=== PATIENT | female | born 1950 | race African-American/Black ===

== ENCOUNTER 2017-07-18 08:20 | Inpatient (IN) | payer OTHER ==
[2017-07-18] MEDS ORDERED: DEXAMETHASONE SOD PHOSPHATE 20 MG/5 ML VIAL IVPB ONE (08:43)
--- NOTE | 2017-07-18 08:59 | PDOC ---
History of Present Illness - General History Source: Patient Exam Limitations: No Limitations - History of Present Illness Initial Comments: 07/18/17 13:03 The patient is a 66-year-old female, with a significant past medical history of hypertension, peripheral vascular disease, depression, and CVA who presents to the ED with tongue swelling that began at 7:15 AM. The pt states that she woke up this morning to brush her teeth and noted that her tongue was swollen. She reports feeling shortness of breath. She denies any recent changes in her diet or medications. This is the first time this has happened to the pt. Pt called EMS because the swelling was progressively worsening. Pt is on an PADMINI-I for years, she took her last dose last night. She denies any headache or weakness. She denies any fever, chills, nausea, vomiting, diarrhea, or abdominal pain. PCP: Dr. Kendell Mcghee Hx: She denies any tobacco use, alcohol use, or drug use. Allergies: blueberry, raspberry, strawberry, erythromycin base, and naproxen. <Yessenia Lopez - Last Filed: 07/18/17 13:03> <Lidia Germain - Last Filed: 07/19/17 18:40> - General Chief Complaint: Tongue Swelling Stated Complaint: SWOLLEN TONGUE Time Seen by Provider: 07/18/17 08:32 Past History <Yessenia Lopez - Last Filed: 07/18/17 13:03> - Past Medical History CVA: Yes COPD: No Diabetes: Yes HTN: Yes Psychiatric Problems: Yes (Depressive disorder) - Surgical History Cholecystectomy: Yes - Immunization History Immunization Up to Date: Yes - Suicide/Smoking/Psychosocial Hx Smoking History: Never smoked Have you smoked in the past 12 months: No Hx Alcohol Use: No Drug/Substance Use Hx: No Substance Use Type: None Hx Substance Use Treatment: No <Lidia Germain - Last Filed: 07/19/17 18:40> - Past Medical History Allergies/Adverse Reactions: Allergies Allergy/AdvReac Type Severity Reaction Status Date / Time lisinopril Allergy Severe Swelling Verified 07/18/17 12:50 blueberry Allergy Verified 07/18/17 08:22 erythromycin base Allergy Verified 07/18/17 08:22 naproxen Allergy Verified 07/18/17 08:22 raspberry Allergy Verified 07/18/17 08:22 strawberry Allergy Verified 07/18/17 08:22 Home Medications: Ambulatory Orders Amlodipine Besylate 10 mg PO DAILY 07/18/17 Ammonium Lactate Cream [Lac-Hydrin 12% Cream -] 1 applic TP DAILY 07/18/17 Aspirin/Dipyridamole [Aspirin-Dipyridam ER 25-200 mg] 1 each PO DAILY 07/18/17 Bacitracin - [Bacitracin Topical Ointment -] 1 applic TP DAILY 07/18/17 Budesonide/Formeterol Fumarate [SYMBICORT 160/4.5mcg -] 1 inh PO BID 07/18/17 Calcium Carbonate/Vitamin D3 [Oyster Shell Calcium-Vit D Tab] 1 each PO BID Exenatide [Byetta] 10 mcg SQ BID 07/18/17 Famotidine 20 mg PO DAILY 07/18/17 Fluoxetine HCl 10 mg PO DAILY 07/18/17 Hypromellose 0.5% Opth Soln [Artificial Tears] 1 drop OU DAILY 07/18/17 Insulin Regular, Human [Humulin R U-500 Kwikpen] 40 unit SQ 1200 07/18/17 Insulin Regular, Human [Humulin R U-500 Kwikpen] 80 unit SQ ACDIN 07/18/17 Insulin Regular, Human [Humulin R U-500 Kwikpen] 120 unit SQ ACBK 07/18/17 Levetiracetam 500 mg PO BID 07/18/17 Melatonin 1.5 mg PO HS 07/18/17 Metformin HCl [Metformin HCl ER] 1,000 mg PO BID 07/18/17 Nortriptyline HCl 75 mg PO HS 07/18/17 Nystatin [Nystop] 60 gm TP DAILY 07/18/17 Oxycodone HCl/Acetaminophen [Percocet 5-325 mg Tablet] 2 tab PO TID 07/18/17 Potassium Chloride 40 meq PO DAILY 07/18/17 Pravastatin Sodium [Pravachol -] 80 mg PO DAILY 07/18/17 Prednisolone 1% Ophthalmic [Pred Forte 1% -] 1 ml OS DAILY 07/18/17 Silver Sulfadiazine 1% Top Cr [Silvadene -] 1 applic TP BID 07/18/17 Solifenacin Succinate [Vesicare -] 5 mg PO HS 07/18/17 Hydralazine HCl [Apresoline -] 10 mg PO BID #60 tablet 07/19/17 Review of Systems - Review of Systems Able to Perform ROS?: Yes Comments:: 07/18/17 13:03 GENERAL/CONSTITUTIONAL: No fever or chills. No weakness. HEAD, EYES, EARS, NOSE AND THROAT: +tongue swelling. No change in vision. No ear pain or discharge. No sore throat. GASTROINTESTINAL: No nausea, vomiting, diarrhea or constipation. GENITOURINARY: No dysuria, frequency, or change in urination. CARDIOVASCULAR: +shortness of breath. No chest pain. RESPIRATORY: No cough, wheezing, or hemoptysis. MUSCULOSKELETAL: No joint or muscle swelling or pain. No neck or back pain. SKIN: No rash NEUROLOGIC: No headache, vertigo, loss of consciousness, or change in strength/ sensation. ENDOCRINE: No increased thirst. No abnormal weight change. HEMATOLOGIC/LYMPHATIC: No anemia, easy bleeding, or history of blood clots. ALLERGIC/IMMUNOLOGIC: No hives or skin allergy. <Yessenia Lopez - Last Filed: 07/18/17 13:03> *Physical Exam - Vital Signs Last Vital Signs Temp Pulse Resp BP Pulse Ox 98.2 F 98 H 20 140/74 98 07/18/17 08:27 07/18/17 08:27 07/18/17 08:27 07/18/17 08:27 07/18/17 08:27 - Physical Exam Comments: 07/18/17 13:04 GENERAL: Awake, alert, and fully oriented. Morbidly obese. No acute distress HEAD: No signs of trauma EYES: PERRLA, EOMI, sclera anicteric, conjunctiva clear ENT: +Significant glossal and subglossal watery edema. Unable to visualize posterior oropharynx. +submandibular edema w/o tenderness. No drooling or tripoding. Auricles normal inspection, hearing grossly normal, nares patent. Moist mucosa LUNGS: Breath sounds equal, clear to auscultation bilaterally. No wheezes, and no crackles. HEART: Regular rate and rhythm, normal S1 and S2, no murmurs, rubs or gallops ABDOMEN: Soft, nontender, normoactive bowel sounds. No guarding, no rebound. No masses EXTREMITIES: Normal range of motion, no edema. No clubbing or cyanosis. No cords, erythema, or tenderness BACK: No midline spinal tenderness in cervical/thoracic/lumbar region NEUROLOGICAL: hot-potato speech, cranial nerves intact, negative pronator drift , normal sensation to light touch in all 4 extremities, normal cerebellar exam, SKIN: +Hyperpigmented macules diffusely. No evidence of hives. Warm, Dry, normal turgor. <Yessenia Lopez - Last Filed: 07/18/17 13:03> - Vital Signs Last Vital Signs Temp Pulse Resp BP Pulse Ox 98.2 F 98 H 20 140/74 98 07/18/17 08:27 07/18/17 08:27 07/18/17 08:27 07/18/17 08:27 07/18/17 08:27 <Lidia Germain - Last Filed: 07/19/17 18:40> ED Treatment Course - LABORATORY CBC & Chemistry Diagram: 07/18/17 09:05 07/18/17 09:05 - ADDITIONAL ORDERS Additional order review: Laboratory Results 07/18/17 07/18/17 09:05 09:05 PTT (Actin FS) 31.2 Sodium 137 Potassium 4.6 Chloride 102 Carbon Dioxide 30 Anion Gap 5 L BUN 13 D Creatinine 1.0 D Creat Clearance w eGFR 55.47 Random Glucose 86 D Calcium 9.6 Magnesium 2.0 Total Bilirubin 0.4 AST 55 H D ALT 60 D Alkaline Phosphatase 87 Total Protein 8.6 H Albumin 3.7 07/18/17 09:05 RBC 4.49 MCV 85.7 MCHC 31.3 L RDW 17.2 H MPV 8.3 Neutrophils % 71.0 Lymphocytes % 21.0 D Monocytes % 4.8 Eosinophils % 2.5 D Basophils % 0.7 - Medications Given in the ED: ED Medications Discontinued Medications Generic Name Dose Route Start Last Admin Trade Name Freq PRN Reason Stop Dose Admin Dexamethasone Sodium Phosphate 10 mg 07/18/17 08:43 07/18/17 09:10 Decadron Injection - IVPB 07/18/17 08:44 10 mg ONCE ONE Administration Diphenhydramine HCl 25 mg 07/18/17 08:42 07/18/17 09:10 Benadryl Injection - IVPUSH 07/18/17 08:43 25 mg ONCE ONE Administration <Yessenia Lopez - Last Filed: 07/18/17 13:03> - LABORATORY CBC & Chemistry Diagram: 07/19/17 06:15 07/19/17 06:15 - RADIOLOGY Radiology Studies Ordered: Category Date Time Status CHEST X-RAY PORTABLE* [RAD] Stat Radiology 07/18/17 08:41 Ordered <Lidia Germain - Last Filed: 07/19/17 18:40> Medical Decision Making - Medical Decision Making 07/18/17 10:27 Dr. Reddy was paged and notified via phone service for follow-up. <Yessenia Lopez - Last Filed: 07/18/17 13:03> - Critical Care Time Total Critical Care Time (minutes): 90 Critical Care Statement: The care of this patient involved high complexity decision making to prevent further life threatening deterioration of the patient 's condition and/or to evaluate & treat vital organ system(s) failure or risk of failure. - Medical Decision Making 07/18/17 08:59 66-year-old female with multiple medical problems presents with likely PADMINI inhibitor related angioedema. Vitals for now stable, pt is on the monitor, O2 sat 100% on 2L. Pt has significant glossal and subglossal edema. Pt will likely need an awake fiberoptic intubation. I have spoken with Dr. Acevedo ([phone]) from anesthesia who will do the awake intubation so long as ENT is present in the OR. I spoke with Dr. Hernandez ([phone]) from ENT who agrees with the plan and is on her way to the ED. States she is 50 minutes away. In the meantime , 4 units of FFP have been ordered, as well as 10 of dex and 25mg benadryl. Suction and advanced airway materials at the bedside, including cric kit. 07/18/17 09:[address] Acevedo to close the loop. He states that he would take the patient to the OR after Dr. Hernandez scopes the pt and determines the patient needs an OR intubation. 07/18/17 09:48 Our charge nurse Angelic spoke with the nursing furnace process supervisor Willy to mobilize an OR team should we need it. Willy states she would mobilized the OR team as soon as she touched base with Dr. Hernandez/Dr. Acevedo. Pt is satting 100% on 2L NC in no acute distress, reports that swelling may have slowed down. 07/18/17 10:03 Dr. Acevedo currently at the bedside evaluating the patient. Recommends racemic epi which the nurse is making right now. Dr. Reddy from ICU aware of patient. 07/18/17 10:05 Dr. Hernandez at the bedside, scoped the patient, pt has no lower airway edema. She recommends pepcid, admission to ICU for close airway monitoring. <Lidia Germain - Last Filed: 07/19/17 18:40> *DC/Admit/Observation/Transfer - Attestations Scribe Attestion: 07/18/17 13:04 Documentation prepared by Yessenia Lopez, acting as medical sociologist for Lidia Germain MD. <Yessenia Lopez - Last Filed: 07/18/17 13:03> - Discharge Dispostion Admit: Yes - Attestations Physician Attestion: 07/18/17 11:03 I, Dr. Lidia Germain MD, attest that this document has been prepared under my direction and personally reviewed by me in its entirety. I further attest, that it accurately reflects all work, treatment, procedures and medical decision -making performed by me. <Lidia Germain - Last Filed: 07/19/17 18:40> Diagnosis at time of Disposition: Angioedema due to angiotensin converting enzyme inhibitor (PADMINI-I) - Discharge Dispostion Disposition: HOME
[2017-07-18] MEDS ORDERED: DEXAMETHASONE SOD PHOSPHATE 10 MG/1 ML VIAL ONE (09:08)
[2017-07-18 09:18] LABS: BASO % 0.7 % (0-2.0); EOS % 2.5 % (0-4.5); MCH 26.9 pg (25.7-33.7); MCHC 31.3 g/dl (32.0-36.0); MEAN CELL VOLUME 85.7 fl (80-96); MEAN PLT VOLUME 8.3 fl (7.5-11.1); PLATELET COUNT 310 K/MM3 (134-434); RDW 17.2 % (11.6-15.6); WHITE BLOOD COUNT 10.6 K/mm3 (4.0-10.0)
[2017-07-18 09:33] LABS: ALBUMIN 3.7 g/dl (3.4-5.0); ANION GAP 5 (8-16); BILIRUBIN,TOTAL 0.4 mg/dL (0.2-1.0); CALCIUM 9.6 mg/dL (8.5-10.1); CO2 30 mmol/L (21-32); GLUCOSE,RANDOM 86 mg/dL (74-106); SGOT/AST 55 U/L (15-37); SGPT/ALT 60 U/L (12-78); TOT PROT 8.6 g/dl (6.4-8.2)
[2017-07-18 09:34] LABS: ALK PHOS 87 U/L (45-117)
[2017-07-18] MEDS ORDERED: RACEPINEPHRINE IH SOL 2.25% 11.25 MG/0.5 ML VIAL NEB ONE (10:05)
[2017-07-18] MEDS ORDERED: RACEPINEPHRINE IH SOL 2.25% 11.25 MG/0.5 ML VIAL IH ONE (10:05)
[2017-07-18] MEDS ORDERED: FAMOTIDINE 20 MG/50 ML IVPB 20 MG/50 ML MG IVPB ONE ×2 (10:13→10:41)
[2017-07-18] MEDS ORDERED: methylPREDNISolone NA SUCC 125 MG/2 ML VIAL IVPB ONE (10:13)
[2017-07-18 10:28] LABS: URINE APPEARANCE SLCLOUDY; URINE BILIRUBIN NEGATIVE (NEGATIVE); URINE BLOOD NEGATIVE (NEGATIVE); URINE COLOR LTYELLOW; URINE GLUCOSE (UA) NEGATIVE (NEGATIVE); URINE KETONE NEGATIVE (NEGATIVE); URINE LEUK ESTERASE NEGATIVE (NEGATIVE); URINE NITRITE NEGATIVE (NEGATIVE); URINE PROTEIN NEGATIVE (NEGATIVE); URINE UROBILINOGEN NEGATIVE mg/dL (0.2-1.0)
[2017-07-18] MEDS ORDERED: methylPREDNISolone NA SUCC 125 MG/2 ML VIAL ONE (10:41)
--- NOTE | 2017-07-18 10:57 | CONSULT ---
Consult - text type - Consultation Consultation Note: CC: tongue swelling HPI: patient is a 66 y/o female with multiple medical problems including HTN who reports progressive tongue swelling this morning until she was started on IV steroids and benadryl in the ER. She denies any SOB, drooling, cough, or hoarseness. Patient reports the last time she took lisinopril was last night. She reports feeling better after getting medication in the ER. She denies any previous history of swelling or PSH: denies SH: she denies any tobacco, alcohol or recreational drug use FH: Patient reports not knowing her family medical history well. Allergy/AdvReac Type Severity Reaction Status Date / Time blueberry Allergy Verified 07/18/17 08:22 erythromycin base Allergy Verified 07/18/17 08:22 naproxen Allergy Verified 07/18/17 08:22 raspberry Allergy Verified 07/18/17 08:22 strawberry Allergy Verified 07/18/17 08:22 Home Medications: Ambulatory Orders Acetaminophen [Tylenol .Regular Strength -] 650 mg PO Q6H PRN 12/10/14 Albuterol Sulfate Inhaler - [Ventolin HFA Inhaler -] 2 inh PO Q4H PRN 12/10/14 Amlodipine Besylate [Norvasc -] 10 mg PO DAILY 12/10/14 Aspirin/Dipyridamole [Aggrenox -] 1 combo PO BID 12/10/14 Bupropion HCl [Wellbutrin -] 75 mg PO DAILY 12/10/14 Calcium Carbonate/Vitamin D3 [Oyster Shell 500-Vit D3 200 Tb] 1 each PO BID 06/16 Dextran 70/Hypromellose/Pf [Artificial Tears Drops] 1 each OU BID 12/10/14 Exenatide [Byetta] 5 mcg SQ BID 12/10/14 Famotidine [Pepcid -] 20 mg PO DAILY 12/10/14 Gabapentin [Neurontin] 400 mg PO DAILY 12/10/14 Levalbuterol HCl [Xopenex] 0.63 mg IH Q4H PRN 12/10/14 Magnesium Hydrox 2400MG/30Ml [Milk Of Magnesia] 30 ml PO DAILY PRN 12/10/14 Simethicone [Gas-X] 1 - 2 mg PO TID PRN 12/10/14 Simvastatin [Zocor -] 20 mg PO HS 12/10/14 Solifenacin Succinate [Vesicare] 5 mg PO HS 12/10/14 Levofloxacin [Levaquin -] 250 mg PO DAILY #7 tablet 12/12/14 *Physical Exam - Vital Signs Last Vital Signs Temp Pulse Resp BP Pulse Ox 98.2 F 98 H 20 140/74 98 07/18/17 08:27 07/18/17 08:27 07/18/17 08:27 07/18/17 08:27 07/18/17 08:27 - Vital Signs Last Vital Signs Temp Pulse Resp BP Pulse Ox 98.2 F 98 H 20 140/74 98 07/18/17 08:27 07/18/17 08:27 07/18/17 08:27 07/18/17 08:27 07/18/17 08:27 PE: Awake , alert, no drooling, No flaring of nostrils EOMI PERRLA Ear auricles, EACs and TMs wnl AU NC: mucosa and inferior turbs: wnl bilaterally, septum wnl OC: Tongue is moderately edematous, FOM soft- no edema, hard palate and buccal mucosa wnl OPx: Patent, uvula wnl (no edema) tonsillar pillars wnl, opx is patent Neck: supple, no edema DFL: nc patent bilaterally. Nasal mucosa and inferior turbs: wnl bilaterally, septum wnl. Npx wnl. Opx wnl. hypophaynx: wnl. Epiglottis arytenois wnl no paryngeal swelling. Larynx: VFs mobile bilaterally. No hypopharyngeal or laryngeal edema. ED Treatment Course - LABORATORY CBC & Chemistry Diagram: 07/18/17 09:05 07/18/17 09:05 - ADDITIONAL ORDERS Additional order review: Laboratory Results 07/18/17 07/18/17 09:05 09:05 PTT (Actin FS) 31.2 Sodium 137 Potassium 4.6 Chloride 102 Carbon Dioxide 30 Anion Gap 5 L BUN 13 D Creatinine 1.0 D Creat Clearance w eGFR 55.47 Random Glucose 86 D Calcium 9.6 Magnesium 2.0 Total Bilirubin 0.4 AST 55 H D ALT 60 D Alkaline Phosphatase 87 Total Protein 8.6 H Albumin 3.7 07/18/17 09:05 RBC 4.49 MCV 85.7 MCHC 31.3 L RDW 17.2 H MPV 8.3 Neutrophils % 71.0 Lymphocytes % 21.0 D Monocytes % 4.8 Eosinophils % 2.5 D Basophils % 0.7 - Medications Given in the ED: ED Medications Discontinued Medications Generic Name Dose Route Start Last Admin Trade Name Mary PRN Reason Stop Dose Admin Dexamethasone Sodium Phosphate 10 mg 07/18/17 08:43 07/18/17 09:10 Decadron Injection - IVPB 07/18/17 08:44 10 mg ONCE ONE Administration Diphenhydramine HCl 25 mg 07/18/17 08:42 07/18/17 09:10 Benadryl Injection - IVPUSH 07/18/17 08:43 25 mg ONCE ONE Administration <Yessenia Lopez - Last Filed: 07/18/17 09:53> - LABORATORY CBC & Chemistry Diagram: 07/18/17 09:05 07/18/17 09:05 - RADIOLOGY Radiology Studies Ordered: Category Date Time Status CHEST X-RAY PORTABLE* [RAD] Stat Radiology 07/18/17 08:41 Ordered A/p: 66 y/o female with angioedema on severiano inhibitor which was last taken as per patient last night. She is stable and improving since admitted to ER. No airway intervention is needed at this time. She has now gotten a total of Benadryl 50mg IV (initially she got 25mg and then another 25mg was given) and has been started on decadron and pepcid. Anesthesia also recommended solumedrol (125mg) and racemic epi,which was also given. She will be admitted to ICU for observation and cont. IV steroids, benadryl and pepcid. If worsens, contact ENT and place nasal trumpet (which should pass easily on either side). Dante Hernandez mobile [phone] office [phone]
--- NOTE | 2017-07-18 11:59 | HP ---
CHIEF COMPLAINT: Tongue Swelling HISTORY OF PRESENT ILLNESS: Ms. Kylie Salians is a 66yo F with PMHx of HTN, COPD, Morbid Obesity, Multiple allergies who presented from Assisted Living to the ER with tongue swelling. She last took her medications yesterday, which included Lisinopril, for which she is on for HTN. She awoke this AM to tongue swelling, and was brought to the ER. She initially presented in respiratory distress, but is now improved now breathing without issues, denies SOB. States she is currently able to swallow her saliva. Previously had facial swelling with certain allergens, but never tongue swelling. Denies any prior episode, or associated family history. She denies other triggers (new medications, new foods, new lotions, pets/pollen). In the ER she was hemodynamically stable but in respiratory distress. She was given IV Dexamethasone, IV Methylprednisone 125, IV Benedryl 50, IV Famotidine, IV Racemic Epinephrine. She was scoped by ENT and found to have mostly supraglottic edema without pharyngeal or hypopharyngeal swelling. She is now getting 5u FFP. Recent Travel: Denies PAST MEDICAL HISTORY: HTN, CAD, IDDM, MDD, HLD, COPD, GERD, Seizure DIsorder PAST SURGICAL HISTORY: Cholecystectomy Social History: Lives at [facility] Smoking: Denies Alcohol: Denies Drugs: Denies Family History: No family history of angioedema Allergies blueberry Allergy (Verified 07/18/17 08:22) erythromycin base Allergy (Verified 07/18/17 08:22) naproxen Allergy (Verified 07/18/17 08:22) raspberry Allergy (Verified 07/18/17 08:22) strawberry Allergy (Verified 07/18/17 08:22) HOME MEDICATIONS: Home Medications Medication Instructions Recorded Amlodipine Besylate 10 mg PO DAILY 07/18/17 Ammonium Lactate Cream [Lac-Hydrin 1 applic TP DAILY 07/18/17 12% *Cream*] Aspirin/Dipyridamole 1 each PO DAILY 07/18/17 [Aspirin-Dipyridam ER 25-200 mg] Bacitracin - [Bacitracin Topical 1 applic TP DAILY 07/18/17 Ointment -] Budesonide/Formeterol Fumarate 1 inh PO BID 07/18/17 [SYMBICORT 160/4.5mcg -] Calcium Carbonate/Vitamin D3 1 each PO BID 07/18/17 [Oyster Shell Calcium-Vit D Tab] Exenatide [Byetta] 10 mcg SQ BID 07/18/17 Famotidine 20 mg PO DAILY 07/18/17 Fluoxetine HCl 10 mg PO DAILY 07/18/17 Hypromellose 0.5% Opth Soln 1 drop OD DAILY 07/18/17 [Artificial Tears] Insulin Regular, Human [Humulin R 40 unit SQ DAILY 07/18/17 U-500 Kwikpen] Insulin Regular, Human [Humulin R 80 unit SQ DAILY 07/18/17 U-500 Kwikpen] Insulin Regular, Human [Humulin R 120 unit SQ DAILY 07/18/17 U-500 Kwikpen] Lisinopril 10 mg PO DAILY 07/18/17 Melatonin 1.5 mg PO HS 07/18/17 Nortriptyline HCl [Pamelor] 75 mg PO HS 07/18/17 Nystatin [Nystop] 60 gm TP DAILY 07/18/17 Pravastatin Sodium [Pravachol (Nf)] 80 mg PO DAILY 07/18/17 Solifenacin Succinate [Vesicare -] 5 mg PO HS 07/18/17 REVIEW OF SYSTEMS CONSTITUTIONAL: Absent: fever, chills, diaphoresis, generalized weakness, malaise, loss of appetite, weight change HEENT: Absent: rhinorrhea, nasal congestion, throat pain, throat swelling, difficulty swallowing, mouth swelling, ear pain, eye pain, visual changes CARDIOVASCULAR: Absent: chest pain, syncope, palpitations, irregular heart rate, lightheadedness , peripheral edema RESPIRATORY: Absent: cough, shortness of breath, dyspnea with exertion, orthopnea, wheezing, stridor, hemoptysis GASTROINTESTINAL: Absent: abdominal pain, abdominal distension, nausea, vomiting, diarrhea, constipation, melena, hematochezia GENITOURINARY: Absent: dysuria, frequency, urgency, hesitancy, hematuria, flank pain, genital pain MUSCULOSKELETAL: Absent: myalgia, arthralgia, joint swelling, back pain, neck pain SKIN: Absent: rash, itching, pallor HEMATOLOGIC/IMMUNOLOGIC: Absent: easy bleeding, easy bruising, lymphadenopathy, frequent infections ENDOCRINE: Absent: unexplained weight gain, unexplained weight loss, heat intolerance, cold intolerance NEUROLOGIC: Absent: headache, focal weakness or paresthesias, dizziness, unsteady gait, seizure, mental status changes, bladder or bowel incontinence PSYCHIATRIC: Absent: anxiety, depression, suicidal or homicidal ideation, hallucinations. PHYSICAL EXAMINATION Vital Signs Temperature 98.6 F 07/18/17 11:20 Pulse Rate 95 H 07/18/17 11:20 Respiratory Rate 20 07/18/17 08:27 Blood Pressure 144/65 07/18/17 11:20 O2 Sat by Pulse Oximetry (%) 100 07/18/17 11:20 GEN: AAOx2, NAD, Lying comfortably, speaking in full sentences, easily audible and understandable, not in resp distress, no audible stridor HEENT: PERRLA, EOMi, Minimal if at all facial swelling, increased neck circumference 2/2 obesity CV: S1, S2, RRR, +2/6 systolic murmur at RUSB LUNG: CTABL ABD: Obese, soft, mild diffuse tenderness (attributes it to constipation) MSK: +1 pitting edema bilaterally with venous stasis NEURO: CN 2-12 intact, MSK intact, sensation intact Laboratory Last Values WBC 10.6 K/mm3 (4.0-10.0) H 07/18/17 09:05 RBC 4.49 M/mm3 (3.60-5.2) 07/18/17 09:05 Hgb 12.1 GM/dL (10.7-15.3) 07/18/17 09:05 Hct 38.5 % (32.4-45.2) 07/18/17 09:05 MCV 85.7 fl (80-96) 07/18/17 09:05 MCH 26.9 pg (25.7-33.7) 07/18/17 09:05 MCHC 31.3 g/dl (32.0-36.0) L 07/18/17 09:05 RDW 17.2 % (11.6-15.6) H 07/18/17 09:05 Plt Count 310 K/MM3 (134-434) D 07/18/17 09:05 MPV 8.3 fl (7.5-11.1) 07/18/17 09:05 Neutrophils % 71.0 % (42.8-82.8) 07/18/17 09:05 Lymphocytes % 21.0 % (8-40) D 07/18/17 09:05 Monocytes % 4.8 % (3.8-10.2) 07/18/17 09:05 Eosinophils % 2.5 % (0-4.5) D 07/18/17 09:05 Basophils % 0.7 % (0-2.0) 07/18/17 09:05 PTT (Actin FS) 31.2 SECONDS (26.9-34.4) 12 09:05 Sodium 137 mmol/L (136-145) 07/18/17 09:05 Potassium 4.6 mmol/L (3.5-5.1) 07/18/17 09:05 Chloride 102 mmol/L (98-107) 07/18/17 09:05 Carbon Dioxide 30 mmol/L (21-32) 07/18/17 09:05 Anion Gap 5 (8-16) L 07/18/17 09:05 BUN 13 mg/dL (7-18) D 07/18/17 09:05 Creatinine 1.0 mg/dL (0.55-1.02) D 07/18/17 09:05 Creat Clearance w eGFR 55.47 (>60) 07/18/17 09:05 Random Glucose 86 mg/dL (74-106) D 07/18/17 09:05 Calcium 9.6 mg/dL (8.5-10.1) 07/18/17 09:05 Magnesium 2.0 mg/dL (1.8-2.4) 07/18/17 09:05 Total Bilirubin 0.4 mg/dL (0.2-1.0) 07/18/17 09:05 AST 55 U/L (15-37) H D 07/18/17 09:05 ALT 60 U/L (12-78) D 07/18/17 09:05 Alkaline Phosphatase 87 U/L (45-117) 07/18/17 09:05 Total Protein 8.6 g/dl (6.4-8.2) H 07/18/17 09:05 Albumin 3.7 g/dl (3.4-5.0) 07/18/17 09:05 Urine Color Ltyellow 07/18/17 09:55 Urine Appearance Slcloudy 07/18/17 09:55 Urine pH 5.0 (5.0-8.0) 07/18/17 09:55 Ur Specific [place] 1.016 (1.001-1.035) 07/18/17 09:55 Urine Protein Negative (NEGATIVE) 07/18/17 09:55 Urine Glucose (UA) Negative (NEGATIVE) 07/18/17 09:55 Urine Ketones Negative (NEGATIVE) 07/18/17 09:55 Urine Blood Negative (NEGATIVE) 07/18/17 09:55 Urine Nitrite Negative (NEGATIVE) 07/18/17 09:55 Urine Bilirubin Negative (NEGATIVE) 07/18/17 09:55 Urine Urobilinogen Negative mg/dL (0.2-1.0) 07/18/17 09:55 Blood Type O POSITIVE 07/18/17 09:40 Antibody Screen Negative 07/18/17 09:05 Home Medication List Medication Instructions Recorded Confirmed Type Amlodipine Besylate 10 mg PO DAILY 07/18/17 07/18/17 History Ammonium Lactate Cream [Lac-Hydrin 1 applic TP DAILY 07/18/17 07/18/17 History 12% *Cream*] Aspirin/Dipyridamole 1 each PO DAILY 07/18/17 07/18/17 History [Aspirin-Dipyridam ER 25-200 mg] Bacitracin - [Bacitracin Topical 1 applic TP DAILY 07/18/17 07/18/17 History Ointment -] Budesonide/Formeterol Fumarate 1 inh PO BID 07/18/17 07/18/17 History [SYMBICORT 160/4.5mcg -] Calcium Carbonate/Vitamin D3 1 each PO BID 07/18/17 07/18/17 History [Oyster Shell Calcium-Vit D Tab] Exenatide [Byetta] 10 mcg SQ BID 07/18/17 07/18/17 History Famotidine 20 mg PO DAILY 07/18/17 07/18/17 History Fluoxetine HCl 10 mg PO DAILY 07/18/17 07/18/17 History Hypromellose 0.5% Opth Soln 1 drop OU DAILY 07/18/17 07/18/17 History [Artificial Tears] Insulin Regular, Human [Humulin R 40 unit SQ 1200 07/18/17 07/18/17 History U-500 Kwikpen] Insulin Regular, Human [Humulin R 80 unit SQ ACDIN 07/18/17 07/18/17 History U-500 Kwikpen] Insulin Regular, Human [Humulin R 120 unit SQ ACBK 07/18/17 07/18/17 History U-500 Kwikpen] Levetiracetam 500 mg PO BID 07/18/17 07/18/17 History Lisinopril 10 mg PO DAILY 07/18/17 07/18/17 History Melatonin 1.5 mg PO HS 07/18/17 07/18/17 History Metformin HCl [Metformin HCl ER] 1,000 mg PO BID 07/18/17 07/18/17 History Nortriptyline HCl [Pamelor] 75 mg PO HS 07/18/17 07/18/17 History Nystatin [Nystop] 60 gm TP DAILY 07/18/17 07/18/17 History Oxycodone HCl/Acetaminophen 2 tab PO TID 07/18/17 07/18/17 History [Percocet 5-325 mg Tablet] Potassium Chloride 40 meq PO DAILY 07/18/17 07/18/17 History Pravastatin Sodium [Pravachol (Nf)] 80 mg PO DAILY 07/18/17 07/18/17 History Prednisolone 1% Ophthalmic [Pred 1 ml OS DAILY 07/18/17 07/18/17 History Forte 1% -] Silver Sulfadiazine 1% Top Cr 1 applic TP BID 07/18/17 07/18/17 History [Silvadene -] Solifenacin Succinate [Vesicare -] 5 mg PO HS 07/18/17 07/18/17 History Active Medications Generic Name Dose Route Start Last Admin Trade Name Freq PRN Reason Stop Dose Admin Acetaminophen 650 mg 07/18/17 13:29 Tylenol - PO Q8H PRN PAIN Amlodipine Besylate 10 mg 07/19/17 10:00 Norvasc - PO DAILY [facility] Artificial Tears 1 drop 07/19/17 10:00 Artificial Tears OD DAILY [facility] Atorvastatin Calcium 20 mg 07/18/17 22:00 Lipitor - PO HS [facility] Budesonide/Formoterol Fumarate 1 puff 07/18/17 22:00 Symbicort 160/4.5mcg - IH BID [facility] Chlorhexidine Gluconate 1 applic 07/18/17 22:00 Hibiclens For Decolonization - TP HS [facility] Diphenhydramine HCl 25 mg 07/19/17 10:00 Benadryl Injection - IVPUSH BID [facility] Dipyridamole/Aspirin 1 combo 07/18/17 22:00 Aggrenox - PO BID [facility] Fluoxetine HCl 10 mg 07/19/17 10:00 Prozac - PO DAILY [facility] Heparin Sodium (Porcine) 5,000 unit 07/18/17 14:00 07/18/17 16:43 Heparin - SQ 5,000 unit TID [facility] Administration Hydralazine HCl 10 mg 07/18/17 22:00 Apresoline - PO BID [facility] Famotidine 20 mg in 12 mls @ 144 mls/hr 07/18/17 22:00 Pepcid 20 Mg/12 Ml Push IVPUSH BID [facility] Insulin Aspart 1 vial 07/18/17 16:30 07/18/17 16:40 Novolog Vial Sliding Scale - SQ Not Given ACHS [facility] Protocol Levetiracetam 500 mg 07/18/17 22:00 Keppra - PO BID [facility] Melatonin 1.5 mg 07/18/17 22:00 Melatonin PO HS [facility] Methylprednisolone Sodium Succinate 40 mg 07/18/17 22:00 Solu-Medrol - IVPUSH BID [facility] Mupirocin 1 applic 07/18/17 22:00 Bactroban Ointment (For Decolonization) - NS 07/23/17 21:59 BID [facility] Nortriptyline HCl 75 mg 07/18/17 22:00 Pamelor - PO HS [facility] Oxycodone HCl 10 mg 07/18/17 13:29 Roxicodone - PO Q8H PRN PAIN Senna/Docusate Sodium 2 tablet 07/18/17 19:26 Pericolace - PO HS PRN CONSTIPATION Solifenacin 5 mg 07/18/17 22:00 Vesicare - PO [facility] ASSESSMENT/PLAN: Ms. Kylie Salinas is a 66yo F with PMHx of HTN, COPD, Morbid Obesity, Multiple allergies, on home Lisinopril who presented from Assisted Living to the ER with tongue swelling, likely ACEi induced angioedema # ACEi Induced Angioedema - Likely secondary to ACEi usage, has chronically taken Lisinopril for for HTN. Will d/c now. Added to allergy list. S/p IV Medrol 125 daily, Benedryl, Famotidine, Racemic Epi, currently getting FFP 5u. Continue IV Medrol 40mg BID. IV Famotidine 20mg BID. IV Benedryl 25mg BID. Monitor in ICU for respiratory compromise. Pt is full code. Passed bedside swallow eval, will put on regular diet. Pt has multiple allergies which leads to facial swelling (not tongue swelling), but likely needs outpatient eval for C1 esterase deficiency to r/o hereditary angioedema. Cannot order in hospital. # Constipation - Sennoside PRN # HTN - Can continue Norvasc 10mg daily. Since discontinuing ACEi, will also add Hydralazine 10mg BID with BP paremeters # IDDM - Hold oral hypoglycemics, start ISS ACHS. # COPD - Not in exacerbation, can continue Symbicort # Seizure Disorder - Can continue Keppra 500 BID # Hx of CAD - Continue ASA/Plavix # MDD - Continue Prozac 10 daily, Nortryptilline 75 daily # Overactive Bladder - Continue Vesicare 5mg HS # HLD - Continue Lipitor 20mg HS # FEN - No IVF, elec wnl, NPO for now until re-evaluation # PPx - HSQ TID, already on Famotidine, PT ordered # Code Status - Full code # Dispo - Admit to ICU for respiratory monitoring. Will likely transfer out of ICU team d/w Dr Stanislaw Silva MD - PGY1 Internal Medicine Resident Visit type - Emergency Visit Emergency Visit: No - New Patient This patient is new to me today: No - Critical Care Critical Care patient: No
[2017-07-18] MEDS ORDERED: oxyCODONE HCL 5 MG TABLET PO PRN (13:29)
[2017-07-18] MEDS ORDERED: ACETAMINOPHEN 325 MG TABLET (FP) PO PRN (13:29)
[2017-07-18 14:00] VITALS: BMI 53.6
--- NOTE | 2017-07-18 15:03 | CONSULT ---
Consult - text type - Consultation Consultation Note: Pulm/CCM CC: tongue swelling HPI: Briefly Ms Kylie Salinas is a 66yo woman with PMHx of HTN, COPD, DM, Sz disorder, Morbid Obesity, with multiple allergies (mostly food) who presented to ED w/ tongue swelling which started this AM. Pt relates took medications normally yesterday, awoke this morning and had difficulty brushing her teeth due to glottis swelling. She was apparently SOB, hemodynamically stable, with notable upper airway swelling. There was no stridor but there was concern for airway compromise. There was plan for possible fiber optic intubation in OR but pt responded well to IV Dexamethasone, IV Methylprednisone 125, IV Benedryl 50, IV Famotidine, IV Racemic Epinephrine. She was scoped by ENT and found to have mostly supraglottic edema without pharyngeal or hypopharyngeal swelling. Intubation was deferred. She was ordered FFP as well, she is now s/p 1 U. Pt denies Cxpn, current SOB, new medications, new exposure, sick contacts, trauma. Labs were unrevealing, wbc 10, 2.5% Eos. Ua negative. Chemistries without apparent acute process. Pt was transferred to ICU for overnight airway monitoring. 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 CVA Cardio/Vascular HTN Psych Depression Endocrine Diabetes Mellitus Smoking History Smoking history Never smoked Alcohol/Substance Use Hx Alcohol Use No Social History Usual Living Arrangement Custodial ADL Independent History of Recent Travel No Home Medications Medication Instructions Recorded Amlodipine Besylate 10 mg PO DAILY 07/18/17 Ammonium Lactate Cream [Lac-Hydrin 1 applic TP DAILY 07/18/17 12% *Cream*] Aspirin/Dipyridamole 1 each PO DAILY 07/18/17 [Aspirin-Dipyridam ER 25-200 mg] Bacitracin - [Bacitracin Topical 1 applic TP DAILY 07/18/17 Ointment -] Budesonide/Formeterol Fumarate 1 inh PO BID 07/18/17 [SYMBICORT 160/4.5mcg -] Calcium Carbonate/Vitamin D3 1 each PO BID 07/18/17 [Oyster Shell Calcium-Vit D Tab] Exenatide [Byetta] 10 mcg SQ BID 07/18/17 Famotidine 20 mg PO DAILY 07/18/17 Fluoxetine HCl 10 mg PO DAILY 07/18/17 Hypromellose 0.5% Opth Soln 1 drop OU DAILY 07/18/17 [Artificial Tears] Insulin Regular, Human [Humulin R 40 unit SQ 1200 07/18/17 U-500 Kwikpen] Insulin Regular, Human [Humulin R 80 unit SQ ACDIN 07/18/17 U-500 Kwikpen] Insulin Regular, Human [Humulin R 120 unit SQ ACBK 07/18/17 U-500 Kwikpen] Levetiracetam 500 mg PO BID 07/18/17 Lisinopril 10 mg PO DAILY 07/18/17 Melatonin 1.5 mg PO HS 07/18/17 Metformin HCl [Metformin HCl ER] 1,000 mg PO BID 07/18/17 Nortriptyline HCl [Pamelor] 75 mg PO HS 07/18/17 Nystatin [Nystop] 60 gm TP DAILY 07/18/17 Oxycodone HCl/Acetaminophen 2 tab PO TID 07/18/17 [Percocet 5-325 mg Tablet] Potassium Chloride 40 meq PO DAILY 07/18/17 Pravastatin Sodium [Pravachol (Nf)] 80 mg PO DAILY 07/18/17 Prednisolone 1% Ophthalmic [Pred 1 ml OS DAILY 07/18/17 Forte 1% -] Silver Sulfadiazine 1% Top Cr 1 applic TP BID 07/18/17 [Silvadene -] Solifenacin Succinate [Vesicare -] 5 mg PO HS 07/18/17 Current Medications Acetaminophen (Tylenol -) 650 mg PO Q8H PRN PRN Reason: PAIN Amlodipine Besylate (Norvasc -) 10 mg PO DAILY [facility] Artificial Tears (Artificial Tears) 1 drop OD DAILY [facility] Atorvastatin Calcium (Lipitor -) 20 mg PO HS [facility] Bacitracin (Bacitracin -) 1 applic TP DAILY [facility] Budesonide/Formoterol Fumarate (Symbicort 160/4.5mcg -) 1 puff IH BID [facility] Chlorhexidine Gluconate (Hibiclens For Decolonization -) 1 applic TP HS [facility] Diphenhydramine HCl (Benadryl Injection -) 25 mg IVPUSH BID [facility] Fluoxetine HCl (Prozac -) 10 mg PO DAILY [facility] Heparin Sodium (Porcine) (Heparin -) 5,000 unit SQ TID [facility] Famotidine (Pepcid 20 Mg/12 Ml Push) 20 mg in 12 mls @ 144 mls/hr IVPUSH BID [facility] Insulin Aspart (Novolog Vial Sliding Scale -) 1 vial SQ ACHS [facility] PRN Reason: Protocol Lactic Acid (Lac-Hydrin 12) 1 applic TP DAILY [facility] Levetiracetam (Keppra -) 500 mg PO BID [facility] Melatonin (Melatonin) 1.5 mg PO HS [facility] Methylprednisolone Sodium Succinate (Solu-Medrol -) 40 mg IVPUSH BID [facility] Mupirocin (Bactroban Ointment (For Decolonization) -) 1 applic NS BID [facility] Stop: 07/23/17 21:59 Nortriptyline HCl (Pamelor -) 75 mg PO HS [facility] Nystatin (Nystop Powder -) 1 applic TP DAILY [facility] Oxycodone HCl (Roxicodone -) 10 mg PO Q8H PRN PRN Reason: PAIN Prednisolone Acetate (Pred Forte 1% -) 1 drop OU DAILY [facility] Silver Sulfadiazine (Silvadene -) 1 applic TP BID [facility] Solifenacin (Vesicare -) 5 mg PO HS [facility] CBCD WBC 10.6 K/mm3 (4.0-10.0) H 07/18/17 09:05 RBC 4.49 M/mm3 (3.60-5.2) 07/18/17 09:05 Hgb 12.1 GM/dL (10.7-15.3) 07/18/17 09:05 Hct 38.5 % (32.4-45.2) 07/18/17 09:05 MCV 85.7 fl (80-96) 07/18/17 09:05 MCHC 31.3 g/dl (32.0-36.0) L 07/18/17 09:05 RDW 17.2 % (11.6-15.6) H 07/18/17 09:05 Plt Count 310 K/MM3 (134-434) D 07/18/17 09:05 MPV 8.3 fl (7.5-11.1) 07/18/17 09:05 CMP Sodium 137 mmol/L (136-145) 07/18/17 09:05 Potassium 4.6 mmol/L (3.5-5.1) 07/18/17 09:05 Chloride 102 mmol/L (98-107) 07/18/17 09:05 Carbon Dioxide 30 mmol/L (21-32) 07/18/17 09:05 Anion Gap 5 (8-16) L 07/18/17 09:05 BUN 13 mg/dL (7-18) D 07/18/17 09:05 Creatinine 1.0 mg/dL (0.55-1.02) D 07/18/17 09:05 Creat Clearance w eGFR 55.47 (>60) 07/18/17 09:05 Calcium 9.6 mg/dL (8.5-10.1) 07/18/17 09:05 Total Bilirubin 0.4 mg/dL (0.2-1.0) 07/18/17 09:05 AST 55 U/L (15-37) H D 07/18/17 09:05 ALT 60 U/L (12-78) D 07/18/17 09:05 Alkaline Phosphatase 87 U/L (45-117) 07/18/17 09:05 Total Protein 8.6 g/dl (6.4-8.2) H 07/18/17 09:05 Albumin 3.7 g/dl (3.4-5.0) 07/18/17 09:05 Vital Signs Temp 97.7 F 07/18/17 12:35 Pulse 92 H 07/18/17 12:35 Resp 20 07/18/17 08:27 BP 154/85 07/18/17 12:35 Pulse Ox 98 07/18/17 12:35 Intake & Output 07/17/17 07/18/17 07/18/17 23:59 11:59 23:59 Weight 117.934 kg 124.738 kg Other: Height 5 ft 5 ft Body Mass Index (BMI) 50.8 53.6 Weight Measurement Method Stated by Patient Weight Measurement Method Est/Stated by Patient ROS: 10 pt ROS unremarkable except as per HPI CXR: review, no significant infiltrate, no pneumothoraz EKG: reviewed, NSR, no ischemic changes PE: Gen: Eld woman, INAD, resting comfortably in bed HEENT: PERRL, EOMI, slight glottic swelling CV: RRR, distant heart sounds PULM, Clear anterior ABD: Obest Ext: dependent edema, chronic venous changes Neuor: intact, non focal A/ 66 y/o woman with morbid obesity, DM, HTN now with likely ACEI induced angioedema, now resolving P/ -ENT following, appreciate rec, will rescope PRN -Cont H2B, steroid, benadryl -s/p 2 FFP with resolved symptoms, will hold two other units -Fiberoptic intubation if acutely worsens -Glycemic control -Dvt prophy -can start diet if cont to improve -overnight observation, floor in am Miguelito Vásquez ACNP [id number]
[2017-07-18] MEDS: INSULIN SLIDING SCALE (NOVOLOG) 1 VIAL SQ SCH ×2 (16:40→23:32)
[2017-07-18] MEDS: HEPARIN NA (PORCINE) 5,000 UNITS/ML 1ML VIAL SQ SCH ×2 (16:43→22:11)
--- NOTE | 2017-07-18 17:13 | PN ---
Teaching Attending Note Name of Resident: Steven Silva ATTENDING PHYSICIAN STATEMENT I saw and evaluated the patient. I reviewed the resident's note and discussed the case with the resident. I agree with the resident's findings and plan as documented. SUBJECTIVE:66yo F with PMH HTN, morbid obesity, multiple allergies with swelling and COPD presented to the ER with intense swelling of her tongue this AM. assoc with difficulty breathing. has hx of facial swelling after various allergies of lips and areas of face but never of tongue. have been on lisinopril for 1 year with no recent changes. Denies Cp, SOB, fever, chills, N/V /C/D OBJECTIVE: Last Vital Signs Temp Pulse Resp BP Pulse Ox 97.7 F 100 H 18 157/73 95 07/18/17 12:35 07/18/17 14:00 07/18/17 14:00 07/18/17 14:00 07/18/17 15:33 General NAD HEENT minimal tongue swelling, no stridor able to clear her own secretions CV S1 S2 tachycardic Lungs CTA B/L no wheezing/ralse/rhonchi ASSESSMENT AND PLAN: 66yo F with PMH HTN, DM, CVA, morbid obesity, multiple allergies with swelling and COPD presented to the ER with intense swelling of her tongue 1. Angioedema- limited to the tongue due to ACEI. s/p 1 FFP and receiving 2nd FFP. s/p racemic epi, steroids, pepcid and benadryl. larngyscopy done by ENT with patent VC. swelling now reduced and mostly resolved. able to speak in clear sentences. able to clear secretions. requesting to eat. will advance to regular diet. cont solu-medrol and pepcid for 24H. should be evaluated for C1 esterase defiency due to multiple episodes of facial swelling. unable to order in hospital. 2. HTN- uncontrolled. likely to worsen now that acei removed. will start hydralazine 10mg BID 3. Sinus tachycardia- likely due to epinephrine and steroids given. will monitor. no intervention at this time 4. Morbid obesity 5. COPD- no wheezing. no signs of acute exacerbation 6. DM- diabetic diet. cont insulin, iss, BGM 7. CVA- on aggrenox 8. DVT ppx- hep sq 9. MICU monitoring The care of this patient involved high complexity decision making to prevent further life threatening deterioration of the patient's condition and/or to evaluate & treat vital organ system(s) failure or risk of failure. 40 minutes
[2017-07-18] MEDS ORDERED: amLODIPine BESYLATE 10 MG TABLET (FP) PO ONE (17:30)
[2017-07-18] MEDS ORDERED: hydrALAZINE HCL 10 MG TABLET PO SCH (17:45)
[2017-07-18] MEDS ORDERED: PT OWN MED DRAWER 7, Y5N ONE ×2 (18:51→21:46)
[2017-07-18] MEDS ORDERED: SENNOSIDES/DOCUSATE COMBO (SENNA PLUS) TABLET (UD) PO PRN (19:26)
[2017-07-18 19:41] LABS: URINE LEUK ESTERASE Negative (NEGATIVE)
[2017-07-18] MEDS ORDERED: NORTRIPTYLINE HCL 25 MG CAPSULE PO SCH (22:00)
[2017-07-18] MEDS ORDERED: FAMOTIDINE IV 20 MG/12 ML VIAL IVPUSH SCH ×2 (22:00→22:02)
[2017-07-18] MEDS ORDERED: SILVER SULFADIAZINE 1% TOP CREAM 400 GM JAR TP SCH (22:00)
[2017-07-18] MEDS ORDERED: ATORVASTATIN CA 20 MG TABLET (FP) PO SCH (22:00)
[2017-07-18] MEDS ORDERED: MELATONIN 1 MG TABLET PO SCH (22:00)
[2017-07-18] MEDS ORDERED: SOLIFENACIN SUCCINATE 5 MG TAB (FP) PO SCH (22:00)
[2017-07-18] MEDS ORDERED: CHLORHEXIDINE GLUCONATE 4% CLEANSER FOR DECOLONIZATION TP SCH (22:00)
[2017-07-18] MEDS: ASPIRIN/DIPYRIDAMOLE 25 MG/200 MG CAPSULE (FP) PO SCH (22:10)
[2017-07-18] MEDS: hydrALAZINE HCL 10 MG TABLET PO SCH (22:11)
[2017-07-18] MEDS: methylPREDNISolone NA SUCC 40 MG/1 ML VIAL IVPUSH SCH (22:11)
[2017-07-18] MEDS: levETIRAcetam 500 MG TABLET (FP) PO SCH (22:12)
[2017-07-18] MEDS: MUPIROCIN 2% TOPICAL OINTMENT FOR DECOLONIZATION NS SCH (22:17)
[2017-07-18] MEDS: BUDESONIDE/FORMETEROL FUMARATE 160/4.5 mcg INHALER IH SCH (22:18)
[2017-07-19] MEDS: HEPARIN NA (PORCINE) 5,000 UNITS/ML 1ML VIAL SQ SCH ×2 (06:01→15:03)
[2017-07-19] MEDS: INSULIN SLIDING SCALE (NOVOLOG) 1 VIAL SQ SCH ×2 (06:02→11:44)
[2017-07-19 06:34] LABS: BASO % 0.1 % (0-2.0); MCH 27.5 pg (25.7-33.7); MCHC 32.4 g/dl (32.0-36.0); MEAN CELL VOLUME 84.7 fl (80-96); MEAN PLT VOLUME 9.1 fl (7.5-11.1); NEUT % 83.1 % (42.8-82.8); PLATELET COUNT 298 K/MM3 (134-434); RDW 16.8 % (11.6-15.6); WHITE BLOOD COUNT 8.3 K/mm3 (4.0-10.0)
[2017-07-19 06:56] LABS: ALBUMIN 3.3 g/dl (3.4-5.0); ALK PHOS 77 U/L (45-117); ANION GAP 8 (8-16); BILIRUBIN,TOTAL 0.4 mg/dL (0.2-1.0); CALCIUM 8.8 mg/dL (8.5-10.1); CO2 27 mmol/L (21-32); CREATININE 0.8 mg/dL (0.55-1.02); GLUCOSE,RANDOM 209 mg/dL (74-106); PHOSPHOROUS 3.9 mg/dL (2.5-4.9); SGOT/AST 31 U/L (15-37); SGPT/ALT 47 U/L (12-78); TOT PROT 7.7 g/dl (6.4-8.2)
[2017-07-19] MEDS ORDERED: prednisoLONE ACETATE 1% OPHTH SUSP 5 ML BOTTLE OU SCH (10:00)
[2017-07-19] MEDS ORDERED: AMMONIUM LACTATE 12% LOTION 225 GM BOTTLE TP SCH (10:00)
[2017-07-19] MEDS ORDERED: NYSTATIN POWDER 100,000 UNITS/GM - 15 GM TOPICAL POWDER TP SCH (10:00)
[2017-07-19] MEDS ORDERED: FLUoxetine HCL 10 MG CAPSULE (FP) PO SCH (10:00)
[2017-07-19] MEDS ORDERED: amLODIPine BESYLATE 10 MG TABLET (FP) PO SCH (10:00)
[2017-07-19] MEDS ORDERED: BACITRACIN 15 GM TUBE TOPICAL OINTMENT TP SCH (10:00)
[2017-07-19] MEDS ORDERED: ARTIFICIAL TEARS (POLYVINYL ALCOHOL 1.4%) OPTH DROPS OD SCH (10:00)
[2017-07-19] MEDS ORDERED: PT OWN MED DRAWER 7, Y5N ONE (10:13)
[2017-07-19] MEDS: ASPIRIN/DIPYRIDAMOLE 25 MG/200 MG CAPSULE (FP) PO SCH (10:20)
[2017-07-19] MEDS: levETIRAcetam 500 MG TABLET (FP) PO SCH (10:21)
[2017-07-19] MEDS: hydrALAZINE HCL 10 MG TABLET PO SCH (10:21)
[2017-07-19] MEDS: BUDESONIDE/FORMETEROL FUMARATE 160/4.5 mcg INHALER IH SCH (10:22)
[2017-07-19] MEDS: methylPREDNISolone NA SUCC 40 MG/1 ML VIAL IVPUSH SCH (10:22)
[2017-07-19] MEDS: MUPIROCIN 2% TOPICAL OINTMENT FOR DECOLONIZATION NS SCH (10:27)
[2017-07-19 10:36] VITALS: TEMP 97.7
[2017-07-19] MEDS ORDERED: RANITIDINE HCL 150 MG TABLET (FP) PO ONE (11:54)
--- NOTE | 2017-07-19 12:01 | PN ---
Progress Note, Physician History of Present Illness: patient seen and examined at bedside no complaints wants to go home - Current Medication List Current Medications: Active Medications Acetaminophen (Tylenol -) 650 mg PO Q8H PRN PRN Reason: PAIN Last Admin: 07/18/17 22:15 Dose: 650 mg Amlodipine Besylate (Norvasc -) 10 mg PO DAILY [facility] Last Admin: 07/19/17 10:22 Dose: 10 mg Artificial Tears (Artificial Tears) 1 drop OD DAILY [facility] Atorvastatin Calcium (Lipitor -) 20 mg PO HS [facility] Last Admin: 07/18/17 22:10 Dose: 20 mg Budesonide/Formoterol Fumarate (Symbicort 160/4.5mcg -) 1 puff IH BID [facility] Last Admin: 07/19/17 10:22 Dose: 1 puff Chlorhexidine Gluconate (Hibiclens For Decolonization -) 1 applic TP [facility] Last Admin: 07/18/17 22:18 Dose: 1 applic Diphenhydramine HCl (Benadryl Injection -) 25 mg IVPUSH BID [facility] Dipyridamole/Aspirin (Aggrenox -) 1 combo PO BID [facility] Last Admin: 07/19/17 10:20 Dose: 1 combo Fluoxetine HCl (Prozac -) 10 mg PO DAILY [facility] Last Admin: 07/19/17 10:23 Dose: 10 mg Heparin Sodium (Porcine) (Heparin -) 5,000 unit SQ TID [facility] Last Admin: 07/19/17 06:01 Dose: 5,000 unit Hydralazine HCl (Apresoline -) 10 mg PO BID [facility] Last Admin: 07/19/17 10:21 Dose: 10 mg Insulin Aspart (Novolog Vial Sliding Scale -) 1 vial SQ ACHS [facility] PRN Reason: Protocol Last Admin: 07/19/17 11:44 Dose: 6 units Levetiracetam (Keppra -) 500 mg PO BID [facility] Last Admin: 07/19/17 10:21 Dose: 500 mg Melatonin (Melatonin) 1.5 mg PO [facility] Last Admin: 07/18/17 22:18 Dose: 1.5 mg Methylprednisolone Sodium Succinate (Solu-Medrol -) 40 mg IVPUSH BID [facility] Last Admin: 07/19/17 10:22 Dose: 40 mg Mupirocin (Bactroban Ointment (For Decolonization) -) 1 applic NS BID [facility] Stop: 07/23/17 21:59 Last Admin: 07/19/17 10:27 Dose: 1 applic Nortriptyline HCl (Pamelor -) 75 mg PO HS [facility] Last Admin: 07/18/17 23:40 Dose: 75 mg Oxycodone HCl (Roxicodone -) 10 mg PO Q8H PRN PRN Reason: PAIN Last Admin: 07/18/17 22:12 Dose: 10 mg Ranitidine HCl (Zantac -) 150 mg PO ONCE ONE Stop: 07/19/17 11:55 Senna/Docusate Sodium (Pericolace -) 2 tablet PO HS PRN PRN Reason: CONSTIPATION Solifenacin (Vesicare -) 5 mg PO HS [facility] Last Admin: 07/18/17 22:12 Dose: 5 mg - Objective Vital Signs: Vital Signs Temperature 97.7 F 07/19/17 10:00 Pulse Rate 106 H 07/19/17 10:00 Respiratory Rate 120 H 07/19/17 10:00 Blood Pressure 148/78 07/19/17 10:00 O2 Sat by Pulse Oximetry (%) 99 07/19/17 08:36 Constitutional: Yes: No Distress, Calm, Obese Eyes: Yes: Conjunctiva Clear HENT: Yes: Atraumatic, Other (toungue not edematous. no tonisllar edema. no facial swelling) Neck: Yes: Supple Cardiovascular: Yes: Regular Rate and Rhythm Respiratory: Yes: CTA Bilaterally Gastrointestinal: Yes: Soft, Abdomen, Obese Edema: Yes Edema: LLE: 1+, RLE: 1+ Labs: CBC, BMP 07/19/17 06:15 07/19/17 06:15 Assessment/Plan Problem List: Angioedema secondary to lisinopril history of seizure disorder COPD HTN DM HLD Consitpation overactive bladder continue lipitor HSQ Plan: patient's symptoms have resolved continue norvasc continue ISS continue prozac continue H2 ashleigh for now continue vesicare continue ASA/Plavix tolerating diet Patient to be discharged home by primary team
--- NOTE | 2017-07-19 12:22 | DS ---
Physical Exam: SUBJECTIVE: Patient seen and examined. currently asymptomatic. swelling of tongue resolved. tolerating regular diet. denies Cp, SOB, fever, chills OBJECTIVE: Vital Signs Period Temp Pulse Resp BP Sys/Knox Pulse Ox Last 24 Hr 97.7 F-98.4 F 92-115 16-120 132-180/62-92 95-99 PHYSICAL EXAM GENERAL: The patient is awake, alert, and fully oriented, in no acute distress. HEAD: Normal with no signs of trauma. EYES: PERRL, extraocular movements intact, sclera anicteric, conjunctiva clear. ENT: Ears normal, nares patent, oropharynx clear without exudates, moist mucous membranes. NECK: Trachea midline, full range of motion, supple. LUNGS: Breath sounds equal, clear to auscultation bilaterally, no wheezes, no crackles, no accessory muscle use. HEART: Regular rate and rhythm, S1, S2 without murmur, rub or gallop. ABDOMEN: Soft, nontender, nondistended, normoactive bowel sounds, no guarding, no rebound, no hepatosplenomegaly, no masses. EXTREMITIES: 2+ pulses, warm, well-perfused, no edema. NEUROLOGICAL: Cranial nerves II through XII grossly intact. Normal speech, gait not observed. PSYCH: Normal mood, normal affect. SKIN: Warm, dry, normal turgor, no rashes or lesions noted. LABS Laboratory Results - last 24 hr 07/18/17 07/19/17 07/19/17 09:55 06:15 06:15 WBC 8.3 RBC 3.99 Hgb 11.0 Hct 33.8 MCV 84.7 MCH 27.5 MCHC 32.4 RDW 16.8 H Plt Count 298 MPV 9.1 Neutrophils % 83.1 H Lymphocytes % 13.8 D Monocytes % 3.0 L Eosinophils % 0.0 D Basophils % 0.1 Sodium 137 Potassium 4.6 Chloride 102 Carbon Dioxide 27 Anion Gap 8 BUN 13 Creatinine 0.8 Creat Clearance w eGFR > 60 Random Glucose 209 H D Calcium 8.8 Phosphorus 3.9 Magnesium 2.0 Total Bilirubin 0.4 AST 31 D ALT 47 D Alkaline Phosphatase 77 C-Reactive Protein Total Protein 7.7 Albumin 3.3 L Ur Leukocyte Esterase Negative 07/19/17 06:15 WBC RBC Hgb Hct MCV MCH MCHC RDW Plt Count MPV Neutrophils % Lymphocytes % Monocytes % Eosinophils % Basophils % Sodium Potassium Chloride Carbon Dioxide Anion Gap BUN Creatinine Creat Clearance w eGFR Random Glucose Calcium Phosphorus Magnesium Total Bilirubin AST ALT Alkaline Phosphatase C-Reactive Protein 1.2 H Total Protein Albumin Ur Leukocyte Esterase HOSPITAL COURSE: Date of Admission:07/18/17 Date of Discharge: 07/19/17 ADmitting diagnosis: Angioedema from ACEI pre hospital course 66yo F with PMH HTN, morbid obesity, multiple allergies with swelling and COPD presented to the ER with intense swelling of her tongue this AM. assoc with difficulty breathing. has hx of facial swelling after various allergies of lips and areas of face but never of tongue. have been on lisinopril for 1 year with no recent changes. Denies Cp, SOB, fever, chills, N/V/C/D Subsequent hospital course ADmitted to MICU for airway monitoring. given FFP x2, Solumedrol, pepcid, benadryl. Evaluated by ENT with normal pharynx and no swelling. resolution of symptoms. started on hydralazine for BP management. d/c Assisted living facility Minutes to complete discharge: 40 Discharge Summary Reason For Visit: ANGIODEMA DUE TO PADMINI-I Current Active Problems Angioedema due to angiotensin converting enzyme inhibitor (PADMINI-I) (Acute) COPD (chronic obstructive pulmonary disease) (Chronic) Diabetes (Chronic) HTN (hypertension) (Chronic) Morbid obesity (Chronic) Overactive bladder (Chronic) Seizure (Chronic) Stroke (Chronic) Condition: Guarded - Instructions Diet, Activity, Other Instructions: You were admitted to the hospital due to allergic reaction likely due to your medication, lisinopril Your swelling resolved It is important to remember you have an allergy to this medication and avoid medication in the same class (padmini inhibitors) to prevent a similiar reaction in the future which can be life threatening You should see an loan supervisor for further testing if you have a deficiency causing you to have frequent facial swelling. Information on an loan supervisor has been provided. you were started on a new medication for your blood pressure. This may need to be adjusted to optimize your blood control Follow up with a primary care doctor this week to check your blood pressure. Referrals: Maggie Rdz MD [Primary Care Provider] - - Home Medications Comprehensive Discharge Medication List: Ambulatory Orders Amlodipine Besylate 10 mg PO DAILY 07/18/17 Ammonium Lactate Cream [Lac-Hydrin 12% Cream -] 1 applic TP DAILY 07/18/17 Aspirin/Dipyridamole [Aspirin-Dipyridam ER 25-200 mg] 1 each PO DAILY 07/18/17 Bacitracin - [Bacitracin Topical Ointment -] 1 applic TP DAILY 07/18/17 Budesonide/Formeterol Fumarate [SYMBICORT 160/4.5mcg -] 1 inh PO BID 07/18/17 Calcium Carbonate/Vitamin D3 [Oyster Shell Calcium-Vit D Tab] 1 each PO BID Exenatide [Byetta] 10 mcg SQ BID 07/18/17 Famotidine 20 mg PO DAILY 07/18/17 Fluoxetine HCl 10 mg PO DAILY 07/18/17 Hypromellose 0.5% Opth Soln [Artificial Tears] 1 drop OU DAILY 07/18/17 Insulin Regular, Human [Humulin R U-500 Kwikpen] 40 unit SQ 1200 07/18/17 Insulin Regular, Human [Humulin R U-500 Kwikpen] 80 unit SQ ACDIN 07/18/17 Insulin Regular, Human [Humulin R U-500 Kwikpen] 120 unit SQ ACBK 07/18/17 Levetiracetam 500 mg PO BID 07/18/17 Melatonin 1.5 mg PO HS 07/18/17 Metformin HCl [Metformin HCl ER] 1,000 mg PO BID 07/18/17 Nortriptyline HCl 75 mg PO HS 07/18/17 Nystatin [Nystop] 60 gm TP DAILY 07/18/17 Oxycodone HCl/Acetaminophen [Percocet 5-325 mg Tablet] 2 tab PO TID 07/18/17 Potassium Chloride 40 meq PO DAILY 07/18/17 Pravastatin Sodium [Pravachol -] 80 mg PO DAILY 07/18/17 Prednisolone 1% Ophthalmic [Pred Forte 1% -] 1 ml OS DAILY 07/18/17 Silver Sulfadiazine 1% Top Cr [Silvadene -] 1 applic TP BID 07/18/17 Solifenacin Succinate [Vesicare -] 5 mg PO HS 07/18/17 Hydralazine HCl [Apresoline -] 10 mg PO BID #60 tablet 07/19/17 This patient is new to me today: No Emergency Visit: Yes ED Registration Date: 07/18/17 Care time: The patient presented to the Emergency Department on the above date and was hospitalized for further evaluation of their emergent condition. Critical Care patient: Yes Total Critical Care Time (in minutes): 32 Critical Care Statement: The care of this patient involved high complexity decision making to prevent further life threatening deterioration of the patient 's condition and/or to evaluate & treat vital organ system(s) failure or risk of failure. - Discharge Referral Referred to [facility] Med P.C.: No
--- NOTE | 2017-07-19 13:27 | PN ---
Teaching Attending Note Name of Resident: Renaldo Bonilla ATTENDING PHYSICIAN STATEMENT I saw and evaluated the patient. I reviewed the resident's note and discussed the case with the resident. I agree with the resident's findings and plan as documented. SUBJECTIVE: Pt seen and examined in the ICU. Swelling has resolved. Denies shortness of breath, change in voice or dysphagia. OBJECTIVE: Last Vital Signs Temp Pulse Resp BP Pulse Ox 97.7 F 102 H 18 164/89 99 07/19/17 10:00 07/19/17 12:00 07/19/17 12:00 07/19/17 12:00 07/19/17 08:36 Intake & Output 07/16/17 07/17/17 07/18/17 07/19/17 23:59 23:59 23:59 23:59 Intake Total 813 150 Output Total 500 Balance 313 150 Weight 275 lb 286 lb 2 oz Gen: NAD at rest HEENT: no edema Heart: tachycardic, regular Lung: clear to auscultation Abd: soft, nontender Ext: no edema CBC, BMP 07/19/17 06:15 07/19/17 06:15 Active Medications Acetaminophen (Tylenol -) 650 mg PO Q8H PRN PRN Reason: PAIN Last Admin: 07/18/17 22:15 Dose: 650 mg Amlodipine Besylate (Norvasc -) 10 mg PO DAILY [facility] Last Admin: 07/19/17 10:22 Dose: 10 mg Artificial Tears (Artificial Tears) 1 drop OD DAILY [facility] Last Admin: 07/19/17 12:35 Dose: Not Given Atorvastatin Calcium (Lipitor -) 20 mg PO [facility] Last Admin: 07/18/17 22:10 Dose: 20 mg Budesonide/Formoterol Fumarate (Symbicort 160/4.5mcg -) 1 puff IH BID [facility] Last Admin: 07/19/17 10:22 Dose: 1 puff Chlorhexidine Gluconate (Hibiclens For Decolonization -) 1 applic TP HS [facility] Last Admin: 07/18/17 22:18 Dose: 1 applic Diphenhydramine HCl (Benadryl Injection -) 25 mg IVPUSH BID [facility] Last Admin: 07/19/17 11:58 Dose: 25 mg Dipyridamole/Aspirin (Aggrenox -) 1 combo PO BID [facility] Last Admin: 07/19/17 10:20 Dose: 1 combo Fluoxetine HCl (Prozac -) 10 mg PO DAILY [facility] Last Admin: 07/19/17 10:23 Dose: 10 mg Heparin Sodium (Porcine) (Heparin -) 5,000 unit SQ TID [facility] Last Admin: 07/19/17 06:01 Dose: 5,000 unit Hydralazine HCl (Apresoline -) 10 mg PO BID [facility] Last Admin: 07/19/17 10:21 Dose: 10 mg Insulin Aspart (Novolog Vial Sliding Scale -) 1 vial SQ ACHS [facility] PRN Reason: Protocol Last Admin: 07/19/17 11:44 Dose: 6 units Levetiracetam (Keppra -) 500 mg PO BID [facility] Last Admin: 07/19/17 10:21 Dose: 500 mg Melatonin (Melatonin) 1.5 mg PO HS [facility] Last Admin: 07/18/17 22:18 Dose: 1.5 mg Methylprednisolone Sodium Succinate (Solu-Medrol -) 40 mg IVPUSH BID [facility] Last Admin: 07/19/17 10:22 Dose: 40 mg Mupirocin (Bactroban Ointment (For Decolonization) -) 1 applic NS BID [facility] Stop: 07/23/17 21:59 Last Admin: 07/19/17 10:27 Dose: 1 applic Nortriptyline HCl (Pamelor -) 75 mg PO HS [facility] Last Admin: 07/18/17 23:40 Dose: 75 mg Oxycodone HCl (Roxicodone -) 10 mg PO Q8H PRN PRN Reason: PAIN Last Admin: 07/18/17 22:12 Dose: 10 mg Senna/Docusate Sodium (Pericolace -) 2 tablet PO HS PRN PRN Reason: CONSTIPATION Solifenacin (Vesicare -) 5 mg PO HS [facility] Last Admin: 07/18/17 22:12 Dose: 5 mg ASSESSMENT AND PLAN: Angioedema resolved HTN DM - complete steroid course - antihistamines - continue home meds - DVT prophylaxis - discharge planning
[2017-07-19 14:24] VITALS: BP 175/88; PULSE 100
--- NOTE | 2017-07-20 01:35 | EKG ---
Test Reason : Blood Pressure : / mmHG Vent. Rate : 092 BPM Atrial Rate : 092 BPM P-R Int : 172 ms QRS Dur : 082 ms QT Int : 356 ms P-R-T Axes : 062 004 057 degrees QTc Int : 440 ms NORMAL SINUS RHYTHM CANNOT RULE OUT ANTERIOR INFARCT , AGE UNDETERMINED ABNORMAL ECG WHEN COMPARED WITH ECG OF 11-DEC-2014 13:33, NO SIGNIFICANT CHANGE WAS FOUND Confirmed by SOURAV ANDERS MD ([id number]) on 07/20/2017 1:35:13 AM Referred By: Confirmed By:SOURAV ANDERS MD
== END 2017-07-19 15:38 | disposition home or self-care (01) | DRG 916 ==
LOC: JER 08:20 → JERBED 11:03 → JICU 14:05
PROVIDERS: ADMIT Internal Medicine; ATTEND Internal Medicine
PROC: 30233L1 Transfusion of Nonautologous Fresh Plasma into Peripheral Vein, Percutaneous Approach (ICD-10-PCS; principal; 2017-07-18)
DX: T78.3XXA Angioneurotic edema, initial encounter (principal); Z68.43 Body mass index [BMI] 50.0-59.9, adult; G40.89 Other seizures; T46.4X5A Adverse effect of angiotensin-converting-enzyme inhibitors, initial encounter; E66.01 Morbid (severe) obesity due to excess calories; J44.9 Chronic obstructive pulmonary disease, unspecified; I10 Essential (primary) hypertension; I73.9 Peripheral vascular disease, unspecified; Z86.73 Personal history of transient ischemic attack (TIA), and cerebral infarction without residual deficits; F32.9 Major depressive disorder, single episode, unspecified; Z79.84 Long term (current) use of oral hypoglycemic drugs; Z79.4 Long term (current) use of insulin; Z91.018 Allergy to other foods; N32.81 Overactive bladder; K59.00 Constipation, unspecified
CPT/HCPCS: 36415; 36430; 71010-TC; 80053; 81003; 83735; 84100; 85025; 85730; 86140; 86850; 86900; 86901; 93005; 93010; 99284-25; J1644; P9017

== ENCOUNTER 2018-03-10 07:41 | Inpatient (IN) | payer OTHER ==
[2018-03-10 07:47] VITALS: BMI 53.5
--- NOTE | 2018-03-10 08:08 | PDOC ---
History of Present Illness - General Chief Complaint: Shortness of Breath Stated Complaint: SOB Time Seen by Provider: 03/10/18 07:42 History Source: Patient Exam Limitations: No Limitations - History of Present Illness Initial Comments: 03/10/18 08:18 67 year old female with history of CVA, CHF, COPD, DM, HTN BIBEMS shortness of breath. Pt is from [facility]. The patient reports that she was in her usual state of health yesterday. Woke up this morning approx 5:30 am, she woke up with chest tightness, shortness of breath. No radiation, pain is constant. States that she was coughing clear productive sputum. No fevers, chills. Has not ambulated so cannot tell if dyspnea on exertion. Denies dysuria, abdominal pain, nausea, vomiting. Did endorse some diaphoresis. Did not take any medications today. EMS was activated and pt was brought to the ED. Past History - Past Medical History Allergies/Adverse Reactions: Allergies Allergy/AdvReac Type Severity Reaction Status Date / Time lisinopril Allergy Severe Swelling Verified 03/10/18 08:09 blueberry Allergy Verified 03/10/18 08:09 erythromycin base Allergy Verified 03/10/18 08:09 naproxen Allergy Verified 03/10/18 08:09 raspberry Allergy Verified 03/10/18 08:09 strawberry Allergy Verified 03/10/18 08:09 Home Medications: Ambulatory Orders Acetaminophen [Tylenol -] 1,000 mg PO PRN PRN 03/10/18 Amlodipine Besylate [Norvasc -] 10 mg PO DAILY 03/10/18 Aspirin/Dipyridamole [Aggrenox -] 1 combo PO BID 03/10/18 Budesonide/Formeterol Fumarate [SYMBICORT 160/4.5mcg -] 1 inh PO BID 03/10/18 Calcium Carbonate/Vitamin D3 [Oyster Shell 500-Vit D3 200 Tb] 1 each PO BID 04/19 Exenatide [Byetta] 10 mcg SQ BID 03/10/18 Famotidine [Pepcid] 20 mg PO DAILY 03/10/18 Fluoxetine HCl [Prozac] 10 mg PO DAILY 03/10/18 Hydrochlorothiazide [Hctz -] 25 mg PO DAILY 03/10/18 Insulin Regular, Human [Humulin R U-500 Kwikpen] 0 unit SQ ASDIR 03/10/18 Levetiracetam [Keppra] 500 mg PO BID 03/10/18 Melatonin 1.5 mg PO HS 03/10/18 Metformin HCl [Glucophage] 1,000 mg PO BID 03/10/18 Nortriptyline HCl [Pamelor] 75 mg PO HS 03/10/18 Oxycodone HCl/Acetaminophen [Percocet 5-325 mg Tablet] 2 tab PO TID 03/10/18 Polyvinyl Alcohol [Artificial Tears] 1 drop OD BID 03/10/18 Potassium Chloride 40 meq PO DAILY 03/10/18 Pravastatin Sodium [Pravachol (Nf)] 80 mg PO DAILY 03/10/18 Solifenacin Succinate [Vesicare -] 5 mg PO HS 03/10/18 hydrALAZINE HCL [Apresoline -] 25 mg PO BID 03/10/18 CVA: Yes COPD: No Diabetes: Yes HTN: Yes Psychiatric Problems: Yes (Depressive disorder) - Surgical History Cholecystectomy: Yes - Immunization History Immunization Up to Date: Yes - Suicide/Smoking/Psychosocial Hx Smoking History: Former smoker Have you smoked in the past 12 months: No If you are a former smoker, when did you quit?: 15YRS Information on smoking cessation initiated: No Hx Alcohol Use: No Drug/Substance Use Hx: No Substance Use Type: None Hx Substance Use Treatment: No Review of Systems - Review of Systems Able to Perform ROS?: Yes Comments:: 03/10/18 08:23 GENERAL/CONSTITUTIONAL: No fever or chills. No weakness. HEAD, EYES, EARS, NOSE AND THROAT: No change in vision. No ear pain or discharge. No sore throat. CARDIOVASCULAR: + chest pain, shortness of breath. RESPIRATORY: No cough, wheezing, or hemoptysis. GASTROINTESTINAL: No nausea, vomiting, diarrhea or constipation. GENITOURINARY: No dysuria, frequency, or change in urination. MUSCULOSKELETAL: No joint or muscle swelling or pain. No neck or back pain. SKIN: No rash NEUROLOGIC: No headache, vertigo, loss of consciousness, or change in strength/ sensation. ENDOCRINE: No increased thirst. No abnormal weight change. HEMATOLOGIC/LYMPHATIC: No anemia, easy bleeding, or history of blood clots. ALLERGIC/IMMUNOLOGIC: No hives or skin allergy. *Physical Exam - Vital Signs Last Vital Signs Temp Pulse Resp BP Pulse Ox 98.9 F 109 H 23 129/76 95 03/10/18 07:41 03/10/18 07:41 03/10/18 07:41 03/10/18 07:41 03/10/18 07:41 - Physical Exam Comments: 03/10/18 08:24 GENERAL: Awake, alert, and fully oriented, tachypneic to mid 20s. HEAD: No signs of trauma EYES: EOMI, sclera anicteric, conjunctiva clear ENT: Auricles normal inspection, hearing grossly normal, nares patent NECK: Normal ROM, supple LUNGS: Diminished breath sounds at the bases with scattered expiratory wheezing bilaterally. HEART: Regular rate and rhythm, normal S1 and S2, no murmurs, rubs or gallops ABDOMEN: Soft, nontender,. No guarding, no rebound. No masses EXTREMITIES: Normal range of motion, No clubbing or cyanosis. No cords, erythema , or tenderness. 1+ pitting edema lower extremities bilaterally. NEUROLOGICAL: Cranial nerves II through XII grossly intact. Normal speech SKIN: Warm, Dry, normal turgor, no rashes or lesions noted. Heart Score/ECG Review #1 ECG reviewed & interpreted by me at: 07:50 03/10/18 08:26 NSR 109, no std/david, normal axis, normal intevals, TWI I, aVL, QTC 474 msec ED Treatment Course - LABORATORY CBC & Chemistry Diagram: 03/10/18 08:06 03/10/18 08:06 - RADIOLOGY Radiology Studies Ordered: Category Date Time Status CHEST X-RAY PORTABLE* [RAD] Stat Radiology 03/10/18 07:42 Ordered Medical Decision Making - Medical Decision Making 03/10/18 08:26 A portion of this note was written by my scribe, under my supervision. Vital Signs Temp Pulse Resp BP Pulse Ox 98.9 F 109 H 23 129/76 95 03/10/18 07:41 03/10/18 07:41 03/10/18 07:41 03/10/18 07:41 03/10/18 07:41 Differential includes CHF, COPD, PNA, vs. ACS Labs including blood cultures, troponin, BNP. Duonebs, steroids, IV magnesium. Likely will need antibiotics as well. Pt has chronic hip pains, requesting pain meds. Will give tylenol. Admit. 03/10/18 09:25 CBC, BMP 03/10/18 08:06 03/10/18 08:06 CMP Sodium 136 mmol/L (136-145) 03/10/18 08:06 Potassium 4.4 mmol/L (3.5-5.1) 03/10/18 08:06 Chloride 99 mmol/L (98-107) 03/10/18 08:06 Carbon Dioxide 27 mmol/L (22-28) 03/10/18 08:06 Anion Gap 10 (8-16) 03/10/18 08:06 BUN 13 mg/dl (7-18) 03/10/18 08:06 Creatinine 0.9 mg/dl (0.6-1.3) 03/10/18 08:06 Creat Clearance w eGFR > 60 (>60) 03/10/18 08:06 Random Glucose 235 mg/dl (74-106) H 03/10/18 08:06 Calcium 9.0 mg/dl (8.4-10.2) 03/10/18 08:06 Phosphorus 3.5 mg/dl (2.5-4.6) 03/10/18 08:06 Magnesium 1.6 mg/dL (1.8-2.4) L 03/10/18 08:06 Total Bilirubin 0.6 mg/dl (0.2-1.0) 03/10/18 08:06 AST 52 U/L (10-42) H 03/10/18 08:06 ALT 37 U/L (10-40) 03/10/18 08:06 Alkaline Phosphatase 67 U/L (32-92) 03/10/18 08:06 Troponin I 0.27 ng/ml (0.00-0.06) H 03/10/18 08:06 Total Protein 7.2 g/dl (6.4-8.3) 03/10/18 08:06 Albumin 3.4 g/dl (3.5-5.0) L 03/10/18 08:06 Chest xray demonstrates cardiomegaly and some obscure patchers to left base. Will treat as PNA. Ceftriaxone ordered (pt allergic to erythromycin. Held off from azithromycin). Troponin is elevated. I suspect demand ischemia. However, will need to continue to cycle troponins to r/o NSTEMI. Aspirin was ordered. Case discussed with Dr. Sahni and she accepts the patient. 03/10/18 09:35 Dr. Alvarado paged for consultation. Awaiting response. 03/10/18 09:[address] Alvarado. Agrees with plan for echo. States to continue to trend troponin 03/10/18 13:53 Repeat trop is 0.74. Case discussed with Dr. Alvarado. No intervention as of now. Continue to trend troponins. 03/10/18 17:43 Dr. Cespedes had seen and evaluated the patient. (cards) Pt still continually persistent tachycardic to 110s. Will order a CTA chest to r /o PE. *DC/Admit/Observation/Transfer Diagnosis at time of Disposition: Elevated troponin COPD (chronic obstructive pulmonary disease) Qualifiers: COPD type: unspecified COPD Qualified Code(s): J44.9 - Chronic obstructive pulmonary disease, unspecified PNA (pneumonia) Qualifiers: Pneumonia type: due to unspecified organism Laterality: unspecified laterality Lung location: unspecified part of lung Qualified Code(s): J18.9 - Pneumonia, unspecified organism - Discharge Dispostion Condition at time of disposition: Stable Decision to Admit order: Yes - Referrals Referrals: Beni Ledesma MD [Primary Care Provider] - - Patient Instructions - Post Discharge Activity
[2018-03-10 08:15] LABS: HEMOGLOBIN 10.9 GM/dl (10.7-15.3); RBC 3.98 M/mm3 (3.60-5.2)
[2018-03-10] MEDS ORDERED: predniSONE 20 MG TABLET (UD) PO ONE (08:15)
[2018-03-10] MEDS ORDERED: ALBUTEROL SO4 2.5/IPRATROPIUM 0.5 INH SOL 3 ML VIAL.NEB. NEB ONE ×4 (08:15→16:32)
[2018-03-10] MEDS ORDERED: MAGNESIUM SULF 50% (8.12 MEQ/2 ML-1 GM VIAL) IVPB ONE (08:15)
[2018-03-10 08:18] LABS: HEMATOCRIT 32.9 % (32.4-45.2); MCH 27.2 pg (25.7-33.7); MCHC 32.9 g/dl (32.0-36.0); MEAN CELL VOLUME 82.7 fl (80-96); MEAN PLT VOLUME 8.9 fl (7.5-11.1); PLATELET COUNT 334 K/MM3 (134-434); RDW 17.6 % (11.6-15.6); WHITE BLOOD COUNT 14.9 K/mm3 (4.0-10.8)
[2018-03-10 08:20] LABS: ADD RBC MORPHOLOGY YES
[2018-03-10] MEDS ORDERED: ACETAMINOPHEN 1000 MG/100 ML VIAL (NON FORMULARY) IVPB ONE (08:20)
[2018-03-10 08:21] LABS: ACTIVATED PTT 22.9 SECONDS (25.2-36.5)
[2018-03-10 08:24] LABS: ALBUMIN 3.4 g/dl (3.5-5.0); ALK PHOS 67 U/L (32-92); ANION GAP 10 (8-16); BILIRUBIN,TOTAL 0.6 mg/dl (0.2-1.0); BLOOD UREA NITROGEN 13 mg/dl (7-18); CHLORIDE 99 mmol/L (98-107); CO2 27 mmol/L (22-28); CREATININE 0.9 mg/dl (0.6-1.3); GLUCOSE,RANDOM 235 mg/dl (74-106); MAGNESIUM 1.6 mg/dL (1.8-2.4); PHOSPHOROUS 3.5 mg/dl (2.5-4.6); POTASSIUM 4.4 mmol/L (3.5-5.1); SGOT/AST 52 U/L (10-42); SGPT/ALT 37 U/L (10-40); SODIUM 136 mmol/L (136-145); TOT PROT 7.2 g/dl (6.4-8.3)
[2018-03-10 08:26] LABS: INR 1.22 (0.82-1.09); PROTHROMBIN TIME (PATIENT) 13.6 SEC (10.2-13.0)
[2018-03-10] MEDS ORDERED: CEFTRIAXONE 1,000 MG in DEXTROSE 5%-WATER - 50 ML IVPB ONE (08:29)
[2018-03-10] MEDS ORDERED: MAGNESIUM 1GM/D5W - 2 GM/200 ML IVPB IVPB ONE (08:38)
[2018-03-10] MEDS ORDERED: ACETAMINOPHEN INJECTION 100 ML IVPB ONE (08:38)
[2018-03-10] MEDS ORDERED: ASPIRIN 81 MG CHEWABLE TABLETS PO ONE (08:46)
[2018-03-10] MEDS ORDERED: ASPIRIN 81 MG CHEWABLE TABLETS ONE (09:04)
[2018-03-10] MEDS ORDERED: predniSONE 20 MG TABLET (UD) ONE (09:04)
[2018-03-10] MEDS ORDERED: cefTRIAXone SODIUM 1 GM VIAL ONE ×2 (09:05→20:55)
[2018-03-10 09:32] LABS: ANISOCYTOSIS FEW; PLATELET ESTIMATE ADEQUATE
[2018-03-10 10:22] LABS: PH,URINE 5.5 (4.5-8); URINE APPEARANCE Clear; URINE BILIRUBIN Negative (NEGATIVE); URINE COLOR Amber; URINE GLUCOSE (UA) 1+ (NEGATIVE); URINE KETONE 1+ (NEGATIVE); URINE LEUK ESTERASE Negative (NEGATIVE); URINE NITRITE Negative (NEGATIVE); URINE PROTEIN 1+ (NEGATIVE); URINE UROBILINOGEN 0.2 (0.2-1.0)
[2018-03-10 10:34] LABS: EPI CELLS MODERATE /HPF; URINE BACTERIA FEW /hpf (NEGATIVE); URINE WBC 0-2 (0-5)
[2018-03-10] MEDS ORDERED: SODIUM CHLORIDE 500 ML IV STA (11:16)
[2018-03-10] MEDS ORDERED: HEMOQUE CONTROL SOLUTION ONE (11:57)
[2018-03-10] MEDS ORDERED: HEMOQUE TEST 1 EACH EACH ONE (11:59)
--- NOTE | 2018-03-10 13:56 | ECHO ---
Name: DAY SUSAN NESS Exam:Adult Echocardiogram Study Date: 03/10/2018 10:53 AM Age: 67 yrs Reason For Study: ELEVATED TROPONIN Height: 65 in MMode/2D Measurements & Calculations IVSd: 1.2 cm Ao root diam: 2.9 cm LVIDd: 5.0 cm LA dimension: 3.6 cm LVIDs: 3.6 cm LVPWd: 0.95 cm EDV(Teich): 115.6 ml LVOT diam: 2.0 cm ESV(Teich): 55.4 ml Procedure A complete two-dimensional transthoracic echocardiogram was performed (2D, M-mode, Doppler and color flow Doppler). Left Ventricle The left ventricular size, thickness and function are normal. Ejection Fraction = 55-60%. The left ve ntricular wall motion is normal. Right Ventricle The right ventricle is normal in size and function. Atria Normal left and right atrial size and function. Mitral Valve There is no mitral regurgitation noted. Tricuspid Valve There is trace tricuspid regurgitation. There was insufficient TR detected to calculate RV systolic p ressure. Aortic Valve The aortic valve is trileaflet. There is mild aortic valve thickening. No hemodynamically significant valvular aortic stenosis. No aortic regurgitation is present. Pulmonic Valve There is no pulmonic valvular regurgitation. Great Vessels The aortic root is normal size. Pericardium/Pleura There is no pericardial effusion. Interpretation Summary The left ventricular size, thickness and function are normal. The right ventricle is normal in size and function. There is trace tricuspid regurgitation. MD Nicola Alvarado 03/10/2018 01:55 PM
--- NOTE | 2018-03-10 14:02 | CON.CARD ---
Consult Consult Specialty:: cardiology Referred by:: Dr. Villegas Reason for Consultation:: chest tightness - History of Present Illness Chief Complaint: chest tightness History of Present Illness: 67F h/o CVA, CHF, COPD, DM, HTN presenting with chest tightness, dyspnea. Started at 5:30 am. tightness is in center of chest not radiating. constant tightness which intermittently gets better and worse but has been there. no excerbating or relieving factors. associated with cough with clear sputum. no nausea, diaphoresis. In the ER noted to have infiltrate on CXR, started on IV abx for PNA. Labs significant for leukocytosis, trop 0.27->0.74, BNP 574, lactate 3.1. 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 Cardio/Vascular: Yes: CHF, HTN Pulmonary: Yes: Asthma Psych: Yes: Depression Endocrine: Yes: Diabetes Mellitus - Alcohol/Substance Use Hx Alcohol Use: No - Smoking History Smoking history: Former smoker Have you smoked in the past 12 months: No If you are a former smoker, when did you quit?: 15YRS - Social History Usual Living Arrangement: Correction ADL: Independent History of Recent Travel: No Home Medications - Allergies Allergies/Adverse Reactions: Allergies Allergy/AdvReac Type Severity Reaction Status Date / Time lisinopril Allergy Severe Swelling Verified 03/10/18 08:09 blueberry Allergy Verified 03/10/18 08:09 erythromycin base Allergy Verified 03/10/18 08:09 naproxen Allergy Verified 03/10/18 08:09 raspberry Allergy Verified 03/10/18 08:09 strawberry Allergy Verified 03/10/18 08:09 - Home Medications Home Medications: Ambulatory Orders Acetaminophen [Tylenol -] 1,000 mg PO PRN PRN 03/10/18 Amlodipine Besylate [Norvasc -] 10 mg PO DAILY 03/10/18 Aspirin/Dipyridamole [Aggrenox -] 1 combo PO BID 03/10/18 Budesonide/Formeterol Fumarate [SYMBICORT 160/4.5mcg -] 1 inh PO BID 03/10/18 Calcium Carbonate/Vitamin D3 [Oyster Shell 500-Vit D3 200 Tb] 1 each PO BID 04/19 Exenatide [Byetta] 10 mcg SQ BID 03/10/18 Famotidine [Pepcid] 20 mg PO DAILY 03/10/18 Fluoxetine HCl [Prozac] 10 mg PO DAILY 03/10/18 Hydrochlorothiazide [Hctz -] 25 mg PO DAILY 03/10/18 Insulin Regular, Human [Humulin R U-500 Kwikpen] 0 unit SQ ASDIR 03/10/18 Levetiracetam [Keppra] 500 mg PO BID 03/10/18 Melatonin 1.5 mg PO HS 03/10/18 Metformin HCl [Glucophage] 1,000 mg PO BID 03/10/18 Nortriptyline HCl [Pamelor] 75 mg PO HS 03/10/18 Oxycodone HCl/Acetaminophen [Percocet 5-325 mg Tablet] 2 tab PO TID 03/10/18 Polyvinyl Alcohol [Artificial Tears] 1 drop OD BID 03/10/18 Potassium Chloride 40 meq PO DAILY 03/10/18 Pravastatin Sodium [Pravachol (Nf)] 80 mg PO DAILY 03/10/18 Solifenacin Succinate [Vesicare -] 5 mg PO HS 03/10/18 hydrALAZINE HCL [Apresoline -] 25 mg PO BID 03/10/18 Review of Systems - Review of Systems Constitutional: reports: No Symptoms Eyes: reports: No Symptoms HENT: reports: No Symptoms Neck: reports: No Symptoms Cardiovascular: reports: Chest Pain, Shortness of Breath Respiratory: reports: Cough Gastrointestinal: reports: Abdominal Pain Genitourinary: reports: No Symptoms Musculoskeletal: reports: No Symptoms Integumentary: reports: No Symptoms Neurological: reports: No Symptoms Endocrine: reports: No Symptoms Hematology/Lymphatic: reports: No Symptoms Psychiatric: reports: No Symptoms Vital Signs: Vital Signs Temperature 98.4 F 03/10/18 12:09 Pulse Rate 112 H 03/10/18 13:47 Respiratory Rate 24 03/10/18 13:47 Blood Pressure 148/81 03/10/18 13:47 O2 Sat by Pulse Oximetry (%) 98 03/10/18 13:47 Constitutional: Yes: Well Nourished, No Distress, Calm Eyes: Yes: Conjunctiva Clear, EOM Intact HENT: Yes: Atraumatic, Normocephalic Neck: Yes: Supple, Trachea Midline Respiratory: Yes: Regular, CTA Bilaterally Gastrointestinal: Yes: Normal Bowel Sounds, Soft Cardiovascular: Yes: Regular Rate and Rhythm JVD: No Heart Sounds: Yes: S1, S2 Musculoskeletal: Yes: Back Pain Edema: No Peripheral Pulses WNL: Yes Peripheral Pulses: 2+ Left Doralis Pedis, 2+ Right Dorsalis Pedis Neurological: Yes: Alert, Oriented Psychiatric: Yes: Alert, Oriented - Other Data Labs, Other Data: CBC, BMP 03/10/18 08:06 03/10/18 08:06 INR, PTT INR 1.22 (0.82-1.09) 03/10/18 08:06 Troponin, BNP 03/10/18 03/10/18 03/10/18 08:06 08:06 12:27 Troponin I 0.27 H 0.74 H* B-Natriuretic Peptide 534.60 H Troponin, BNP 03/10/18 03/10/18 03/10/18 08:06 08:06 12:27 Troponin I 0.27 H 0.74 H* B-Natriuretic Peptide 534.60 H Assessment/Plan Echo 03/2018 nl LV/RV size and function, no significant valvular dz EKG 03/2018: CXR: possible infiltrate left base Tele: sinus 100s (+) troponin -likely demand in setting of infection, trend not concerning for ACS -echo today unremarkable Chest tightness, sob - likely in setting of PNA given leukocytosis, possible infiltrate - on IV abx per primary team - received nebs as well, h/o asthma HTN - controlled on current meds, continue DM - manage per primary team
--- NOTE | 2018-03-10 16:49 | EKG ---
Test Reason : Blood Pressure : / mmHG Vent. Rate : 109 BPM Atrial Rate : 109 BPM P-R Int : 150 ms QRS Dur : 086 ms QT Int : 352 ms P-R-T Axes : 074 009 080 degrees QTc Int : 474 ms SINUS TACHYCARDIA OTHERWISE NORMAL ECG WHEN COMPARED WITH ECG OF 18-JUL-2017 10:19, NO SIGNIFICANT CHANGE WAS FOUND Confirmed by BULMARO LARSON MD ([id number]) on 03/10/2018 3:50:04 PM Referred By: DUSTIN PATEL Confirmed By:BULMARO LARSON MD
--- NOTE | 2018-03-10 19:20 | HP ---
Admitting History and Physical - Primary Care Physician PCP: Kevin Sahni - Admission History of Present Illness: 67F h/o CVA, CHF, COPD, DM, HTN presenting with chest tightness, dyspnea. Started at 5:30 am. tightness is in center of chest not radiating. constant tightness which intermittently gets better and worse but has been there. no excerbating or relieving factors. associated with cough with clear sputum. no nausea, diaphoresis. In the ER noted to have infiltrate on CXR, started on IV abx for PNA. Labs significant for leukocytosis, trop 0.27->0.74, BNP 574, lactate 3.1. 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 Cardiovascular: Yes: CHF, HTN Pulmonary: Yes: Asthma Psych: Yes: Depression Endocrine: Yes: Diabetes Mellitus - Smoking History Smoking history: Former smoker Have you smoked in the past 12 months: No If you are a former smoker, when did you quit?: 15YRS - Alcohol/Substance Use Hx Alcohol Use: No - Social History ADL: Independent History of Recent Travel: No Home Medications - Allergies Allergies/Adverse Reactions: Allergies Allergy/AdvReac Type Severity Reaction Status Date / Time lisinopril Allergy Severe Swelling Verified 03/10/18 08:09 blueberry Allergy Verified 03/10/18 08:09 erythromycin base Allergy Verified 03/10/18 08:09 naproxen Allergy Verified 03/10/18 08:09 raspberry Allergy Verified 03/10/18 08:09 strawberry Allergy Verified 03/10/18 08:09 - Home Medications Home Medications: Ambulatory Orders Acetaminophen [Tylenol -] 1,000 mg PO PRN PRN 03/10/18 Amlodipine Besylate [Norvasc -] 10 mg PO DAILY 03/10/18 Aspirin/Dipyridamole [Aggrenox -] 1 combo PO BID 03/10/18 Budesonide/Formeterol Fumarate [SYMBICORT 160/4.5mcg -] 1 inh PO BID 03/10/18 Calcium Carbonate/Vitamin D3 [Oyster Shell 500-Vit D3 200 Tb] 1 each PO BID 04/19 Exenatide [Byetta] 10 mcg SQ BID 03/10/18 Famotidine [Pepcid] 20 mg PO DAILY 03/10/18 Fluoxetine HCl [Prozac] 10 mg PO DAILY 03/10/18 Hydrochlorothiazide [Hctz -] 25 mg PO DAILY 03/10/18 Insulin Regular, Human [Humulin R U-500 Kwikpen] 0 unit SQ ASDIR 03/10/18 Levetiracetam [Keppra] 500 mg PO BID 03/10/18 Melatonin 1.5 mg PO HS 03/10/18 Metformin HCl [Glucophage] 1,000 mg PO BID 03/10/18 Nortriptyline HCl [Pamelor] 75 mg PO HS 03/10/18 Oxycodone HCl/Acetaminophen [Percocet 5-325 mg Tablet] 2 tab PO TID 03/10/18 Polyvinyl Alcohol [Artificial Tears] 1 drop OD BID 03/10/18 Potassium Chloride 40 meq PO DAILY 03/10/18 Pravastatin Sodium [Pravachol (Nf)] 80 mg PO DAILY 03/10/18 Solifenacin Succinate [Vesicare -] 5 mg PO HS 03/10/18 hydrALAZINE HCL [Apresoline -] 25 mg PO BID 03/10/18 Physical Examination Vital Signs: Vital Signs Temperature 98.4 F 03/10/18 16:23 Pulse Rate 114 H 03/10/18 18:25 Respiratory Rate 22 03/10/18 18:25 Blood Pressure 151/67 03/10/18 18:25 O2 Sat by Pulse Oximetry (%) 97 03/10/18 18:25 Constitutional: Yes: Anxious HENT: Yes: Atraumatic Neck: Yes: Supple Cardiovascular: Yes: Regular Rate and Rhythm Respiratory: Yes: Rhonchi Gastrointestinal: Yes: Normal Bowel Sounds Extremities: Yes: WNL Edema: LLE: Trace, RLE: Trace Peripheral Pulses WNL: Yes Neurological: Yes: Alert, Oriented Labs: CBC, BMP 03/10/18 08:06 03/10/18 08:06 Imaging - Results Chest X-ray: Report Reviewed Cat Scan: Report Reviewed Problem List - Problems (1) Elevated troponin Assessment/Plan: will monitor Code(s): R74.8 - ABNORMAL LEVELS OF OTHER SERUM ENZYMES (2) PNA (pneumonia) Assessment/Plan: will start iv abx Code(s): J18.9 - PNEUMONIA, UNSPECIFIED ORGANISM Qualifiers: Pneumonia type: due to unspecified organism Laterality: unspecified laterality Lung location: unspecified part of lung Qualified Code(s): J18.9 - Pneumonia, unspecified organism (3) COPD (chronic obstructive pulmonary disease) Assessment/Plan: duo nebs iv steroids Code(s): J44.9 - CHRONIC OBSTRUCTIVE PULMONARY DISEASE, UNSPECIFIED Qualifiers: COPD type: unspecified COPD Qualified Code(s): J44.9 - Chronic obstructive pulmonary disease, unspecified (4) Diabetes Assessment/Plan: on meds bgms Code(s): E11.9 - TYPE 2 DIABETES MELLITUS WITHOUT COMPLICATIONS (5) HTN (hypertension) Code(s): I10 - ESSENTIAL (PRIMARY) HYPERTENSION (6) Morbid obesity Code(s): E66.01 - MORBID (SEVERE) OBESITY DUE TO EXCESS CALORIES Assessment/Plan Laboratory Tests 03/10/18 03/10/18 03/10/18 08:06 08:06 08:06 WBC 14.9 H RBC 3.98 Hgb 10.9 Hct 32.9 MCV 82.7 MCH 27.2 MCHC 32.9 RDW 17.6 H Plt Count 334 MPV 8.9 Absolute Neuts (auto) 12.7 Neutrophils % No Result Required. Neutrophils % (Manual) 90.0 H Lymphocytes % No Result Required. Lymphocytes % (Manual) 7.0 L Monocytes % (Manual) 3 L Hypochromia Few Platelet Estimate Adequate Anisocytosis Few PT with INR 13.6 H INR 1.22 PTT (Actin FS) 22.9 L Sodium 136 Potassium 4.4 Chloride 99 Carbon Dioxide 27 Anion Gap 10 BUN 13 Creatinine 0.9 Creat Clearance w eGFR > 60 POC Glucometer Random Glucose 235 H Lactic Acid Calcium 9.0 Phosphorus 3.5 Magnesium 1.6 L Total Bilirubin 0.6 AST 52 H ALT 37 Alkaline Phosphatase 67 Troponin I B-Natriuretic Peptide 534.60 H Total Protein 7.2 Albumin 3.4 L Urine Color Urine Appearance Urine pH Ur Specific Salley Urine Protein Urine Glucose (UA) Urine Ketones Urine Blood Urine Nitrite Urine Bilirubin Urine Urobilinogen Ur Leukocyte Esterase Urine RBC Urine WBC Ur Epithelial Cells Urine Bacteria 03/10/18 03/10/18 03/10/18 08:06 09:00 10:15 WBC RBC Hgb Hct MCV MCH MCHC RDW Plt Count MPV Absolute Neuts (auto) Neutrophils % Neutrophils % (Manual) Lymphocytes % Lymphocytes % (Manual) Monocytes % (Manual) Hypochromia Platelet Estimate Anisocytosis PT with INR INR PTT (Actin FS) Sodium Potassium Chloride Carbon Dioxide Anion Gap BUN Creatinine Creat Clearance w eGFR POC Glucometer Random Glucose Lactic Acid 3.1 H* Calcium Phosphorus Magnesium Total Bilirubin AST ALT Alkaline Phosphatase Troponin I 0.27 H B-Natriuretic Peptide Total Protein Albumin Urine Color Sharri Urine Appearance Clear Urine pH 5.5 Ur Specific Salley 1.025 Urine Protein 1+ H Urine Glucose (UA) 1+ H Urine Ketones 1+ H Urine Blood Negative Urine Nitrite Negative Urine Bilirubin Negative Urine Urobilinogen 0.2 Ur Leukocyte Esterase Negative Urine RBC No Result Required. Urine WBC 0-2 Ur Epithelial Cells Moderate Urine Bacteria Few 03/10/18 03/10/18 03/10/18 12:04 12:27 12:27 WBC RBC Hgb Hct MCV MCH MCHC RDW Plt Count MPV Absolute Neuts (auto) Neutrophils % Neutrophils % (Manual) Lymphocytes % Lymphocytes % (Manual) Monocytes % (Manual) Hypochromia Platelet Estimate Anisocytosis PT with INR INR PTT (Actin FS) Sodium Potassium Chloride Carbon Dioxide Anion Gap BUN Creatinine Creat Clearance w eGFR POC Glucometer [phone] Random Glucose Lactic Acid 2.5 H* Calcium Phosphorus Magnesium Total Bilirubin AST ALT Alkaline Phosphatase Troponin I 0.74 H* B-Natriuretic Peptide Total Protein Albumin Urine Color Urine Appearance Urine pH Ur Specific Salley Urine Protein Urine Glucose (UA) Urine Ketones Urine Blood Urine Nitrite Urine Bilirubin Urine Urobilinogen Ur Leukocyte Esterase Urine RBC Urine WBC Ur Epithelial Cells Urine Bacteria 03/10/18 03/10/18 17:25 17:25 WBC RBC Hgb Hct MCV MCH MCHC RDW Plt Count MPV Absolute Neuts (auto) Neutrophils % Neutrophils % (Manual) Lymphocytes % Lymphocytes % (Manual) Monocytes % (Manual) Hypochromia Platelet Estimate Anisocytosis PT with INR INR PTT (Actin FS) Sodium Potassium Chloride Carbon Dioxide Anion Gap BUN Creatinine Creat Clearance w eGFR POC Glucometer Random Glucose Lactic Acid 4.2 H* Calcium Phosphorus Magnesium Total Bilirubin AST ALT Alkaline Phosphatase Troponin I 0.73 H* B-Natriuretic Peptide Total Protein Albumin Urine Color Urine Appearance Urine pH Ur Specific Salley Urine Protein Urine Glucose (UA) Urine Ketones Urine Blood Urine Nitrite Urine Bilirubin Urine Urobilinogen Ur Leukocyte Esterase Urine RBC Urine WBC Ur Epithelial Cells Urine Bacteria Active Medications Generic Name Dose Route Start Last Admin Trade Name Freq PRN Reason Stop Dose Admin Acetaminophen 650 mg 03/10/18 22:00 03/11/18 14:25 Tylenol - PO 650 mg TID LUKAS Administration Albuterol/Ipratropium 1 amp 03/10/18 19:25 03/11/18 13:30 Duoneb - NEB 1 amp Q4H PRN Administration SHORTNESS OF BREATH Amlodipine Besylate 10 mg 03/11/18 10:00 03/11/18 10:11 Norvasc - PO 10 mg DAILY LUKAS Administration Artificial Tears 1 drop 03/10/18 22:00 03/11/18 10:10 Artificial Tears OD 1 drop BID LUKAS Administration Atorvastatin Calcium 20 mg 03/10/18 22:00 03/10/18 22:35 Lipitor - PO 20 mg HS LUKAS Administration Budesonide/Formoterol Fumarate 1 puff 03/10/18 22:00 03/11/18 10:09 Symbicort 160/4.5mcg - IH 1 puff BID LUKAS Administration Dipyridamole/Aspirin 1 combo 03/10/18 22:00 03/11/18 10:11 Aggrenox - PO 1 combo BID LUKAS Administration Fluoxetine HCl 10 mg 03/11/18 10:00 03/11/18 10:10 Prozac - PO 10 mg DAILY LUKAS Administration Heparin Sodium (Porcine) 5,000 unit 03/10/18 22:00 03/11/18 10:09 Heparin - SQ 5,000 unit BID LUKAS Administration Hydralazine HCl 25 mg 03/10/18 22:00 03/11/18 10:11 Apresoline - PO 25 mg BID LUKAS Administration Hydrochlorothiazide 25 mg 03/11/18 10:00 03/11/18 10:11 Hctz - PO 25 mg DAILY LUKAS Administration Piperacillin Sod/Tazobactam 50 mls @ 100 mls/hr 03/11/18 02:00 03/11/18 18:11 Sod 3.375 gm/ Dextrose IVPB 100 mls/hr Q8H-IV LUKAS Administration Protocol Insulin Aspart 1 vial 03/10/18 22:00 03/11/18 18:10 Novolog Vial Sliding Scale - SQ 14 units ACHS LUKAS Administration Protocol Levetiracetam 500 mg 03/10/18 22:00 03/11/18 10:12 Keppra - PO 500 mg BID LUKAS Administration Metformin HCl 1,000 mg 03/11/18 07:00 03/11/18 18:09 Glucophage - PO 1,000 mg BIDI LUKAS Administration Methylprednisolone Sodium Succinate 80 mg 03/11/18 02:00 03/11/18 18:11 Solu-Medrol - IVPUSH 80 mg Q8H-IV LUKAS Administration Non-Formulary Medication 10 mcg 03/10/18 22:00 Exenatide [Byetta] SQ BID LUKAS Oxycodone HCl 10 mg 03/10/18 22:00 03/11/18 14:24 Roxicodone - PO 10 mg TID LUKAS Administration Ranitidine HCl 150 mg 03/11/18 10:00 03/11/18 10:10 Zantac - PO 150 mg DAILY LUKAS Administration Solifenacin 5 mg 03/10/18 22:00 03/10/18 22:35 Vesicare - PO 5 mg HS LUKAS Administration
[2018-03-10] MEDS ORDERED: CEFTRIAXONE 1 GM in DEXTROSE 5%-WATER - 50 ML IVPB SCH (19:30)
[2018-03-10] MEDS ORDERED: DEXTROSE 5%-WATER - 50 ML IVPB ONE (20:55)
[2018-03-10] MEDS: ALBUTEROL SO4 2.5/IPRATROPIUM 0.5 INH SOL 3 ML VIAL.NEB. NEB PRN (20:59)
[2018-03-10] MEDS ORDERED: EXENATIDE 10 MCG SQ SCH (22:00)
[2018-03-10] MEDS: SOLIFENACIN SUCCINATE 5 MG TAB (FP) PO SCH (22:35)
[2018-03-10] MEDS: ASPIRIN/DIPYRIDAMOLE 25 MG/200 MG CAPSULE (FP) PO SCH (22:35)
[2018-03-10] MEDS: HEPARIN NA (PORCINE) 5,000 UNITS/ML 1ML VIAL SQ SCH (22:35)
[2018-03-10] MEDS: levETIRAcetam 250 MG TABLET (FP) PO SCH (22:35)
[2018-03-10] MEDS: ATORVASTATIN CA 20 MG TABLET (FP) PO SCH (22:35)
[2018-03-10] MEDS: hydrALAZINE HCL 25 MG TABLET (FP) PO SCH (22:36)
[2018-03-10] MEDS: oxyCODONE HCL 5 MG TABLET PO SCH (22:36)
[2018-03-10] MEDS: ACETAMINOPHEN 325 MG TABLET (FP) PO SCH (22:37)
[2018-03-10] MEDS ORDERED: PT OWN MED DRAWER 7, Y5N ONE (23:03)
[2018-03-10] MEDS: INSULIN SLIDING SCALE (NOVOLOG) 1 VIAL SQ SCH (23:04)
[2018-03-10] MEDS: ARTIFICIAL TEARS (POLYVINYL ALCOHOL 1.4%) OPTH DROPS OD SCH (23:04)
[2018-03-10] MEDS: BUDESONIDE/FORMETEROL FUMARATE 160/4.5 mcg INHALER IH SCH (23:05)
[2018-03-11] MEDS ORDERED: PIPERACILLIN/TAZOBACTAM 3.375 GM VIAL IVPB ONE ×4 (01:01→17:44)
[2018-03-11] MEDS ORDERED: DEXTROSE 5%-WATER - 50 ML IVPB ONE ×3 (01:01→09:34)
[2018-03-11] MEDS: ALBUTEROL SO4 2.5/IPRATROPIUM 0.5 INH SOL 3 ML VIAL.NEB. NEB PRN ×5 (01:03→21:20)
[2018-03-11] MEDS: methylPREDNISolone NA SUCC 125 MG/2 ML VIAL IVPUSH SCH ×3 (01:03→18:11)
[2018-03-11] MEDS: PIPERACILLIN/TAZOB 3.375 GM 3.375 GM in DEXTROSE 5%-WATER - 50 ML IVPB SCH ×3 (01:06→18:11)
[2018-03-11] MEDS ORDERED: FUROSEMIDE 40 MG/4 ML INJECTABLE VIAL IVPUSH ONE (04:00)
[2018-03-11] MEDS: oxyCODONE HCL 5 MG TABLET PO SCH ×3 (06:28→21:39)
[2018-03-11] MEDS: metFORMIN HCL 500 MG TABLET (FP) PO SCH ×2 (06:29→18:09)
[2018-03-11] MEDS: ACETAMINOPHEN 325 MG TABLET (FP) PO SCH ×3 (06:29→21:41)
[2018-03-11] MEDS: INSULIN SLIDING SCALE (NOVOLOG) 1 VIAL SQ SCH ×4 (06:30→22:35)
[2018-03-11 07:19] LABS: BASO % 0.2 % (0-2.0); HEMATOCRIT 34.1 % (32.4-45.2); HEMOGLOBIN 11.2 GM/dL (10.7-15.3); LYMPH % 8.1 % (8-40); MCH 27.3 pg (25.7-33.7); MCHC 32.7 g/dl (32.0-36.0); MEAN CELL VOLUME 83.6 fl (80-96); MEAN PLT VOLUME 8.6 fl (7.5-11.1); MONO % 1.6 % (3.8-10.2); NEUT % 90.1 % (42.8-82.8); PLATELET COUNT 303 K/MM3 (134-434); RBC 4.08 M/mm3 (3.60-5.2); RDW 18.9 % (11.6-15.6); WHITE BLOOD COUNT 11.1 K/mm3 (4.0-10.0)
[2018-03-11 07:39] LABS: ALBUMIN 3.6 g/dl (3.4-5.0); ANION GAP 10 (8-16); BLOOD UREA NITROGEN 15 mg/dL (7-18); CALCIUM 8.9 mg/dL (8.5-10.1); CHLORIDE 102 mmol/L (98-107); CO2 28 mmol/L (21-32); POTASSIUM 4.3 mmol/L (3.5-5.1); SGOT/AST 34 U/L (15-37); SGPT/ALT 44 U/L (12-78); SODIUM 140 mmol/L (136-145)
[2018-03-11 07:41] LABS: ALK PHOS 83 U/L (45-117); BILIRUBIN,TOTAL 0.4 mg/dL (0.2-1.0); TOT PROT 8.4 g/dl (6.4-8.2)
[2018-03-11 08:47] LABS: GLUCOSE,RANDOM 336 mg/dL (74-106)
[2018-03-11] MEDS ORDERED: PT OWN MED DRAWER 7, Y5N ONE ×2 (09:31→15:09)
[2018-03-11] MEDS: BUDESONIDE/FORMETEROL FUMARATE 160/4.5 mcg INHALER IH SCH ×2 (10:09→21:45)
[2018-03-11] MEDS: HEPARIN NA (PORCINE) 5,000 UNITS/ML 1ML VIAL SQ SCH ×2 (10:09→21:45)
[2018-03-11] MEDS: ARTIFICIAL TEARS (POLYVINYL ALCOHOL 1.4%) OPTH DROPS OD SCH ×2 (10:10→21:45)
[2018-03-11] MEDS: FLUoxetine HCL 10 MG CAPSULE (FP) PO SCH (10:10)
[2018-03-11] MEDS: RANITIDINE HCL 150 MG TABLET (FP) PO SCH (10:10)
[2018-03-11] MEDS: ASPIRIN/DIPYRIDAMOLE 25 MG/200 MG CAPSULE (FP) PO SCH ×2 (10:11→21:45)
[2018-03-11] MEDS: amLODIPine BESYLATE 10 MG TABLET (FP) PO SCH (10:11)
[2018-03-11] MEDS: hydrALAZINE HCL 25 MG TABLET (FP) PO SCH ×2 (10:11→21:39)
[2018-03-11] MEDS: HYDROCHLOROTHIAZIDE 25 MG TABLET (FP) PO SCH (10:11)
[2018-03-11] MEDS: levETIRAcetam 250 MG TABLET (FP) PO SCH ×2 (10:12→21:39)
--- NOTE | 2018-03-11 10:54 | PN ---
Progress Note (short form) - Note Progress Note: s: +sob and cough, no cp palps dizzy o: Vital Signs Period Temp Pulse Resp BP Sys/Knox Pulse Ox Last 24 Hr 98.1 F-98.6 F 98-114 20-24 127-166/52-92 96-100 Constitutional: Yes: Well Nourished, No Distress, Calm Eyes: Yes: Conjunctiva Clear, EOM Intact Respiratory: Yes: Regular, CTA Bilaterally Gastrointestinal: Yes: Normal Bowel Sounds, Soft Cardiovascular: Yes: Regular Rate and Rhythm JVD: No Heart Sounds: Yes: S1, S2 Edema: No Peripheral Pulses: 2+ Left Doralis Pedis, 2+ Right Dorsalis Pedis Neurological: Yes: Alert, Oriented Psychiatric: Yes: Alert, Oriented Current Medications Generic Name Dose Route Start Last Admin Trade Name Freq PRN Reason Stop Dose Admin Acetaminophen 650 mg 03/10/18 22:00 03/11/18 06:29 Tylenol - PO 650 mg TID LUKAS Administration Albuterol/Ipratropium 1 amp 03/10/18 19:25 03/11/18 07:46 Duoneb - NEB 1 amp Q4H PRN Administration SHORTNESS OF BREATH Amlodipine Besylate 10 mg 03/11/18 10:00 03/11/18 10:11 Norvasc - PO 10 mg DAILY LUKAS Administration Artificial Tears 1 drop 03/10/18 22:00 03/11/18 10:10 Artificial Tears OD 1 drop BID LUKAS Administration Atorvastatin Calcium 20 mg 03/10/18 22:00 03/10/18 22:35 Lipitor - PO 20 mg HS LUKAS Administration Budesonide/Formoterol Fumarate 1 puff 03/10/18 22:00 03/11/18 10:09 Symbicort 160/4.5mcg - IH 1 puff BID LUKAS Administration Dipyridamole/Aspirin 1 combo 03/10/18 22:00 03/11/18 10:11 Aggrenox - PO 1 combo BID LUKAS Administration Fluoxetine HCl 10 mg 03/11/18 10:00 03/11/18 10:10 Prozac - PO 10 mg DAILY LUKAS Administration Heparin Sodium (Porcine) 5,000 unit 03/10/18 22:00 03/11/18 10:09 Heparin - SQ 5,000 unit BID LUKAS Administration Hydralazine HCl 25 mg 03/10/18 22:00 08/10/18 10:11 Apresoline - PO 25 mg BID LUKAS Administration Hydrochlorothiazide 25 mg 03/11/18 10:00 03/11/18 10:11 Hctz - PO 25 mg DAILY LUKAS Administration Piperacillin Sod/Tazobactam 50 mls @ 100 mls/hr 03/11/18 02:00 03/11/18 10:10 Sod 3.375 gm/ Dextrose IVPB 100 mls/hr Q8H-IV LUKAS Administration Protocol Insulin Aspart 1 vial 03/10/18 22:00 03/11/18 06:30 Novolog Vial Sliding Scale - SQ 10 units ACHS LUKAS Administration Protocol Levetiracetam 500 mg 03/10/18 22:00 03/11/18 10:12 Keppra - PO 500 mg BID LUKAS Administration Metformin HCl 1,000 mg 03/11/18 07:00 03/11/18 06:29 Glucophage - PO 1,000 mg BIDI LUKAS Administration Methylprednisolone Sodium Succinate 80 mg 03/11/18 02:00 03/11/18 10:09 Solu-Medrol - IVPUSH 80 mg Q8H-IV LUKAS Administration Non-Formulary Medication 10 mcg 03/10/18 22:00 Exenatide [Byetta] SQ BID LUKAS Oxycodone HCl 10 mg 03/10/18 22:00 03/11/18 06:28 Roxicodone - PO 10 mg TID LUKAS Administration Ranitidine HCl 150 mg 03/11/18 10:00 03/11/18 10:10 Zantac - PO 150 mg DAILY LUKAS Administration Solifenacin 5 mg 03/10/18 22:00 03/10/18 22:35 Vesicare - PO 5 mg HS LUKAS Administration CBC, BMP 03/11/18 06:15 03/11/18 06:15 Assessment/Plan Echo 03/2018 nl LV/RV size and function, no significant valvular dz EKG 03/2018: CXR: possible infiltrate left base Tele: sinus tachy (+) troponin -likely demand in setting of infection, trend not concerning for ACS at this time. cont to trend ce's -echo here unremarkable -will check nuclear stress test after acute issues resolve for risk stratification Chest tightness, sob - likely in setting of PNA given leukocytosis, possible infiltrate - on IV abx per primary team - received nebs as well, h/o asthma HTN - controlled on current meds, continue DM - manage per primary team
--- NOTE | 2018-03-11 12:30 | CON.ID ---
Consult Consult Specialty:: infectious diseases Reason for Consultation:: pneumonia,sob - History of Present Illness Chief Complaint: sob resp difficuilty History of Present Illness: 67F h/o CVA, CHF, COPD, DM, HTN presenting with chest tightness, dyspnea. 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 Cardio/Vascular: Yes: CHF, HTN Pulmonary: Yes: Asthma Psych: Yes: Depression Endocrine: Yes: Diabetes Mellitus - Alcohol/Substance Use Hx Alcohol Use: No - Smoking History Smoking history: Former smoker Have you smoked in the past 12 months: No If you are a former smoker, when did you quit?: 15YRS - Social History Usual Living Arrangement: [facility] ADL: Independent History of Recent Travel: No Home Medications - Allergies Allergies/Adverse Reactions: Allergies Allergy/AdvReac Type Severity Reaction Status Date / Time lisinopril Allergy Severe Swelling Verified 03/10/18 08:09 blueberry Allergy Verified 03/10/18 08:09 erythromycin base Allergy Verified 03/10/18 08:09 naproxen Allergy Verified 03/10/18 08:09 raspberry Allergy Verified 03/10/18 08:09 strawberry Allergy Verified 03/10/18 08:09 - Home Medications Home Medications: Ambulatory Orders Acetaminophen [Tylenol -] 1,000 mg PO PRN PRN 03/10/18 Amlodipine Besylate [Norvasc -] 10 mg PO DAILY 03/10/18 Aspirin/Dipyridamole [Aggrenox -] 1 combo PO BID 03/10/18 Budesonide/Formeterol Fumarate [SYMBICORT 160/4.5mcg -] 1 inh PO BID 03/10/18 Calcium Carbonate/Vitamin D3 [Oyster Shell 500-Vit D3 200 Tb] 1 each PO BID 04/19 Exenatide [Byetta] 10 mcg SQ BID 03/10/18 Famotidine [Pepcid] 20 mg PO DAILY 03/10/18 Fluoxetine HCl [Prozac] 10 mg PO DAILY 03/10/18 Hydrochlorothiazide [Hctz -] 25 mg PO DAILY 03/10/18 Insulin Regular, Human [Humulin R U-500 Kwikpen] 0 unit SQ ASDIR 03/10/18 Levetiracetam [Keppra] 500 mg PO BID 03/10/18 Melatonin 1.5 mg PO HS 03/10/18 Metformin HCl [Glucophage] 1,000 mg PO BID 03/10/18 Nortriptyline HCl [Pamelor] 75 mg PO HS 03/10/18 Oxycodone HCl/Acetaminophen [Percocet 5-325 mg Tablet] 2 tab PO TID 03/10/18 Polyvinyl Alcohol [Artificial Tears] 1 drop OD BID 03/10/18 Potassium Chloride 40 meq PO DAILY 03/10/18 Pravastatin Sodium [Pravachol (Nf)] 80 mg PO DAILY 03/10/18 Solifenacin Succinate [Vesicare -] 5 mg PO HS 03/10/18 hydrALAZINE HCL [Apresoline -] 25 mg PO BID 03/10/18 Review of Systems - Review of Systems Constitutional: reports: No Symptoms Eyes: reports: No Symptoms HENT: reports: No Symptoms Neck: reports: No Symptoms Cardiovascular: reports: Chest Pain Respiratory: reports: Cough, SOB, SOB on Exertion Gastrointestinal: reports: No Symptoms Genitourinary: reports: No Symptoms Musculoskeletal: reports: No Symptoms Integumentary: reports: No Symptoms Neurological: reports: No Symptoms Endocrine: reports: No Symptoms Hematology/Lymphatic: reports: No Symptoms Psychiatric: reports: No Symptoms Physical Exam Vital Signs: Vital Signs Temperature 98.6 F 03/11/18 10:00 Pulse Rate 98 H 03/11/18 10:00 Respiratory Rate 20 03/11/18 10:00 Blood Pressure 129/88 03/11/18 10:00 O2 Sat by Pulse Oximetry (%) 97 03/11/18 10:00 Constitutional: Yes: Well Nourished, Anxious, Mild Distress, Obese Eyes: Yes: Conjunctiva Clear HENT: Yes: Atraumatic Neck: Yes: Supple, Trachea Midline Cardiovascular: Yes: Regular Rate and Rhythm Respiratory: Yes: Regular, On Nasal O2, Poor Air Entry, Rhonchi Gastrointestinal: Yes: Normal Bowel Sounds, Soft Musculoskeletal: Yes: WNL Extremities: Yes: WNL Neurological: Yes: Alert, Oriented Psychiatric: Yes: Alert, Oriented Labs: CBC, BMP 03/11/18 06:15 03/11/18 06:15 Imaging - Results Chest X-ray: Report Reviewed, Image Reviewed Assessment/Plan Problem List - Problems (1) Elevated troponin Code(s): R74.8 - ABNORMAL LEVELS OF OTHER SERUM ENZYMES (2) PNA (pneumonia) Code(s): J18.9 - PNEUMONIA, UNSPECIFIED ORGANISM Qualifiers: Pneumonia type: due to unspecified organism Laterality: unspecified laterality Lung location: unspecified part of lung Qualified Code(s): J18.9 - Pneumonia, unspecified organism (3) COPD (chronic obstructive pulmonary disease) Code(s): J44.9 - CHRONIC OBSTRUCTIVE PULMONARY DISEASE, UNSPECIFIED Qualifiers: COPD type: unspecified COPD Qualified Code(s): J44.9 - Chronic obstructive pulmonary disease, unspecified (4) Diabetes Code(s): E11.9 - TYPE 2 DIABETES MELLITUS WITHOUT COMPLICATIONS (5) Morbid obesity Code(s): E66.01 - MORBID (SEVERE) OBESITY DUE TO EXCESS CALORIES (6) Seizure Code(s): R56.9 - UNSPECIFIED CONVULSIONS (7) Stroke Code(s): I63.9 - CEREBRAL INFARCTION, UNSPECIFIED 8 lactic acidosis looking at the patient and history i think she has pneumonia and copd going on plan continue current mgmt iv abx incentive rudolph resp support rest as per the team await for the ct scan
--- NOTE | 2018-03-11 14:14 | PN ---
Progress Note, Physician History of Present Illness: feeling better - Current Medication List Current Medications: Active Medications Acetaminophen (Tylenol -) 650 mg PO TID [facility] Last Admin: 03/11/18 06:29 Dose: 650 mg Albuterol/Ipratropium (Duoneb -) 1 amp NEB Q4H PRN PRN Reason: SHORTNESS OF BREATH Last Admin: 03/11/18 13:30 Dose: 1 amp Amlodipine Besylate (Norvasc -) 10 mg PO DAILY [facility] Last Admin: 03/11/18 10:11 Dose: 10 mg Artificial Tears (Artificial Tears) 1 drop OD BID [facility] Last Admin: 03/11/18 10:10 Dose: 1 drop Atorvastatin Calcium (Lipitor -) 20 mg PO HS [facility] Last Admin: 03/10/18 22:35 Dose: 20 mg Budesonide/Formoterol Fumarate (Symbicort 160/4.5mcg -) 1 puff IH BID [facility] Last Admin: 03/11/18 10:09 Dose: 1 puff Dipyridamole/Aspirin (Aggrenox -) 1 combo PO BID [facility] Last Admin: 03/11/18 10:11 Dose: 1 combo Fluoxetine HCl (Prozac -) 10 mg PO DAILY [facility] Last Admin: 03/11/18 10:10 Dose: 10 mg Heparin Sodium (Porcine) (Heparin -) 5,000 unit SQ BID [facility] Last Admin: 03/11/18 10:09 Dose: 5,000 unit Hydralazine HCl (Apresoline -) 25 mg PO BID [facility] Last Admin: 03/11/18 10:11 Dose: 25 mg Hydrochlorothiazide (Hctz -) 25 mg PO DAILY [facility] Last Admin: 03/11/18 10:11 Dose: 25 mg Piperacillin Sod/Tazobactam (Sod 3.375 gm/ Dextrose) 50 mls @ 100 mls/hr IVPB Q8H-IV [facility]; Protocol Last Admin: 03/11/18 10:10 Dose: 100 mls/hr Insulin Aspart (Novolog Vial Sliding Scale -) 1 vial SQ ACHS [facility]; Protocol Last Admin: 03/11/18 06:30 Dose: 10 units Levetiracetam (Keppra -) 500 mg PO BID [facility] Last Admin: 03/11/18 10:12 Dose: 500 mg Metformin HCl (Glucophage -) 1,000 mg PO BIDI [facility] Last Admin: 03/11/18 06:29 Dose: 1,000 mg Methylprednisolone Sodium Succinate (Solu-Medrol -) 80 mg IVPUSH Q8H-IV [facility] Last Admin: 03/11/18 10:09 Dose: 80 mg Non-Formulary Medication (Exenatide [Byetta]) 10 mcg SQ BID [facility] Oxycodone HCl (Roxicodone -) 10 mg PO TID [facility] Last Admin: 03/11/18 06:28 Dose: 10 mg Ranitidine HCl (Zantac -) 150 mg PO DAILY [facility] Last Admin: 03/11/18 10:10 Dose: 150 mg Solifenacin (Vesicare -) 5 mg PO HS [facility] Last Admin: 03/10/18 22:35 Dose: 5 mg - Objective Vital Signs: Vital Signs Temperature 98.6 F 03/11/18 10:00 Pulse Rate 98 H 03/11/18 10:00 Respiratory Rate 20 03/11/18 10:00 Blood Pressure 129/88 03/11/18 10:00 O2 Sat by Pulse Oximetry (%) 97 03/11/18 10:00 Constitutional: Yes: No Distress HENT: Yes: Atraumatic Cardiovascular: Yes: Regular Rate and Rhythm Respiratory: Yes: Rhonchi Gastrointestinal: Yes: Normal Bowel Sounds Extremities: Yes: WNL Edema: No Peripheral Pulses WNL: Yes Neurological: Yes: Alert, Oriented Labs: CBC, BMP 03/11/18 06:15 03/11/18 06:15 INR, PTT INR 1.22 (0.82-1.09) 03/10/18 08:06 Problem List - Problems (1) Elevated troponin Assessment/Plan: will monitor Code(s): R74.8 - ABNORMAL LEVELS OF OTHER SERUM ENZYMES (2) PNA (pneumonia) Assessment/Plan: will start iv abx duo nebs oxygen...prn Code(s): J18.9 - PNEUMONIA, UNSPECIFIED ORGANISM Qualifiers: Pneumonia type: due to unspecified organism Laterality: unspecified laterality Lung location: unspecified part of lung Qualified Code(s): J18.9 - Pneumonia, unspecified organism (3) COPD (chronic obstructive pulmonary disease) Assessment/Plan: duo nebs iv steroids Code(s): J44.9 - CHRONIC OBSTRUCTIVE PULMONARY DISEASE, UNSPECIFIED Qualifiers: COPD type: unspecified COPD Qualified Code(s): J44.9 - Chronic obstructive pulmonary disease, unspecified (4) Diabetes Code(s): E11.9 - TYPE 2 DIABETES MELLITUS WITHOUT COMPLICATIONS (5) HTN (hypertension) Assessment/Plan: onmeds stable Code(s): I10 - ESSENTIAL (PRIMARY) HYPERTENSION (6) Morbid obesity Code(s): E66.01 - MORBID (SEVERE) OBESITY DUE TO EXCESS CALORIES
--- NOTE | 2018-03-11 14:29 | CON.PULM ---
Consult Consult Specialty:: PULM/CCM Referred by:: MARGOTH Reason for Consultation:: SOB / CP - History of Present Illness Chief Complaint: CP /SOB History of Present Illness: 67 F, CVA, CHF, COPD, DM, and HTN. Admitted via the ER due to chest tightness and dyspnea on exertion that started at 5:30 am.. Chest tightness has been somewhat intermittent. She does report some cough with clear sputum. No travel history or sick contacts. No night sweats or hemptysis. (+) history that would be consistent with [facility]. She was screened years ago but does not remember the results. 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 Cardio/Vascular: Yes: CHF, HTN Pulmonary: Yes: Asthma Psych: Yes: Depression Endocrine: Yes: Diabetes Mellitus - Alcohol/Substance Use Hx Alcohol Use: No - Smoking History Smoking history: Former smoker Have you smoked in the past 12 months: No If you are a former smoker, when did you quit?: 15YRS - Social History Usual Living Arrangement: Skilled Nursing ADL: Independent History of Recent Travel: No Home Medications - Allergies Allergies/Adverse Reactions: Allergies Allergy/AdvReac Type Severity Reaction Status Date / Time lisinopril Allergy Severe Swelling Verified 03/10/18 08:09 blueberry Allergy Verified 03/10/18 08:09 erythromycin base Allergy Verified 03/10/18 08:09 naproxen Allergy Verified 03/10/18 08:09 raspberry Allergy Verified 03/10/18 08:09 strawberry Allergy Verified 03/10/18 08:09 - Home Medications Home Medications: Ambulatory Orders Acetaminophen [Tylenol -] 1,000 mg PO PRN PRN 03/10/18 Amlodipine Besylate [Norvasc -] 10 mg PO DAILY 03/10/18 Aspirin/Dipyridamole [Aggrenox -] 1 combo PO BID 03/10/18 Budesonide/Formeterol Fumarate [SYMBICORT 160/4.5mcg -] 1 inh PO BID 03/10/18 Calcium Carbonate/Vitamin D3 [Oyster Shell 500-Vit D3 200 Tb] 1 each PO BID 04/19 Exenatide [Byetta] 10 mcg SQ BID 03/10/18 Famotidine [Pepcid] 20 mg PO DAILY 03/10/18 Fluoxetine HCl [Prozac] 10 mg PO DAILY 03/10/18 Hydrochlorothiazide [Hctz -] 25 mg PO DAILY 03/10/18 Insulin Regular, Human [Humulin R U-500 Kwikpen] 0 unit SQ ASDIR 03/10/18 Levetiracetam [Keppra] 500 mg PO BID 03/10/18 Melatonin 1.5 mg PO HS 03/10/18 Metformin HCl [Glucophage] 1,000 mg PO BID 03/10/18 Nortriptyline HCl [Pamelor] 75 mg PO HS 03/10/18 Oxycodone HCl/Acetaminophen [Percocet 5-325 mg Tablet] 2 tab PO TID 03/10/18 Polyvinyl Alcohol [Artificial Tears] 1 drop OD BID 03/10/18 Potassium Chloride 40 meq PO DAILY 03/10/18 Pravastatin Sodium [Pravachol (Nf)] 80 mg PO DAILY 03/10/18 Solifenacin Succinate [Vesicare -] 5 mg PO HS 03/10/18 hydrALAZINE HCL [Apresoline -] 25 mg PO BID 03/10/18 Review of Systems - Review of Systems Constitutional: reports: Malaise, Weakness. denies: Chills, Fever, Night Sweats Eyes: reports: No Symptoms HENT: reports: No Symptoms Neck: reports: No Symptoms Cardiovascular: reports: Chest Pain, Shortness of Breath. denies: Palpitations Respiratory: reports: Cough, Snoring, SOB, SOB on Exertion. denies: Hemoptysis , Wheezing Gastrointestinal: reports: No Symptoms Genitourinary: reports: No Symptoms Breasts: reports: No Symptoms Reported Musculoskeletal: reports: No Symptoms Integumentary: reports: No Symptoms Neurological: reports: No Symptoms Endocrine: reports: No Symptoms Hematology/Lymphatic: reports: No Symptoms Psychiatric: reports: No Symptoms Physical Exam Vital Sings: Vital Signs Temperature 98.6 F 03/11/18 10:00 Pulse Rate 98 H 03/11/18 10:00 Respiratory Rate 20 03/11/18 10:00 Blood Pressure 129/88 03/11/18 10:00 O2 Sat by Pulse Oximetry (%) 97 03/11/18 10:00 Constitutional: Yes: No Distress, Obese Eyes: Yes: Conjunctiva Clear, EOM Intact HENT: Yes: Atraumatic, Normocephalic Neck: Yes: Supple, Trachea Midline Cardiovascular: Yes: Regular Rate and Rhythm Respiratory: Yes: Cough, Rhonchi, SOB. No: Accessory Muscle Use, Stridor, Tachypnea, Wheezes ...Inspection: Yes: WNL ...Clubbing: No Gastrointestinal: Yes: Normal Bowel Sounds, Soft, Abdomen, Obese Renal/: Yes: WNL Musculoskeletal: Yes: WNL Extremities: Yes: WNL Edema: Yes Peripheral Pulses WNL: Yes Integumentary: Yes: WNL Neurological: Yes: WNL, Alert, Oriented ...Motor Strength: WNL Psychiatric: Yes: WNL, Alert, Oriented Labs: CBC, BMP 03/11/18 06:15 03/11/18 06:15 Imaging - Results Chest X-ray: Report Reviewed, Image Reviewed Cat Scan: Report Reviewed, Image Reviewed Problem List - Problems (1) Elevated troponin Code(s): R74.8 - ABNORMAL LEVELS OF OTHER SERUM ENZYMES (2) PNA (pneumonia) Code(s): J18.9 - PNEUMONIA, UNSPECIFIED ORGANISM Qualifiers: Pneumonia type: due to unspecified organism Laterality: unspecified laterality Lung location: unspecified part of lung Qualified Code(s): J18.9 - Pneumonia, unspecified organism (3) COPD (chronic obstructive pulmonary disease) Code(s): J44.9 - CHRONIC OBSTRUCTIVE PULMONARY DISEASE, UNSPECIFIED Qualifiers: COPD type: unspecified COPD Qualified Code(s): J44.9 - Chronic obstructive pulmonary disease, unspecified (4) Diabetes Code(s): E11.9 - TYPE 2 DIABETES MELLITUS WITHOUT COMPLICATIONS (5) Morbid obesity Code(s): E66.01 - MORBID (SEVERE) OBESITY DUE TO EXCESS CALORIES (6) Seizure Code(s): R56.9 - UNSPECIFIED CONVULSIONS (7) Stroke Code(s): I63.9 - CEREBRAL INFARCTION, UNSPECIFIED Assessment/Plan Agree with ABX coverage O2 as needed Lasix Will need repeat Sleep workup after D/C Daily weight CE trend No smoking Outpatient PFTs once stable Check urine antigen Telemetry monitoring ECHO Will follow Thank you. Dr Price
[2018-03-11] MEDS: SOLIFENACIN SUCCINATE 5 MG TAB (FP) PO SCH (21:38)
[2018-03-11] MEDS: ATORVASTATIN CA 20 MG TABLET (FP) PO SCH (21:39)
[2018-03-11] MEDS ORDERED: INSULIN (NOVOLOG) ASPART 100 UNITS/ML 10ML VIAL ONE (22:34)
[2018-03-12] MEDS: methylPREDNISolone NA SUCC 125 MG/2 ML VIAL IVPUSH SCH ×4 (02:13→18:30)
[2018-03-12] MEDS: PIPERACILLIN/TAZOB 3.375 GM 3.375 GM in DEXTROSE 5%-WATER - 50 ML IVPB SCH ×4 (02:15→18:31)
[2018-03-12] MEDS ORDERED: PIPERACILLIN/TAZOBACTAM 3.375 GM VIAL IVPB ONE ×3 (02:16→14:33)
[2018-03-12] MEDS ORDERED: DEXTROSE 5%-WATER - 50 ML IVPB ONE ×3 (02:17→14:34)
[2018-03-12] MEDS: oxyCODONE HCL 5 MG TABLET PO SCH ×3 (05:31→21:53)
[2018-03-12] MEDS: ACETAMINOPHEN 325 MG TABLET (FP) PO SCH ×3 (05:32→21:54)
[2018-03-12] MEDS: metFORMIN HCL 500 MG TABLET (FP) PO SCH ×2 (06:32→17:08)
[2018-03-12] MEDS: INSULIN SLIDING SCALE (NOVOLOG) 1 VIAL SQ SCH ×4 (06:32→22:34)
--- NOTE | 2018-03-12 09:55 | PN ---
Progress Note (short form) - Note Progress Note: s: +sob and cough, a little better, no cp palps dizzy o: Vital Signs Period Temp Pulse Resp BP Sys/Knox Pulse Ox Last 24 Hr 98 F-98.7 F 98-116 20-20 129-166/77-89 97-98 Constitutional: Yes: Well Nourished, No Distress, Calm Eyes: Yes: Conjunctiva Clear, EOM Intact Respiratory: Yes: Regular, CTA Bilaterally Gastrointestinal: Yes: Normal Bowel Sounds, Soft Cardiovascular: Yes: Regular Rate and Rhythm JVD: No Heart Sounds: Yes: S1, S2 Edema: No Neurological: Yes: Alert, Oriented Psychiatric: Yes: Alert, Oriented Current Medications Generic Name Dose Route Start Last Admin Trade Name Freq PRN Reason Stop Dose Admin Acetaminophen 650 mg 03/10/18 22:00 03/12/18 05:32 Tylenol - PO 650 mg TID [facility] Administration Albuterol/Ipratropium 1 amp 03/10/18 19:25 03/11/18 21:20 Duoneb - NEB 1 amp Q4H PRN Administration SHORTNESS OF BREATH Amlodipine Besylate 10 mg 03/11/18 10:00 03/11/18 10:11 Norvasc - PO 10 mg DAILY [facility] Administration Artificial Tears 1 drop 03/10/18 22:00 03/11/18 21:45 Artificial Tears OD 1 drop BID [facility] Administration Atorvastatin Calcium 20 mg 03/10/18 22:00 03/11/18 21:39 Lipitor - PO 20 mg HS [facility] Administration Budesonide/Formoterol Fumarate 1 puff 03/10/18 22:00 03/11/18 21:45 Symbicort 160/4.5mcg - IH 1 puff BID [facility] Administration Dipyridamole/Aspirin 1 combo 03/10/18 22:00 03/11/18 21:45 Aggrenox - PO 1 combo BID [facility] Administration Fluoxetine HCl 10 mg 03/11/18 10:00 03/11/18 10:10 Prozac - PO 10 mg DAILY [facility] Administration Heparin Sodium (Porcine) 5,000 unit 03/10/18 22:00 03/11/18 21:45 Heparin - SQ 5,000 unit BID [facility] Administration Hydralazine HCl 25 mg 03/10/18 22:00 03/11/18 21:39 Apresoline - PO 25 mg BID [facility] Administration Hydrochlorothiazide 25 mg 03/11/18 10:00 03/11/18 10:11 Hctz - PO 25 mg DAILY [facility] Administration Piperacillin Sod/Tazobactam 50 mls @ 100 mls/hr 03/11/18 02:00 03/12/18 02:15 Sod 3.375 gm/ Dextrose IVPB 100 mls/hr Q8H-IV [facility] Administration Protocol Insulin Aspart 1 vial 03/10/18 22:00 03/12/18 06:32 Novolog Vial Sliding Scale - SQ 10 units ACHS [facility] Administration Protocol Levetiracetam 500 mg 03/10/18 22:00 03/11/18 21:39 Keppra - PO 500 mg BID [facility] Administration Metformin HCl 1,000 mg 03/11/18 07:00 03/12/18 06:32 Glucophage - PO 1,000 mg BIDI [facility] Administration Methylprednisolone Sodium Succinate 80 mg 03/11/18 02:00 03/12/18 02:13 Solu-Medrol - IVPUSH 80 mg Q8H-IV [facility] Administration Non-Formulary Medication 10 mcg 03/10/18 22:00 Exenatide [Byetta] SQ BID [facility] Oxycodone HCl 10 mg 03/10/18 22:00 03/12/18 05:31 Roxicodone - PO 10 mg TID [facility] Administration Ranitidine HCl 150 mg 03/11/18 10:00 03/11/18 10:10 Zantac - PO 150 mg DAILY [facility] Administration Solifenacin 5 mg 03/10/18 22:00 03/11/18 21:38 Vesicare - PO 5 mg HS [facility] Administration CBC, BMP 03/11/18 06:15 03/11/18 06:15 Assessment/Plan Echo 03/2018 nl LV/RV size and function, no significant valvular dz EKG 03/2018: CXR: possible infiltrate left base Tele: sinus rhythm (+) troponin -likely demand in setting of infection, trend not concerning for ACS at this time. -echo here unremarkable -will check nuclear stress test after acute issues resolve for risk stratification Chest tightness, sob, pna - likely in setting of PNA given leukocytosis, possible infiltrate - on IV abx per primary team - received nebs as well, h/o asthma HTN -cont current meds DM - manage per primary team
[2018-03-12] MEDS: RANITIDINE HCL 150 MG TABLET (FP) PO SCH (10:51)
[2018-03-12] MEDS: levETIRAcetam 250 MG TABLET (FP) PO SCH ×2 (10:51→21:51)
[2018-03-12] MEDS: ASPIRIN/DIPYRIDAMOLE 25 MG/200 MG CAPSULE (FP) PO SCH ×2 (10:52→21:52)
[2018-03-12] MEDS: FLUoxetine HCL 10 MG CAPSULE (FP) PO SCH (10:52)
[2018-03-12] MEDS: hydrALAZINE HCL 25 MG TABLET (FP) PO SCH ×2 (10:52→21:51)
[2018-03-12] MEDS: HYDROCHLOROTHIAZIDE 25 MG TABLET (FP) PO SCH (10:52)
[2018-03-12] MEDS: ARTIFICIAL TEARS (POLYVINYL ALCOHOL 1.4%) OPTH DROPS OD SCH ×2 (10:52→22:20)
[2018-03-12] MEDS: amLODIPine BESYLATE 10 MG TABLET (FP) PO SCH (10:52)
[2018-03-12] MEDS: HEPARIN NA (PORCINE) 5,000 UNITS/ML 1ML VIAL SQ SCH ×2 (10:53→22:06)
[2018-03-12] MEDS: BUDESONIDE/FORMETEROL FUMARATE 160/4.5 mcg INHALER IH SCH ×2 (10:53→21:59)
--- NOTE | 2018-03-12 11:40 | PN ---
Progress Note (short form) - Note Progress Note: Breathing feels a little better today. Less SOB. Reports some dizziness when she stands up. No CP. Intake & Output 03/09/18 03/10/18 03/11/18 03/12/18 23:59 23:59 23:59 23:59 Intake Total 1140 480 290 Output Total 200 400 Balance 940 480 -110 Weight 274 lb Last Vital Signs Temp Pulse Resp BP Pulse Ox 98.7 F 98 H 20 145/85 98 03/12/18 06:13 03/12/18 06:13 03/12/18 06:13 03/12/18 06:13 03/11/18 21:00 Active Medications Acetaminophen (Tylenol -) 650 mg PO TID [facility] Last Admin: 03/12/18 05:32 Dose: 650 mg Albuterol/Ipratropium (Duoneb -) 1 amp NEB Q4H PRN PRN Reason: SHORTNESS OF BREATH Last Admin: 03/11/18 21:20 Dose: 1 amp Amlodipine Besylate (Norvasc -) 10 mg PO DAILY [facility] Last Admin: 03/12/18 10:52 Dose: 10 mg Artificial Tears (Artificial Tears) 1 drop OD BID [facility] Last Admin: 03/12/18 10:52 Dose: Not Given Atorvastatin Calcium (Lipitor -) 20 mg PO HS [facility] Last Admin: 03/11/18 21:39 Dose: 20 mg Budesonide/Formoterol Fumarate (Symbicort 160/4.5mcg -) 1 puff IH BID [facility] Last Admin: 03/12/18 10:53 Dose: 1 puff Dipyridamole/Aspirin (Aggrenox -) 1 combo PO BID [facility] Last Admin: 03/12/18 10:52 Dose: 1 combo Fluoxetine HCl (Prozac -) 10 mg PO DAILY [facility] Last Admin: 03/12/18 10:52 Dose: 10 mg Heparin Sodium (Porcine) (Heparin -) 5,000 unit SQ BID [facility] Last Admin: 03/12/18 10:53 Dose: 5,000 unit Hydralazine HCl (Apresoline -) 25 mg PO BID [facility] Last Admin: 03/12/18 10:52 Dose: 25 mg Hydrochlorothiazide (Hctz -) 25 mg PO DAILY [facility] Last Admin: 03/12/18 10:52 Dose: 25 mg Piperacillin Sod/Tazobactam (Sod 3.375 gm/ Dextrose) 50 mls @ 100 mls/hr IVPB Q8H-IV [facility]; Protocol Last Admin: 03/12/18 10:54 Dose: 100 mls/hr Insulin Aspart (Novolog Vial Sliding Scale -) 1 vial SQ ACHS [facility]; Protocol Last Admin: 03/12/18 06:32 Dose: 10 units Levetiracetam (Keppra -) 500 mg PO BID [facility] Last Admin: 03/12/18 10:51 Dose: 500 mg Metformin HCl (Glucophage -) 1,000 mg PO BIDI [facility] Last Admin: 03/12/18 06:32 Dose: 1,000 mg Methylprednisolone Sodium Succinate (Solu-Medrol -) 80 mg IVPUSH Q8H-IV [facility] Last Admin: 03/12/18 10:53 Dose: 80 mg Non-Formulary Medication (Exenatide [Byetta]) 10 mcg SQ BID [facility] Oxycodone HCl (Roxicodone -) 10 mg PO TID [facility] Last Admin: 03/12/18 05:31 Dose: 10 mg Ranitidine HCl (Zantac -) 150 mg PO DAILY [facility] Last Admin: 03/12/18 10:51 Dose: 150 mg Solifenacin (Vesicare -) 5 mg PO HS [facility] Last Admin: 03/11/18 21:38 Dose: 5 mg Constitutional: Yes: No Distress, Obese Eyes: Yes: Conjunctiva Clear, EOM Intact HENT: Yes: Atraumatic, Normocephalic Neck: Yes: Supple, Trachea Midline Cardiovascular: Yes: Regular Rate and Rhythm Respiratory: Yes: Cough, Rhonchi, SOB. No: Accessory Muscle Use, Stridor, Tachypnea, Wheezes ...Inspection: Yes: WNL ...Clubbing: No Gastrointestinal: Yes: Normal Bowel Sounds, Soft, Abdomen, Obese Renal/: Yes: WNL Musculoskeletal: Yes: WNL Extremities: Yes: WNL Edema: Yes Peripheral Pulses WNL: Yes Integumentary: Yes: WNL Neurological: Yes: WNL, Alert, Oriented ...Motor Strength: WNL Psychiatric: Yes: WNL, Alert, Oriented Labs: Laboratory Results - last 24 hr 03/11/18 03/11/18 03/11/18 06:15 12:30 18:08 Sodium 140 Potassium 4.3 Chloride 102 Carbon Dioxide 28 Anion Gap 10 BUN 15 Creatinine 1.0 Creat Clearance w eGFR 55.30 POC Glucometer 373 413 Random Glucose 336 H* Calcium 8.9 Total Bilirubin 0.4 AST 34 ALT 44 Alkaline Phosphatase 83 Creatine Kinase 195 H Creatine Kinase Index 3.4 CK-MB (CK-2) 6.7 H Troponin I 0.94 H* Total Protein 8.4 H Albumin 3.6 03/11/18 03/11/18 03/12/18 19:30 22:30 05:40 Sodium Potassium Chloride Carbon Dioxide Anion Gap BUN Creatinine Creat Clearance w eGFR POC Glucometer 320 342 Random Glucose Calcium Total Bilirubin AST ALT Alkaline Phosphatase Creatine Kinase 213 H Creatine Kinase Index 2.7 CK-MB (CK-2) 5.95 H Troponin I 0.97 H* Total Protein Albumin 03/12/18 06:45 Sodium Potassium Chloride Carbon Dioxide Anion Gap BUN Creatinine Creat Clearance w eGFR POC Glucometer Random Glucose Calcium Total Bilirubin AST ALT Alkaline Phosphatase Creatine Kinase 128 Creatine Kinase Index CK-MB (CK-2) Troponin I 0.81 H* Total Protein Albumin Problem List - Problems (1) Elevated troponin Code(s): R74.8 - ABNORMAL LEVELS OF OTHER SERUM ENZYMES (2) PNA (pneumonia) Code(s): J18.9 - PNEUMONIA, UNSPECIFIED ORGANISM Qualifiers: Pneumonia type: due to unspecified organism Laterality: unspecified laterality Lung location: unspecified part of lung Qualified Code(s): J18.9 - Pneumonia, unspecified organism (3) COPD (chronic obstructive pulmonary disease) Code(s): J44.9 - CHRONIC OBSTRUCTIVE PULMONARY DISEASE, UNSPECIFIED Qualifiers: COPD type: unspecified COPD Qualified Code(s): J44.9 - Chronic obstructive pulmonary disease, unspecified (4) Diabetes Code(s): E11.9 - TYPE 2 DIABETES MELLITUS WITHOUT COMPLICATIONS (5) Morbid obesity Code(s): E66.01 - MORBID (SEVERE) OBESITY DUE TO EXCESS CALORIES (6) Seizure Code(s): R56.9 - UNSPECIFIED CONVULSIONS (7) Stroke Code(s): I63.9 - CEREBRAL INFARCTION, UNSPECIFIED Assessment/Plan ABX coverage O2 as needed Lasix Will need repeat Sleep workup after D/C Daily weight No smoking Outpatient PFTs once stable Dr Price Problem List - Problems (1) Elevated troponin Code(s): R74.8 - ABNORMAL LEVELS OF OTHER SERUM ENZYMES (2) PNA (pneumonia) Code(s): J18.9 - PNEUMONIA, UNSPECIFIED ORGANISM Qualifiers: Pneumonia type: due to unspecified organism Laterality: unspecified laterality Lung location: unspecified part of lung Qualified Code(s): J18.9 - Pneumonia, unspecified organism (3) COPD (chronic obstructive pulmonary disease) Code(s): J44.9 - CHRONIC OBSTRUCTIVE PULMONARY DISEASE, UNSPECIFIED Qualifiers: COPD type: unspecified COPD Qualified Code(s): J44.9 - Chronic obstructive pulmonary disease, unspecified (4) Diabetes Code(s): E11.9 - TYPE 2 DIABETES MELLITUS WITHOUT COMPLICATIONS (5) Morbid obesity Code(s): E66.01 - MORBID (SEVERE) OBESITY DUE TO EXCESS CALORIES (6) Seizure Code(s): R56.9 - UNSPECIFIED CONVULSIONS (7) Stroke Code(s): I63.9 - CEREBRAL INFARCTION, UNSPECIFIED
--- NOTE | 2018-03-12 16:43 | PN ---
Progress Note, Physician History of Present Illness: feeling better - Current Medication List Current Medications: Active Medications Acetaminophen (Tylenol -) 650 mg PO TID [facility] Last Admin: 03/12/18 14:52 Dose: 650 mg Albuterol/Ipratropium (Duoneb -) 1 amp NEB Q4H PRN PRN Reason: SHORTNESS OF BREATH Last Admin: 03/11/18 21:20 Dose: 1 amp Amlodipine Besylate (Norvasc -) 10 mg PO DAILY [facility] Last Admin: 03/12/18 10:52 Dose: 10 mg Artificial Tears (Artificial Tears) 1 drop OD BID [facility] Last Admin: 03/12/18 10:52 Dose: Not Given Atorvastatin Calcium (Lipitor -) 20 mg PO HS [facility] Last Admin: 03/11/18 21:39 Dose: 20 mg Budesonide/Formoterol Fumarate (Symbicort 160/4.5mcg -) 1 puff IH BID [facility] Last Admin: 03/12/18 10:53 Dose: 1 puff Dipyridamole/Aspirin (Aggrenox -) 1 combo PO BID [facility] Last Admin: 03/12/18 10:52 Dose: 1 combo Fluoxetine HCl (Prozac -) 10 mg PO DAILY [facility] Last Admin: 03/12/18 10:52 Dose: 10 mg Heparin Sodium (Porcine) (Heparin -) 5,000 unit SQ BID [facility] Last Admin: 03/12/18 10:53 Dose: 5,000 unit Hydralazine HCl (Apresoline -) 25 mg PO BID [facility] Last Admin: 03/12/18 10:52 Dose: 25 mg Hydrochlorothiazide (Hctz -) 25 mg PO DAILY [facility] Last Admin: 03/12/18 10:52 Dose: 25 mg Piperacillin Sod/Tazobactam (Sod 3.375 gm/ Dextrose) 50 mls @ 100 mls/hr IVPB Q8H-IV [facility]; Protocol Last Admin: 03/12/18 10:54 Dose: 100 mls/hr Insulin Aspart (Novolog Vial Sliding Scale -) 1 vial SQ ACHS [facility]; Protocol Last Admin: 03/12/18 12:54 Dose: 10 units Levetiracetam (Keppra -) 500 mg PO BID [facility] Last Admin: 03/12/18 10:51 Dose: 500 mg Metformin HCl (Glucophage -) 1,000 mg PO BIDI [facility] Last Admin: 03/12/18 06:32 Dose: 1,000 mg Methylprednisolone Sodium Succinate (Solu-Medrol -) 80 mg IVPUSH Q8H-IV [facility] Last Admin: 03/12/18 10:53 Dose: 80 mg Non-Formulary Medication (Exenatide [Byetta]) 10 mcg SQ BID [facility] Oxycodone HCl (Roxicodone -) 10 mg PO TID [facility] Last Admin: 03/12/18 14:51 Dose: 10 mg Ranitidine HCl (Zantac -) 150 mg PO DAILY [facility] Last Admin: 03/12/18 10:51 Dose: 150 mg Solifenacin (Vesicare -) 5 mg PO HS [facility] Last Admin: 03/11/18 21:38 Dose: 5 mg - Objective Vital Signs: Vital Signs Temperature 98.3 F 03/12/18 14:05 Pulse Rate 114 H 03/12/18 14:05 Respiratory Rate 20 03/12/18 14:05 Blood Pressure 137/77 03/12/18 14:05 O2 Sat by Pulse Oximetry (%) 98 03/12/18 10:00 Constitutional: Yes: No Distress HENT: Yes: Atraumatic Neck: Yes: Supple Cardiovascular: Yes: Regular Rate and Rhythm Respiratory: Yes: Rhonchi Gastrointestinal: Yes: Normal Bowel Sounds Extremities: Yes: WNL Labs: CBC, BMP 03/11/18 06:15 03/11/18 06:15 INR, PTT INR 1.22 (0.82-1.09) 03/10/18 08:06 Problem List - Problems (1) Elevated troponin Assessment/Plan: will monitor Code(s): R74.8 - ABNORMAL LEVELS OF OTHER SERUM ENZYMES (2) PNA (pneumonia) Assessment/Plan: will start iv abx duo nebs oxygen...prn Code(s): J18.9 - PNEUMONIA, UNSPECIFIED ORGANISM Qualifiers: Pneumonia type: due to unspecified organism Laterality: unspecified laterality Lung location: unspecified part of lung Qualified Code(s): J18.9 - Pneumonia, unspecified organism (3) COPD (chronic obstructive pulmonary disease) Assessment/Plan: duo nebs iv steroids Code(s): J44.9 - CHRONIC OBSTRUCTIVE PULMONARY DISEASE, UNSPECIFIED Qualifiers: COPD type: unspecified COPD Qualified Code(s): J44.9 - Chronic obstructive pulmonary disease, unspecified (4) Diabetes Code(s): E11.9 - TYPE 2 DIABETES MELLITUS WITHOUT COMPLICATIONS (5) HTN (hypertension) Code(s): I10 - ESSENTIAL (PRIMARY) HYPERTENSION (6) Morbid obesity Code(s): E66.01 - MORBID (SEVERE) OBESITY DUE TO EXCESS CALORIES
--- NOTE | 2018-03-12 20:50 | PN ---
Progress Note, Physician History of Present Illness: patient feeling better still sob requiring resp support - Current Medication List Current Medications: Active Medications Acetaminophen (Tylenol -) 650 mg PO TID [facility] Last Admin: 03/12/18 14:52 Dose: 650 mg Albuterol/Ipratropium (Duoneb -) 1 amp NEB Q4H PRN PRN Reason: SHORTNESS OF BREATH Last Admin: 03/11/18 21:20 Dose: 1 amp Amlodipine Besylate (Norvasc -) 10 mg PO DAILY [facility] Last Admin: 03/12/18 10:52 Dose: 10 mg Artificial Tears (Artificial Tears) 1 drop OD BID [facility] Last Admin: 03/12/18 10:52 Dose: Not Given Atorvastatin Calcium (Lipitor -) 20 mg PO HS [facility] Last Admin: 03/11/18 21:39 Dose: 20 mg Budesonide/Formoterol Fumarate (Symbicort 160/4.5mcg -) 1 puff IH BID [facility] Last Admin: 03/12/18 10:53 Dose: 1 puff Dipyridamole/Aspirin (Aggrenox -) 1 combo PO BID [facility] Last Admin: 03/12/18 10:52 Dose: 1 combo Fluoxetine HCl (Prozac -) 10 mg PO DAILY [facility] Last Admin: 03/12/18 10:52 Dose: 10 mg Heparin Sodium (Porcine) (Heparin -) 5,000 unit SQ BID [facility] Last Admin: 03/12/18 10:53 Dose: 5,000 unit Hydralazine HCl (Apresoline -) 25 mg PO BID [facility] Last Admin: 03/12/18 10:52 Dose: 25 mg Hydrochlorothiazide (Hctz -) 25 mg PO DAILY [facility] Last Admin: 03/12/18 10:52 Dose: 25 mg Piperacillin Sod/Tazobactam (Sod 3.375 gm/ Dextrose) 50 mls @ 100 mls/hr IVPB Q8H-IV [facility]; Protocol Last Admin: 03/12/18 18:31 Dose: 100 mls/hr Insulin Aspart (Novolog Vial Sliding Scale -) 1 vial SQ ACHS [facility]; Protocol Last Admin: 03/12/18 18:50 Dose: 14 units Levetiracetam (Keppra -) 500 mg PO BID [facility] Last Admin: 03/12/18 10:51 Dose: 500 mg Metformin HCl (Glucophage -) 1,000 mg PO BIDI [facility] Last Admin: 03/12/18 17:08 Dose: 1,000 mg Methylprednisolone Sodium Succinate (Solu-Medrol -) 80 mg IVPUSH Q8H-IV [facility] Last Admin: 03/12/18 18:30 Dose: 80 mg Non-Formulary Medication (Exenatide [Byetta]) 10 mcg SQ BID [facility] Oxycodone HCl (Roxicodone -) 10 mg PO TID [facility] Last Admin: 03/12/18 14:51 Dose: 10 mg Ranitidine HCl (Zantac -) 150 mg PO DAILY [facility] Last Admin: 03/12/18 10:51 Dose: 150 mg Solifenacin (Vesicare -) 5 mg PO HS [facility] Last Admin: 03/11/18 21:38 Dose: 5 mg - Objective Vital Signs: Vital Signs Temperature 98.2 F 03/12/18 17:00 Pulse Rate 107 H 03/12/18 17:00 Respiratory Rate 20 03/12/18 17:00 Blood Pressure 144/85 03/12/18 17:00 O2 Sat by Pulse Oximetry (%) 98 03/12/18 10:00 Constitutional: Yes: Calm, Mild Distress, Obese Eyes: Yes: Conjunctiva Clear Cardiovascular: Yes: Regular Rate and Rhythm Respiratory: Yes: Regular, On Nasal O2, Rhonchi Gastrointestinal: Yes: Normal Bowel Sounds, Soft Musculoskeletal: Yes: WNL Extremities: Yes: WNL Neurological: Yes: Alert, Oriented Psychiatric: Yes: Alert, Oriented Labs: CBC, BMP 03/11/18 06:15 03/11/18 06:15 INR, PTT INR 1.22 (0.82-1.09) 03/10/18 08:06 - ....Imaging Cat Scan: Report Reviewed, Image Reviewed Assessment/Plan Problem List - Problems (1) Elevated troponin Code(s): R74.8 - ABNORMAL LEVELS OF OTHER SERUM ENZYMES (2) PNA (pneumonia) Code(s): J18.9 - PNEUMONIA, UNSPECIFIED ORGANISM Qualifiers: Pneumonia type: due to unspecified organism Laterality: unspecified laterality Lung location: unspecified part of lung Qualified Code(s): J18.9 - Pneumonia, unspecified organism (3) COPD (chronic obstructive pulmonary disease) Code(s): J44.9 - CHRONIC OBSTRUCTIVE PULMONARY DISEASE, UNSPECIFIED Qualifiers: COPD type: unspecified COPD Qualified Code(s): J44.9 - Chronic obstructive pulmonary disease, unspecified (4) Diabetes Code(s): E11.9 - TYPE 2 DIABETES MELLITUS WITHOUT COMPLICATIONS (5) Morbid obesity Code(s): E66.01 - MORBID (SEVERE) OBESITY DUE TO EXCESS CALORIES (6) Seizure Code(s): R56.9 - UNSPECIFIED CONVULSIONS (7) Stroke Code(s): I63.9 - CEREBRAL INFARCTION, UNSPECIFIED 8 lactic acidosis looking at the patient and history i think she has pneumonia and copd going on plan continue current mgmt iv abx incentive rudolph resp support rest as per the team improving
[2018-03-12] MEDS: ATORVASTATIN CA 20 MG TABLET (FP) PO SCH (21:51)
[2018-03-12] MEDS: SOLIFENACIN SUCCINATE 5 MG TAB (FP) PO SCH (21:51)
[2018-03-13] MEDS ORDERED: PIPERACILLIN/TAZOBACTAM 3.375 GM VIAL IVPB ONE ×3 (01:05→16:50)
[2018-03-13] MEDS ORDERED: DEXTROSE 5%-WATER - 50 ML IVPB ONE ×3 (01:05→16:50)
[2018-03-13] MEDS: INSULIN SLIDING SCALE (NOVOLOG) 1 VIAL SQ SCH ×5 (01:23→22:11)
[2018-03-13] MEDS: PIPERACILLIN/TAZOB 3.375 GM 3.375 GM in DEXTROSE 5%-WATER - 50 ML IVPB SCH ×3 (01:41→16:59)
[2018-03-13] MEDS: methylPREDNISolone NA SUCC 125 MG/2 ML VIAL IVPUSH SCH ×3 (03:29→16:59)
[2018-03-13] MEDS: ACETAMINOPHEN 325 MG TABLET (FP) PO SCH ×3 (06:20→22:10)
[2018-03-13] MEDS: oxyCODONE HCL 5 MG TABLET PO SCH ×3 (06:21→22:10)
[2018-03-13] MEDS: metFORMIN HCL 500 MG TABLET (FP) PO SCH ×2 (06:21→16:21)
[2018-03-13] MEDS ORDERED: PT OWN MED DRAWER 7, Y5N ONE (08:52)
--- NOTE | 2018-03-13 09:05 | PN ---
Progress Note, Physician History of Present Illness: doing much better breathing ralph headaches no other issues - Current Medication List Current Medications: Active Medications Acetaminophen (Tylenol -) 650 mg PO TID [facility] Last Admin: 03/13/18 06:20 Dose: 650 mg Albuterol/Ipratropium (Duoneb -) 1 amp NEB Q4H PRN PRN Reason: SHORTNESS OF BREATH Last Admin: 03/11/18 21:20 Dose: 1 amp Amlodipine Besylate (Norvasc -) 10 mg PO DAILY [facility] Last Admin: 03/12/18 10:52 Dose: 10 mg Artificial Tears (Artificial Tears) 1 drop OD BID [facility] Last Admin: 03/12/18 22:20 Dose: Not Given Atorvastatin Calcium (Lipitor -) 20 mg PO HS [facility] Last Admin: 03/12/18 21:51 Dose: 20 mg Budesonide/Formoterol Fumarate (Symbicort 160/4.5mcg -) 1 puff IH BID [facility] Last Admin: 03/12/18 21:59 Dose: 1 puff Dipyridamole/Aspirin (Aggrenox -) 1 combo PO BID [facility] Last Admin: 03/12/18 21:52 Dose: 1 combo Fluoxetine HCl (Prozac -) 10 mg PO DAILY [facility] Last Admin: 03/12/18 10:52 Dose: 10 mg Heparin Sodium (Porcine) (Heparin -) 5,000 unit SQ BID [facility] Last Admin: 03/12/18 22:06 Dose: 5,000 unit Hydralazine HCl (Apresoline -) 25 mg PO BID [facility] Last Admin: 03/12/18 21:51 Dose: 25 mg Hydrochlorothiazide (Hctz -) 25 mg PO DAILY [facility] Last Admin: 03/12/18 10:52 Dose: 25 mg Piperacillin Sod/Tazobactam (Sod 3.375 gm/ Dextrose) 50 mls @ 100 mls/hr IVPB Q8H-IV [facility]; Protocol Last Admin: 03/13/18 01:41 Dose: 100 mls/hr Insulin Aspart (Novolog Vial Sliding Scale -) 1 vial SQ ACHS [facility]; Protocol Last Admin: 03/13/18 06:22 Dose: 8 units Levetiracetam (Keppra -) 500 mg PO BID [facility] Last Admin: 03/12/18 21:51 Dose: 500 mg Metformin HCl (Glucophage -) 1,000 mg PO BIDI [facility] Last Admin: 03/13/18 06:21 Dose: 1,000 mg Methylprednisolone Sodium Succinate (Solu-Medrol -) 80 mg IVPUSH Q8H-IV [facility] Last Admin: 03/13/18 03:29 Dose: 80 mg Non-Formulary Medication (Exenatide [Byetta]) 10 mcg SQ BID [facility] Oxycodone HCl (Roxicodone -) 10 mg PO TID [facility] Last Admin: 03/13/18 06:21 Dose: 10 mg Ranitidine HCl (Zantac -) 150 mg PO DAILY [facility] Last Admin: 03/12/18 10:51 Dose: 150 mg Solifenacin (Vesicare -) 5 mg PO HS [facility] Last Admin: 03/12/18 21:51 Dose: 5 mg - Objective Vital Signs: Vital Signs Temperature 98.5 F 03/13/18 01:36 Pulse Rate 105 H 03/13/18 01:36 Respiratory Rate 18 03/13/18 01:36 Blood Pressure 139/80 03/13/18 01:36 O2 Sat by Pulse Oximetry (%) 100 03/12/18 21:00 Constitutional: Yes: No Distress, Calm, Obese Cardiovascular: Yes: Regular Rate and Rhythm Respiratory: Yes: Regular, CTA Bilaterally Gastrointestinal: Yes: Normal Bowel Sounds, Soft Musculoskeletal: Yes: WNL Extremities: Yes: WNL Neurological: Yes: Alert, Oriented Psychiatric: Yes: Alert, Oriented Labs: CBC, BMP 03/11/18 06:15 03/11/18 06:15 INR, PTT INR 1.22 (0.82-1.09) 03/10/18 08:06 Assessment/Plan Problem List - Problems (1) Elevated troponin Code(s): R74.8 - ABNORMAL LEVELS OF OTHER SERUM ENZYMES (2) PNA (pneumonia) Code(s): J18.9 - PNEUMONIA, UNSPECIFIED ORGANISM Qualifiers: Pneumonia type: due to unspecified organism Laterality: unspecified laterality Lung location: unspecified part of lung Qualified Code(s): J18.9 - Pneumonia, unspecified organism (3) COPD (chronic obstructive pulmonary disease) Code(s): J44.9 - CHRONIC OBSTRUCTIVE PULMONARY DISEASE, UNSPECIFIED Qualifiers: COPD type: unspecified COPD Qualified Code(s): J44.9 - Chronic obstructive pulmonary disease, unspecified (4) Diabetes Code(s): E11.9 - TYPE 2 DIABETES MELLITUS WITHOUT COMPLICATIONS (5) Morbid obesity Code(s): E66.01 - MORBID (SEVERE) OBESITY DUE TO EXCESS CALORIES (6) Seizure Code(s): R56.9 - UNSPECIFIED CONVULSIONS (7) Stroke Code(s): I63.9 - CEREBRAL INFARCTION, UNSPECIFIED 8 lactic acidosis looking at the patient and history i think she has pneumonia and copd going on plan continue current mgmt iv abx incentive rudolph resp support rest as per the team improving will probably deescalate to oral tomorrow
[2018-03-13] MEDS: ASPIRIN/DIPYRIDAMOLE 25 MG/200 MG CAPSULE (FP) PO SCH ×2 (09:17→22:09)
[2018-03-13] MEDS: levETIRAcetam 250 MG TABLET (FP) PO SCH ×2 (09:17→22:08)
[2018-03-13] MEDS: HYDROCHLOROTHIAZIDE 25 MG TABLET (FP) PO SCH (09:17)
[2018-03-13] MEDS: amLODIPine BESYLATE 10 MG TABLET (FP) PO SCH (09:17)
[2018-03-13] MEDS: BUDESONIDE/FORMETEROL FUMARATE 160/4.5 mcg INHALER IH SCH ×2 (09:17→22:07)
[2018-03-13] MEDS: RANITIDINE HCL 150 MG TABLET (FP) PO SCH (09:17)
[2018-03-13] MEDS: hydrALAZINE HCL 25 MG TABLET (FP) PO SCH ×2 (09:17→22:08)
[2018-03-13] MEDS: HEPARIN NA (PORCINE) 5,000 UNITS/ML 1ML VIAL SQ SCH ×2 (09:18→22:11)
[2018-03-13] MEDS: FLUoxetine HCL 10 MG CAPSULE (FP) PO SCH (09:21)
[2018-03-13] MEDS: ARTIFICIAL TEARS (POLYVINYL ALCOHOL 1.4%) OPTH DROPS OD SCH ×2 (09:21→22:07)
--- NOTE | 2018-03-13 10:10 | PN ---
Progress Note (short form) - Note Progress Note: s: sob little better, no cp palps dizzy o: Vital Signs Period Temp Pulse Resp BP Sys/[place]ox Pulse Ox Last 24 Hr 97.8 F-98.5 F 102-114 18-20 137-165/77-86 98-100 Constitutional: Yes: Well Nourished, No Distress, Calm Eyes: Yes: Conjunctiva Clear, EOM Intact Respiratory: Yes: Regular, CTA Bilaterally Gastrointestinal: Yes: Normal Bowel Sounds, Soft Cardiovascular: Yes: Regular Rate and Rhythm JVD: No Heart Sounds: Yes: S1, S2 Edema: No Neurological: Yes: Alert, Oriented Psychiatric: Yes: Alert, Oriented Current Medications Generic Name Dose Route Start Last Admin Trade Name Freq PRN Reason Stop Dose Admin Acetaminophen 650 mg 03/10/18 22:00 03/13/18 06:20 Tylenol - PO 650 mg TID [facility] Administration Albuterol/Ipratropium 1 amp 03/10/18 19:25 03/11/18 21:20 Duoneb - NEB 1 amp Q4H PRN Administration SHORTNESS OF BREATH Amlodipine Besylate 10 mg 03/11/18 10:00 03/13/18 09:17 Norvasc - PO 10 mg DAILY [facility] Administration Artificial Tears 1 drop 03/10/18 22:00 03/13/18 09:21 Artificial Tears OD 1 drop BID [facility] Administration Atorvastatin Calcium 20 mg 03/10/18 22:00 03/12/18 21:51 Lipitor - PO 20 mg HS [facility] Administration Budesonide/Formoterol Fumarate 1 puff 03/10/18 22:00 03/13/18 09:17 Symbicort 160/4.5mcg - IH 1 puff BID [facility] Administration Dipyridamole/Aspirin 1 combo 03/10/18 22:00 03/13/18 09:17 Aggrenox - PO 1 combo BID [facility] Administration Fluoxetine HCl 10 mg 03/11/18 10:00 03/13/18 09:21 Prozac - PO 10 mg DAILY [facility] Administration Heparin Sodium (Porcine) 5,000 unit 03/10/18 22:00 03/13/18 09:18 Heparin - SQ 5,000 unit BID [facility] Administration Hydralazine HCl 25 mg 03/10/18 22:00 03/13/18 09:17 Apresoline - PO 25 mg BID [facility] Administration Hydrochlorothiazide 25 mg 03/11/18 10:00 03/13/18 09:17 Hctz - PO 25 mg DAILY [facility] Administration Piperacillin Sod/Tazobactam 50 mls @ 100 mls/hr 03/11/18 02:00 03/13/18 09:20 Sod 3.375 gm/ Dextrose IVPB 100 mls/hr Q8H-IV [facility] Administration Protocol Insulin Aspart 1 vial 03/10/18 22:00 03/13/18 06:22 Novolog Vial Sliding Scale - SQ 8 units ACHS [facility] Administration Protocol Levetiracetam 500 mg 03/10/18 22:00 03/13/18 09:17 Keppra - PO 500 mg BID [facility] Administration Metformin HCl 1,000 mg 03/11/18 07:00 03/13/18 06:21 Glucophage - PO 1,000 mg BIDI [facility] Administration Methylprednisolone Sodium Succinate 80 mg 03/11/18 02:00 03/13/18 09:18 Solu-Medrol - IVPUSH 80 mg Q8H-IV [facility] Administration Non-Formulary Medication 10 mcg 03/10/18 22:00 Exenatide [Byetta] SQ BID [facility] Oxycodone HCl 10 mg 03/10/18 22:00 03/13/18 06:21 Roxicodone - PO 10 mg TID [facility] Administration Ranitidine HCl 150 mg 03/11/18 10:00 03/13/18 09:17 Zantac - PO 150 mg DAILY [facility] Administration Solifenacin 5 mg 03/10/18 22:00 03/12/18 21:51 Vesicare - PO 5 mg HS [facility] Administration CBC, BMP 03/11/18 06:15 03/11/18 06:15 Assessment/Plan Echo 03/2018 nl LV/RV size and function, no significant valvular dz EKG 03/2018: CXR: possible infiltrate left base Tele: sinus rhythm/sinus tachy (+) troponin -likely demand in setting of infection, trend not concerning for ACS at this time. -echo here unremarkable -will check nuclear stress test after acute issues resolve for risk stratification Chest tightness, sob, pna - in setting of PNA, asthma - on IV abx and iv steroids HTN -cont current meds DM - manage per primary team
--- NOTE | 2018-03-13 10:44 | PN ---
Progress Note (short form) - Note Progress Note: Breathing continues to slowly improve. Less SOB. Still with some positional dizziness. No CP. Intake & Output 03/10/18 03/11/18 03/12/18 03/13/18 23:59 23:59 23:59 23:59 Intake Total 1140 480 510 120 Output Total 200 400 400 Balance 940 480 110 -280 Weight 274 lb Last Vital Signs Temp Pulse Resp BP Pulse Ox 98.5 F 105 H 18 139/80 98 03/13/18 01:36 03/13/18 01:36 03/13/18 09:00 03/13/18 01:36 03/13/18 09:00 Active Medications Acetaminophen (Tylenol -) 650 mg PO TID [facility] Last Admin: 03/13/18 06:20 Dose: 650 mg Albuterol/Ipratropium (Duoneb -) 1 amp NEB Q4H PRN PRN Reason: SHORTNESS OF BREATH Last Admin: 03/11/18 21:20 Dose: 1 amp Amlodipine Besylate (Norvasc -) 10 mg PO DAILY [facility] Last Admin: 03/13/18 09:17 Dose: 10 mg Artificial Tears (Artificial Tears) 1 drop OD BID [facility] Last Admin: 03/13/18 09:21 Dose: 1 drop Atorvastatin Calcium (Lipitor -) 20 mg PO HS [facility] Last Admin: 03/12/18 21:51 Dose: 20 mg Budesonide/Formoterol Fumarate (Symbicort 160/4.5mcg -) 1 puff IH BID [facility] Last Admin: 03/13/18 09:17 Dose: 1 puff Dipyridamole/Aspirin (Aggrenox -) 1 combo PO BID [facility] Last Admin: 03/13/18 09:17 Dose: 1 combo Fluoxetine HCl (Prozac -) 10 mg PO DAILY [facility] Last Admin: 03/13/18 09:21 Dose: 10 mg Heparin Sodium (Porcine) (Heparin -) 5,000 unit SQ BID [facility] Last Admin: 03/13/18 09:18 Dose: 5,000 unit Hydralazine HCl (Apresoline -) 25 mg PO BID [facility] Last Admin: 03/13/18 09:17 Dose: 25 mg Hydrochlorothiazide (Hctz -) 25 mg PO DAILY [facility] Last Admin: 03/13/18 09:17 Dose: 25 mg Piperacillin Sod/Tazobactam (Sod 3.375 gm/ Dextrose) 50 mls @ 100 mls/hr IVPB Q8H-IV [facility]; Protocol Last Admin: 03/13/18 09:20 Dose: 100 mls/hr Insulin Aspart (Novolog Vial Sliding Scale -) 1 vial SQ ACHS [facility]; Protocol Last Admin: 03/13/18 10:36 Dose: 8 units Levetiracetam (Keppra -) 500 mg PO BID [facility] Last Admin: 03/13/18 09:17 Dose: 500 mg Metformin HCl (Glucophage -) 1,000 mg PO BIDI [facility] Last Admin: 03/13/18 06:21 Dose: 1,000 mg Methylprednisolone Sodium Succinate (Solu-Medrol -) 80 mg IVPUSH Q8H-IV [facility] Last Admin: 03/13/18 09:18 Dose: 80 mg Non-Formulary Medication (Exenatide [Byetta]) 10 mcg SQ BID [facility] Oxycodone HCl (Roxicodone -) 10 mg PO TID [facility] Last Admin: 03/13/18 06:21 Dose: 10 mg Ranitidine HCl (Zantac -) 150 mg PO DAILY [facility] Last Admin: 03/13/18 09:17 Dose: 150 mg Solifenacin (Vesicare -) 5 mg PO HS [facility] Last Admin: 03/12/18 21:51 Dose: 5 mg Constitutional: Yes: No Distress, Obese Eyes: Yes: Conjunctiva Clear, EOM Intact HENT: Yes: Atraumatic, Normocephalic Neck: Yes: Supple, Trachea Midline Cardiovascular: Yes: Regular Rate and Rhythm Respiratory: Yes: Cough, Rhonchi, SOB. No: Accessory Muscle Use, Stridor, Tachypnea, Wheezes ...Inspection: Yes: WNL ...Clubbing: No Gastrointestinal: Yes: Normal Bowel Sounds, Soft, Abdomen, Obese Renal/: Yes: WNL Musculoskeletal: Yes: WNL Extremities: Yes: WNL Edema: Yes Peripheral Pulses WNL: Yes Integumentary: Yes: WNL Neurological: Yes: WNL, Alert, Oriented ...Motor Strength: WNL Psychiatric: Yes: WNL, Alert, Oriented Labs: Laboratory Results - last 24 hr 03/12/18 03/12/18 03/12/18 12:33 18:38 18:41 POC Glucometer 334 581 500 03/12/18 03/12/18 03/12/18 18:45 18:48 21:58 POC Glucometer 207 143 422 03/13/18 03/13/18 03/13/18 01:13 01:15 05:55 POC Glucometer > 600 416 281 Problem List - Problems (1) Elevated troponin Code(s): R74.8 - ABNORMAL LEVELS OF OTHER SERUM ENZYMES (2) PNA (pneumonia) Code(s): J18.9 - PNEUMONIA, UNSPECIFIED ORGANISM Qualifiers: Pneumonia type: due to unspecified organism Laterality: unspecified laterality Lung location: unspecified part of lung Qualified Code(s): J18.9 - Pneumonia, unspecified organism (3) COPD (chronic obstructive pulmonary disease) Code(s): J44.9 - CHRONIC OBSTRUCTIVE PULMONARY DISEASE, UNSPECIFIED Qualifiers: COPD type: unspecified COPD Qualified Code(s): J44.9 - Chronic obstructive pulmonary disease, unspecified (4) Diabetes Code(s): E11.9 - TYPE 2 DIABETES MELLITUS WITHOUT COMPLICATIONS (5) Morbid obesity Code(s): E66.01 - MORBID (SEVERE) OBESITY DUE TO EXCESS CALORIES (6) Seizure Code(s): R56.9 - UNSPECIFIED CONVULSIONS (7) Stroke Code(s): I63.9 - CEREBRAL INFARCTION, UNSPECIFIED Assessment/Plan ABX coverage O2 as needed Lasix Will need repeat Sleep workup after D/C Daily weight No smoking Outpatient PFTs once stable Dr Price Problem List - Problems (1) Elevated troponin Code(s): R74.8 - ABNORMAL LEVELS OF OTHER SERUM ENZYMES (2) PNA (pneumonia) Code(s): J18.9 - PNEUMONIA, UNSPECIFIED ORGANISM Qualifiers: Pneumonia type: due to unspecified organism Laterality: unspecified laterality Lung location: unspecified part of lung Qualified Code(s): J18.9 - Pneumonia, unspecified organism (3) COPD (chronic obstructive pulmonary disease) Code(s): J44.9 - CHRONIC OBSTRUCTIVE PULMONARY DISEASE, UNSPECIFIED Qualifiers: COPD type: unspecified COPD Qualified Code(s): J44.9 - Chronic obstructive pulmonary disease, unspecified (4) Diabetes Code(s): E11.9 - TYPE 2 DIABETES MELLITUS WITHOUT COMPLICATIONS (5) Morbid obesity Code(s): E66.01 - MORBID (SEVERE) OBESITY DUE TO EXCESS CALORIES (6) Seizure Code(s): R56.9 - UNSPECIFIED CONVULSIONS (7) Stroke Code(s): I63.9 - CEREBRAL INFARCTION, UNSPECIFIED
--- NOTE | 2018-03-13 15:46 | PN ---
Progress Note, Physician History of Present Illness: feeling better - Current Medication List Current Medications: Active Medications Acetaminophen (Tylenol -) 650 mg PO TID [facility] Last Admin: 03/13/18 13:53 Dose: 650 mg Albuterol/Ipratropium (Duoneb -) 1 amp NEB Q4H PRN PRN Reason: SHORTNESS OF BREATH Last Admin: 03/11/18 21:20 Dose: 1 amp Amlodipine Besylate (Norvasc -) 10 mg PO DAILY [facility] Last Admin: 03/13/18 09:17 Dose: 10 mg Artificial Tears (Artificial Tears) 1 drop OD BID [facility] Last Admin: 03/13/18 09:21 Dose: 1 drop Atorvastatin Calcium (Lipitor -) 20 mg PO HS [facility] Last Admin: 03/12/18 21:51 Dose: 20 mg Budesonide/Formoterol Fumarate (Symbicort 160/4.5mcg -) 1 puff IH BID [facility] Last Admin: 03/13/18 09:17 Dose: 1 puff Dipyridamole/Aspirin (Aggrenox -) 1 combo PO BID [facility] Last Admin: 03/13/18 09:17 Dose: 1 combo Fluoxetine HCl (Prozac -) 10 mg PO DAILY [facility] Last Admin: 03/13/18 09:21 Dose: 10 mg Heparin Sodium (Porcine) (Heparin -) 5,000 unit SQ BID [facility] Last Admin: 03/13/18 09:18 Dose: 5,000 unit Hydralazine HCl (Apresoline -) 25 mg PO BID [facility] Last Admin: 03/13/18 09:17 Dose: 25 mg Hydrochlorothiazide (Hctz -) 25 mg PO DAILY [facility] Last Admin: 03/13/18 09:17 Dose: 25 mg Piperacillin Sod/Tazobactam (Sod 3.375 gm/ Dextrose) 50 mls @ 100 mls/hr IVPB Q8H-IV [facility]; Protocol Last Admin: 03/13/18 09:20 Dose: 100 mls/hr Insulin Aspart (Novolog Vial Sliding Scale -) 1 vial SQ ACHS [facility]; Protocol Last Admin: 03/13/18 10:36 Dose: 8 units Levetiracetam (Keppra -) 500 mg PO BID [facility] Last Admin: 03/13/18 09:17 Dose: 500 mg Metformin HCl (Glucophage -) 1,000 mg PO BIDI [facility] Last Admin: 03/13/18 06:21 Dose: 1,000 mg Methylprednisolone Sodium Succinate (Solu-Medrol -) 80 mg IVPUSH Q8H-IV [facility] Last Admin: 03/13/18 09:18 Dose: 80 mg Non-Formulary Medication (Exenatide [Byetta]) 10 mcg SQ BID [facility] Oxycodone HCl (Roxicodone -) 10 mg PO TID [facility] Last Admin: 03/13/18 13:53 Dose: 10 mg Ranitidine HCl (Zantac -) 150 mg PO DAILY [facility] Last Admin: 03/13/18 09:17 Dose: 150 mg Solifenacin (Vesicare -) 5 mg PO HS [facility] Last Admin: 03/12/18 21:51 Dose: 5 mg - Objective Vital Signs: Vital Signs Temperature 98.7 F 03/13/18 14:27 Pulse Rate 107 H 03/13/18 14:27 Respiratory Rate 18 03/13/18 14:27 Blood Pressure 142/73 03/13/18 14:27 O2 Sat by Pulse Oximetry (%) 98 03/13/18 09:00 HENT: Yes: Atraumatic Neck: Yes: Supple Cardiovascular: Yes: Regular Rate and Rhythm Respiratory: Yes: CTA Bilaterally Gastrointestinal: Yes: Normal Bowel Sounds Extremities: Yes: WNL Neurological: Yes: Alert, Oriented Labs: CBC, BMP 03/11/18 06:15 03/11/18 06:15 INR, PTT INR 1.22 (0.82-1.09) 03/10/18 08:06 Problem List - Problems (1) Elevated troponin Assessment/Plan: will monitor has trended down cardiology on board Code(s): R74.8 - ABNORMAL LEVELS OF OTHER SERUM ENZYMES (2) PNA (pneumonia) Assessment/Plan: iv abx duo nebs oxygen...prn Code(s): J18.9 - PNEUMONIA, UNSPECIFIED ORGANISM Qualifiers: Pneumonia type: due to unspecified organism Laterality: unspecified laterality Lung location: unspecified part of lung Qualified Code(s): J18.9 - Pneumonia, unspecified organism (3) COPD (chronic obstructive pulmonary disease) Assessment/Plan: duo nebs iv steroids..start to taper Code(s): J44.9 - CHRONIC OBSTRUCTIVE PULMONARY DISEASE, UNSPECIFIED Qualifiers: COPD type: unspecified COPD Qualified Code(s): J44.9 - Chronic obstructive pulmonary disease, unspecified (4) Diabetes Assessment/Plan: on meds bgms Code(s): E11.9 - TYPE 2 DIABETES MELLITUS WITHOUT COMPLICATIONS (5) HTN (hypertension) Assessment/Plan: onmeds stable Code(s): I10 - ESSENTIAL (PRIMARY) HYPERTENSION (6) Morbid obesity Code(s): E66.01 - MORBID (SEVERE) OBESITY DUE TO EXCESS CALORIES
[2018-03-13] MEDS: ATORVASTATIN CA 20 MG TABLET (FP) PO SCH (22:08)
[2018-03-13] MEDS: SOLIFENACIN SUCCINATE 5 MG TAB (FP) PO SCH (22:09)
[2018-03-14] MEDS ORDERED: PIPERACILLIN/TAZOBACTAM 3.375 GM VIAL IVPB ONE ×2 (00:48→09:24)
[2018-03-14] MEDS ORDERED: DEXTROSE 5%-WATER - 50 ML IVPB ONE ×2 (00:48→09:24)
[2018-03-14] MEDS: methylPREDNISolone NA SUCC 125 MG/2 ML VIAL IVPUSH SCH ×2 (01:03→09:42)
[2018-03-14] MEDS: PIPERACILLIN/TAZOB 3.375 GM 3.375 GM in DEXTROSE 5%-WATER - 50 ML IVPB SCH ×2 (01:28→09:42)
[2018-03-14] MEDS: oxyCODONE HCL 5 MG TABLET PO SCH ×2 (06:27→13:46)
[2018-03-14] MEDS: metFORMIN HCL 500 MG TABLET (FP) PO SCH ×2 (06:27→16:57)
[2018-03-14] MEDS: ACETAMINOPHEN 325 MG TABLET (FP) PO SCH ×2 (06:27→13:46)
[2018-03-14] MEDS: INSULIN SLIDING SCALE (NOVOLOG) 1 VIAL SQ SCH ×3 (06:28→16:58)
[2018-03-14] MEDS: ALBUTEROL SO4 2.5/IPRATROPIUM 0.5 INH SOL 3 ML VIAL.NEB. NEB PRN (07:43)
[2018-03-14] MEDS: ARTIFICIAL TEARS (POLYVINYL ALCOHOL 1.4%) OPTH DROPS OD SCH (09:40)
[2018-03-14] MEDS: amLODIPine BESYLATE 10 MG TABLET (FP) PO SCH (09:41)
[2018-03-14] MEDS: RANITIDINE HCL 150 MG TABLET (FP) PO SCH (09:41)
[2018-03-14] MEDS: FLUoxetine HCL 10 MG CAPSULE (FP) PO SCH (09:41)
[2018-03-14] MEDS: HEPARIN NA (PORCINE) 5,000 UNITS/ML 1ML VIAL SQ SCH (09:41)
[2018-03-14] MEDS: levETIRAcetam 250 MG TABLET (FP) PO SCH (09:41)
[2018-03-14] MEDS: ASPIRIN/DIPYRIDAMOLE 25 MG/200 MG CAPSULE (FP) PO SCH (09:41)
[2018-03-14] MEDS: BUDESONIDE/FORMETEROL FUMARATE 160/4.5 mcg INHALER IH SCH (09:41)
[2018-03-14] MEDS: hydrALAZINE HCL 25 MG TABLET (FP) PO SCH (09:42)
[2018-03-14] MEDS: HYDROCHLOROTHIAZIDE 25 MG TABLET (FP) PO SCH (09:42)
--- NOTE | 2018-03-14 10:27 | PN ---
Progress Note, Physician Chief Complaint: NSTEMI History of Present Illness: no more chest tightness, sob, cough since 03/12 she says. on DOA she was awoken with these sx's, also activity related fatigue. had 3 episodes of recurrent sx's during approximately first 24 hrs in hospital, then at least one more since. no palpit, syncope ex cigs - Current Medication List Current Medications: Active Medications Acetaminophen (Tylenol -) 650 mg PO TID [facility] Last Admin: 03/14/18 06:27 Dose: 650 mg Albuterol/Ipratropium (Duoneb -) 1 amp NEB Q4H PRN PRN Reason: SHORTNESS OF BREATH Last Admin: 03/14/18 07:43 Dose: 1 amp Amlodipine Besylate (Norvasc -) 10 mg PO DAILY [facility] Last Admin: 03/14/18 09:41 Dose: 10 mg Artificial Tears (Artificial Tears) 1 drop OD BID [facility] Last Admin: 03/14/18 09:40 Dose: 1 drop Atorvastatin Calcium (Lipitor -) 20 mg PO HS [facility] Last Admin: 03/13/18 22:08 Dose: 20 mg Budesonide/Formoterol Fumarate (Symbicort 160/4.5mcg -) 1 puff IH BID [facility] Last Admin: 03/14/18 09:41 Dose: 1 puff Dipyridamole/Aspirin (Aggrenox -) 1 combo PO BID [facility] Last Admin: 03/14/18 09:41 Dose: 1 combo Fluoxetine HCl (Prozac -) 10 mg PO DAILY [facility] Last Admin: 03/14/18 09:41 Dose: 10 mg Heparin Sodium (Porcine) (Heparin -) 5,000 unit SQ BID [facility] Last Admin: 03/14/18 09:41 Dose: 5,000 unit Hydralazine HCl (Apresoline -) 25 mg PO BID [facility] Last Admin: 03/14/18 09:42 Dose: 25 mg Hydrochlorothiazide (Hctz -) 25 mg PO DAILY [facility] Last Admin: 03/14/18 09:42 Dose: 25 mg Piperacillin Sod/Tazobactam (Sod 3.375 gm/ Dextrose) 50 mls @ 100 mls/hr IVPB Q8H-IV [facility]; Protocol Last Admin: 03/14/18 09:42 Dose: 100 mls/hr Insulin Aspart (Novolog Vial Sliding Scale -) 1 vial SQ ACHS [facility]; Protocol Last Admin: 03/14/18 06:28 Dose: 10 units Levetiracetam (Keppra -) 500 mg PO BID [facility] Last Admin: 03/14/18 09:41 Dose: 500 mg Metformin HCl (Glucophage -) 1,000 mg PO BIDI [facility] Last Admin: 03/14/18 06:27 Dose: 1,000 mg Methylprednisolone Sodium Succinate (Solu-Medrol -) 80 mg IVPUSH Q8H-IV [facility] Last Admin: 03/14/18 09:42 Dose: 80 mg Non-Formulary Medication (Exenatide [Byetta]) 10 mcg SQ BID [facility] Oxycodone HCl (Roxicodone -) 10 mg PO TID [facility] Last Admin: 03/14/18 06:27 Dose: 10 mg Ranitidine HCl (Zantac -) 150 mg PO DAILY [facility] Last Admin: 03/14/18 09:41 Dose: 150 mg Solifenacin (Vesicare -) 5 mg PO HS [facility] Last Admin: 03/13/18 22:09 Dose: 5 mg - Objective Vital Signs: Vital Signs Temperature 98.6 F 03/14/18 08:27 Pulse Rate 113 H 03/14/18 08:27 Respiratory Rate 20 03/14/18 08:27 Blood Pressure 146/79 03/14/18 08:27 O2 Sat by Pulse Oximetry (%) 100 03/14/18 08:27 Constitutional: Yes: No Distress, Calm, Obese Eyes: No: Sclera Icterus HENT: No: Nasal Congestion Cardiovascular: Yes: Regular Rate and Rhythm, S1, S2, Other (PMI non diplaced). No: JVD, Gallop, Murmur Respiratory: Yes: CTA Bilaterally. No: Accessory Muscle Use, Rales, Wheezes Gastrointestinal: Yes: Normal Bowel Sounds, Soft. No: Tenderness Musculoskeletal: Yes: Other (No kyphosis) Extremities: No: Cold Edema: No Integumentary: No: Jaundice Neurological: Yes: Alert, Oriented (x3) Psychiatric: No: Agitated Labs: CBC, BMP 03/11/18 06:15 03/11/18 06:15 INR, PTT INR 1.22 (0.82-1.09) 03/10/18 08:06 Assessment/Plan Echo 03/2018 nl LV/RV size and function, no significant valvular dz CXR: possible infiltrate left base CTA chest: no infiltrate/consolidation. bilat lower lobe ATX, small effusions tele: sinus rhythm NSTEMI -[id number] pattern (0.2-->1.1-->0.8), though slowly uptrended initially. ACS dx in question -admitted with sob/choking and chest tightness awaking her from sleep--mult recurrent sx's here. -no signs PNA radiographically (CT), normal temp but elevated wbc count initially. -? asthma but doesn't explain troponin pattern -echo here unremarkable -suspect this is recurrent ischemic sx's causing the fairly slow upstroke of troponins. -d/w'd pt who denies history of GIB/PUD, and lives in adult home with on-site med administration by RN, hence DAPT compliance should be reliable. rec cardiac cath (habitus also TDS for nuclear perfusion scans). she is agreeable but concerned about transfer to [facility] hospital b/c not sure her home will be able to provide arrangements to get her back home after--details to be determined regarding site of transfer -recommend defer AC given she is approx 72 hrs from last episode of sx's, troponins trending down. -ASA, statin (increase to 80 qd for now) -BB on hold--as below HTN -bp suboptimal control here -cont amlodipine 10, hczt, low dose hydralazine -add losartan 100 qd -add BB once stress test completed (sooner if any recurrent ischemic sxs) DM - management per primary team
[2018-03-14] MEDS ORDERED: LOSARTAN POTASSIUM 50 MG TABLET (FP) PO SCH (10:45)
--- NOTE | 2018-03-14 10:57 | PN ---
Progress Note, Physician History of Present Illness: pulmonary alert,feeing better,less dyspneic,-cp,-cough - Current Medication List Current Medications: Active Medications Acetaminophen (Tylenol -) 650 mg PO TID [facility] Last Admin: 03/14/18 06:27 Dose: 650 mg Albuterol/Ipratropium (Duoneb -) 1 amp NEB Q4H PRN PRN Reason: SHORTNESS OF BREATH Last Admin: 03/14/18 07:43 Dose: 1 amp Amlodipine Besylate (Norvasc -) 10 mg PO DAILY [facility] Last Admin: 03/14/18 09:41 Dose: 10 mg Artificial Tears (Artificial Tears) 1 drop OD BID [facility] Last Admin: 03/14/18 09:40 Dose: 1 drop Atorvastatin Calcium (Lipitor -) 20 mg PO HS [facility] Last Admin: 03/13/18 22:08 Dose: 20 mg Budesonide/Formoterol Fumarate (Symbicort 160/4.5mcg -) 1 puff IH BID [facility] Last Admin: 03/14/18 09:41 Dose: 1 puff Dipyridamole/Aspirin (Aggrenox -) 1 combo PO BID [facility] Last Admin: 03/14/18 09:41 Dose: 1 combo Fluoxetine HCl (Prozac -) 10 mg PO DAILY [facility] Last Admin: 03/14/18 09:41 Dose: 10 mg Heparin Sodium (Porcine) (Heparin -) 5,000 unit SQ BID [facility] Last Admin: 03/14/18 09:41 Dose: 5,000 unit Hydralazine HCl (Apresoline -) 25 mg PO BID [facility] Last Admin: 03/14/18 09:42 Dose: 25 mg Hydrochlorothiazide (Hctz -) 25 mg PO DAILY [facility] Last Admin: 03/14/18 09:42 Dose: 25 mg Piperacillin Sod/Tazobactam (Sod 3.375 gm/ Dextrose) 50 mls @ 100 mls/hr IVPB Q8H-IV [facility]; Protocol Last Admin: 03/14/18 09:42 Dose: 100 mls/hr Insulin Aspart (Novolog Vial Sliding Scale -) 1 vial SQ ACHS [facility]; Protocol Last Admin: 03/14/18 06:28 Dose: 10 units Levetiracetam (Keppra -) 500 mg PO BID [facility] Last Admin: 03/14/18 09:41 Dose: 500 mg Losartan Potassium (Cozaar -) 100 mg PO DAILY [facility] Metformin HCl (Glucophage -) 1,000 mg PO BIDI [facility] Last Admin: 03/14/18 06:27 Dose: 1,000 mg Methylprednisolone Sodium Succinate (Solu-Medrol -) 80 mg IVPUSH Q8H-IV [facility] Last Admin: 03/14/18 09:42 Dose: 80 mg Non-Formulary Medication (Exenatide [Byetta]) 10 mcg SQ BID [facility] Oxycodone HCl (Roxicodone -) 10 mg PO TID [facility] Last Admin: 03/14/18 06:27 Dose: 10 mg Ranitidine HCl (Zantac -) 150 mg PO DAILY [facility] Last Admin: 03/14/18 09:41 Dose: 150 mg Solifenacin (Vesicare -) 5 mg PO HS [facility] Last Admin: 03/13/18 22:09 Dose: 5 mg - Objective Vital Signs: Vital Signs Temperature 98.6 F 03/14/18 08:27 Pulse Rate 113 H 03/14/18 08:27 Respiratory Rate 20 03/14/18 08:27 Blood Pressure 146/79 03/14/18 08:27 O2 Sat by Pulse Oximetry (%) 100 03/14/18 08:27 Constitutional: Yes: Calm, Obese Eyes: Yes: WNL HENT: Yes: WNL Neck: Yes: WNL Cardiovascular: Yes: Regular Rate and Rhythm, S1, S2 Respiratory: Yes: Rales, Rhonchi (few bibasailr rales ,scattered rhonchi) Gastrointestinal: Yes: Normal Bowel Sounds, Soft Extremities: Yes: WNL Edema: No Labs: CBC, BMP Assessment/Plan Problem List - Problems (1) Elevated troponin Code(s): R74.8 - ABNORMAL LEVELS OF OTHER SERUM ENZYMES (2) PNA (pneumonia) Code(s): J18.9 - PNEUMONIA, UNSPECIFIED ORGANISM Qualifiers: Pneumonia type: due to unspecified organism Laterality: unspecified laterality Lung location: unspecified part of lung Qualified Code(s): J18.9 - Pneumonia, unspecified organism (3) COPD (chronic obstructive pulmonary disease) Code(s): J44.9 - CHRONIC OBSTRUCTIVE PULMONARY DISEASE, UNSPECIFIED Qualifiers: COPD type: unspecified COPD Qualified Code(s): J44.9 - Chronic obstructive pulmonary disease, unspecified (4) Diabetes Code(s): E11.9 - TYPE 2 DIABETES MELLITUS WITHOUT COMPLICATIONS (5) Morbid obesity Code(s): E66.01 - MORBID (SEVERE) OBESITY DUE TO EXCESS CALORIES (6) Seizure Code(s): R56.9 - UNSPECIFIED CONVULSIONS (7) Stroke Code(s): I63.9 - CEREBRAL INFARCTION, UNSPECIFIED Assessment/Plan ABX coverage O2 as needed Lasix Sleep workup after D/C Daily weight No smoking Outpatient PFTs once stable steroid taper DR MARTE Problem List - Problems (1) Elevated troponin Code(s): R74.8 - ABNORMAL LEVELS OF OTHER SERUM ENZYMES (2) PNA (pneumonia) Code(s): J18.9 - PNEUMONIA, UNSPECIFIED ORGANISM Qualifiers: Pneumonia type: due to unspecified organism Laterality: unspecified laterality Lung location: unspecified part of lung Qualified Code(s): J18.9 - Pneumonia, unspecified organism (3) COPD (chronic obstructive pulmonary disease) Code(s): J44.9 - CHRONIC OBSTRUCTIVE PULMONARY DISEASE, UNSPECIFIED Qualifiers: COPD type: unspecified COPD Qualified Code(s): J44.9 - Chronic obstructive pulmonary disease, unspecified (4) Diabetes Code(s): E11.9 - TYPE 2 DIABETES MELLITUS WITHOUT COMPLICATIONS (5) Morbid obesity Code(s): E66.01 - MORBID (SEVERE) OBESITY DUE TO EXCESS CALORIES (6) Seizure Code(s): R56.9 - UNSPECIFIED CONVULSIONS (7) Stroke Code(s): I63.9 - CEREBRAL INFARCTION, UNSPECIFIED
[2018-03-14] MEDS ORDERED: methylPREDNISolone NA SUCC 40 MG/1 ML VIAL IVPUSH SCH (10:58)
[2018-03-14] MEDS ORDERED: ATORVASTATIN CA 80 MG TABLET (FP) PO SCH (11:58)
--- NOTE | 2018-03-14 14:56 | PN ---
Progress Note, Physician History of Present Illness: doing well no complaints breathing better - Current Medication List Current Medications: Active Medications Acetaminophen (Tylenol -) 650 mg PO TID [facility] Last Admin: 03/14/18 13:46 Dose: 650 mg Albuterol/Ipratropium (Duoneb -) 1 amp NEB Q4H PRN PRN Reason: SHORTNESS OF BREATH Last Admin: 03/14/18 07:43 Dose: 1 amp Amlodipine Besylate (Norvasc -) 10 mg PO DAILY [facility] Last Admin: 03/14/18 09:41 Dose: 10 mg Artificial Tears (Artificial Tears) 1 drop OD BID [facility] Last Admin: 03/14/18 09:40 Dose: 1 drop Atorvastatin Calcium (Lipitor -) 80 mg PO [facility] Budesonide/Formoterol Fumarate (Symbicort 160/4.5mcg -) 1 puff IH BID [facility] Last Admin: 03/14/18 09:41 Dose: 1 puff Dipyridamole/Aspirin (Aggrenox -) 1 combo PO BID [facility] Last Admin: 03/14/18 09:41 Dose: 1 combo Fluoxetine HCl (Prozac -) 10 mg PO DAILY [facility] Last Admin: 03/14/18 09:41 Dose: 10 mg Heparin Sodium (Porcine) (Heparin -) 5,000 unit SQ BID [facility] Last Admin: 03/14/18 09:41 Dose: 5,000 unit Hydralazine HCl (Apresoline -) 25 mg PO BID [facility] Last Admin: 03/14/18 09:42 Dose: 25 mg Hydrochlorothiazide (Hctz -) 25 mg PO DAILY [facility] Last Admin: 03/14/18 09:42 Dose: 25 mg Piperacillin Sod/Tazobactam (Sod 3.375 gm/ Dextrose) 50 mls @ 100 mls/hr IVPB Q8H-IV [facility]; Protocol Last Admin: 03/14/18 09:42 Dose: 100 mls/hr Insulin Aspart (Novolog Vial Sliding Scale -) 1 vial SQ ACHS [facility]; Protocol Last Admin: 03/14/18 11:30 Dose: 10 units Levetiracetam (Keppra -) 500 mg PO BID [facility] Last Admin: 03/14/18 09:41 Dose: 500 mg Losartan Potassium (Cozaar -) 100 mg PO DAILY [facility] Last Admin: 03/14/18 11:34 Dose: 100 mg Metformin HCl (Glucophage -) 1,000 mg PO BIDI [facility] Last Admin: 03/14/18 06:27 Dose: 1,000 mg Methylprednisolone Sodium Succinate (Solu-Medrol -) 40 mg IVPUSH Q8H-IV [facility] Non-Formulary Medication (Exenatide [Byetta]) 10 mcg SQ BID [facility] Oxycodone HCl (Roxicodone -) 10 mg PO TID [facility] Last Admin: 03/14/18 13:46 Dose: 10 mg Ranitidine HCl (Zantac -) 150 mg PO DAILY [facility] Last Admin: 03/14/18 09:41 Dose: 150 mg Solifenacin (Vesicare -) 5 mg PO HS [facility] Last Admin: 03/13/18 22:09 Dose: 5 mg - Objective Vital Signs: Vital Signs Temperature 98.6 F 03/14/18 08:27 Pulse Rate 113 H 03/14/18 08:27 Respiratory Rate 20 03/14/18 08:27 Blood Pressure 146/79 03/14/18 08:27 O2 Sat by Pulse Oximetry (%) 100 03/14/18 08:27 Constitutional: Yes: No Distress, Calm Cardiovascular: Yes: S1, S2 Respiratory: Yes: Regular, On Nasal O2 Gastrointestinal: Yes: Normal Bowel Sounds, Soft Musculoskeletal: Yes: WNL Extremities: Yes: WNL Neurological: Yes: Alert, Oriented Psychiatric: Yes: Alert, Oriented Labs: CBC, BMP 03/11/18 06:15 03/11/18 06:15 INR, PTT INR 1.22 (0.82-1.09) 03/10/18 08:06 Assessment/Plan Problem List - Problems (1) Elevated troponin Code(s): R74.8 - ABNORMAL LEVELS OF OTHER SERUM ENZYMES (2) PNA (pneumonia) Code(s): J18.9 - PNEUMONIA, UNSPECIFIED ORGANISM Qualifiers: Pneumonia type: due to unspecified organism Laterality: unspecified laterality Lung location: unspecified part of lung Qualified Code(s): J18.9 - Pneumonia, unspecified organism (3) COPD (chronic obstructive pulmonary disease) Code(s): J44.9 - CHRONIC OBSTRUCTIVE PULMONARY DISEASE, UNSPECIFIED Qualifiers: COPD type: unspecified COPD Qualified Code(s): J44.9 - Chronic obstructive pulmonary disease, unspecified (4) Diabetes Code(s): E11.9 - TYPE 2 DIABETES MELLITUS WITHOUT COMPLICATIONS (5) Morbid obesity Code(s): E66.01 - MORBID (SEVERE) OBESITY DUE TO EXCESS CALORIES (6) Seizure Code(s): R56.9 - UNSPECIFIED CONVULSIONS (7) Stroke Code(s): I63.9 - CEREBRAL INFARCTION, UNSPECIFIED 8 lactic acidosis looking at the patient and history i think she has pneumonia and copd going on plan continue current mgmt incentive rudolph resp support rest as per the team improving will witch to oral
[2018-03-14 15:17] VITALS: BP 167/93; PULSE 105; TEMP 98.3
[2018-03-14] MEDS ORDERED: PT OWN MED DRAWER 7, Y5N ONE (16:54)
[2018-03-14] MEDS ORDERED: AMOX TR/POT CLAV 500MG/125MG TABLETS (FP) PO SCH (17:30)
[2018-03-14] MEDS ORDERED: NEBIVOLOL 10 MG TABLET (FP) PO SCH (17:45)
--- NOTE | 2018-03-14 20:53 | DS ---
Physical Examination Vital Signs: Vital Signs Temperature 98.3 F 03/14/18 14:00 Pulse Rate 105 H 03/14/18 14:00 Respiratory Rate 20 03/14/18 08:27 Blood Pressure 167/93 03/14/18 14:00 O2 Sat by Pulse Oximetry (%) 100 03/14/18 08:27 Labs: CBC, BMP 03/11/18 06:15 03/11/18 06:15 Discharge Summary Reason For Visit: ELEVATED TROPONIN LEVEL; COPD; PNEUMONIA Condition: Stable - Instructions Referrals: Beni Ledesma MD [Primary Care Provider] - Disposition: TRANSFER ACUTE CARE/OTHER HOSP - Home Medications Comprehensive Discharge Medication List: Ambulatory Orders Acetaminophen [Tylenol -] 1,000 mg PO PRN PRN 03/10/18 Amlodipine Besylate [Norvasc -] 10 mg PO DAILY 03/10/18 Aspirin/Dipyridamole [Aggrenox -] 1 combo PO BID 03/10/18 Budesonide/Formeterol Fumarate [SYMBICORT 160/4.5mcg -] 1 inh PO BID 03/10/18 Calcium Carbonate/Vitamin D3 [Oyster Shell 500-Vit D3 200 Tb] 1 each PO BID 04/19 Exenatide [Byetta] 10 mcg SQ BID 03/10/18 Famotidine [Pepcid] 20 mg PO DAILY 03/10/18 Fluoxetine HCl [Prozac] 10 mg PO DAILY 03/10/18 Hydrochlorothiazide [Hctz -] 25 mg PO DAILY 03/10/18 Insulin Regular, Human [Humulin R U-500 Kwikpen] 0 unit SQ ASDIR 03/10/18 Levetiracetam [Keppra] 500 mg PO BID 03/10/18 Melatonin 1.5 mg PO HS 03/10/18 Metformin HCl [Glucophage] 1,000 mg PO BID 03/10/18 Nortriptyline HCl [Pamelor] 75 mg PO HS 03/10/18 Oxycodone HCl/Acetaminophen [Percocet 5-325 mg Tablet] 2 tab PO TID 03/10/18 Polyvinyl Alcohol [Artificial Tears] 1 drop OD BID 03/10/18 Potassium Chloride 40 meq PO DAILY 03/10/18 Pravastatin Sodium [Pravachol (Nf)] 80 mg PO DAILY 03/10/18 Solifenacin Succinate [Vesicare -] 5 mg PO HS 03/10/18 hydrALAZINE HCL [Apresoline -] 25 mg PO BID 03/10/18 transfer to tertiary care by steel pourer helper for cardiac cath
== END 2018-03-14 18:30 | disposition short-term general hospital (02) | DRG 280 ==
LOC: FER 07:41 → J4W 18:55
PROVIDERS: ADMIT Internal Medicine; ATTEND Internal Medicine
DX: I21.4 Non-ST elevation (NSTEMI) myocardial infarction (principal); J18.9 Pneumonia, unspecified organism; E87.2 Acidosis; Z68.43 Body mass index [BMI] 50.0-59.9, adult; I11.0 Hypertensive heart disease with heart failure; J44.9 Chronic obstructive pulmonary disease, unspecified; E11.9 Type 2 diabetes mellitus without complications; F32.9 Major depressive disorder, single episode, unspecified; J45.909 Unspecified asthma, uncomplicated; E66.01 Morbid (severe) obesity due to excess calories; R74.8 Abnormal levels of other serum enzymes; R56.9 Unspecified convulsions; Z87.891 Personal history of nicotine dependence; Z86.73 Personal history of transient ischemic attack (TIA), and cerebral infarction without residual deficits
CPT/HCPCS: 36415; 71045-TC-FY; 71275-TC; 80053; 81003; 81015; 82550; 82553; 82962; 83605; 83735; 83880; 84100; 84484; 85025; 85610; 85730; 87040; 87086; 87899; 93005; 93306-TC; 94640; 99285-25; J0131; J1644; J7620

== ENCOUNTER 2019-04-09 06:16 | Inpatient (IN) | payer OTHER ==
--- NOTE | 2019-04-09 07:38 | PDOC ---
Attending Attestation - Resident Resident Name: Martha Hernandez - ED Attending Attestation I have performed the following: I have examined & evaluated the patient, The case was reviewed & discussed with the resident, I agree w/resident's findings & plan, Exceptions are as noted - HPI HPI: 04/09/19 07:49 68y F hx cva, chf, copd, DM, htn, presents from assisted livint with sob for the past few days but worsened last night around 4am. The pt denies any other symptmos including cough, fever/chills, n/v, dipahoresis, back pain, abd pain, increased leg swelling, orthopnea. Pt notes the past few days she has had increased MONTENEGRO (normally has some at baseline, but now worse). Pt normall sleeps with a couple of pillows behind her back and has not had to increase the # of pillows. Physical Exam GENERAL: The patient is awake, alert, and fully oriented, Nontoxic - in no acute distress. Morbidly obese HEAD: Normocephalic, atraumatic. EYES: extraocular movements intact, sclera anicteric, conjunctiva clear. ENT: Normal voice, Moist mucous membranes. NECK: Normal range of motion, supple LUNGS: scant rales at the L base, no respiratory distress, speaking complete sentences HEART: Regular rate and rhythm, normal S1 and S2 without murmur, rub or gallop. ABDOMEN: Soft, nontender, No guarding, no rebound. No CVA tenderness EXTREMITIES: Normal range of motion, +edema, +chronic venous changes b/l NEUROLOGICAL: No facial assymetry, Normal speech, moving all 4 ext spontaneously and symmetrically PSYCH: Normal mood, normal affect. SKIN: Warm, Dry, normal turgor, ddx - vague sob without other focal complaints - ddx - pna, chf, copd, consider very atypical acs will obtain labs, cxr, vbg butch reasesss - Physicial Exam PE: 04/14/19 13:56 see above - Medical Decision Making 04/14/19 13:57 see above Heart Score/ECG Review - ECG Impressions Comment:: 04/09/19 09:47 Twelve-lead EKG was performed and reviewed by me. There is normal sinus rhythm with a normal rate. rate of 97 PACs present
[2019-04-09 08:11] LABS: VENOUS PC02 56.1 mmHg (38-52); VENOUS PH 7.35 (7.31-7.41)
[2019-04-09 08:13] LABS: VENOUS PO2 < 49 mmHg (28-48)
--- NOTE | 2019-04-09 08:16 | PDOC ---
History of Present Illness - General Chief Complaint: Shortness of Breath Stated Complaint: CHEST TIGHTNESS Time Seen by Provider: 04/09/19 07:17 - History of Present Illness Initial Comments: Lizy Salinas is a 68yo woman with a PMH of CHF, COPD, DM, HTN, CVA, NSTEMI (2018) who presents with SOB this morning. She is a poor historian and is unable to give any additional information. Per paperwork from her facility, she was found to be hypoxic to the 80's on RA this morning. Ms Salinas states that she has 2 inhalers but does not have free access to them; they are administered by SNF nursing staff. Ms Salinas additionally reports RLE pain that she states is chronic; she says it hurts the same as every day. She reports taking Percocet at home for the leg pain. Past History - Past Medical History Allergies/Adverse Reactions: Allergies Allergy/AdvReac Type Severity Reaction Status Date / Time lisinopril Allergy Severe Swelling Verified 04/09/19 06:32 PADMINI Inhibitors Allergy Verified 04/09/19 06:32 blueberry Allergy Verified 04/09/19 06:32 erythromycin base Allergy Verified 04/09/19 06:32 naproxen Allergy Verified 04/09/19 06:32 raspberry Allergy Verified 04/09/19 06:32 strawberry Allergy Verified 04/09/19 06:32 Home Medications: Ambulatory Orders Amlodipine Besylate [Norvasc -] 10 mg PO DAILY 03/10/18 Budesonide/Formeterol Fumarate [SYMBICORT 160/4.5mcg -] 1 inh PO BID 03/10/18 Famotidine [Pepcid] 20 mg PO DAILY 03/10/18 Fluoxetine HCl [Prozac] 20 mg PO DAILY 03/10/18 Hydrochlorothiazide [Hctz -] 25 mg PO DAILY 03/10/18 Insulin Regular, Human [Humulin R U-500 Kwikpen] 0 unit SQ TID 03/10/18 Levetiracetam [Keppra] 500 mg PO BID 03/10/18 Metformin HCl [Glucophage] 1,000 mg PO BID 03/10/18 Nortriptyline HCl [Pamelor] 25 mg PO HS 03/10/18 Oxycodone HCl/Acetaminophen [Percocet 5-325 mg Tablet] 1 tab PO TID 03/10/18 Polyvinyl Alcohol [Artificial Tears] 1 drop OP BID 03/10/18 Potassium Chloride 20 meq PO DAILY 03/10/18 hydrALAZINE HCL [Apresoline -] 25 mg PO BID 03/10/18 Ammonium Lactate Cream [Lac-Hydrin 12% *Cream*] 1 applic TP DAILY 04/09/19 Aspirin [Aspirin EC] 81 mg PO DAILY 04/09/19 Atorvastatin Ca [Lipitor] 80 mg PO HS 04/09/19 Bacitracin - [Bacitracin Topical Ointment -] 1 applic TP DAILY 04/09/19 Clopidogrel Bisulfate [Plavix -] 75 mg PO DAILY 04/09/19 Clotrimazole [Lotrimin 1% Solution -] 1 applic TP BID 04/09/19 Docusate Sodium [Colace -] 200 mg PO DAILY 04/09/19 Linagliptin [Tradjenta] 5 mg PO DAILY 04/09/19 Liraglutide [Victoza 3-Raf] 1.8 mg SQ DAILY 04/09/19 Metoprolol Succinate [Toprol Xl] 25 mg PO DAILY 04/09/19 Mupirocin Ointment [Bactroban] 1 applic TP DAILY 04/09/19 Oxybutynin Chloride [Oxybutynin Chloride ER] 5 mg PO DAILY 04/09/19 Umeclidinium [place] [Incruse Ellipta] 62.5 mcg IH DAILY 04/09/19 Cardiac Disorders: Yes (PVD) CVA: Yes (&TIA) COPD: Yes Diabetes: Yes (TYPE 2) GI Disorders: Yes (GERD, constipation) HTN: Yes Hypercholesterolemia: Yes Psychiatric Problems: Yes (DEPRESSION) Seizures: Yes (UNSPECIFIED CONVULSIONS) - Surgical History Cardiac Surgery: Yes (03/2016 PCI/STENT) Cholecystectomy: Yes - Immunization History Immunization Up to Date: Yes - Suicide/Smoking/Psychosocial Hx Smoking History: Former smoker Have you smoked in the past 12 months: No If you are a former smoker, when did you quit?: 10 years ago Information on smoking cessation initiated: No Hx Alcohol Use: No Drug/Substance Use Hx: No Substance Use Type: None Hx Substance Use Treatment: No Review of Systems - Review of Systems Comments:: General: No fevers, no chills, no weight or appetite change, no malaise HEENT: No changes in vision, no changes in hearing, no congestion, no sore throat CV: No chest pain, no palpitations, no LE edema Pulm: See HPI GI: No nausea or vomiting, no change in bowel habits, no melena : No frequency, no urgency, no dysuria Musc: No back pain, no joint swelling, no recent injury Skin: No rash, no lesions, no erythema Endo: No excessive thirst, no heat/cold intolerance Heme: No unusual bruising or bleeding, no swollen glands Neuro: No syncope, no numbness/tingling, no focal weakness Vasc: No claudication Psych: No recent change in mood, no SI or HI *Physical Exam - Vital Signs Last Vital Signs Temp Pulse Resp BP Pulse Ox 97.6 F 94 H 22 H 143/76 95 04/09/19 06:18 04/09/19 06:18 04/09/19 06:18 04/09/19 06:18 04/09/19 07:34 - Physical Exam Comments: General: Comfortable, no acute distress. Morbidly obese HEENT: PERRL, EOMI, MMM, voice normal, normal neck ROM, no LAD Cards: RRR, no murmur appreciated Pulm: Comfortable on room air. No wheezing appreciated but poor exam 2/2 habitus Abd: Soft, nontender, nondistended Ext: Atraumatic. 2+ pitting BLE edema. Skin: No rashes. Skin darkening in BLE c/w chronic venous stasis Neuro: A&Ox3, CN grossly intact, normal speech, motor/sensory grossly intact and symmetric Psych: Mood appropriate to situation ED Treatment Course - LABORATORY CBC & Chemistry Diagram: 04/09/19 07:40 04/09/19 07:40 - ADDITIONAL ORDERS Additional order review: Laboratory Results 04/09/19 08:00 VBG pH 7.35 POC VBG pCO2 56.1 H POC VBG pO2 < 49 H VBG HCO3 30.2 H VBG O2 Sat (Ermelinda) 49.0 L VBG Base Excess 4.2 H - RADIOLOGY Radiology Studies Ordered: Category Date Time Status CHEST X-RAY PORTABLE* [RAD] Stat Radiology 04/09/19 07:34 Ordered Medical Decision Making - Medical Decision Making 04/09/19 08:15 Lizy Kylie Salinas is a 68yo woman with a PMH of CHF, COPD, DM, HTN, CVA, NSTEMI (2018) who presents with SOB. She was noted to be hypoxic on arrival. - Ddx includes COPD exacerbation, sleep apnea (hypoxia noted early in morning), hypoventilation secondary to obesity. Less likely CHF exacerbation w/ clear lung exam. Less likely pneumonia, URI without cough or fever - Leg pain appears chronic - CBC, CMP, BNP, trop, EKG, CXR - Sats 100% on non-rebreather. Removed during exam, sats in high 90's on RA 04/09/19 10:05 - Labs reviewed. No concerning abnormalities - CXR without acute changes - Will give nebs and reassess; possible asthma/COPD exacerbation. Sats maintained in high 90's on room air 04/09/19 10:44 - Reporting incrased chronic leg pain. Home Percocet ordered 04/09/19 11:55 - Attempted to ambulate Ms Salinas w/ the assistance of Dr Ballard. Unable to take more than a few steps before becoming dyspnic and needing to rest - Sats 88-89% on RA after ambulating - Will monitor, but no report of requiring home O2 at baseline. May need admission for hypoxia. 04/09/19 12:09 - Spoke to nursing staff at [facility]. Unaware of any of Ms Salinas's underlying medical problems - Will call pt's PMD, Dr Ledesma. 04/09/19 13:04 - 2nd attempt to call Dr Ledesma 04/09/19 13:09 - Spoke to Dr Ledesma. Does not believe pt is usually hypoxic at baseline. Recommending DVT/PE workup as hypoxia is new. - Will order duplex US - Likely admit following duplex 04/09/19 13:57 - Duplex completed, no clot appreciated. Radiology report pending - Will send microblog for admission 04/09/19 15:26 - Discussed w/ Dr Moeller. Will admit to med/surg for workup. Requesting CT chest , ABG, solu-medrol to be ordered Discussed with Dr Nellie Hernandez PGY2 *DC/Admit/Observation/Transfer Diagnosis at time of Disposition: Hypoxia, MONTENEGRO (dyspnea on exertion) - Discharge Dispostion Decision to Admit order: Yes - Referrals - Patient Instructions - Post Discharge Activity
[2019-04-09 08:39] LABS: N-TERMINAL BNP 380.9 pg/ml (5-125)
[2019-04-09 08:46] LABS: BILIRUBIN,TOTAL 0.3 mg/dL (0.2-1); BLOOD UREA NITROGEN 14.4 mg/dL (7-18); CALCIUM 9.1 mg/dL (8.5-10.1); CREATININE 0.8 mg/dL (0.55-1.3); POTASSIUM 4.5 mmol/L (3.5-5.1); TOT PROT 6.9 g/dl (6.4-8.2)
[2019-04-09 09:22] LABS: BASO % 0.6 % (0-2.0); EOS % 1.5 % (0-4.5); HEMATOCRIT 29.1 % (32.4-45.2); HEMOGLOBIN 8.8 GM/dL (10.7-15.3); LYMPH % 14.2 % (8-40); MCH 23.3 pg (25.7-33.7); MCHC 30.4 g/dl (32.0-36.0); MEAN CELL VOLUME 76.7 fl (80-96); MEAN PLT VOLUME 8.5 fl (7.5-11.1); MONO % 4.7 % (3.8-10.2); PLATELET COUNT 337 K/MM3 (134-434); RBC 3.79 M/mm3 (3.60-5.2); WHITE BLOOD COUNT 11.3 K/mm3 (4.0-10.0)
[2019-04-09] MEDS ORDERED: ALBUTEROL SO4 2.5/IPRATROPIUM 0.5 INH SOL 3 ML VIAL.NEB. NEB ONE (10:17)
[2019-04-09] MEDS: ALBUTEROL SO4 2.5/IPRATROPIUM 0.5 INH SOL 3 ML VIAL.NEB. NEB SCH ×5 (10:19→21:50)
[2019-04-09] MEDS ORDERED: methylPREDNISolone NA SUCC 40 MG/1 ML VIAL IVPUSH ONE (15:24)
[2019-04-09] MEDS ORDERED: POLYETHYLENE GLYCOL 3350 119 GM BTL PO PRN (15:38)
[2019-04-09] MEDS ORDERED: ACETAMINOPHEN 325 MG TABLET (FP) PO PRN (15:38)
[2019-04-09] MEDS ORDERED: ALBUTEROL SO4 0.083% IH SOL 2.5 MG/3 ML VIAL.NEB. NEB PRN (15:38)
--- NOTE | 2019-04-09 15:38 | HP ---
CHIEF COMPLAINT: SOB PCP: Dr. Ellis HISTORY OF PRESENT ILLNESS: Seen and examined; thank you to PCP for allowing [facility] to provide care for your patient. Briefly, this is a 68 y/o female presenting to the ER with dyspnea. It is made worse with exertion and somewhat better with rest; this is reflected in desaturation to the 80s with minimal exertion. The patient improved with supplemental O2. ER resident spoke to PCP and this is not her baseline. She is afebrile and hemodunamically stable; minor leukocytosis noted. Some congestive changes potentially seen in CXR; CT pending. BNP less than it was last admit. Prior echo reviewed; LVEF wnl. HR not >100 and o2 improved so less likely PE. 10 sys ROS done and negative aside from HPI Recent Travel: None PAST MEDICAL HISTORY: As per chart PAST SURGICAL HISTORY: Reviewed; Social History: Smoking: Alcohol: Drugs: Family History: Allergies lisinopril Allergy (Severe, Verified 04/09/19 06:32) Swelling PADMINI Inhibitors Allergy (Verified 04/09/19 06:32) blueberry Allergy (Verified 04/09/19 06:32) erythromycin base Allergy (Verified 04/09/19 06:32) naproxen Allergy (Verified 04/09/19 06:32) raspberry Allergy (Verified 04/09/19 06:32) strawberry Allergy (Verified 04/09/19 06:32) HOME MEDICATIONS: Home Medications Medication Instructions Recorded Amlodipine Besylate [Norvasc -] 10 mg PO DAILY 03/10/18 Budesonide/Formeterol Fumarate 1 inh PO BID 03/10/18 [SYMBICORT 160/4.5mcg -] Famotidine [Pepcid] 20 mg PO DAILY 03/10/18 Fluoxetine HCl [Prozac] 20 mg PO DAILY 03/10/18 Hydrochlorothiazide [Hctz -] 25 mg PO DAILY 03/10/18 Insulin Regular, Human [Humulin R 0 unit SQ TID 03/10/18 U-500 Kwikpen] Levetiracetam [Keppra] 500 mg PO BID 03/10/18 Metformin HCl [Glucophage] 1,000 mg PO BID 03/10/18 Nortriptyline HCl [Pamelor] 25 mg PO HS 03/10/18 Oxycodone HCl/Acetaminophen 1 tab PO TID 03/10/18 [Percocet 5-325 mg Tablet] Polyvinyl Alcohol [Artificial 1 drop OP BID 03/10/18 Tears] Potassium Chloride 20 meq PO DAILY 03/10/18 hydrALAZINE HCL [Apresoline -] 25 mg PO BID 03/10/18 Ammonium Lactate Cream [Lac-Hydrin 1 applic TP DAILY 04/09/19 12% *Cream*] Aspirin [Aspirin EC] 81 mg PO DAILY 04/09/19 Atorvastatin Ca [Lipitor] 80 mg PO HS 04/09/19 Bacitracin - [Bacitracin Topical 1 applic TP DAILY 04/09/19 Ointment -] Clopidogrel Bisulfate [Plavix -] 75 mg PO DAILY 04/09/19 Clotrimazole [Lotrimin 1% Solution 1 applic TP BID 04/09/19 -] Docusate Sodium [Colace -] 200 mg PO DAILY 04/09/19 Linagliptin [Tradjenta] 5 mg PO DAILY 04/09/19 Liraglutide [Victoza 3-Raf] 1.8 mg SQ DAILY 04/09/19 Metoprolol Succinate [Toprol Xl] 25 mg PO DAILY 04/09/19 Mupirocin Ointment [Bactroban] 1 applic TP DAILY 04/09/19 Oxybutynin Chloride [Oxybutynin 5 mg PO DAILY 04/09/19 Chloride ER] Umeclidinium [place] [Incruse 62.5 mcg IH DAILY 04/09/19 Ellipta] PHYSICAL EXAMINATION Vital Signs - 24 hr 04/09/19 04/09/19 04/09/19 06:18 06:20 07:34 Temperature 97.6 F Pulse Rate 94 H Respiratory 22 H Rate Blood Pressure 143/76 O2 Sat by Pulse 100 100 95 Oximetry (%) GENERAL: Awake, alert, and fully oriented, in no acute distress. HEAD: Normal with no signs of trauma. EYES: Pupils equal, round and reactive to light, extraocular movements intact, sclera anicteric, conjunctiva clear. No lid lag. EARS, NOSE, THROAT: Ears normal, nares patent, oropharynx clear without exudates. Moist mucous membranes. NECK: Normal range of motion, supple without lymphadenopathy, JVD, or masses. LUNGS: Breath sounds equal, clear to auscultation bilaterally. No wheezes, and no crackles. No accessory muscle use. HEART: Regular rate and rhythm, normal S1 and S2 without murmur, rub or gallop. ABDOMEN: Soft, nontender, not distended, normoactive bowel sounds, no guarding, no rebound, no masses. No hepatomegaly or splenomegaly. MUSCULOSKELETAL: Normal range of motion at all joints. No bony deformities or tenderness. No CVA tenderness. UPPER EXTREMITIES: 2+ pulses, warm, well-perfused. No cyanosis. No clubbing. No peripheral edema. LOWER EXTREMITIES: 2+ pulses, warm, well-perfused. No calf tenderness. No peripheral edema. NEUROLOGICAL: Cranial nerves II-XII intact. Normal speech. Normal gait. PSYCHIATRIC: Cooperative. Good eye contact. Appropriate mood and affect. SKIN: Warm, dry, normal turgor, no rashes or lesions noted, normal capillary refill. Laboratory Results - last 24 hr 04/09/19 04/09/19 04/09/19 07:40 07:40 07:40 WBC 11.3 H RBC 3.79 Hgb 8.8 L Hct 29.1 L MCV 76.7 L MCH 23.3 L D MCHC 30.4 L RDW 20.0 H Plt Count 337 MPV 8.5 Absolute Neuts (auto) 8.9 H Neutrophils % 79.0 Lymphocytes % 14.2 D Monocytes % 4.7 D Eosinophils % 1.5 D Basophils % 0.6 Nucleated RBC % 0 VBG pH POC VBG pCO2 POC VBG pO2 VBG HCO3 VBG O2 Sat (Ermelinda) VBG Base Excess Sodium 139 Potassium 4.5 Chloride 101 Carbon Dioxide 30 Anion Gap 9 BUN 14.4 Creatinine 0.8 Est GFR (CKD-EPI)AfAm 87.80 Est GFR (CKD-EPI)NonAf 75.75 Random Glucose 156 H Calcium 9.1 Total Bilirubin 0.3 AST 25 ALT 21 Alkaline Phosphatase 104 Troponin I < 0.02 B-Natriuretic Peptide 380.9 H Total Protein 6.9 Albumin 3.0 L 04/09/19 08:00 WBC RBC Hgb Hct MCV MCH MCHC RDW Plt Count MPV Absolute Neuts (auto) Neutrophils % Lymphocytes % Monocytes % Eosinophils % Basophils % Nucleated RBC % VBG pH 7.35 POC VBG pCO2 56.1 H POC VBG pO2 < 49 H VBG HCO3 30.2 H VBG O2 Sat (Ermelinda) 49.0 L VBG Base Excess 4.2 H Sodium Potassium Chloride Carbon Dioxide Anion Gap BUN Creatinine Est GFR (CKD-EPI)AfAm Est GFR (CKD-EPI)NonAf Random Glucose Calcium Total Bilirubin AST ALT Alkaline Phosphatase Troponin I B-Natriuretic Peptide Total Protein Albumin CXR reviewed; discussed CT pending EKG pending review ASSESSMENT/PLAN: Patient presents with MONTENEGRO; has increased cough. Only mild leukocytosis; no thaddeus CXR infiltrates less likely PNA. Mild increase BNP which can be seen in obese and elderly but with congestive changes and cardiac history gives rise to concern of CHF. 2018 echo reviewed; today's pending.
[2019-04-09] MEDS ORDERED: methylPREDNISolone NA SUCC 125 MG/2 ML VIAL ONE (15:50)
[2019-04-09] MEDS ORDERED: FUROSEMIDE 40 MG/4 ML INJECTABLE VIAL ONE (15:50)
[2019-04-09] MEDS: FUROSEMIDE 40 MG/4 ML INJECTABLE VIAL IVPUSH SCH (16:02)
[2019-04-09] MEDS: INSULIN SLIDING SCALE (NOVOLOG) 1 VIAL SQ SCH ×2 (16:03→21:42)
--- NOTE | 2019-04-09 16:32 | EKG ---
Test Reason : Blood Pressure : / mmHG Vent. Rate : 097 BPM Atrial Rate : 097 BPM P-R Int : 156 ms QRS Dur : 086 ms QT Int : 366 ms P-R-T Axes : 055 -15 086 degrees QTc Int : 464 ms SINUS RHYTHM WITH PREMATURE ATRIAL COMPLEXES VOLTAGE CRITERIA FOR LEFT VENTRICULAR HYPERTROPHY ABNORMAL ECG WHEN COMPARED WITH ECG OF 10-MAR-2018 07:49, PREMATURE ATRIAL COMPLEXES ARE NOW PRESENT Confirmed by TICO LONDONO MD ([id number]) on 04/09/2019 4:31:52 PM Referred By: Confirmed By:TICO LONDONO MD
[2019-04-09 16:52] LABS: ARTERIAL BLD GAS O2 SATURATION 93.4 % (95-98); ARTERIAL BLOOD GAS BASE EXCESS 5.6 meq/l (-2-2); ARTERIAL BLOOD GAS PCO2 42.2 mmHg (35-45); ARTERIAL BLOOD GAS PO2 70.9 mmHg (80-100); ARTERIAL BLOOD GAS pH 7.46 (7.35-7.45)
[2019-04-09 16:54] LABS: ALLENS TEST POSITIVE
[2019-04-09 16:57] LABS: CARBOXYHEMOGLOBIN 1.4 % (0-2)
[2019-04-09 17:02] LABS: INR 1.14 (0.83-1.09); PROTHROMBIN TIME (PATIENT) 13.5 SEC (9.7-13.0)
[2019-04-09 17:15] LABS: MAGNESIUM 1.9 mg/dL (1.8-2.4)
[2019-04-09] MEDS: methylPREDNISolone NA SUCC 40 MG/1 ML VIAL IVPUSH SCH (17:59)
[2019-04-09] MEDS: HEPARIN NA (PORCINE) 5,000 UNITS/ML 1ML VIAL SQ SCH (21:39)
[2019-04-09] MEDS: hydrALAZINE HCL 25 MG TABLET (FP) PO SCH (21:39)
[2019-04-09] MEDS: ATORVASTATIN CA 80 MG TABLET (FP) PO SCH (21:39)
[2019-04-09] MEDS: levETIRAcetam 250 MG TABLET (FP) PO SCH (21:39)
[2019-04-09] MEDS ORDERED: NORTRIPTYLINE HCL 25 MG PO SCH (22:00)
[2019-04-09] MEDS: ARTIFICIAL TEARS (POLYVINYL ALCOHOL) OPTH DROPS OD SCH (22:28)
[2019-04-09] MEDS: NORTRIPTYLINE HCL 25 MG CAPSULE PO SCH (22:28)
[2019-04-09 23:57] VITALS: BMI 51.6
[2019-04-10] MEDS: methylPREDNISolone NA SUCC 40 MG/1 ML VIAL IVPUSH SCH ×3 (02:35→17:42)
[2019-04-10] MEDS: INSULIN SLIDING SCALE (NOVOLOG) 1 VIAL SQ SCH ×4 (06:25→21:59)
[2019-04-10] MEDS: HEPARIN NA (PORCINE) 5,000 UNITS/ML 1ML VIAL SQ SCH ×3 (06:26→21:41)
[2019-04-10 07:54] LABS: HEMATOCRIT 33.8 % (32.4-45.2); HEMOGLOBIN 10.6 GM/dL (10.7-15.3); MCH 23.6 pg (25.7-33.7); MCHC 31.3 g/dl (32.0-36.0); MEAN CELL VOLUME 75.2 fl (80-96); MEAN PLT VOLUME 8.9 fl (7.5-11.1); PLATELET COUNT 413 K/MM3 (134-434); RBC 4.49 M/mm3 (3.60-5.2); RDW 20.5 % (11.6-15.6); WHITE BLOOD COUNT 10.9 K/mm3 (4.0-10.0)
[2019-04-10 08:00] LABS: ALBUMIN 3.4 g/dl (3.4-5.0); BILIRUBIN,TOTAL 0.6 mg/dL (0.2-1); BLOOD UREA NITROGEN 12.8 mg/dL (7-18); CALCIUM 9.4 mg/dL (8.5-10.1); CREATININE 0.8 mg/dL (0.55-1.3); POTASSIUM 4.6 mmol/L (3.5-5.1)
[2019-04-10] MEDS: ALBUTEROL SO4 2.5/IPRATROPIUM 0.5 INH SOL 3 ML VIAL.NEB. NEB SCH ×4 (08:00→20:05)
--- NOTE | 2019-04-10 09:17 | CON.CARD ---
Consult Consult Specialty:: cardio - History of Present Illness Chief Complaint: sob History of Present Illness: 68 yo F here with sob. states she lives in care home. has not seen us or any other cardio since NSTEMI here 1 yr ago. says she often feels sob (sometimes coughing assctd) when has URI, and gets nebs at the home. yest am shortly after got dressed in AM she felt very breathless. only scant coughing, no wheezing. feet swollen recently, not her usual. thinks she ate salty chips the night before. had no CP at that time or any other time. reportedly was hypoxic with ambulation in the care home and staff member heard wheezing denies any recent URI or other infectious sx's here 03/19 with NSTEMI vs acute chf and Type II troponins. planned for transfer for cath at that time, with ongoing discussions about the facility--discharged that same day without documentation of where she went for cath. 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: Yes: CVA Cardio/Vascular: Yes: CHF, HTN Pulmonary: Yes: Asthma Psych: Yes: Depression Endocrine: Yes: Diabetes Mellitus - Alcohol/Substance Use Hx Alcohol Use: No - Smoking History Smoking history: Former smoker Have you smoked in the past 12 months: No If you are a former smoker, when did you quit?: 10 years ago - Social History Usual Living Arrangement: Detention ADL: Independent History of Recent Travel: No Home Medications - Allergies Allergies/Adverse Reactions: Allergies Allergy/AdvReac Type Severity Reaction Status Date / Time lisinopril Allergy Severe Swelling Verified 04/09/19 06:32 PADMINI Inhibitors Allergy Verified 04/09/19 06:32 blueberry Allergy Verified 04/09/19 06:32 erythromycin base Allergy Verified 04/09/19 06:32 naproxen Allergy Verified 04/09/19 06:32 raspberry Allergy Verified 04/09/19 06:32 strawberry Allergy Verified 04/09/19 06:32 - Home Medications Home Medications: Ambulatory Orders Amlodipine Besylate [Norvasc -] 10 mg PO DAILY 03/10/18 Budesonide/Formeterol Fumarate [SYMBICORT 160/4.5mcg -] 1 inh PO BID 03/10/18 Famotidine [Pepcid] 20 mg PO DAILY 03/10/18 Fluoxetine HCl [Prozac] 20 mg PO DAILY 03/10/18 Hydrochlorothiazide [Hctz -] 25 mg PO DAILY 03/10/18 Insulin Regular, Human [Humulin R U-500 Kwikpen] 0 unit SQ TID 03/10/18 Levetiracetam [Keppra] 500 mg PO BID 03/10/18 Metformin HCl [Glucophage] 1,000 mg PO BID 03/10/18 Nortriptyline HCl [Pamelor] 25 mg PO HS 03/10/18 Oxycodone HCl/Acetaminophen [Percocet 5-325 mg Tablet] 1 tab PO TID 03/10/18 Polyvinyl Alcohol [Artificial Tears] 1 drop OP BID 03/10/18 Potassium Chloride 20 meq PO DAILY 03/10/18 hydrALAZINE HCL [Apresoline -] 25 mg PO BID 03/10/18 Ammonium Lactate Cream [Lac-Hydrin 12% *Cream*] 1 applic TP DAILY 04/09/19 Aspirin [Aspirin EC] 81 mg PO DAILY 04/09/19 Atorvastatin Ca [Lipitor] 80 mg PO HS 04/09/19 Bacitracin - [Bacitracin Topical Ointment -] 1 applic TP DAILY 04/09/19 Clopidogrel Bisulfate [Plavix -] 75 mg PO DAILY 04/09/19 Clotrimazole [Lotrimin 1% Solution -] 1 applic TP BID 04/09/19 Docusate Sodium [Colace -] 200 mg PO DAILY 04/09/19 Linagliptin [Tradjenta] 5 mg PO DAILY 04/09/19 Liraglutide [Victoza 3-Raf] 1.8 mg SQ DAILY 04/09/19 Metoprolol Succinate [Toprol Xl] 25 mg PO DAILY 04/09/19 Mupirocin Ointment [Bactroban] 1 applic TP DAILY 04/09/19 Oxybutynin Chloride [Oxybutynin Chloride ER] 5 mg PO DAILY 04/09/19 Umeclidinium [place] [Incruse Ellipta] 62.5 mcg IH DAILY 04/09/19 Family Disease History - Family Disease History Family History: Denies (no known cmp) Review of Systems - Review of Systems Constitutional: denies: Chills, Fever Eyes: denies: Eye Pain HENT: denies: Nasal Congestion Neck: denies: Stiffness Cardiovascular: denies: Palpitations Respiratory: denies: Orthopnea, PND Gastrointestinal: denies: Diarrhea, Rectal Bleeding Genitourinary: denies: Burning, Hematuria Musculoskeletal: denies: Muscle Pain Integumentary: denies: Rash Neurological: denies: Numbness, Seizure, Syncope Endocrine: denies: Excessive Sweating Hematology/Lymphatic: denies: Excessive Bleeding Vital Signs: Vital Signs Temperature 97.8 F 04/10/19 05:51 Pulse Rate 110 H 04/10/19 05:51 Respiratory Rate 20 04/10/19 05:51 Blood Pressure 147/68 04/10/19 05:51 O2 Sat by Pulse Oximetry (%) 95 04/09/19 23:08 Constitutional: Yes: Well Nourished, No Distress, Obese Eyes: No: Sclera Icterus HENT: No: Nasal Congestion Neck: No: Decreased ROM Respiratory: Yes: CTA Bilaterally. No: Accessory Muscle Use, Rales, Wheezes Gastrointestinal: Yes: Normal Bowel Sounds. No: Distention, Hepatomegaly, Palpable Mass, Tenderness Cardiovascular: Yes: Regular Rate and Rhythm JVD: No Carotid Bruit: No PMI: Non-Displaced Heart Sounds: Yes: S1, S2. No: Gallop Murmur: No: Systolic Murmur, Diastolic Murmur Musculoskeletal: Yes: Other (No kyphosis) Extremities: No: Cool, Cyanosis Edema: No Peripheral Pulses: 2+ Left Carotid, 2+ Right Carotid, 2+ Left Doralis Pedis, 2+ Right Dorsalis Pedis Integumentary: No: Jaundice Neurological: Yes: Alert, Oriented (x3) Psychiatric: No: Agitated - Other Data Labs, Other Data: CBC, BMP 04/10/19 06:45 04/10/19 06:45 INR, PTT INR 1.14 (0.83-1.09) H 04/09/19 16:35 Troponin, BNP 04/09/19 16:35 Troponin I < 0.02 Troponin, BNP 04/09/19 16:35 Troponin I < 0.02 Laboratory Tests 03/10/18 04/09/19 04/09/19 08:06 07:40 16:28 WBC Hgb Plt Count ABG pH 7.46 H ABG pCO2 at Pt Temp 42.2 ABG pO2 at Pt Temp 70.9 L Troponin I < 0.02 B-Natriuretic Peptide 534.60 H 380.9 H 04/09/19 04/10/19 16:35 06:45 WBC 10.9 H Hgb 10.6 L Plt Count 413 D ABG pH ABG pCO2 at Pt Temp ABG pO2 at Pt Temp Troponin I < 0.02 B-Natriuretic Peptide Assessment/Plan Echo 03/2018: nl LV/RV size and function, no significant valvular dz ECG: NSR, normal axis. LVH with repol abnormalities--no signif change vs prior CXR: congestive changes, sharp angles CT chest: no pulm edema, effusions sob: -BNP 300 -CXR reviewed: diffuse interstitial pattern without appreciable vascular redistribution/no effusions/no fluid in fissures--stable vs prior--suspect secondary to overlying soft tissue/obesity -CT chest no congestion. -trop neg x 2, ecg non-ischemic -echo 2017 unremarkable, + risk factors for diast dysfunction -feels improvement in sob and edema s/p lasix--cont iv diuresis -rpt echo -? BDs, nebs--per pulm -attempt to clarify prior cath details, as below ? CAD: -here with NSTEMI 03/19 in setting of sob/chest tightness: ? Type I vs II (sec to CHF) CT -plan was for cath--details not available if/where she was transferred to -will check [facility] records from office -currently no signs of acute ischemia HTN: -bp controlled -cont home meds DM: -per primary
[2019-04-10] MEDS ORDERED: PATIENT'S OWN MEDICATION (NON-FORMULARY) (Famotidine [Pepcid] 20 MG) PO SCH (10:00)
[2019-04-10] MEDS ORDERED: FLUoxetine HCL 10 MG CAPSULE (FP) PO SCH (10:00)
[2019-04-10] MEDS ORDERED: PATIENT'S OWN MEDICATION (NON-FORMULARY) (Oxybutynin Chloride [Oxybutynin Chloride Er] 5 M PO SCH (10:00)
[2019-04-10] MEDS ORDERED: PT OWN MED DRAWER 7, Y5N ONE ×2 (10:49→21:34)
[2019-04-10] MEDS: HYDROCHLOROTHIAZIDE 25 MG TABLET (FP) PO SCH (10:51)
[2019-04-10] MEDS: RANITIDINE HCL 150 MG TABLET (FP) PO SCH (10:51)
[2019-04-10] MEDS: hydrALAZINE HCL 25 MG TABLET (FP) PO SCH ×2 (10:51→21:42)
[2019-04-10] MEDS: FUROSEMIDE 40 MG/4 ML INJECTABLE VIAL IVPUSH SCH (10:51)
[2019-04-10] MEDS: levETIRAcetam 250 MG TABLET (FP) PO SCH ×2 (10:51→21:42)
[2019-04-10] MEDS: metoPROLOL SUCCINATE 25 MG TAB.SR.24H (FP) PO SCH (10:51)
[2019-04-10] MEDS: CLOPIDOGREL BISULFATE 75 MG TABLET (FP) PO SCH (10:51)
[2019-04-10] MEDS: ASPIRIN COATED 81 MG TABLET.EC PO SCH (10:53)
[2019-04-10] MEDS: ARTIFICIAL TEARS (POLYVINYL ALCOHOL) OPTH DROPS OD SCH ×2 (10:54→22:01)
--- NOTE | 2019-04-10 11:21 | CON.PULM ---
Consult Consult Specialty:: PULMONARY Referred by:: Dr Moeller Reason for Consultation:: shortness of breath - History of Present Illness Chief Complaint: shortness of breath History of Present Illness: 68yo female with h/o HTN, DM, CAD, asthma, LV diastolic dysfunction, h/o CVA who was admitted with worsening shortness of breath and hypoxia. She denies chest pain or discomfort. No fevers, chills or sweats. +nonproductive cough and was told by staff that she was wheezing. She reports chronic leg swelling. She reports a history of asthma but does not take any inhalers. She is remote smoker , smoked 2 years total. 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 Cardio/Vascular: Yes: CHF, HTN Pulmonary: Yes: Asthma Psych: Yes: Depression Endocrine: Yes: Diabetes Mellitus - Alcohol/Substance Use Hx Alcohol Use: No - Smoking History Smoking history: Former smoker Have you smoked in the past 12 months: No If you are a former smoker, when did you quit?: 10 years ago - Social History Usual Living Arrangement: Longterm ADL: Independent History of Recent Travel: No Home Medications - Allergies Allergies/Adverse Reactions: Allergies Allergy/AdvReac Type Severity Reaction Status Date / Time lisinopril Allergy Severe Swelling Verified 04/09/19 06:32 PADMINI Inhibitors Allergy Verified 04/09/19 06:32 blueberry Allergy Verified 04/09/19 06:32 erythromycin base Allergy Verified 04/09/19 06:32 naproxen Allergy Verified 04/09/19 06:32 raspberry Allergy Verified 04/09/19 06:32 strawberry Allergy Verified 04/09/19 06:32 - Home Medications Home Medications: Ambulatory Orders Amlodipine Besylate [Norvasc -] 10 mg PO DAILY 03/10/18 Budesonide/Formeterol Fumarate [SYMBICORT 160/4.5mcg -] 1 inh PO BID 03/10/18 Famotidine [Pepcid] 20 mg PO DAILY 03/10/18 Fluoxetine HCl [Prozac] 20 mg PO DAILY 03/10/18 Hydrochlorothiazide [Hctz -] 25 mg PO DAILY 03/10/18 Insulin Regular, Human [Humulin R U-500 Kwikpen] 0 unit SQ TID 03/10/18 Levetiracetam [Keppra] 500 mg PO BID 03/10/18 Metformin HCl [Glucophage] 1,000 mg PO BID 03/10/18 Nortriptyline HCl [Pamelor] 25 mg PO HS 03/10/18 Oxycodone HCl/Acetaminophen [Percocet 5-325 mg Tablet] 1 tab PO TID 03/10/18 Polyvinyl Alcohol [Artificial Tears] 1 drop OP BID 03/10/18 Potassium Chloride 20 meq PO DAILY 03/10/18 hydrALAZINE HCL [Apresoline -] 25 mg PO BID 03/10/18 Ammonium Lactate Cream [Lac-Hydrin 12% *Cream*] 1 applic TP DAILY 04/09/19 Aspirin [Aspirin EC] 81 mg PO DAILY 04/09/19 Atorvastatin Ca [Lipitor] 80 mg PO HS 04/09/19 Bacitracin - [Bacitracin Topical Ointment -] 1 applic TP DAILY 04/09/19 Clopidogrel Bisulfate [Plavix -] 75 mg PO DAILY 04/09/19 Clotrimazole [Lotrimin 1% Solution -] 1 applic TP BID 04/09/19 Docusate Sodium [Colace -] 200 mg PO DAILY 04/09/19 Linagliptin [Tradjenta] 5 mg PO DAILY 04/09/19 Liraglutide [Victoza 3-Raf] 1.8 mg SQ DAILY 04/09/19 Metoprolol Succinate [Toprol Xl] 25 mg PO DAILY 04/09/19 Mupirocin Ointment [Bactroban] 1 applic TP DAILY 04/09/19 Oxybutynin Chloride [Oxybutynin Chloride ER] 5 mg PO DAILY 04/09/19 Umeclidinium [place] [Incruse Ellipta] 62.5 mcg IH DAILY 04/09/19 Review of Systems - Review of Systems Constitutional: denies: Chills, Fever Eyes: denies: Recent Change in Vision HENT: denies: Nasal Congestion, Throat Pain Neck: denies: Stiffness, Tenderness Cardiovascular: reports: Edema, Shortness of Breath. denies: Chest Pain, Palpitations Respiratory: reports: Cough, Exercise Intolerance, SOB, Wheezing. denies: Hemoptysis Gastrointestinal: denies: Abdominal Pain, Nausea, Vomiting Genitourinary: denies: Dysuria, Hematuria Neurological: denies: Dizziness, Headache Endocrine: denies: Unexplained Weight Loss Physical Exam Vital Sings: Vital Signs Temperature 97.8 F 04/10/19 05:51 Pulse Rate 110 H 04/10/19 05:51 Respiratory Rate 20 04/10/19 05:51 Blood Pressure 147/68 04/10/19 05:51 O2 Sat by Pulse Oximetry (%) 95 04/09/19 23:08 Constitutional: Yes: Calm Eyes: Yes: Conjunctiva Clear, EOM Intact HENT: Yes: Atraumatic, Normocephalic Neck: Yes: Supple, Trachea Midline Cardiovascular: Yes: Regular Rate and Rhythm Respiratory: Yes: Diminished (decreased breath sounds at the bases) ...Clubbing: No Gastrointestinal: Yes: Normal Bowel Sounds, Soft. No: Tenderness Edema: Yes Neurological: Yes: Alert, Oriented Labs: CBC, BMP 04/10/19 06:45 04/10/19 06:45 ABG Results ABG pH 7.46 (7.35-7.45) H 04/09/19 16:28 ABG pCO2 at Pt Temp 42.2 mmHg (35-45) 04/09/19 16:28 ABG pO2 at Pt Temp 70.9 mmHg (80-100) L 04/09/19 16:28 ABG HCO3 29.5 mmol/L (22-27) H 04/09/19 16:28 ABG O2 Sat (Measured) 93.4 % (95-98) L 04/09/19 16:28 ABG O2 Content 13.4 % vol 04/09/19 16:28 ABG Base Excess 5.6 meq/l (-2-2) H 04/09/19 16:28 Imaging - Results Chest X-ray: Report Reviewed, Image Reviewed Cat Scan: Report Reviewed, Image Reviewed (pulmonary vascular congestion) Assessment/Plan Acute Hypoxic Respiratory Failure improving Acute on Chronic Diastolic Heart Failure CAD Asthma HTN DM h/o CVA Likely Obstructive Sleep Apnea - IV lasix - monitor urine output, creatinine - daily weights - echocardiogram as pulmonary vasculature appears engorged on imaging to r/o pulmonary HTN - O2 to keep SpO2 >90% - started on empiric medrol, can d/c in AM - inhaled bronchodilators - outpt PFTs, PSG - DVT prophylaxis Thank you for this consult Blaine Oliveira MD
[2019-04-10] MEDS: OXYBUTYNIN CHLORIDE 5 MG TABLET PO SCH (14:51)
[2019-04-10] MEDS: FLUoxetine HCL 20 MG CAPSULE (FP) PO SCH (14:51)
[2019-04-10] MEDS: MUPIROCIN 2% TOPICAL OINTMENT 22 GM TUBE TP SCH (14:51)
[2019-04-10 15:47] LABS: PH,URINE 5.5 (5.0-8.0); URINE APPEARANCE CLEAR; URINE BILIRUBIN NEGATIVE (NEGATIVE); URINE COLOR YELLOW; URINE GLUCOSE (UA) 3+ (NEGATIVE); URINE KETONE NEGATIVE (NEGATIVE); URINE LEUK ESTERASE NEGATIVE (NEGATIVE); URINE NITRITE NEGATIVE (NEGATIVE); URINE PROTEIN NEGATIVE (NEGATIVE); URINE UROBILINOGEN 0.2 mg/dL (0.2-1.0)
--- NOTE | 2019-04-10 19:04 | PN ---
Teaching Attending Note Name of Resident: Shaka Guzman ATTENDING PHYSICIAN STATEMENT I saw and evaluated the patient. I reviewed the resident's note and discussed the case with the resident. I agree with the resident's findings and plan as documented. Seen and examined; please refer to resident note for further historical information. No events reported overnight; improving VS, labs, imaging reviewed NAD, AAO, resting in bed. O2 via NC NC AT EOMI PERRLA RRR s1/2 Habitus limits lung exam but no acute changes; no focal findings NT ND +BS, obese Dependent LE edema CT reviewed Echo reviewed Cath report pending-CV trying to obtain per records. ASSESSMENT AND PLAN: Presents for shortness of breath; CT with no focal findings, PNA less likely. Not in florid fluid overload. Problems include: # Shortness of breath ([place] vs. CHF vs. other; FU pulmonary, CV. Obtain cath record # Elevated BNP (300; higher in past. Monitor fluid status but not in florid CHF ) # Morbid Obesity (BMI 50+ (ABG on RA to r/o pickwickian; LEROY eval) # Hx HTN (Continue home meds; monitor) # Hx DM (Monitor fsg; continue current coverage. Was uncontrolled yesterday and started on long-acting which helped) Full Code
--- NOTE | 2019-04-10 21:18 | PN ---
Physical Exam: SUBJECTIVE: Patient seen and examined at bedside. Complaint of mild sob. OBJECTIVE: Vital Signs Period Temp Pulse Resp BP Sys/[place] Pulse Ox Last 24 Hr 97.5 F-98.2 F 85-114 20-20 129-147/60-76 95-100 Gen: NAD, AAO HEENT: NCAT EOMI Neck: supple Cardio: rrr, normal s1s2, no mrg Abd: Obese, soft, nontender Laboratory Results - last 24 hr 04/10/19 04/10/19 04/10/19 05:31 06:45 06:45 WBC 10.9 H RBC 4.49 Hgb 10.6 L Hct 33.8 D MCV 75.2 L MCH 23.6 L MCHC 31.3 L RDW 20.5 H Plt Count 413 D MPV 8.9 Sodium 140 Potassium 4.6 Chloride 99 Carbon Dioxide 30 Anion Gap 11 BUN 12.8 Creatinine 0.8 Est GFR (CKD-EPI)AfAm 87.80 Est GFR (CKD-EPI)NonAf 75.75 POC Glucometer 218 Random Glucose 235 H Calcium 9.4 Magnesium 2.0 Total Bilirubin 0.6 AST 19 ALT 24 Alkaline Phosphatase 107 Total Protein 8.0 Albumin 3.4 Urine Color Urine Appearance Urine pH Ur Specific [place] Urine Protein Urine Glucose (UA) Urine Ketones Urine Blood Urine Nitrite Urine Bilirubin Urine Urobilinogen Ur Leukocyte Esterase 04/10/19 04/10/19 04/10/19 10:49 14:28 16:29 WBC RBC Hgb Hct MCV MCH MCHC RDW Plt Count MPV Sodium Potassium Chloride Carbon Dioxide Anion Gap BUN Creatinine Est GFR (CKD-EPI)AfAm Est GFR (CKD-EPI)NonAf POC Glucometer 357 350 Random Glucose Calcium Magnesium Total Bilirubin AST ALT Alkaline Phosphatase Total Protein Albumin Urine Color Yellow Urine Appearance Clear Urine pH 5.5 Ur Specific [place] 1.027 Urine Protein Negative Urine Glucose (UA) 3+ H Urine Ketones Negative Urine Blood Negative Urine Nitrite Negative Urine Bilirubin Negative Urine Urobilinogen 0.2 Ur Leukocyte Esterase Negative Active Medications Generic Name Dose Route Start Last Admin Trade Name Freq PRN Reason Stop Dose Admin Acetaminophen 650 mg 04/09/19 15:38 Tylenol - PO Q4H PRN PAIN LEVEL 1-5 Albuterol Sulfate 1 amp 04/09/19 15:38 Ventolin 0.083% Nebulizer Soln - NEB Q4H PRN SHORT OF BREATH/WHEEZING Albuterol/Ipratropium 1 amp 04/09/19 20:00 04/10/19 16:00 Duoneb - NEB 1 amp RQID LUKAS Administration Artificial Tears 1 drop 04/09/19 22:00 04/10/19 10:54 Artificial Tears OD 1 drop BID LUKAS Administration Aspirin 81 mg 04/10/19 10:00 04/10/19 10:53 Ecotrin - PO 81 mg DAILY LUKAS Administration Atorvastatin Calcium 80 mg 04/09/19 22:00 04/09/19 21:39 Lipitor - PO 80 mg HS LUKAS Administration Clopidogrel Bisulfate 75 mg 04/10/19 10:00 04/10/19 10:51 Plavix - PO 75 mg DAILY LUKAS Administration Fluoxetine HCl 20 mg 04/10/19 13:15 04/10/19 14:51 Prozac - PO 20 mg DAILY LUKAS Administration Furosemide 40 mg 04/09/19 15:45 04/10/19 10:51 Lasix Injection - IVPUSH 40 mg DAILY [facility] Administration Heparin Sodium (Porcine) 5,000 unit 04/09/19 22:00 04/10/19 14:54 Heparin - SQ 5,000 unit TID LUKAS Administration Hydralazine HCl 25 mg 04/09/19 22:00 04/10/19 10:51 Apresoline - PO 25 mg BID LUKAS Administration Hydrochlorothiazide 25 mg 04/10/19 10:00 04/10/19 10:51 Hctz - PO 25 mg DAILY L[facility] Administration Insulin Aspart 1 vial 04/09/19 16:30 04/10/19 16:33 Novolog Vial Sliding Scale - SQ 6 units ACHS [facility] Administration Protocol Insulin Detemir 10 units 04/10/19 22:00 Levemir Vial SQ HS [facility] Levetiracetam 500 mg 04/09/19 22:00 04/10/19 10:51 Keppra - PO 500 mg BID LUKAS Administration Methylprednisolone Sodium Succinate 40 mg 04/09/19 18:00 04/10/19 17:42 Solu-Medrol - IVPUSH 40 mg Q8H-IV [facility] Administration Metoprolol Succinate 25 mg 04/10/19 10:00 04/10/19 10:51 Toprol Xl - PO 25 mg DAILY [facility] Administration Mupirocin 1 applic 04/10/19 10:00 04/10/19 14:51 Bactroban 2% Ointment - TP 1 applic DAILY [facility] Administration Nortriptyline HCl 25 mg 04/09/19 22:00 04/09/19 22:28 Pamelor - PO 25 mg HS [facility] Administration Oxybutynin Chloride 5 mg 04/10/19 10:00 04/10/19 14:51 Ditropan - PO 5 mg DAILY [facility] Administration Polyethylene Glycol 17 gm 04/09/19 15:38 Miralax (For Daily Use) - PO DAILY PRN CONSTIPATION Ranitidine HCl 150 mg 04/10/19 10:00 04/10/19 10:51 Zantac - PO 150 mg DAILY [facility]AS Administration ASSESSMENT/PLAN: Pt is a 68yo woman with a PMH of CHF, COPD, DM, HTN, CVA, NSTEMI (2017) who presents with SOB. She was admitted for the same and is being worked up for potential causes. #SOB -associated with cough -PNA unlikely given the CXR and wbc -Echo 03/2018 EF 60%. Repeat echo pending #CHF -possible cause of SOB -IV lasix #COPD -solumedrol -nebs #DM -ISS -BGM #HTN -HCTZ -Metoprolol -Hydralazine #CVA/NSTEMI -ASA -Plavix -Atorvastatin #? Hx seizure disorder -Leviteracitam #?Anxiety/Depression -Nortryptiline -Oxybutinin -Fluoxetine Visit type - Emergency Visit Emergency Visit: No - New Patient This patient is new to me today: Yes Date on this admission: 04/10/19 - Critical Care Critical Care patient: No ATTENDING PHYSICIAN STATEMENT I saw and evaluated the patient. I reviewed the resident's note and discussed the case with the resident. I agree with the resident's findings and plan as documented. SUBJECTIVE: OBJECTIVE: ASSESSMENT AND PLAN:
[2019-04-10] MEDS ORDERED: INSULIN (NOVOLOG) ASPART 100 UNITS/ML 10ML VIAL ONE (21:34)
[2019-04-10] MEDS: NORTRIPTYLINE HCL 25 MG CAPSULE PO SCH (21:42)
[2019-04-10] MEDS: ATORVASTATIN CA 80 MG TABLET (FP) PO SCH (21:42)
[2019-04-10] MEDS ORDERED: INSULIN (LEVEMIR) 100 UNITS/ML UNITS SQ SCH (22:00)
[2019-04-11] MEDS: methylPREDNISolone NA SUCC 40 MG/1 ML VIAL IVPUSH SCH (02:00)
[2019-04-11] MEDS: HEPARIN NA (PORCINE) 5,000 UNITS/ML 1ML VIAL SQ SCH ×3 (05:58→21:57)
[2019-04-11] MEDS: INSULIN SLIDING SCALE (NOVOLOG) 1 VIAL SQ SCH ×4 (05:59→21:59)
--- NOTE | 2019-04-11 07:36 | PN ---
Teaching Attending Note Name of Resident: Shaka Guzman ATTENDING PHYSICIAN STATEMENT I saw and evaluated the patient. I reviewed the resident's note and discussed the case with the resident. I agree with the resident's findings and plan as documented. DOA Wednesday, DOD Wednesday DC Dx per problem list Admitting dx per HPI Diet: Low salt, 2.5L fluid restriction Activity: As tolerated Followup: -PCP 2-3 days: Assess for lasix dosing (40mg PO QD on DC) -CV 3-5 days: Same as above; followup need for OP stress, moderate , etc. -Pulmonary 1-2 weeks: Will need OP PFTs and optimization of handheld inhalers Home monitoring: -Daily weights -CHF food diary -Incentive spirometer x10 times when awake per hour for 1 week -Consideration of nutrition referral Seen and examined; no new complaints. Ambulated 80 feet, 98% on RA with no desats noted in PT notes with ambulation. No complaints of SOB. CV saw and obtained cath report. She will continue on ASA and plavix, stress test deferred. Seen by pulmonary; off of steroids. 10 sys ROS done and negative aside from HPI VS, labs, imaging reviewed NAD, AAO, resting in bed NC AT EOMI PERRLA Lungs sound clear but limited by body habitus, w/ sym exp NT ND +BS CN2-12 wnl, no fnd Echo completed: Shows LVEF wnl, no RV failure. Potential DD with E/A-reversal. Moderate trace MR/TR CT chest completed; full report per EMR. ASSESSMENT AND PLAN: Presents for shortness of breath; CT with no focal findings, PNA less likely. Not in florid fluid overload. Problems include: # Shortness of breath (Considering obesity-hypoventillation, possible with acute bronchitis. Also has hx asthma; improved off steroids. She had a negative CT for PNA, echo doesn't reveal reduced cardiac function or profound diastolic dysfunction but with E/A reversal. She was started on lasix; ? if improvement related to this or gestalt. Will DC on 40mg PO QD for potential Diastolic Dysfunction and have her followup with PCP and CV to monitor fluid status and determine if this should be considered. Negative troponins and no EKG changes to indicate so ACS felt to be less likely. Echo completed today; normal LVEF RVEF. Monitor weights at home and salt and fluid restriction) # Elevated BNP (300; higher in past. Monitor fluid status but not in florid CHF. 40 PO QD and then followup OP) # Morbid Obesity (BMI 50+ (ABG on RA to r/o [place]ian; LEROY eval) # Hx HTN (Continue home meds; monitor) # Hx DM (Hyperglycemia 2/2 IV steroids; improved with long acting insulin when inpatient. Held long acting on DC. Continue her on her home regimine on DC) # Moderate (followup with CV as OP; seen on echo) # RUL groundglass (1x1cm) (Nonspecific finding on CT that can be followed up OP) # CAD s/p PCI (Cath report reviewed and copied into my DC note; continue ASA/ Plavix/Statin. She completed 1x year DAPT but due to underlying ischemic risks will continue for 3 years if possible per CV note).
[2019-04-11] MEDS: ALBUTEROL SO4 2.5/IPRATROPIUM 0.5 INH SOL 3 ML VIAL.NEB. NEB SCH ×4 (08:20→21:30)
[2019-04-11] MEDS ORDERED: INSULIN (NOVOLOG) ASPART 100 UNITS/ML 10ML VIAL ONE (08:37)
[2019-04-11] MEDS ORDERED: INSULIN (LEVEMIR) 100 UNITS/ML UNITS SQ ONE (08:37)
[2019-04-11] MEDS: INSULIN (LEVEMIR) 100 UNITS/ML UNITS SQ SCH ×2 (08:47→21:57)
[2019-04-11 08:53] LABS: BASO % 0.2 % (0-2.0); HEMATOCRIT 31.9 % (32.4-45.2); LYMPH % 9.5 % (8-40); MCH 23.6 pg (25.7-33.7); MCHC 31.4 g/dl (32.0-36.0); MEAN PLT VOLUME 8.4 fl (7.5-11.1); MONO % 3.1 % (3.8-10.2); NEUT % 87.2 % (42.8-82.8); PLATELET COUNT 446 K/MM3 (134-434); RBC 4.25 M/mm3 (3.60-5.2); RDW 20.6 % (11.6-15.6); WHITE BLOOD COUNT 11.7 K/mm3 (4.0-10.0)
[2019-04-11 09:13] LABS: BLOOD UREA NITROGEN 21.4 mg/dL (7-18); CREATININE 0.9 mg/dL (0.55-1.3); POTASSIUM 4.8 mmol/L (3.5-5.1)
[2019-04-11] MEDS: metoPROLOL SUCCINATE 25 MG TAB.SR.24H (FP) PO SCH (09:58)
[2019-04-11] MEDS: FLUoxetine HCL 20 MG CAPSULE (FP) PO SCH (09:58)
[2019-04-11] MEDS: HYDROCHLOROTHIAZIDE 25 MG TABLET (FP) PO SCH (09:58)
[2019-04-11] MEDS: CLOPIDOGREL BISULFATE 75 MG TABLET (FP) PO SCH (09:58)
[2019-04-11] MEDS: hydrALAZINE HCL 25 MG TABLET (FP) PO SCH ×2 (09:58→21:57)
[2019-04-11] MEDS: levETIRAcetam 250 MG TABLET (FP) PO SCH ×2 (09:58→21:58)
[2019-04-11] MEDS: FUROSEMIDE 40 MG/4 ML INJECTABLE VIAL IVPUSH SCH (09:58)
[2019-04-11] MEDS: OXYBUTYNIN CHLORIDE 5 MG TABLET PO SCH (09:59)
[2019-04-11] MEDS: RANITIDINE HCL 150 MG TABLET (FP) PO SCH (10:00)
[2019-04-11] MEDS: ASPIRIN COATED 81 MG TABLET.EC PO SCH (10:00)
[2019-04-11] MEDS: MUPIROCIN 2% TOPICAL OINTMENT 22 GM TUBE TP SCH (10:00)
[2019-04-11] MEDS: ARTIFICIAL TEARS (POLYVINYL ALCOHOL) OPTH DROPS OD SCH ×2 (10:00→21:58)
--- NOTE | 2019-04-11 10:38 | ECHO ---
Name: NESS LOREDO Exam:Adult Echocardiogram Study Date: 04/11/2019 09:06 AM Age: 68 yrs Reason For Study: CHF Height: 64 in Weight: 298 lb BSA: 2.3 m2 MMode/2D Measurements & Calculations IVSd: 1.3 cm Ao root diam: 3.1 cm LVIDd: 4.5 cm LA dimension: 2.9 cm LVIDs: 3.3 cm LVPWd: 1.1 cm EDV(Teich): 93.8 ml LVOT diam: 2.0 cm ESV(Teich): 45.1 ml LAV (MOD-bp): 74.2 ml Doppler Measurements & Calculations MV E max jurgen: 102.0 cm/sec Ao V2 max: 275.5 cm/sec MV A max jurgen: 105.3 cm/sec Ao max P.5 mmHg MV E/A: 0.97 Ao V2 mean: 212.6 cm/sec MV dec time: 0.18 sec Ao mean P.7 mmHg Ao V2 VTI: 53.2 cm JILLIAN(I,D): 1.0 cm2 AI P1/2t: 297.3 msec JILLIAN(V,D): 0.95 cm2 AI max jurgen: 126.2 cm/sec LV V1 max P.8 mmHg AI max P.4 mmHg LV V1 mean P.5 mmHg AI dec slope: 124.4 cm/sec2 LV V1 max: 83.4 cm/sec LV V1 mean: 57.6 cm/sec LV V1 VTI: 17.7 cm SV(LVOT): 55.7 ml TR max jurgen: 202.2 cm/sec TR max P.6 mmHg PA V2 max: 119.4 cm/sec Med Peak E' Jurgen: 5.0 cm/sec PA max P.7 mmHg Med E/e': 20.4 Lat Peak E' Jurgen: 7.7 cm/sec Lat E/e': 13.2 Procedure A complete two-dimensional transthoracic echocardiogram was performed (2D, M-mode, Doppler and color flow Doppler). The patient was in normal sinus rhythm during the exam. Left Ventricle The left ventricular size, thickness and function are normal. Ejection Fraction = 60%. E/A reversal c onsistent with but not diagnostic of poor LV compliance. The left ventricular wall motion is normal. Right Ventricle The right ventricle is normal in size and function. Atria Normal left and right atrial size and function. Mitral Valve There is mild mitral annular calcification. The mitral valve is normal in structure and function. The re is trace mitral regurgitation. Tricuspid Valve The tricuspid valve is normal in structure and function. There is trace tricuspid regurgitation. Righ t ventricular systolic pressure is 22 mmhg. Assuming the RA pressure is 5 mmHg. Aortic Valve There is moderate aortic valve thickening. Moderate valvular aortic stenosis. Aortic mean pressure gr adient= 19.7. Pulmonic Valve The pulmonic valve is normal in structure and function. Great Vessels The aortic root is normal size. Pericardium/Pleura There is no pericardial effusion. There is no pleural effusion. Interpretation Summary The left ventricular size, thickness and function are normal Ejection Fraction = 60%. The right ventricle is normal in size and function. There is trace mitral regurgitation. There is trace tricuspid regurgitation. Right ventricular systolic pressure is 22 mmhg. There is moderate aortic valve thickening. Moderate valvular aortic stenosis. Aortic mean pressure gradient= 19.7 MD Kaden Lomax 04/11/2019 10:37 AM
[2019-04-11 12:43] LABS: ANISOCYTOSIS 2+; MACROCYTOSIS 1+; PLATELET ESTIMATE NORMAL
--- NOTE | 2019-04-11 13:00 | PN ---
Progress Note (short form) - Note Progress Note: s: no chest pain, dyspnea, palps, dizziness Current Medications Acetaminophen (Tylenol -) 650 mg PO Q4H PRN PRN Reason: PAIN LEVEL 1-5 Albuterol/Ipratropium (Duoneb -) 1 amp NEB RQID [facility] Last Admin: 04/11/19 11:23 Dose: 1 amp Artificial Tears (Artificial Tears) 1 drop OD BID [facility] Last Admin: 04/11/19 10:00 Dose: 1 drop Aspirin (Ecotrin -) 81 mg PO DAILY [facility] Last Admin: 04/11/19 10:00 Dose: 81 mg Atorvastatin Calcium (Lipitor -) 80 mg PO HS [facility] Last Admin: 04/10/19 21:42 Dose: 80 mg Clopidogrel Bisulfate (Plavix -) 75 mg PO DAILY [facility] Last Admin: 04/11/19 09:58 Dose: 75 mg Fluoxetine HCl (Prozac -) 20 mg PO DAILY [facility] Last Admin: 04/11/19 09:58 Dose: 20 mg Heparin Sodium (Porcine) (Heparin -) 5,000 unit SQ TID [facility] Last Admin: 04/11/19 05:58 Dose: 5,000 unit Hydralazine HCl (Apresoline -) 25 mg PO BID [facility] Last Admin: 04/11/19 09:58 Dose: 25 mg Hydrochlorothiazide (Hctz -) 25 mg PO DAILY [facility] Last Admin: 04/11/19 09:58 Dose: 25 mg Insulin Aspart (Novolog Vial Sliding Scale -) 1 vial SQ ACHS [facility]; Protocol Last Admin: 04/11/19 11:38 Dose: 10 units Insulin Detemir (Levemir Vial) 8 units SQ 0700,2200 [facility] Last Admin: 04/11/19 08:47 Dose: 8 units Levetiracetam (Keppra -) 500 mg PO BID [facility] Last Admin: 04/11/19 09:58 Dose: 500 mg Metoprolol Succinate (Toprol Xl -) 25 mg PO DAILY [facility] Last Admin: 04/11/19 09:58 Dose: 25 mg Mupirocin (Bactroban 2% Ointment -) 1 applic TP DAILY [facility] Last Admin: 04/11/19 10:00 Dose: 1 applic Nortriptyline HCl (Pamelor -) 25 mg PO HS [facility] Last Admin: 04/10/19 21:42 Dose: 25 mg Oxybutynin Chloride (Ditropan -) 5 mg PO DAILY [facility] Last Admin: 04/11/19 09:59 Dose: 5 mg Polyethylene Glycol (Miralax (For Daily Use) -) 17 gm PO DAILY PRN PRN Reason: CONSTIPATION Ranitidine HCl (Zantac -) 150 mg PO DAILY [facility] Last Admin: 04/11/19 10:00 Dose: 150 mg Vital Signs Period Temp Pulse Resp BP Sys/Knox Pulse Ox Last 24 Hr 97.5 F-98.7 F 98-115 20-22 132-164/67-85 95-98 Constitutional: Yes: Well Nourished, No Distress, Obese Eyes: No: Sclera Icterus HENT: No: Nasal Congestion Neck: No: Decreased ROM Respiratory: Yes: CTA Bilaterally. No: Accessory Muscle Use, Rales, Wheezes Gastrointestinal: Yes: Normal Bowel Sounds. No: Distention, Hepatomegaly, Palpable Mass, Tenderness Cardiovascular: Yes: Regular Rate and Rhythm JVD: No Carotid Bruit: No PMI: Non-Displaced Heart Sounds: Yes: S1, S2. No: Gallop Murmur: No: Systolic Murmur, Diastolic Murmur Musculoskeletal: Yes: Other (No kyphosis) Extremities: No: Cool, Cyanosis Edema: No Peripheral Pulses: 2+ Left Carotid, 2+ Right Carotid, 2+ Left Doralis Pedis, 2+ Right Dorsalis Pedis Integumentary: No: Jaundice Neurological: Yes: Alert, Oriented (x3) Psychiatric: No: Agitated Assessment/Plan Echo 03/2018: nl LV/RV size and function, no significant valvular dz ECG: NSR, normal axis. LVH with repol abnormalities--no signif change vs prior CXR: congestive changes, sharp angles CT chest: no pulm edema, effusions echo 04/2019 nl LV function, tr MR, tr TR, RVSP 22 mmHg, moderate (mean gradient 22 mmHg, V2 2.8 m/s, peak gradient 31 mmHg) [facility] cath report 03/2018: 80-90% mid LAD--Xience GINO, subtotal occlusion D1 fills faintly via LAD collaterals (branching vessel)--PCI here not successful; 70-80% mRCA--no intervention; mild LCX and Ramus stenoses. LVEDP 18, nl EF sob: -BNP 300 -CXR reviewed: diffuse interstitial pattern without appreciable vascular redistribution/no effusions/no fluid in fissures--stable vs prior--suspect secondary to overlying soft tissue/obesity -CT chest no congestion. -trop neg x 2, ecg non-ischemic -echo 2018 unremarkable, + risk factors for diast dysfunction -feels improvement in sob and edema s/p IV lasix - transitioned to PO lasix, dyspnea resolved - echo nl LV function moderate -? BDs, nebs--per pulm - defer further cardiac testing at this point, symptoms resolved - outpatient follow up for monitoring CAD: -no signs ACS here - s/p cath 2018 with 80-90% mild LAD s/p GINO, unsuccessful PCI to subtotal D1, no intervention to mRCA 70-80% - cont atorvastatin 80 mg daily - cont aspirin and plavix - completed 12 mo--but ischemia risk is likely > bleed risk so will cont DAPT x 3 yrs if tolerates HTN: -bp controlled -cont home meds DM: -per primary
--- NOTE | 2019-04-11 13:02 | PN ---
Progress Note (short form) - Note Progress Note: PULMONARY States breathing is back to baseline. No cough or wheezing. Vital Signs Period Temp Pulse Resp BP Sys/Knox Pulse Ox Last 24 Hr 97.5 F-98.7 F 98-115 20-22 132-164/67-85 95-98 Gen: NAD at rest Heart: RRR Lung: decreased breath sounds at the bases Abd: soft, nontender Ext: no edema CBC, BMP 04/11/19 08:20 04/11/19 08:20 Active Medications Acetaminophen (Tylenol -) 650 mg PO Q4H PRN PRN Reason: PAIN LEVEL 1-5 Albuterol/Ipratropium (Duoneb -) 1 amp NEB RQID [facility] Last Admin: 04/11/19 11:23 Dose: 1 amp Artificial Tears (Artificial Tears) 1 drop OD BID [facility] Last Admin: 04/11/19 10:00 Dose: 1 drop Aspirin (Ecotrin -) 81 mg PO DAILY [facility] Last Admin: 04/11/19 10:00 Dose: 81 mg Atorvastatin Calcium (Lipitor -) 80 mg PO HS [facility] Last Admin: 04/10/19 21:42 Dose: 80 mg Clopidogrel Bisulfate (Plavix -) 75 mg PO DAILY [facility] Last Admin: 04/11/19 09:58 Dose: 75 mg Fluoxetine HCl (Prozac -) 20 mg PO DAILY [facility] Last Admin: 04/11/19 09:58 Dose: 20 mg Heparin Sodium (Porcine) (Heparin -) 5,000 unit SQ TID [facility] Last Admin: 04/11/19 05:58 Dose: 5,000 unit Hydralazine HCl (Apresoline -) 25 mg PO BID [facility] Last Admin: 04/11/19 09:58 Dose: 25 mg Hydrochlorothiazide (Hctz -) 25 mg PO DAILY [facility] Last Admin: 04/11/19 09:58 Dose: 25 mg Insulin Aspart (Novolog Vial Sliding Scale -) 1 vial SQ ACHS [facility]; Protocol Last Admin: 04/11/19 11:38 Dose: 10 units Insulin Detemir (Levemir Vial) 8 units SQ 0700,2200 [facility] Last Admin: 04/11/19 08:47 Dose: 8 units Levetiracetam (Keppra -) 500 mg PO BID [facility] Last Admin: 04/11/19 09:58 Dose: 500 mg Metoprolol Succinate (Toprol Xl -) 25 mg PO DAILY [facility] Last Admin: 04/11/19 09:58 Dose: 25 mg Mupirocin (Bactroban 2% Ointment -) 1 applic TP DAILY [facility] Last Admin: 04/11/19 10:00 Dose: 1 applic Nortriptyline HCl (Pamelor -) 25 mg PO HS [facility] Last Admin: 04/10/19 21:42 Dose: 25 mg Oxybutynin Chloride (Ditropan -) 5 mg PO DAILY [facility] Last Admin: 04/11/19 09:59 Dose: 5 mg Polyethylene Glycol (Miralax (For Daily Use) -) 17 gm PO DAILY PRN PRN Reason: CONSTIPATION Ranitidine HCl (Zantac -) 150 mg PO DAILY [facility] Last Admin: 04/11/19 10:00 Dose: 150 mg A/P Acute Hypoxic Respiratory Failure improving Acute on Chronic Diastolic Heart Failure CAD Asthma HTN DM h/o CVA Likely Obstructive Sleep Apnea - agree with PO lasix - monitor urine output, creatinine - daily weights - O2 to keep SpO2 >90% - inhaled bronchodilators - outpt PFTs, PSG - DVT prophylaxis
[2019-04-11 14:29] LABS: ARTERIAL BLD GAS O2 SATURATION 96.8 % (95-98); ARTERIAL BLOOD GAS PCO2 38.4 mmHg (35-45); ARTERIAL BLOOD GAS PO2 89.1 mmHg (80-100); ARTERIAL BLOOD GAS pH 7.48 (7.35-7.45)
[2019-04-11 14:31] LABS: ALLENS TEST POSITIVE
--- NOTE | 2019-04-11 20:46 | DS ---
Physical Exam: SUBJECTIVE: Patient seen and examined at bedside. No acute events. OBJECTIVE: Vital Signs Period Temp Pulse Resp BP Sys/Knox Pulse Ox Last 24 Hr 98.0 F-98.7 F 98-115 20-22 139-164/63-85 95-98 PHYSICAL EXAM Gen: NAD, AAO HEENT: NCAT EOMI Neck: supple Cardio: rrr, normal s1s2, no mrg Pulm: unremarkable. Clear Abd: Obese, soft, nontender LABS Laboratory Results - last 24 hr 04/10/19 04/11/19 04/11/19 21:39 01:21 05:57 WBC RBC Hgb Hct MCV MCH MCHC RDW Plt Count MPV Absolute Neuts (auto) Neutrophils % Lymphocytes % Monocytes % Eosinophils % Basophils % Nucleated RBC % Hypochromia Platelet Estimate Platelet Comment Polychromasia Poikilocytosis Anisocytosis Microcytosis Macrocytosis Retic Count Anticoagulation Therapy Puncture Site ABG pH ABG pCO2 at Pt Temp ABG pO2 at Pt Temp ABG HCO3 ABG O2 Sat (Measured) ABG O2 Content ABG Base Excess Rm Test O2 Delivery Device Oxygen Flow Rate Vent Mode Vent Rate Mechanical Rate Pressure Support Vent Sodium Potassium Chloride Carbon Dioxide Anion Gap BUN Creatinine Est GFR (CKD-EPI)AfAm Est GFR (CKD-EPI)NonAf POC Glucometer 456 356 344 Random Glucose Hemoglobin A1c % Calcium 04/11/19 04/11/19 04/11/19 08:20 08:20 08:20 WBC 11.7 H RBC 4.25 Hgb 10.0 L Hct 31.9 L MCV 75.0 L MCH 23.6 L MCHC 31.4 L RDW 20.6 H Plt Count 446 H MPV 8.4 Absolute Neuts (auto) 10.2 H Neutrophils % 87.2 H Lymphocytes % 9.5 D Monocytes % 3.1 L Eosinophils % 0.0 D Basophils % 0.2 Nucleated RBC % 0 Hypochromia 0 Platelet Estimate Normal Platelet Comment Present Polychromasia 0 Poikilocytosis 0 Anisocytosis 2+ Microcytosis 1+ Macrocytosis 1+ Retic Count 2.51 H Anticoagulation Therapy Puncture Site ABG pH ABG pCO2 at Pt Temp ABG pO2 at Pt Temp ABG HCO3 ABG O2 Sat (Measured) ABG O2 Content ABG Base Excess Rm Test O2 Delivery Device Oxygen Flow Rate Vent Mode Vent Rate Mechanical Rate Pressure Support Vent Sodium 139 Potassium 4.8 Chloride 96 L Carbon Dioxide 31 Anion Gap 11 BUN 21.4 H Creatinine 0.9 Est GFR (CKD-EPI)AfAm 76.14 Est GFR (CKD-EPI)NonAf 65.70 POC Glucometer Random Glucose 323 H Hemoglobin A1c % Calcium 10.0 04/11/19 04/11/19 04/11/19 08:20 11:27 14:00 WBC RBC Hgb Hct MCV MCH MCHC RDW Plt Count MPV Absolute Neuts (auto) Neutrophils % Lymphocytes % Monocytes % Eosinophils % Basophils % Nucleated RBC % Hypochromia Platelet Estimate Platelet Comment Polychromasia Poikilocytosis Anisocytosis Microcytosis Macrocytosis Retic Count Anticoagulation Therapy No Result Required. Puncture Site Right radial ABG pH 7.48 H ABG pCO2 at Pt Temp 38.4 ABG pO2 at Pt Temp 89.1 ABG HCO3 28.4 H ABG O2 Sat (Measured) 96.8 ABG O2 Content 13.1 ABG Base Excess 5.0 H Rm Test Positive O2 Delivery Device No Result Required. Oxygen Flow Rate No Vent Mode No Result Required. Vent Rate No Result Required. Mechanical Rate No Result Required. Pressure Support Vent No Result Required. Sodium Potassium Chloride Carbon Dioxide Anion Gap BUN Creatinine Est GFR (CKD-EPI)AfAm Est GFR (CKD-EPI)NonAf POC Glucometer 395 Random Glucose Hemoglobin A1c % 6.9 H Calcium 04/11/19 16:40 WBC RBC Hgb Hct MCV MCH MCHC RDW Plt Count MPV Absolute Neuts (auto) Neutrophils % Lymphocytes % Monocytes % Eosinophils % Basophils % Nucleated RBC % Hypochromia Platelet Estimate Platelet Comment Polychromasia Poikilocytosis Anisocytosis Microcytosis Macrocytosis Retic Count Anticoagulation Therapy Puncture Site ABG pH ABG pCO2 at Pt Temp ABG pO2 at Pt Temp ABG HCO3 ABG O2 Sat (Measured) ABG O2 Content ABG Base Excess Rm Test O2 Delivery Device Oxygen Flow Rate Vent Mode Vent Rate Mechanical Rate Pressure Support Vent Sodium Potassium Chloride Carbon Dioxide Anion Gap BUN Creatinine Est GFR (CKD-EPI)AfAm Est GFR (CKD-EPI)NonAf POC Glucometer 339 Random Glucose Hemoglobin A1c % Calcium HOSPITAL COURSE: Date of Admission:04/09/19 Date of Discharge: 04/11/19 Pt is a 68yo woman with a PMH of CHF, COPD, DM, HTN, CVA, NSTEMI (2018) who presents with SOB. She was admitted for the same and is being worked up for potential causes. The patient's sob was worked up and treated. She was diuresed with IV lasix to address any contribution from volume overload. She received IV steroids and nebs to address her COPD. The patient gradually improved, and felt better. She had an echo showing echo 04/2019 nl LV function, tr MR, tr TR, RVSP 22 mmHg, moderate (mean gradient 22 mmHg, V2 2.8 m/s, peak gradient 31 mmHg). Cardiology was able to retrieve prior cath history: [place] cath report 03/2018: 80-90% mid LAD--Xience GINO, subtotal occlusion D1 fills faintly via LAD collaterals (branching vessel)--PCI here not successful; 70-80% mRCA--no intervention; mild LCX and Ramus stenoses. LVEDP 18, nl EF Her DM was treated with Insulin inpt. Her chronic medical conditions were treated with her home regimen. HCTZ, Metoprolol, Hydralazine, ASA, Plavix, Atorvastatin, Leviteracitam, Nortryptiline , Oxybutinin, Fluoxetine PT is stable for D/C Minutes to complete discharge: 30 Discharge Summary Reason For Visit: DYSPNEA ON EXERTION, HYPOXIA Current Active Problems M[place]GRO (dyspnea on exertion) (Acute) Hypoxia (Acute) Condition: Stable - Instructions Diet, Activity, Other Instructions: You were in the hospital for shortness of breath. You need to follow up with the following doctors: Your primary care doctor, 2-[address] Gandhi, cardiology, within 5 days. *At the above 2 appointments please discuss if you should continue lasix; being sent home on 40mg PO QD. You will need to discuss potential outpatient stress test with your cardiology provider. Dr. Oliveira, pulmonology, 1 week. You will need out patient pulmonary function testing *You will require an OP sleep study; if it is completed before this please bring results and smartcard from CPAP if given. Medication Changes to existing meds: Decreased HCTZ to 12.5 from 25; new Rx written. Added lasix 40mg PO QD. Continue taking your home medications as before. You were started on lasix 40mg PO QD for dependent edema/SOB. Your echo didn't show any CHF with reduced ejection fraction but your heart may have a hard time relaxing. Given that you had improvement with this, we can give you a 1 month course of lasix to take home but this needs to be discussed with CV and PCP immediately. If your symptoms get worse, call your doctor or return to the emergency department. We discussed symptoms that would cause you to return to the ER and you understood. These include chest pain, shortness of breath, fever. Referrals: Mo Gandhi MD [Staff Physician] - 1 Week Beni Ledesma MD [Non Staff, Medical] - (Within 2-3 days) Blaine Oliveira MD, MD [Staff Physician] - 1 Week Disposition: HOME - Home Medications Comprehensive Discharge Medication List: Ambulatory Orders Amlodipine Besylate [Norvasc -] 10 mg PO DAILY 03/10/18 Budesonide/Formeterol Fumarate [SYMBICORT 160/4.5mcg -] 1 inh PO BID 03/10/18 Famotidine [Pepcid] 20 mg PO DAILY 03/10/18 Fluoxetine HCl [Prozac] 20 mg PO DAILY 03/10/18 Insulin Regular, Human [Humulin R U-500 Kwikpen] 0 unit SQ TID 03/10/18 Levetiracetam [Keppra] 500 mg PO BID 03/10/18 Metformin HCl [Glucophage] 1,000 mg PO BID 03/10/18 Nortriptyline HCl 25 mg PO HS 03/10/18 Oxycodone HCl/Acetaminophen [Percocet 5-325 mg Tablet] 1 tab PO TID 03/10/18 Polyvinyl Alcohol [Artificial Tears] 1 drop OP BID 03/10/18 Potassium Chloride 20 meq PO DAILY 03/10/18 hydrALAZINE HCL [Apresoline -] 25 mg PO BID 03/10/18 Ammonium Lactate Cream [Lac-Hydrin 12% Cream -] 1 applic TP DAILY 04/09/19 Aspirin [Aspirin EC] 81 mg PO DAILY 04/09/19 Atorvastatin Ca [Lipitor] 80 mg PO HS 04/09/19 Bacitracin - [Bacitracin Topical Ointment -] 1 applic TP DAILY 04/09/19 Clopidogrel Bisulfate [Plavix -] 75 mg PO DAILY 04/09/19 Clotrimazole [Lotrimin -] 1 applic TP BID 04/09/19 Docusate Sodium [Colace -] 200 mg PO DAILY 04/09/19 Linagliptin [Tradjenta] 5 mg PO DAILY 04/09/19 Liraglutide [Victoza 3-Raf] 1.8 mg SQ DAILY 04/09/19 Metoprolol Succinate [Toprol Xl] 25 mg PO DAILY 04/09/19 Mupirocin Ointment [Bactroban 2% Ointment -] 1 applic TP DAILY 04/09/19 Oxybutynin Chloride [Oxybutynin Chloride ER] 5 mg PO DAILY 04/09/19 Umeclidinium [place] [Incruse Ellipta] 62.5 mcg IH DAILY 04/09/19 Furosemide [Lasix] 40 mg PO DAILY #30 tablet 04/11/19 Hydrochlorothiazide [Hctz -] 12.5 mg PO DAILY #7 cap 04/11/19 This patient is new to me today: No Emergency Visit: No Critical Care patient: No - Discharge Referral Referred to [facility] No ATTENDING PHYSICIAN STATEMENT I saw and evaluated the patient. I reviewed the resident's note and discussed the case with the resident. I agree with the resident's findings and plan as documented. SUBJECTIVE: OBJECTIVE: ASSESSMENT AND PLAN:
[2019-04-11] MEDS ORDERED: PT OWN MED DRAWER 7, Y5N ONE (21:47)
[2019-04-11] MEDS: NORTRIPTYLINE HCL 25 MG CAPSULE PO SCH (21:58)
[2019-04-11] MEDS: ATORVASTATIN CA 80 MG TABLET (FP) PO SCH (21:58)
[2019-04-12] MEDS: HEPARIN NA (PORCINE) 5,000 UNITS/ML 1ML VIAL SQ SCH ×2 (06:02→13:49)
[2019-04-12] MEDS: INSULIN SLIDING SCALE (NOVOLOG) 1 VIAL SQ SCH ×2 (06:06→11:45)
[2019-04-12] MEDS: INSULIN (LEVEMIR) 100 UNITS/ML UNITS SQ SCH (06:06)
[2019-04-12] MEDS: ALBUTEROL SO4 2.5/IPRATROPIUM 0.5 INH SOL 3 ML VIAL.NEB. NEB SCH ×2 (07:49→12:20)
[2019-04-12] MEDS: HYDROCHLOROTHIAZIDE 25 MG TABLET (FP) PO SCH (10:24)
[2019-04-12] MEDS: metoPROLOL SUCCINATE 25 MG TAB.SR.24H (FP) PO SCH (10:25)
[2019-04-12] MEDS: FLUoxetine HCL 20 MG CAPSULE (FP) PO SCH (10:25)
[2019-04-12] MEDS: levETIRAcetam 250 MG TABLET (FP) PO SCH (10:25)
[2019-04-12] MEDS: CLOPIDOGREL BISULFATE 75 MG TABLET (FP) PO SCH (10:25)
[2019-04-12] MEDS: RANITIDINE HCL 150 MG TABLET (FP) PO SCH (10:25)
[2019-04-12] MEDS: ASPIRIN COATED 81 MG TABLET.EC PO SCH (10:25)
[2019-04-12] MEDS: hydrALAZINE HCL 25 MG TABLET (FP) PO SCH (10:26)
[2019-04-12] MEDS: MUPIROCIN 2% TOPICAL OINTMENT 22 GM TUBE TP SCH (10:28)
[2019-04-12] MEDS: ARTIFICIAL TEARS (POLYVINYL ALCOHOL) OPTH DROPS OD SCH (10:28)
[2019-04-12] MEDS: OXYBUTYNIN CHLORIDE 5 MG TABLET PO SCH (10:28)
[2019-04-12] MEDS ORDERED: INSULIN (NOVOLOG) ASPART 100 UNITS/ML 10ML VIAL ONE (11:36)
--- NOTE | 2019-04-12 13:27 | PN ---
Progress Note (short form) - Note Progress Note: PULMONARY Denies shortness of breath. No cough or wheezing. Vital Signs Period Temp Pulse Resp BP Sys/Knox Pulse Ox Last 24 Hr 97.5 F-98.6 F 90-105 20-20 114-154/63-87 95 Gen: NAD at rest Heart: RRR Lung: decreased breath sounds at the bases Abd: soft, nontender Ext: no edema CBC, BMP 04/11/19 08:20 04/11/19 08:20 Active Medications Acetaminophen (Tylenol -) 650 mg PO Q4H PRN PRN Reason: PAIN LEVEL 1-5 Albuterol/Ipratropium (Duoneb -) 1 amp NEB RQID [facility] Last Admin: 04/12/19 12:20 Dose: Not Given Artificial Tears (Artificial Tears) 1 drop OD BID [facility] Last Admin: 04/12/19 10:28 Dose: 1 drop Aspirin (Ecotrin -) 81 mg PO DAILY [facility] Last Admin: 04/12/19 10:25 Dose: 81 mg Atorvastatin Calcium (Lipitor -) 80 mg PO HS [facility] Last Admin: 04/11/19 21:58 Dose: 80 mg Clopidogrel Bisulfate (Plavix -) 75 mg PO DAILY [facility] Last Admin: 04/12/19 10:25 Dose: 75 mg Fluoxetine HCl (Prozac -) 20 mg PO DAILY [facility] Last Admin: 04/12/19 10:25 Dose: 20 mg Heparin Sodium (Porcine) (Heparin -) 5,000 unit SQ TID [facility] Last Admin: 04/12/19 06:02 Dose: 5,000 unit Hydralazine HCl (Apresoline -) 25 mg PO BID [facility] Last Admin: 04/12/19 10:26 Dose: 25 mg Hydrochlorothiazide (Hctz -) 25 mg PO DAILY [facility] Last Admin: 04/12/19 10:24 Dose: 25 mg Insulin Aspart (Novolog Vial Sliding Scale -) 1 vial SQ ACHS [facility]; Protocol Last Admin: 04/12/19 11:45 Dose: 10 units Insulin Detemir (Levemir Vial) 8 units SQ 0700,2200 [facility] Last Admin: 04/12/19 06:06 Dose: 8 units Levetiracetam (Keppra -) 500 mg PO BID [facility] Last Admin: 04/12/19 10:25 Dose: 500 mg Metoprolol Succinate (Toprol Xl -) 25 mg PO DAILY [facility] Last Admin: 04/12/19 10:25 Dose: 25 mg Mupirocin (Bactroban 2% Ointment -) 1 applic TP DAILY [facility] Last Admin: 04/12/19 10:28 Dose: 1 applic Nortriptyline HCl (Pamelor -) 25 mg PO HS [facility] Last Admin: 04/11/19 21:58 Dose: 25 mg Oxybutynin Chloride (Ditropan -) 5 mg PO DAILY [facility] Last Admin: 04/12/19 10:28 Dose: 5 mg Polyethylene Glycol (Miralax (For Daily Use) -) 17 gm PO DAILY PRN PRN Reason: CONSTIPATION Ranitidine HCl (Zantac -) 150 mg PO DAILY [facility] Last Admin: 04/12/19 10:25 Dose: 150 mg A/P Acute Hypoxic Respiratory Failure improving Acute on Chronic Diastolic Heart Failure CAD Asthma HTN DM h/o CVA Likely Obstructive Sleep Apnea - lasix as needed - monitor urine output, creatinine - daily weights - O2 to keep SpO2 >90% - inhaled bronchodilators - outpt PFTs, PSG - DVT prophylaxis
[2019-04-12 13:38] VITALS: BP 126/66; PULSE 102; TEMP 98.1
== END 2019-04-12 15:02 | disposition home or self-care (01) | DRG 189 ==
LOC: JER 06:16 → JERBED 14:48 → J6S 19:56
PROVIDERS: ADMIT Internal Medicine; ATTEND Hospitalist
PROC: 3E0F7GC Introduction of Other Therapeutic Substance into Respiratory Tract, Via Natural or Artificial Opening (ICD-10-PCS; principal; 2019-04-09)
DX: J96.01 Acute respiratory failure with hypoxia (principal); I50.33 Acute on chronic diastolic (congestive) heart failure; Z68.43 Body mass index [BMI] 50.0-59.9, adult; E66.2 Morbid (severe) obesity with alveolar hypoventilation; I11.0 Hypertensive heart disease with heart failure; J44.9 Chronic obstructive pulmonary disease, unspecified; E11.9 Type 2 diabetes mellitus without complications; I73.9 Peripheral vascular disease, unspecified; I35.0 Nonrheumatic aortic (valve) stenosis; I34.0 Nonrheumatic mitral (valve) insufficiency; I36.1 Nonrheumatic tricuspid (valve) insufficiency; I25.10 Atherosclerotic heart disease of native coronary artery without angina pectoris; Z79.84 Long term (current) use of oral hypoglycemic drugs; E78.5 Hyperlipidemia, unspecified; K21.9 Gastro-esophageal reflux disease without esophagitis; K59.00 Constipation, unspecified; F32.9 Major depressive disorder, single episode, unspecified; Z86.73 Personal history of transient ischemic attack (TIA), and cerebral infarction without residual deficits; F41.9 Anxiety disorder, unspecified; I25.2 Old myocardial infarction; I87.8 Other specified disorders of veins
CPT/HCPCS: 36415; 36600; 71045-TC-FY; 71250-TC; 80048; 80053; 81003; 82375; 82803; 82962; 83036; 83050; 83735; 83880; 84443; 84484; 85025; 85027; 85044; 85610; 93005; 93010; 93306-TC; 93970-TC; 94010; 94640; 97116-GP; 97161-GP; 99283-25; J1644

== ENCOUNTER 2019-04-20 14:44 | Emergency (ER) | payer OTHER ==
[2019-04-20 15:33] VITALS: BMI 54.5
--- NOTE | 2019-04-20 16:18 | PDOC ---
History of Present Illness - General Chief Complaint: Pain Stated Complaint: LEFT LEG PAIN Time Seen by Provider: 04/20/19 16:13 - History of Present Illness Initial Comments: 04/20/19 17:22 HPI: 68 y/ F with CHF, COPD, IDDM, HTN, CVA x3, NSTEMI (2018) recently admitted from 04/09-04/11 from acute hypoxic respiratory failure presenting with left hip pain since yesterday. She states the pain is in her anterolateral hip with radiation down to her knee and posterior hip. The pain occurred at rest with no inciting event or trauma. The pain feels like muscle cramping and is constant. Pain is worse with ambulation and improved with rest. She took one pill she thinks may be a narcotic at her assisted living facillity and had no improvement of her pain. She also endorses edema of her anterior left leg. She denies any erythema , gever, chills, chest pain, SOB, falls, trauma, syncope, abd pain, n/v, dysuria , MCDANIEL, change in BM. PMHx: as noted above ROS: as noted SHx: Denies tobacco use; no alcohol use; no rec drugs Allergies: NKDA ROS: GENERAL/CONSTITUTIONAL: No fever or chills. No weakness. HEAD, EYES, EARS, NOSE AND THROAT: No change in vision. No ear pain or discharge. No sore throat. CARDIOVASCULAR: No chest pain or shortness of breath RESPIRATORY: No cough, wheezing, or hemoptysis. GASTROINTESTINAL: No nausea, vomiting, diarrhea or constipation. GENITOURINARY: No dysuria, frequency, or change in urination. MUSCULOSKELETAL: +left hip pain. SKIN: No rash NEUROLOGIC: No headache, vertigo, loss of consciousness, or change in strength/ sensation. ENDOCRINE: No increased thirst. No abnormal weight change HEMATOLOGIC/LYMPHATIC: No anemia, easy bleeding, or history of blood clots. ALLERGIC/IMMUNOLOGIC: No hives or skin allergy. PE: GENERAL: Awake, alert, and fully oriented, no acute distress HEAD: No signs of trauma, normocephalic, atraumatic EYES: EOMI, sclera anicteric, conjunctiva clear ENT: Auricles normal inspection, hearing grossly normal, nares patent, oropharynx clear without exudates. Moist mucosa NECK: Normal ROM, no lymphadenopathy LUNGS: No increased work of breathing, symmetrical chest rise, BL lower lung field crackles, no wheezes or rhonchi HEART: Regular rate and rhythm, normal S1 and S2, systolic ejection murmur present, peripheral pulses 2+ and equal bilaterally. ABDOMEN: Soft, nondistended, nontender, normoactive bowel sounds. Reducible umbilical hernia, nontender. No guarding, no rebound. No masses EXTREMITIES: Normal inspection, Normal range of motion, BL LE pitting edema. No clubbing or cyanosis. negative straight leg raise. Generalized tenderness to palpation in BL LE worse in BL calves NEUROLOGICAL: Cranial nerves II through XII grossly intact. Normal speech, normal gait, no focal sensorimotor deficits SKIN: Warm, Dry, normal turgor, no rashes or lesions noted Past History - Past Medical History Allergies/Adverse Reactions: Allergies Allergy/AdvReac Type Severity Reaction Status Date / Time lisinopril Allergy Severe Swelling Verified 04/20/19 15:33 PADMINI Inhibitors Allergy Verified 04/20/19 15:33 blueberry Allergy Verified 04/20/19 15:33 erythromycin base Allergy Verified 04/20/19 15:33 naproxen Allergy Verified 04/20/19 15:33 raspberry Allergy Verified 04/20/19 15:33 strawberry Allergy Verified 04/20/19 15:33 Home Medications: Ambulatory Orders Amlodipine Besylate [Norvasc -] 10 mg PO DAILY 03/10/18 Budesonide/Formeterol Fumarate [SYMBICORT 160/4.5mcg -] 1 inh PO BID 03/10/18 Famotidine [Pepcid] 20 mg PO DAILY 03/10/18 Fluoxetine HCl [Prozac] 20 mg PO DAILY 03/10/18 Insulin Regular, Human [Humulin R U-500 Kwikpen] 0 unit SQ TID 03/10/18 Levetiracetam [Keppra] 500 mg PO BID 03/10/18 Metformin HCl [Glucophage] 1,000 mg PO BID 03/10/18 Nortriptyline HCl 25 mg PO HS 03/10/18 Oxycodone HCl/Acetaminophen [Percocet 5-325 mg Tablet] 1 tab PO TID 03/10/18 Polyvinyl Alcohol [Artificial Tears] 1 drop OP BID 03/10/18 Potassium Chloride 20 meq PO DAILY 03/10/18 hydrALAZINE HCL [Apresoline -] 25 mg PO BID 03/10/18 Ammonium Lactate Cream [Lac-Hydrin 12% Cream -] 1 applic TP DAILY 04/09/19 Aspirin [Aspirin EC] 81 mg PO DAILY 04/09/19 Atorvastatin Ca [Lipitor] 80 mg PO HS 04/09/19 Bacitracin - [Bacitracin Topical Ointment -] 1 applic TP DAILY 04/09/19 Clopidogrel Bisulfate [Plavix -] 75 mg PO DAILY 04/09/19 Clotrimazole [Lotrimin -] 1 applic TP BID 04/09/19 Docusate Sodium [Colace -] 200 mg PO DAILY 04/09/19 Linagliptin [Tradjenta] 5 mg PO DAILY 04/09/19 Liraglutide [Victoza 3-Raf] 1.8 mg SQ DAILY 04/09/19 Metoprolol Succinate [Toprol Xl] 25 mg PO DAILY 04/09/19 Mupirocin Ointment [Bactroban 2% Ointment -] 1 applic TP DAILY 04/09/19 Oxybutynin Chloride [Oxybutynin Chloride ER] 5 mg PO DAILY 04/09/19 Umeclidinium [place] [Incruse Ellipta] 62.5 mcg IH DAILY 04/09/19 Furosemide [Lasix] 40 mg PO DAILY #30 tablet 04/11/19 Hydrochlorothiazide [Hctz -] 12.5 mg PO DAILY #7 cap 04/11/19 Acetaminophen [Tylenol] 650 mg PO QID #30 capsule 04/20/19 Lidocaine 5% Patch [Lidoderm Patch -] 1 patch TP DAILY #14 patch 04/20/19 Cardiac Disorders: Yes (PVD) CVA: Yes (&TIA) COPD: Yes Diabetes: Yes (TYPE 2) GI Disorders: Yes (GERD, constipation) HTN: Yes Hypercholesterolemia: Yes Psychiatric Problems: Yes (DEPRESSION) Seizures: Yes (UNSPECIFIED CONVULSIONS) - Surgical History Cardiac Surgery: Yes (03/2016 PCI/STENT) Cholecystectomy: Yes - Immunization History Immunization Up to Date: Yes - Suicide/Smoking/Psychosocial Hx Smoking History: Former smoker Have you smoked in the past 12 months: No If you are a former smoker, when did you quit?: 10 years ago Information on smoking cessation initiated: No Hx Alcohol Use: No Drug/Substance Use Hx: No Substance Use Type: None Hx Substance Use Treatment: No *Physical Exam - Vital Signs Last Vital Signs Temp Pulse Resp BP Pulse Ox 97.8 F 92 H 18 110/73 98 04/20/19 15:31 04/20/19 15:31 04/20/19 15:31 04/20/19 15:31 04/20/19 15:31 Medical Decision Making - Medical Decision Making 04/20/19 18:01 68 y/ F with CHF, COPD, IDDM, HTN, CVA x3, NSTEMI (2018) recently admitted from 04/09-04/11 from acute hypoxic respiratory failure presenting with left hip pain since yesterday. VSS, AF. PE with generalized BL LE tenderness especially in BL calves. DDx includes DVT, arthritis, MSK strain, increased fluid retention, fracture -CXR PA/L, LS XR, left Hip and pelvis XR, left knee XR, BL LE duplex -lidoderm patch, tylenol 04/20/19 20:15 DVT negative XR with no acute fracture but severe arthritic changes Patient was able to ambulate with walker (uses one at baseline) and states pain is improved Discussed with patient results and return pcxns; patient understands instructions and is comfortable with DC home Will send scripts for lidoderm patch and tylenol *DC/Admit/Observation/Transfer Diagnosis at time of Disposition: Leg pain Qualifiers: Laterality: left Qualified Code(s): M79.605 - Pain in left leg - Discharge Dispostion Disposition: HOME Condition at time of disposition: Improved Decision to Admit order: No - Prescriptions Prescriptions: Acetaminophen [Tylenol] 650 mg PO QID #30 capsule Lidocaine 5% Patch [Lidoderm Patch -] 1 patch TP DAILY #14 patch - Referrals Referrals: Beni Ledesma MD [Primary Care Provider] - Cipriano Youssef DO [Staff Physician] - Nicola Gonzalez DO [Staff Physician] - - Patient Instructions Printed Discharge Instructions: DI for Leg Pain Additional Instructions: Additional Instructions: Please return to the emergency department with any new or worsening symptoms or concerns including worsening pain, fevers, increased edema. Please follow up with your primary care physician within 72 hours for further management of your arthritis that may be causing your leg pain Please see the attached referral to the orthopedist surgeon for further evaluation and management of leg pain Please take Tylenol 650mg every 6-8hrs for pain control. Please apply lidoderm patch for additional pain control per instructions - Post Discharge Activity
[2019-04-20] MEDS ORDERED: LIDOCAINE 5% TOPICAL PATCH TP ONE (17:38)
[2019-04-20] MEDS ORDERED: ACETAMINOPHEN 325 MG TABLET (FP) PO ONE (17:38)
--- NOTE | 2019-04-20 17:38 | PDOC ---
Documentation entered by Romelia Springer SCRIBE, acting as scribe for Pham Hawley DO. Pham Hawley DO: This documentation has been prepared by the Gian lowery Brenda, SCRIBE, under my direction and personally reviewed by me in its entirety. I confirm that the documentation accurately reflects all work, treatment, procedures, and medical decision making performed by me. Attending Attestation - Resident Resident Name: Shea Salgado - ED Attending Attestation I have performed the following: I have examined & evaluated the patient, The case was reviewed & discussed with the resident, I agree w/resident's findings & plan, Exceptions are as noted - HPI HPI: 04/20/19 17:59 The patient is a 68 year old female, with a significant PMH of Depression, GERD , CHF, COPD, IDDM, HTN, CVA x3 and NSTEMI (2018) who presents to the emergency department with bilateral leg pain and swelling accompanied by left hip pain that radiates down to her knee. The patient denies trauma. Denies chest pain, shortness of breath, headache and dizziness. Denies fever, chills, nausea, vomiting, diarrhea and constipation. Denies any urinary symptoms. Allergies: NKA Past surgical history: Cholecystectomy, 03/2016 PCI/STENT Social history: Denies current tobacco use, former smoker, quit 10 years ago; no alcohol use; no recreational drug use PCP: Elsa Ledesma - Physicial Exam PE: 04/20/19 17:59 GENERAL:(+) Morbidlly obese Awake, alert, and fully oriented, in no acute distress HEAD: No signs of trauma EYES: PERRLA, EOMI, sclera anicteric, conjunctiva clear ENT: Auricles normal inspection, hearing grossly normal, nares patent, oropharynx clear without exudates. Moist mucosa NECK: Normal ROM, supple, no lymphadenopathy, JVD, or masses LUNGS: Breath sounds equal, clear to auscultation bilaterally. No wheezes, and no crackles HEART: Regular rate and rhythm, normal S1 and S2, no murmurs, rubs or gallops ABDOMEN: Soft, nontender. No guarding, no rebound. No masses EXTREMITIES: (+) Calf tenderness bilaterally. Normal range of motion. Non pitting edema. No clubbing or cyanosis. No cords, erythema. MUSCULOSKELETAL: (+) lower back and paraspinal tenderness upon palpation NEUROLOGICAL: Cranial nerves II through XII grossly intact. Normal speech. SKIN: Warm, Dry, normal turgor. - Medical Decision Making 04/20/19 17:35 I, Dr. Pham Hawley, DO, attest that this document has been prepared under my direction and personally reviewed by me in its entirety. I further attest, that it accurately reflects all work, treatment, procedures and medical decision -making performed by me. a/p: 68 yo female with leg pain b/l but L>R -pt with recent hospitalization, however on heparin sq while in the hospital -pt denies falls/injury -walk w a walker at baseline -pt has home health aides at home -pt denies cp/sob -no abd pain -will send for ultrasound, xrays hip, leg, back -tylenol for pain at this time -lidoderm patch for pain 04/20/19 20:03 no dvt xrays reviewed by me- no acute fx, djd, pending official ready by radiology pt stable for dc to home with ortho follow up and neurosx follow up for back pain and hip pain 04/20/19 20:56 pt ambulated with her walker- pivoted pt stable for dc back to her assisted living
[2019-04-20] MEDS ORDERED: LIDOCAINE 5% TOPICAL PATCH ONE (17:44)
[2019-04-20] MEDS ORDERED: ACETAMINOPHEN 325 MG TABLET (FP) ONE (17:44)
[2019-04-20 20:05] VITALS: BP 131/68; PULSE 86; TEMP 98.6
[2019-04-20] MEDS ORDERED: LIDOCAINE PATCH REMOVAL MC SCH (22:00)
== END 2019-04-20 23:31 ==
LOC: JER 14:44
DX: M12.9 Arthropathy, unspecified (principal); I25.10 Atherosclerotic heart disease of native coronary artery without angina pectoris; I11.0 Hypertensive heart disease with heart failure; I50.9 Heart failure, unspecified; Z95.5 Presence of coronary angioplasty implant and graft; E78.00 Pure hypercholesterolemia, unspecified; E11.9 Type 2 diabetes mellitus without complications; Z79.4 Long term (current) use of insulin; I73.9 Peripheral vascular disease, unspecified; G40.909 Epilepsy, unspecified, not intractable, without status epilepticus; J44.9 Chronic obstructive pulmonary disease, unspecified; Z86.73 Personal history of transient ischemic attack (TIA), and cerebral infarction without residual deficits
CPT/HCPCS: 71046-TC-FY; 72100-TC-FY; 73523-TC-FY; 73562-TC-LT-FY; 93970-TC; 99282-25

== ENCOUNTER 2019-04-30 08:55 | Inpatient (IN) | payer OTHER ==
--- NOTE | 2019-04-30 10:54 | PDOC ---
History of Present Illness - General Chief Complaint: Pain Stated Complaint: LEG PAIN Time Seen by Provider: 04/30/19 09:42 - History of Present Illness Initial Comments: 04/30/19 10:54 68 y/o F hx of IDDM, depression GERD ,CHF, COPD, HTN,CVA and NSTEMI presents to the ED with 2days of lower abdominal pain. Pain in intermittent and cramping and is 7/10. She has had 1 episode of non-bloody emesis since yesterday with no diarrhea or constipation. Last bowel movement was last night and she has been passing gas. she denies any fevers, chills, nausea, bloody stools, falls or trauma. She was last seen in the ED 10 days ago for bilateral leg pain. DVT was ruled out and she was discharged to her assisted living facility with instructions for follow up with neurosurgery and orthopedics. 04/30/19 11:17 Past History - Past Medical History Allergies/Adverse Reactions: Allergies Allergy/AdvReac Type Severity Reaction Status Date / Time lisinopril Allergy Severe Swelling Verified 04/30/19 09:14 PADMINI Inhibitors Allergy Verified 04/30/19 09:14 blueberry Allergy Verified 04/30/19 09:14 erythromycin base Allergy Verified 04/30/19 09:14 naproxen Allergy Verified 04/30/19 09:14 raspberry Allergy Verified 04/30/19 09:14 strawberry Allergy Verified 04/30/19 09:14 Home Medications: Ambulatory Orders Amlodipine Besylate [Norvasc -] 10 mg PO DAILY 03/10/18 Budesonide/Formeterol Fumarate [SYMBICORT 160/4.5mcg -] 1 inh PO BID 03/10/18 Famotidine [Pepcid] 20 mg PO DAILY 03/10/18 Fluoxetine HCl [Prozac] 20 mg PO DAILY 03/10/18 Insulin Regular, Human [Humulin R U-500 Kwikpen] 0 unit SQ TID 03/10/18 Levetiracetam [Keppra] 500 mg PO BID 03/10/18 Metformin HCl [Glucophage] 1,000 mg PO BID 03/10/18 Nortriptyline HCl 25 mg PO HS 03/10/18 Oxycodone HCl/Acetaminophen [Percocet 5-325 mg Tablet] 1 tab PO TID 03/10/18 Polyvinyl Alcohol [Artificial Tears] 1 drop OP BID 03/10/18 Potassium Chloride 20 meq PO DAILY 03/10/18 hydrALAZINE HCL [Apresoline -] 25 mg PO BID 03/10/18 Ammonium Lactate Cream [Lac-Hydrin 12% Cream -] 1 applic TP DAILY 04/09/19 Aspirin [Aspirin EC] 81 mg PO DAILY 04/09/19 Atorvastatin Ca [Lipitor] 80 mg PO HS 04/09/19 Bacitracin - [Bacitracin Topical Ointment -] 1 applic TP DAILY 04/09/19 Clopidogrel Bisulfate [Plavix -] 75 mg PO DAILY 04/09/19 Clotrimazole [Lotrimin -] 1 applic TP BID 04/09/19 Docusate Sodium [Colace -] 200 mg PO DAILY 04/09/19 Linagliptin [Tradjenta] 5 mg PO DAILY 04/09/19 Liraglutide [Victoza 3-Raf] 1.8 mg SQ DAILY 04/09/19 Metoprolol Succinate [Toprol Xl] 25 mg PO DAILY 04/09/19 Mupirocin Ointment [Bactroban 2% Ointment -] 1 applic TP DAILY 04/09/19 Oxybutynin Chloride [Oxybutynin Chloride ER] 5 mg PO DAILY 04/09/19 Umeclidinium [place] [Incruse Ellipta] 62.5 mcg IH DAILY 04/09/19 Furosemide [Lasix] 40 mg PO DAILY #30 tablet 04/11/19 Hydrochlorothiazide [Hctz -] 12.5 mg PO DAILY #7 cap 04/11/19 Acetaminophen [Tylenol] 650 mg PO QID #30 capsule 04/20/19 Lidocaine 5% Patch [Lidoderm Patch -] 1 patch TP DAILY #14 patch 04/20/19 Cardiac Disorders: Yes (PVD) CVA: Yes (&TIA) COPD: Yes Diabetes: Yes (TYPE 2) GI Disorders: Yes (GERD, constipation) HTN: Yes Hypercholesterolemia: Yes Psychiatric Problems: Yes (DEPRESSION) Seizures: Yes (UNSPECIFIED CONVULSIONS) - Surgical History Cardiac Surgery: Yes (03/2016 PCI/STENT) Cholecystectomy: Yes - Immunization History Immunization Up to Date: Yes - Psycho Social/Smoking Cessation Hx Smoking History: Unknown if ever smoked Have you smoked in the past 12 months: No If you are a former smoker, when did you quit?: 10 years ago Information on smoking cessation initiated: No Hx Alcohol Use: No Drug/Substance Use Hx: No Substance Use Type: None Hx Substance Use Treatment: No Review of Systems - Review of Systems Constitutional: No: Chills, Fever HEENTM: No: Eye Pain, Blurred Vision Respiratory: No: Cough, Shortness of Breath Cardiac (ROS): No: Chest Pain ABD/GI: Yes: Symptoms Reported Musculoskeletal: Yes: Back Pain Integumentary: No: Bruising, Change in Color Neurological: No: Headache, Numbness *Physical Exam - Vital Signs Last Vital Signs Temp Pulse Resp BP Pulse Ox 97.8 F 96 H 16 129/68 95 04/30/19 09:13 04/30/19 09:13 04/30/19 09:13 04/30/19 09:13 04/30/19 09:13 - Physical Exam Comments: 04/30/19 11:19 PE: GENERAL: Obese, somnolent but arousable (per retirement received hydrocodone prior to leaving), in no acute distress HEAD: No signs of trauma, normocephalic, atraumatic EYES: PERRLA, EOMI, sclera anicteric, conjunctiva clear ENT: Auricles normal inspection, hearing grossly normal, nares patent, oropharynx clear without exudates. Moist mucosa NECK: Normal ROM, supple, no lymphadenopathy, JVD, or masses LUNGS: No distress, speaks full sentences, clear to auscultation bilaterally HEART: Regular rate and rhythm, normal S1 and S2, no murmurs, rubs or gallops, peripheral pulses normal and equal bilaterally. ABDOMEN: Soft, protuberant, tenderness to palpation in RLQ. EXTREMITIES : Normal inspection, Normal range of motion, 2+ pitting edema bilateral lower extremities. No clubbing or cyanosis NEUROLOGICAL: Cranial nerves II through XII grossly intact. Normal speech, walks with walker at baseline., no focal sensorimotor deficits SKIN: Warm, Dry, normal turgor, no rashes, stasis dermatitis on lower extremities ED Treatment Course - LABORATORY CBC & Chemistry Diagram: 04/30/19 10:40 04/30/19 10:40 Medical Decision Making - Medical Decision Making 04/30/19 11:22 68 y/o F hx of IDDM, depression GERD ,CHF, COPD, HTN,CVA and NSTEMI presents to the ED with 2days of lower abdominal pain. cbc, cmp, ua, urine culture, ct abdomen and pelvis with iv contrast. 04/30/19 11:32 cmp remarkable for blood glucose of 30 pog glucose for confirmation 24 -given 1 vial d50 25gm IV push 04/30/19 12:19 Repeat blood glucose 119 04/30/19 13:28 repeat blood glucose 22 given 2 vials of D50 to follow with 40meq K+ 04/30/19 13:29 On D5 drip at 60ml/hr 04/30/19 13:42 hepatosplenomegaly s/p cholecystectomy , cardiomegaly, s/p hysterectomy small lober abdominal ventral hernia containing fat. no fluid collection/ no bowel obstruction. urinary bladder unremarkable no hydronephrosis, renal masses or calculi 04/30/19 13:42 04/30/19 15:14 Glucose currently 155 poc Discharge - Follow up/Referral - Patient Discharge Instructions - Post Discharge Activity
[2019-04-30 10:59] LABS: BASO % 0.6 % (0-2.0); EOS % 1.4 % (0-4.5); HEMATOCRIT 31.3 % (32.4-45.2); HEMOGLOBIN 9.7 GM/dL (10.7-15.3); LYMPH % 19.5 % (8-40); MCH 23.2 pg (25.7-33.7); MCHC 30.9 g/dl (32.0-36.0); MEAN CELL VOLUME 75.1 fl (80-96); MEAN PLT VOLUME 8.6 fl (7.5-11.1); MONO % 5.4 % (3.8-10.2); NEUT % 73.1 % (42.8-82.8); PLATELET COUNT 330 K/MM3 (134-434); RBC 4.18 M/mm3 (3.60-5.2); RDW 20.4 % (11.6-15.6)
[2019-04-30 11:01] LABS: URINE APPEARANCE CLEAR; URINE BILIRUBIN NEGATIVE (NEGATIVE); URINE COLOR YELLOW; URINE GLUCOSE (UA) NEGATIVE (NEGATIVE); URINE KETONE NEGATIVE (NEGATIVE); URINE LEUK ESTERASE NEGATIVE (NEGATIVE); URINE NITRITE NEGATIVE (NEGATIVE); URINE PROTEIN NEGATIVE (NEGATIVE); URINE UROBILINOGEN 0.2 mg/dL (0.2-1.0)
[2019-04-30 11:25] LABS: ALBUMIN 3.4 g/dl (3.4-5.0); BILIRUBIN,TOTAL 0.4 mg/dL (0.2-1); BLOOD UREA NITROGEN 12.2 mg/dL (7-18); CALCIUM 9.1 mg/dL (8.5-10.1); CREATININE 0.9 mg/dL (0.55-1.3); POTASSIUM 3.2 mmol/L (3.5-5.1); TOT PROT 7.1 g/dl (6.4-8.2)
[2019-04-30] MEDS ORDERED: DEXTROSE 50%-WATER - 25 GM/50 ML VIAL IVPUSH ONE ×2 (11:29→13:17)
[2019-04-30] MEDS ORDERED: DEXTROSE 50%-WATER 25 GM/50 ML DISP.SYRIN ONE (11:30)
[2019-04-30] MEDS ORDERED: DEXTROSE 50%-WATER - 25 GM/50 ML VIAL ONE (13:18)
[2019-04-30] MEDS ORDERED: D5-1/2NS+20 MEQ KCL - 20 MEQ/1,000 ML INFUS.BAG IV SCH (13:30)
[2019-04-30] MEDS ORDERED: POTASSIUM CHLORIDE TABS 20 MEQ TABLET.ER (FP) PO ONE ×2 (13:39→13:45)
--- NOTE | 2019-04-30 14:44 | PN ---
Progress Note, Physician History of Present Illness: 68 y/o F hx of IDDM, depression GERD ,CHF, COPD, HTN,CVA and NSTEMI presents to the ED with 2days of lower abdominal pain. Pain in intermittent and cramping and is 7/10. She has had 1 episode of non-bloody emesis since yesterday with no diarrhea or constipation. Last bowel movement was last night and she has been passing gas. she denies any fevers, chills, nausea, bloody stools, falls or trauma. She was last seen in the ED 10 days ago for bilateral leg pain. DVT was ruled out and she was discharged to her assisted living facility with instructions for follow up with neurosurgery and orthopedics. - Objective Vital Signs: Vital Signs Temperature 97.8 F 04/30/19 09:13 Pulse Rate 96 H 04/30/19 09:13 Respiratory Rate 16 04/30/19 09:13 Blood Pressure 129/68 04/30/19 09:13 O2 Sat by Pulse Oximetry (%) 95 04/30/19 09:13 Labs: CBC, BMP 04/30/19 10:40 04/30/19 10:40
--- NOTE | 2019-04-30 14:48 | HP ---
Admitting History and Physical - Primary Care Physician PCP: Kevin Sahni - Admission Chief Complaint: vomiting with abdominal pain x 2 days History of Present Illness: 68 y/o F hx of IDDM, depression GERD ,CHF, COPD, HTN,CVA and NSTEMI presents to the ED with 2 days of lower abdominal pain. Pain in intermittent and cramping and is 7/10. She has had 1 episode of non-bloody emesis since yesterday with no diarrhea or constipation. Last bowel movement was last night and she has been passing gas. she denies any fevers, chills, nausea, bloody stools, falls or trauma. She was last seen in the ED 10 days ago for bilateral leg pain. DVT was ruled out and she was discharged to her assisted living facility with instructions for follow up with neurosurgery and orthopedics.In ED BGM was noted to be 22 with repeat of 30. D50 was administered and went up to 110's but then dropped back doen. [facility] [place] [facility] and dc home was on hold History Source: Patient Limitations to Obtaining History: Poor Historian, Other (lethargic) - Past Medical History [employer]: Yes: CVA, Seizure Cardiovascular: Yes: CHF, HTN, Hyperlipdemia, IN (NSTEMI) Pulmonary: Yes: Asthma, COPD Gastrointestinal: Yes: GERD Psych: Yes: Depression Endocrine: Yes: Diabetes Mellitus - Past Surgical History Past Surgical History: Yes: Cholecystectomy - Smoking History Smoking history: Unknown if ever smoked Have you smoked in the past 12 months: No If you are a former smoker, when did you quit?: 10 years ago - Alcohol/Substance Use Hx Alcohol Use: No - Social History ADL: Support Services ([place] assisted [facility] resident) History of Recent Travel: No Home Medications - Allergies Allergies/Adverse Reactions: Allergies Allergy/AdvReac Type Severity Reaction Status Date / Time lisinopril Allergy Severe Swelling Verified 04/30/19 09:14 PADMINI Inhibitors Allergy Verified 04/30/19 09:14 blueberry Allergy Verified 04/30/19 09:14 erythromycin base Allergy Verified 04/30/19 09:14 naproxen Allergy Verified 04/30/19 09:14 raspberry Allergy Verified 04/30/19 09:14 strawberry Allergy Verified 04/30/19 09:14 - Home Medications Home Medications: Ambulatory Orders Amlodipine Besylate [Norvasc -] 10 mg PO DAILY 03/10/18 Budesonide/Formeterol Fumarate [SYMBICORT 160/4.5mcg -] 1 inh PO BID 03/10/18 Famotidine [Pepcid] 20 mg PO DAILY 03/10/18 Fluoxetine HCl [Prozac] 20 mg PO DAILY 03/10/18 Insulin Regular, Human [Humulin R U-500 Kwikpen] 0 unit SQ TID 03/10/18 Levetiracetam [Keppra] 500 mg PO BID 03/10/18 Metformin HCl [Glucophage] 1,000 mg PO BID 03/10/18 Nortriptyline HCl 25 mg PO HS 03/10/18 Oxycodone HCl/Acetaminophen [Percocet 5-325 mg Tablet] 1 tab PO TID 03/10/18 Polyvinyl Alcohol [Artificial Tears] 1 drop OP BID 03/10/18 Potassium Chloride 20 meq PO DAILY 03/10/18 hydrALAZINE HCL [Apresoline -] 25 mg PO BID 03/10/18 Ammonium Lactate Cream [Lac-Hydrin 12% Cream -] 1 applic TP DAILY 04/09/19 Aspirin [Aspirin EC] 81 mg PO DAILY 04/09/19 Atorvastatin Ca [Lipitor] 80 mg PO HS 04/09/19 Bacitracin - [Bacitracin Topical Ointment -] 1 applic TP DAILY 04/09/19 Clopidogrel Bisulfate [Plavix -] 75 mg PO DAILY 04/09/19 Clotrimazole [Lotrimin -] 1 applic TP BID 04/09/19 Docusate Sodium [Colace -] 200 mg PO DAILY 04/09/19 Linagliptin [Tradjenta] 5 mg PO DAILY 04/09/19 Liraglutide [Victoza 3-Raf] 1.8 mg SQ DAILY 04/09/19 Metoprolol Succinate [Toprol Xl] 25 mg PO DAILY 04/09/19 Mupirocin Ointment [Bactroban 2% Ointment -] 1 applic TP DAILY 04/09/19 Oxybutynin Chloride [Oxybutynin Chloride ER] 5 mg PO DAILY 04/09/19 Umeclidinium [place] [Incruse Ellipta] 62.5 mcg IH DAILY 04/09/19 Furosemide [Lasix] 40 mg PO DAILY #30 tablet 04/11/19 Hydrochlorothiazide [Hctz -] 12.5 mg PO DAILY #7 cap 04/11/19 Acetaminophen [Tylenol] 650 mg PO QID #30 capsule 04/20/19 Lidocaine 5% Patch [Lidoderm Patch -] 1 patch TP DAILY #14 patch 04/20/19 Family Medical History Family History: Unable to Obtain Review of Systems - Review of Systems Constitutional: reports: Lethargy Physical Examination Vital Signs: Vital Signs Temperature 97.8 F 04/30/19 09:13 Pulse Rate 96 H 04/30/19 09:13 Respiratory Rate 16 04/30/19 09:13 Blood Pressure 129/68 04/30/19 09:13 O2 Sat by Pulse Oximetry (%) 95 04/30/19 09:13 Labs: CBC, BMP 04/30/19 10:40 04/30/19 10:40 Imaging - Results Cat Scan: Report Reviewed (CT A/P no acute pathology) Problem List - Problems (1) Old non-ST elevation myocardial infarction (NSTEMI) Assessment/Plan: c/w asa, BB, statin EKG without ischemic changes Code(s): I25.2 - OLD MYOCARDIAL INFARCTION (2) Prophylactic measure Assessment/Plan: FEN IVF monitor electrolytes and replete prn diabetic diet DVT heparin sq Dispo observation overnight for BGM full code discharge planning back to [facility] Code(s): Z29.9 - ENCOUNTER FOR PROPHYLACTIC MEASURES, UNSPECIFIED (3) Hypoglycemia Assessment/Plan: BGM after D10/D5 155, 110 BGM AC/qHS hold oral hypoglycemics until BGM comsistently WNL and tolerating diet Code(s): E16.2 - HYPOGLYCEMIA, UNSPECIFIED (4) Vomiting Assessment/Plan: resolved c/w IVF reglan/zofran prn CT abd/pelvis without acute pathology Code(s): R11.10 - VOMITING, UNSPECIFIED (5) COPD (chronic obstructive pulmonary disease) Assessment/Plan: c/w duonebs, levalbuterol orn Code(s): J44.9 - CHRONIC OBSTRUCTIVE PULMONARY DISEASE, UNSPECIFIED Qualifiers: COPD type: unspecified COPD Qualified Code(s): J44.9 - Chronic obstructive pulmonary disease, unspecified (6) Diabetes Assessment/Plan: hold metformin BGM ac/qhs with coverage novolog sliding scale diabetic diet Code(s): E11.9 - TYPE 2 DIABETES MELLITUS WITHOUT COMPLICATIONS (7) HTN (hypertension) Assessment/Plan: c/w norvasc, metoprolol Code(s): I10 - ESSENTIAL (PRIMARY) HYPERTENSION (8) Seizure Assessment/Plan: c/w keppra Code(s): R56.9 - UNSPECIFIED CONVULSIONS (9) Stroke Code(s): I63.9 - CEREBRAL INFARCTION, UNSPECIFIED (10) Morbid obesity Code(s): E66.01 - MORBID (SEVERE) OBESITY DUE TO EXCESS CALORIES (11) CHF (congestive heart failure) Assessment/Plan: c/w hctz, lasix Code(s): I50.9 - HEART FAILURE, UNSPECIFIED Visit type - Emergency Visit Emergency Visit: Yes ED Registration Date: 04/30/19 Care time: The patient presented to the Emergency Department on the above date and was hospitalized for further evaluation of their emergent condition. - New Patient This patient is new to me today: Yes Date on this admission: 04/30/19 - Critical Care Critical Care patient: No
--- NOTE | 2019-04-30 14:57 | PDOC ---
Attending Attestation - Resident Resident Name: Pauline Up - HPI HPI: 04/30/19 14:36 Pt presents to the ED complaining of LLQ abdominal pain. Denies nausea, vomiting, fever. Pain has now resolved after given PO oxycodone by her NH. Patient was given her morning insulin regimen, but did not eat. - Physicial Exam PE: 04/30/19 14:57 Agree with resident exam. Patient is alert and oriented and in no acute distress. Abdomen is soft, non tender, and non distended without guarding or rebound. - Medical Decision Making 04/30/19 15:01 Pt presents to the ED complaining of LLQ pain. ct scan checked to rule out diverticulitis or abscess and is negative. however, the patient is persistently hypoglycemic. Will start d5 drip and and feed, and admit to medicine for hypoglycemia.
[2019-04-30 16:30] VITALS: BMI 49.2
[2019-04-30] MEDS ORDERED: FLU VACCINE QUAD 60 MCG/0.5 ML (MDV 19-20) IM ONE (16:30)
[2019-04-30] MEDS: DEXTROSE 5%-WATER - 1,000 ML IV SCH (16:34)
[2019-04-30] MEDS ORDERED: PT OWN MED DRAWER 7, Y5N ONE (18:20)
[2019-04-30] MEDS: hydrALAZINE HCL 25 MG TABLET (FP) PO SCH (21:38)
[2019-04-30] MEDS: ARTIFICIAL TEARS (POLYVINYL ALCOHOL) OPTH DROPS OU SCH (21:38)
[2019-04-30] MEDS: ATORVASTATIN CA 80 MG TABLET (FP) PO SCH (21:39)
[2019-04-30] MEDS: BUDESONIDE/FORMETEROL FUMARATE 160/4.5 mcg INHALER IH SCH (21:39)
[2019-04-30] MEDS: levETIRAcetam 500 MG TABLET (FP) PO SCH (21:39)
[2019-04-30] MEDS: HEPARIN NA (PORCINE) 5,000 UNITS/ML 1ML VIAL SQ SCH (21:39)
[2019-05-01] MEDS: DEXTROSE 5%-WATER - 1,000 ML IV SCH (07:05)
[2019-05-01 08:44] LABS: BASO % 0.6 % (0-2.0); EOS % 1.7 % (0-4.5); HEMATOCRIT 28.8 % (32.4-45.2); HEMOGLOBIN 9.3 GM/dL (10.7-15.3); LYMPH % 18.9 % (8-40); MCH 23.8 pg (25.7-33.7); MCHC 32.3 g/dl (32.0-36.0); MEAN CELL VOLUME 73.9 fl (80-96); MEAN PLT VOLUME 8.4 fl (7.5-11.1); MONO % 5.1 % (3.8-10.2); NEUT % 73.7 % (42.8-82.8); PLATELET COUNT 323 K/MM3 (134-434); RBC 3.89 M/mm3 (3.60-5.2); RDW 20.5 % (11.6-15.6); WHITE BLOOD COUNT 7.9 K/mm3 (4.0-10.0)
[2019-05-01 09:21] LABS: ALBUMIN 3.1 g/dl (3.4-5.0); BILIRUBIN,TOTAL 0.5 mg/dL (0.2-1); BLOOD UREA NITROGEN 9.2 mg/dL (7-18); CALCIUM 9.1 mg/dL (8.5-10.1); CREATININE 0.7 mg/dL (0.55-1.3); MAGNESIUM 1.4 mg/dL (1.8-2.4); POTASSIUM 3.3 mmol/L (3.5-5.1); TOT PROT 6.4 g/dl (6.4-8.2)
[2019-05-01] MEDS: metoPROLOL SUCCINATE 25 MG TAB.SR.24H (FP) PO SCH (09:38)
[2019-05-01] MEDS: hydrALAZINE HCL 25 MG TABLET (FP) PO SCH ×2 (09:38→22:08)
[2019-05-01] MEDS: CLOPIDOGREL BISULFATE 75 MG TABLET (FP) PO SCH (09:38)
[2019-05-01] MEDS: HYDROCHLOROTHIAZIDE 12.5 MG CAPSULE (FP) PO SCH (09:38)
[2019-05-01] MEDS: levETIRAcetam 500 MG TABLET (FP) PO SCH ×2 (09:38→22:08)
[2019-05-01] MEDS: amLODIPine BESYLATE 10 MG TABLET (FP) PO SCH (09:38)
[2019-05-01] MEDS: DOCUSATE SODIUM 100 MG CAPSULE (FP) PO SCH (09:39)
[2019-05-01] MEDS: ASPIRIN COATED 81 MG TABLET.EC PO SCH (09:39)
[2019-05-01] MEDS: FUROSEMIDE 40 MG TABLET (FP) PO SCH (09:39)
[2019-05-01] MEDS: HEPARIN NA (PORCINE) 5,000 UNITS/ML 1ML VIAL SQ SCH ×2 (09:40→22:08)
[2019-05-01] MEDS: BACITRACIN 15 GM TUBE TOPICAL OINTMENT TP SCH (09:40)
[2019-05-01] MEDS: ARTIFICIAL TEARS (POLYVINYL ALCOHOL) OPTH DROPS OU SCH ×2 (09:42→22:08)
[2019-05-01] MEDS: FLUoxetine HCL 10 MG CAPSULE (FP) PO SCH (11:03)
[2019-05-01] MEDS: BUDESONIDE/FORMETEROL FUMARATE 160/4.5 mcg INHALER IH SCH ×2 (11:03→22:09)
[2019-05-01 11:12] LABS: ANISOCYTOSIS 1+; MACROCYTOSIS 0; PLATELET ESTIMATE NORMAL
[2019-05-01] MEDS ORDERED: MAGNESIUM SULF 50% (8.12 MEQ/2 ML-1 GM VIAL) IVPB ONE (14:00)
[2019-05-01] MEDS ORDERED: POTASSIUM CHLORIDE TABS 10 MEQ TABLET.ER (FP) PO ONE (14:00)
--- NOTE | 2019-05-01 16:00 | PN ---
Progress Note, Physician Chief Complaint: 24HR events - BG stabilized on D5W infusion, infusion d/taylor in the afternoon and endo consulted. Pt most likely needs dose adjustment in diabetic meds - Current Medication List Current Medications: Active Medications Amlodipine Besylate (Norvasc -) 10 mg PO DAILY [facility] Last Admin: 05/01/19 09:38 Dose: 10 mg Artificial Tears (Artificial Tears) 1 drop OU BID [facility] Last Admin: 05/01/19 09:42 Dose: 1 drop Aspirin (Ecotrin -) 81 mg PO DAILY [facility] Last Admin: 05/01/19 09:39 Dose: 81 mg Atorvastatin Calcium (Lipitor -) 80 mg PO HS [facility] Last Admin: 04/30/19 21:39 Dose: 80 mg Bacitracin (Bacitracin -) 1 applic TP DAILY [facility] Last Admin: 05/01/19 09:40 Dose: 1 applic Budesonide/Formoterol Fumarate (Symbicort 160/4.5mcg -) 1 puff IH BID [facility] Last Admin: 05/01/19 11:03 Dose: 1 puff Clopidogrel Bisulfate (Plavix -) 75 mg PO DAILY [facility] Last Admin: 05/01/19 09:38 Dose: 75 mg Docusate Sodium (Colace -) 200 mg PO DAILY [facility] Last Admin: 05/01/19 09:39 Dose: 200 mg Fluoxetine HCl (Prozac -) 20 mg PO DAILY [facility] Last Admin: 05/01/19 11:03 Dose: 20 mg Furosemide (Lasix -) 40 mg PO DAILY [facility] Last Admin: 05/01/19 09:39 Dose: 40 mg Heparin Sodium (Porcine) (Heparin -) 5,000 unit SQ BID [facility] Last Admin: 05/01/19 09:40 Dose: 5,000 unit Hydralazine HCl (Apresoline -) 25 mg PO BID [facility] Last Admin: 05/01/19 09:38 Dose: 25 mg Hydrochlorothiazide (Hctz -) 12.5 mg PO DAILY [facility] Last Admin: 05/01/19 09:38 Dose: 12.5 mg Levetiracetam (Keppra -) 500 mg PO BID [facility] Last Admin: 05/01/19 09:38 Dose: 500 mg Metoprolol Succinate (Toprol Xl -) 25 mg PO DAILY [facility] Last Admin: 05/01/19 09:38 Dose: 25 mg - Objective Vital Signs: Vital Signs Temperature 98.3 F 05/01/19 09:00 Pulse Rate 94 H 05/01/19 09:00 Respiratory Rate 20 05/01/19 09:00 Blood Pressure 133/58 L 05/01/19 09:00 O2 Sat by Pulse Oximetry (%) 100 05/01/19 09:00 Constitutional: Yes: No Distress, Calm, Obese Eyes: Yes: PERRL HENT: Yes: Atraumatic, Normocephalic Neck: Yes: Supple Cardiovascular: Yes: Regular Rate and Rhythm Respiratory: Yes: Regular, CTA Bilaterally Gastrointestinal: Yes: Soft, Abdomen, Obese ...Rectal Exam: Yes: Deferred Musculoskeletal: Yes: WNL Extremities: Yes: Cool, Other (hyperpigmentation b/l Lower extremities) Edema: No Peripheral Pulses: Left Radial: 2+, Right Radial: 2+, Left Doralis Pedis: 1+, Right Dorsalis Pedis: 1+ Integumentary: Yes: Venous Stasis Changes Neurological: Yes: Alert, Unsteady Gait, Weakness, Other (poor historian and forgetful) ...Motor Strength: WNL Psychiatric: Yes: Alert Labs: CBC, BMP 05/01/19 08:06 05/01/19 08:06 Impression/Plan Impression/Plan: 68 y/o F hx of IDDM, depression GERD ,CHF, COPD, HTN,CVA and NSTEMI presents to the ED with 2 days of lower abdominal pain, nausea and vomiting. In ED BGM was noted to be 22 with repeat of 30. D50 was administered and went up to 110's but then dropped back down. D5W was started to [facility] and diabetic meds placed on hold. (1) CAD c/w asa, BB, statin, plavix EKG without ischemic changes (2) Hypoglycemia BGM AC/qHS endo consult hold oral hypoglycemics - can start insulin SS if BG > 180mg/dl Code(s): E16.2 - HYPOGLYCEMIA, UNSPECIFIED (3) Vomiting -resolved reglan/zofran prn CT abd/pelvis without acute pathology Code(s): R11.10 - VOMITING, UNSPECIFIED (4) COPD (chronic obstructive pulmonary disease) c/w duonebs Symbicort BID Code(s): J44.9 - CHRONIC OBSTRUCTIVE PULMONARY DISEASE, UNSPECIFIED Qualifiers: COPD type: unspecified COPD Qualified Code(s): J44.9 - Chronic obstructive pulmonary disease, unspecified (5) Diabetes hold anti-DM agent BGM ac/qhs with coverage novolog sliding scale diabetic diet Code(s): E11.9 - TYPE 2 DIABETES MELLITUS WITHOUT COMPLICATIONS (6) HTN (hypertension) c/w norvasc, metoprolol, hydralazine Code(s): I10 - ESSENTIAL (PRIMARY) HYPERTENSION (7) Seizure c/w keppra Code(s): R56.9 - UNSPECIFIED CONVULSIONS (8) CHF (congestive heart failure) c/w hctz, lasix Code(s): I50.9 - HEART FAILURE, UNSPECIFIED (9) Prophylactic measure monitor electrolytes and replete prn DVT PPX: heparin sq bowel regimen with colace Code status: full code discharge planning back to [facility] Code(s): Z29.9 - ENCOUNTER FOR PROPHYLACTIC MEASURES, UNSPECIFIED Visit type - Emergency Visit Emergency Visit: Yes ED Registration Date: 04/30/19 Care time: The patient presented to the Emergency Department on the above date and was hospitalized for further evaluation of their emergent condition. - New Patient This patient is new to me today: Yes Date on this admission: 05/01/19 - Critical Care Critical Care patient: No - Discharge Referral Referred to [facility] Med P.C.: No
[2019-05-01] MEDS: INSULIN SLIDING SCALE (NOVOLOG) 1 VIAL SQ SCH ×2 (18:00→22:16)
[2019-05-01] MEDS ORDERED: INSULIN (NOVOLOG) ASPART 100 UNITS/ML 10ML VIAL ONE (22:04)
[2019-05-01] MEDS: ATORVASTATIN CA 80 MG TABLET (FP) PO SCH (22:08)
[2019-05-02] MEDS ORDERED: ACETAMINOPHEN 325 MG TABLET (FP) PO ONE (01:29)
[2019-05-02] MEDS: INSULIN SLIDING SCALE (NOVOLOG) 1 VIAL SQ SCH ×4 (06:18→22:10)
[2019-05-02 08:20] LABS: HEMATOCRIT 29.5 % (32.4-45.2); HEMOGLOBIN 9.5 GM/dL (10.7-15.3); MCH 23.8 pg (25.7-33.7); MCHC 32.1 g/dl (32.0-36.0); MEAN PLT VOLUME 8.6 fl (7.5-11.1); PLATELET COUNT 326 K/MM3 (134-434); RBC 3.98 M/mm3 (3.60-5.2); RDW 20.4 % (11.6-15.6); WHITE BLOOD COUNT 8.2 K/mm3 (4.0-10.0)
[2019-05-02 08:39] LABS: ALBUMIN 2.9 g/dl (3.4-5.0); BILIRUBIN,TOTAL 0.4 mg/dL (0.2-1); BLOOD UREA NITROGEN 7.9 mg/dL (7-18); CALCIUM 8.9 mg/dL (8.5-10.1); CREATININE 0.7 mg/dL (0.55-1.3); MAGNESIUM 1.8 mg/dL (1.8-2.4); POTASSIUM 3.4 mmol/L (3.5-5.1); TOT PROT 6.3 g/dl (6.4-8.2)
[2019-05-02] MEDS ORDERED: POTASSIUM CHLORIDE TABS 20 MEQ TABLET.ER (FP) PO ONE (08:42)
[2019-05-02] MEDS ORDERED: INSULIN (NOVOLOG) ASPART 100 UNITS/ML 10ML VIAL ONE ×2 (09:28→21:11)
[2019-05-02] MEDS: HEPARIN NA (PORCINE) 5,000 UNITS/ML 1ML VIAL SQ SCH ×2 (10:24→22:10)
[2019-05-02] MEDS: ASPIRIN COATED 81 MG TABLET.EC PO SCH (10:24)
[2019-05-02] MEDS: FUROSEMIDE 40 MG TABLET (FP) PO SCH (10:24)
[2019-05-02] MEDS: levETIRAcetam 500 MG TABLET (FP) PO SCH ×2 (10:24→22:10)
[2019-05-02] MEDS: metoPROLOL SUCCINATE 25 MG TAB.SR.24H (FP) PO SCH (10:24)
[2019-05-02] MEDS: amLODIPine BESYLATE 10 MG TABLET (FP) PO SCH (10:24)
[2019-05-02] MEDS: BACITRACIN 15 GM TUBE TOPICAL OINTMENT TP SCH (10:24)
[2019-05-02] MEDS: hydrALAZINE HCL 25 MG TABLET (FP) PO SCH ×2 (10:24→22:10)
[2019-05-02] MEDS: FLUoxetine HCL 10 MG CAPSULE (FP) PO SCH (10:24)
[2019-05-02] MEDS: DOCUSATE SODIUM 100 MG CAPSULE (FP) PO SCH (10:24)
[2019-05-02] MEDS: CLOPIDOGREL BISULFATE 75 MG TABLET (FP) PO SCH (10:24)
[2019-05-02] MEDS: HYDROCHLOROTHIAZIDE 12.5 MG CAPSULE (FP) PO SCH (10:24)
[2019-05-02] MEDS: BUDESONIDE/FORMETEROL FUMARATE 160/4.5 mcg INHALER IH SCH ×2 (10:25→22:12)
[2019-05-02] MEDS: ARTIFICIAL TEARS (POLYVINYL ALCOHOL) OPTH DROPS OU SCH ×2 (10:25→22:12)
[2019-05-02] MEDS ORDERED: PANTOPRAZOLE 40 MG TABLET (FP) PO ONE (13:38)
--- NOTE | 2019-05-02 17:49 | PN ---
Physical Exam: SUBJECTIVE: Patient seen and examined at the bedside. denies any discomfort. eating better. OBJECTIVE: left lower ext noted to be slightly edematous compared to right. for a vascular u/s today. blood sugars improved, endocrinology consulted. Vital Signs Period Temp Pulse Resp BP Sys/[place] Pulse Ox Last 24 Hr 98.0 F-98.9 F 94-110 18-22 120-158/60-82 97-100 GENERAL: The patient is awake, alert, and fully oriented, in no acute distress. HEAD: Normal with no signs of trauma. EYES: PERRL, extraocular movements intact, sclera anicteric, conjunctiva clear. No ptosis. ENT: Ears normal, nares patent, oropharynx clear without exudates, moist mucous membranes. NECK: Trachea midline, full range of motion, supple. LUNGS: diminished bilaterally HEART: Regular rate and rhythm ABDOMEN: obese abdomen, soft, non distended EXTREMITIES: hyperpigmentation of lower extremities. unilteral edema, left > right. negative for dvt. NEUROLOGICAL: Normal speech, gait not observed. PSYCH: Normal mood, normal affect. SKIN: hyperpigmented lower extremities. Laboratory Results - last 24 hr 05/01/19 05/02/19 05/02/19 22:15 06:15 07:04 WBC 8.2 RBC 3.98 Hgb 9.5 L Hct 29.5 L MCV 74.0 L MCH 23.8 L MCHC 32.1 RDW 20.4 H Plt Count 326 MPV 8.6 Sodium Potassium Chloride Carbon Dioxide Anion Gap BUN Creatinine Est GFR (CKD-EPI)AfAm Est GFR (CKD-EPI)NonAf POC Glucometer 226 166 Random Glucose Hemoglobin A1c % Calcium Magnesium Total Bilirubin AST ALT Alkaline Phosphatase Total Protein Albumin 05/02/19 05/02/19 05/02/19 07:04 07:04 11:30 WBC RBC Hgb Hct MCV MCH MCHC RDW Plt Count MPV Sodium 141 Potassium 3.4 L Chloride 99 Carbon Dioxide 35 H Anion Gap 7 L BUN 7.9 Creatinine 0.7 Est GFR (CKD-EPI)AfAm 103.18 Est GFR (CKD-EPI)NonAf 89.03 POC Glucometer 218 Random Glucose 171 H Hemoglobin A1c % < 5.0 Calcium 8.9 Magnesium 1.8 Total Bilirubin 0.4 AST 16 ALT 21 Alkaline Phosphatase 85 Total Protein 6.3 L Albumin 2.9 L 05/02/19 17:03 WBC RBC Hgb Hct MCV MCH MCHC RDW Plt Count MPV Sodium Potassium Chloride Carbon Dioxide Anion Gap BUN Creatinine Est GFR (CKD-EPI)AfAm Est GFR (CKD-EPI)NonAf POC Glucometer 258 Random Glucose Hemoglobin A1c % Calcium Magnesium Total Bilirubin AST ALT Alkaline Phosphatase Total Protein Albumin Active Medications Generic Name Dose Route Start Last Admin Trade Name Freq PRN Reason Stop Dose Admin Amlodipine Besylate 10 mg 05/01/19 10:00 05/02/19 10:24 Norvasc - PO 10 mg DAILY [facility] Administration Artificial Tears 1 drop 04/30/19 22:00 05/02/19 10:25 Artificial Tears OU 1 drop BID [facility] Administration Aspirin 81 mg 05/01/19 10:00 05/02/19 10:24 Ecotrin - PO 81 mg DAILY [facility] Administration Atorvastatin Calcium 80 mg 04/30/19 22:00 05/01/19 22:08 Lipitor - PO 80 mg HS [facility] Administration Bacitracin 1 applic 05/01/19 10:00 05/02/19 10:24 Bacitracin - TP 1 applic DAILY [facility] Administration Budesonide/Formoterol Fumarate 1 puff 04/30/19 22:00 05/02/19 10:25 Symbicort 160/4.5mcg - IH 1 puff BID [facility] Administration Clopidogrel Bisulfate 75 mg 05/01/19 10:00 05/02/19 10:24 Plavix - PO 75 mg DAILY [facility] Administration Docusate Sodium 200 mg 05/01/19 10:00 05/02/19 10:24 Colace - PO 200 mg DAILY [facility] Administration Fluoxetine HCl 20 mg 05/01/19 10:00 05/02/19 10:24 Prozac - PO 20 mg DAILY [facility] Administration Furosemide 40 mg 05/01/19 10:00 05/02/19 10:24 Lasix - PO 40 mg DAILY [facility] Administration Heparin Sodium (Porcine) 5,000 unit 04/30/19 22:00 05/02/19 10:24 Heparin - SQ 5,000 unit BID [facility] Administration Hydralazine HCl 25 mg 04/30/19 22:00 05/02/19 10:24 Apresoline - PO 25 mg BID [facility] Administration Hydrochlorothiazide 12.5 mg 05/01/19 10:00 05/02/19 10:24 Hctz - PO 12.5 mg DAILY [facility] Administration Insulin Aspart 1 vial 05/01/19 17:00 05/02/19 17:05 Novolog Vial Sliding Scale - SQ 6 units ACHS [facility] Administration Protocol Levetiracetam 500 mg 04/30/19 22:00 05/02/19 10:24 Keppra - PO 500 mg BID [facility] Administration Metoprolol Succinate 25 mg 05/01/19 10:00 05/02/19 10:24 Toprol Xl - PO 25 mg DAILY [facility] Administration ASSESSMENT/PLAN: Patient is a 68 year old female with a significant past medical history of IDDM , depression, GERD ,CHF, COPD, HTN, CVA and NSTEMI presents to the ED on 04/30/19 with 2 days of lower abdominal pain, nausea and vomiting. In ED BGM was noted to be 22 with repeat of 30. D50 was administered and went up to 110's but then dropped back down. She was given IVF of D5W and started on novolog. Endocrinology consulted. Problem List - Problems (1) Hypoglycemia Assessment/Plan: BGM AC/HS endo consult hold oral hypoglycemics - can start insulin SS if BG > 180mg/dl Code(s): E16.2 - HYPOGLYCEMIA, UNSPECIFIED (2) CHF (congestive heart failure) Assessment/Plan: c/w hctz, lasix Code(s): I50.9 - HEART FAILURE, UNSPECIFIED (3) Old non-ST elevation myocardial infarction (NSTEMI) Code(s): I25.2 - OLD MYOCARDIAL INFARCTION (4) Prophylactic measure Assessment/Plan: monitor electrolytes and replete prn DVT PPX: heparin sq bowel regimen with colace Code status: full code discharge planning back to [facility] Code(s): Z29.9 - ENCOUNTER FOR PROPHYLACTIC MEASURES, UNSPECIFIED Visit type - Emergency Visit Emergency Visit: Yes ED Registration Date: 04/30/19 Care time: The patient presented to the Emergency Department on the above date and was hospitalized for further evaluation of their emergent condition. - New Patient This patient is new to me today: Yes Date on this admission: 05/02/19 - Critical Care Critical Care patient: No - Discharge Referral Referred to [facility] Med P.C.: No
[2019-05-02] MEDS: ATORVASTATIN CA 80 MG TABLET (FP) PO SCH (22:10)
--- NOTE | 2019-05-02 23:40 | CONSULT ---
Consult Consult Specialty:: endocrine Referred by:: sebastian ojeda Reason for Consultation:: dm t 2 - History of Present Illness History of Present Illness: 68 y/o F hx of DM T 2, depression GERD ,CHF, COPD, HTN,CVA and NSTEMI presented with 2days of lower abdominal pain. Pain in intermittent and cramping . She has had 1 episode of non-bloody emesis since yesterday with no diarrhea or constipation. she denies any fevers, chills, nausea, bloody stools, falls or trauma. She was seen in ed previously with left leg pain and swelling and pain.advised to follow up with orthopedics.since last several days blood sugars have been labile,she has poor appetite and difficulty controlling blood sugars, with episodes very low sugars. 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 Cardio/Vascular: Yes: CHF, HTN, Hyperlipdemia, [place] (NSTEMI) Pulmonary: Yes: Asthma, COPD Gastrointestinal: Yes: GERD Psych: Yes: Depression Endocrine: Yes: Diabetes Mellitus - Past Surgical History Past Surgical History: Yes: Cholecystectomy - Alcohol/Substance Use Hx Alcohol Use: No - Smoking History Smoking history: Unknown if ever smoked Have you smoked in the past 12 months: No If you are a former smoker, when did you quit?: 10 years ago - Social History Usual Living Arrangement: [facility] ADL: Support Services ([facility] resident) History of Recent Travel: No Home Medications - Allergies Allergies/Adverse Reactions: Allergies Allergy/AdvReac Type Severity Reaction Status Date / Time lisinopril Allergy Severe Swelling Verified 04/30/19 09:14 PADMINI Inhibitors Allergy Verified 04/30/19 09:14 blueberry Allergy Verified 04/30/19 09:14 erythromycin base Allergy Verified 04/30/19 09:14 naproxen Allergy Verified 04/30/19 09:14 raspberry Allergy Verified 04/30/19 09:14 strawberry Allergy Verified 04/30/19 09:14 - Home Medications Home Medications: Ambulatory Orders Amlodipine Besylate [Norvasc -] 10 mg PO DAILY 03/10/18 Budesonide/Formeterol Fumarate [SYMBICORT 160/4.5mcg -] 1 inh PO BID 03/10/18 Famotidine [Pepcid] 20 mg PO DAILY 03/10/18 Fluoxetine HCl [Prozac] 20 mg PO DAILY 03/10/18 Insulin Regular, Human [Humulin R U-500 Kwikpen] 0 unit SQ TID 03/10/18 Levetiracetam [Keppra] 500 mg PO BID 03/10/18 Metformin HCl [Glucophage] 1,000 mg PO BID 03/10/18 Nortriptyline HCl 25 mg PO HS 03/10/18 Oxycodone HCl/Acetaminophen [Percocet 5-325 mg Tablet] 1 tab PO TID 03/10/18 Polyvinyl Alcohol [Artificial Tears] 1 drop OP BID 03/10/18 Potassium Chloride 20 meq PO DAILY 03/10/18 hydrALAZINE HCL [Apresoline -] 25 mg PO BID 03/10/18 Ammonium Lactate Cream [Lac-Hydrin 12% Cream -] 1 applic TP DAILY 04/09/19 Aspirin [Aspirin EC] 81 mg PO DAILY 04/09/19 Atorvastatin Ca [Lipitor] 80 mg PO HS 04/09/19 Bacitracin - [Bacitracin Topical Ointment -] 1 applic TP DAILY 04/09/19 Clopidogrel Bisulfate [Plavix -] 75 mg PO DAILY 04/09/19 Clotrimazole [Lotrimin -] 1 applic TP BID 04/09/19 Docusate Sodium [Colace -] 200 mg PO DAILY 04/09/19 Liraglutide [Victoza 3-Raf] 1.8 mg SQ DAILY 04/09/19 Metoprolol Succinate [Toprol Xl] 25 mg PO DAILY 04/09/19 Mupirocin Ointment [Bactroban 2% Ointment -] 1 applic TP DAILY 04/09/19 Oxybutynin Chloride [Oxybutynin Chloride ER] 5 mg PO DAILY 04/09/19 Umeclidinium [place] [Incruse Ellipta] 62.5 mcg IH DAILY 04/09/19 Furosemide [Lasix] 40 mg PO DAILY #30 tablet 04/11/19 Hydrochlorothiazide [Hctz -] 12.5 mg PO DAILY #7 cap 04/11/19 Acetaminophen [Tylenol] 650 mg PO QID #30 capsule 04/20/19 Lidocaine 5% Patch [Lidoderm Patch -] 1 patch TP DAILY #14 patch 04/20/19 Review of Systems - Review of Systems Constitutional: reports: Lethargy, Weakness Eyes: reports: No Symptoms HENT: reports: No Symptoms Neck: reports: No Symptoms Cardiovascular: reports: Shortness of Breath Respiratory: reports: Exercise Intolerance, SOB on Exertion Gastrointestinal: reports: Bloating Genitourinary: reports: Frequency Breasts: reports: No Symptoms Reported Musculoskeletal: reports: Muscle Cramps, Muscle Weakness Integumentary: reports: Erythema, Pruritis Neurological: reports: Numbness, Unsteady Gait, Weakness Endocrine: reports: Increased Thirst, Unexplained Weight Gain Physical Exam Vital Signs: Vital Signs Temperature 99.1 F 05/02/19 18:34 Pulse Rate 100 H 05/02/19 18:34 Respiratory Rate 18 05/02/19 18:34 Blood Pressure 147/72 05/02/19 18:34 O2 Sat by Pulse Oximetry (%) 97 05/02/19 08:40 Constitutional: Yes: Anxious Eyes: Yes: EOM Intact HENT: Yes: Normocephalic Neck: Yes: Trachea Midline Cardiovascular: Yes: Regular Rate and Rhythm Respiratory: Yes: CTA Bilaterally Gastrointestinal: Yes: Normal Bowel Sounds, Abdomen, Obese ...Rectal Exam: Yes: Deferred, Erythema Renal/: Yes: WNL Extremities: Yes: Cold, Pallor Edema: Yes Peripheral Pulses WNL: Yes Neurological: Yes: Alert, Oriented Labs: CBC, BMP 05/02/19 07:04 05/02/19 07:04 Problem List - Problems (1) Type 2 diabetes mellitus with diabetic autonomic (poly)neuropathy Code(s): E11.43 - TYPE 2 DIABETES W DIABETIC AUTONOMIC (POLY)NEUROPATHY Qualifiers: Diabetes mellitus halfway insulin use: unspecified halfway insulin use status Qualified Code(s): E11.43 - Type 2 diabetes mellitus with diabetic autonomic (poly)neuropathy (2) Type 2 diabetes mellitus with diabetic autonomic (poly)neuropathy Code(s): E11.43 - TYPE 2 DIABETES W DIABETIC AUTONOMIC (POLY)NEUROPATHY (3) CHF (congestive heart failure) Code(s): I50.9 - HEART FAILURE, UNSPECIFIED (4) Hypoglycemia Code(s): E16.2 - HYPOGLYCEMIA, UNSPECIFIED (5) Old non-ST elevation myocardial infarction (NSTEMI) Code(s): I25.2 - OLD MYOCARDIAL INFARCTION (6) Prophylactic measure Code(s): Z29.9 - ENCOUNTER FOR PROPHYLACTIC MEASURES, UNSPECIFIED (7) Vomiting Code(s): R11.10 - VOMITING, UNSPECIFIED (8) Angioedema due to angiotensin converting enzyme inhibitor (PADMINI-I) Code(s): T78.3XXA - ANGIONEUROTIC EDEMA, INITIAL ENCOUNTER; T46.4X1A - POISONING BY [id number] INHIBITORS, ACC, INIT Assessment/Plan Current Active Problems dm t2 neuropathy CHF (congestive heart failure) (Acute) Hypoglycemia (Acute) Old non-ST elevation myocardial infarction (NSTEMI) (Acute) Prophylactic measure (Acute) Vomiting (Acute) Abnormal Lab Results 05/02/19 05/02/19 07:04 07:04 Hgb 9.5 L Hct 29.5 L MCV 74.0 L MCH 23.8 L RDW 20.4 H Potassium 3.4 L Carbon Dioxide 35 H Anion Gap 7 L Random Glucose 171 H Total Protein 6.3 L Albumin 2.9 L Laboratory Results - last 24 hr 05/02/19 05/02/19 05/02/19 06:15 07:04 07:04 WBC 8.2 RBC 3.98 Hgb 9.5 L Hct 29.5 L MCV 74.0 L MCH 23.8 L MCHC 32.1 RDW 20.4 H Plt Count 326 MPV 8.6 Sodium 141 Potassium 3.4 L Chloride 99 Carbon Dioxide 35 H Anion Gap 7 L BUN 7.9 Creatinine 0.7 Est GFR (CKD-EPI)AfAm 103.18 Est GFR (CKD-EPI)NonAf 89.03 POC Glucometer 166 Random Glucose 171 H Hemoglobin A1c % Calcium 8.9 Magnesium 1.8 Total Bilirubin 0.4 AST 16 ALT 21 Alkaline Phosphatase 85 Total Protein 6.3 L Albumin 2.9 L 05/02/19 05/02/19 05/02/19 07:04 11:30 17:03 WBC RBC Hgb Hct MCV MCH MCHC RDW Plt Count MPV Sodium Potassium Chloride Carbon Dioxide Anion Gap BUN Creatinine Est GFR (CKD-EPI)AfAm Est GFR (CKD-EPI)NonAf POC Glucometer 218 258 Random Glucose Hemoglobin A1c % < 5.0 Calcium Magnesium Total Bilirubin AST ALT Alkaline Phosphatase Total Protein Albumin 05/02/19 21:00 WBC RBC Hgb Hct MCV MCH MCHC RDW Plt Count MPV Sodium Potassium Chloride Carbon Dioxide Anion Gap BUN Creatinine Est GFR (CKD-EPI)AfAm Est GFR (CKD-EPI)NonAf POC Glucometer 315 Random Glucose Hemoglobin A1c % Calcium Magnesium Total Bilirubin AST ALT Alkaline Phosphatase Total Protein Albumin plan: bgm qid novolog scale levemir dose adjustment check glycomark more recent 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
[2019-05-03] MEDS: INSULIN SLIDING SCALE (NOVOLOG) 1 VIAL SQ SCH ×2 (06:14→11:30)
[2019-05-03] MEDS ORDERED: INSULIN (LEVEMIR) 100 UNITS/ML UNITS SQ SCH (07:00)
[2019-05-03 08:06] LABS: AMYLASE 24 U/L (25-115); LIPASE 137 U/L (73-393)
[2019-05-03] MEDS: HYDROCHLOROTHIAZIDE 12.5 MG CAPSULE (FP) PO SCH (09:24)
[2019-05-03] MEDS: metoPROLOL SUCCINATE 25 MG TAB.SR.24H (FP) PO SCH (09:24)
[2019-05-03] MEDS: levETIRAcetam 500 MG TABLET (FP) PO SCH (09:24)
[2019-05-03] MEDS: amLODIPine BESYLATE 10 MG TABLET (FP) PO SCH (09:24)
[2019-05-03] MEDS: CLOPIDOGREL BISULFATE 75 MG TABLET (FP) PO SCH (09:24)
[2019-05-03] MEDS: FUROSEMIDE 40 MG TABLET (FP) PO SCH (09:24)
[2019-05-03] MEDS: hydrALAZINE HCL 25 MG TABLET (FP) PO SCH (09:24)
[2019-05-03] MEDS: DOCUSATE SODIUM 100 MG CAPSULE (FP) PO SCH (09:24)
[2019-05-03] MEDS: ASPIRIN COATED 81 MG TABLET.EC PO SCH (09:24)
[2019-05-03] MEDS: BUDESONIDE/FORMETEROL FUMARATE 160/4.5 mcg INHALER IH SCH (09:25)
[2019-05-03] MEDS: BACITRACIN 15 GM TUBE TOPICAL OINTMENT TP SCH (09:36)
[2019-05-03] MEDS: HEPARIN NA (PORCINE) 5,000 UNITS/ML 1ML VIAL SQ SCH (09:36)
[2019-05-03] MEDS: ARTIFICIAL TEARS (POLYVINYL ALCOHOL) OPTH DROPS OU SCH (09:37)
[2019-05-03] MEDS ORDERED: FLUoxetine HCL 20 MG CAPSULE (FP) PO SCH (10:54)
[2019-05-03] MEDS ORDERED: LIDOCAINE 5% TOPICAL PATCH TP ONE (10:58)
[2019-05-03] MEDS ORDERED: INSULIN (NOVOLOG) ASPART 100 UNITS/ML 10ML VIAL ONE ×2 (11:22→11:41)
[2019-05-03] MEDS ORDERED: PT OWN MED DRAWER 7, Y5N ONE (11:23)
[2019-05-03] MEDS: FLUoxetine HCL 10 MG CAPSULE (FP) PO SCH (11:31)
--- NOTE | 2019-05-03 12:36 | DS ---
Physical Exam: SUBJECTIVE: Patient seen and examined at the bedside. not home oxygen dependent. stable oxygen at rest. pre and post shows patient does not qualify for home oxygen. OBJECTIVE: patient seen by endocrinology and her diabetic medications have been adjusted and called into her longterm pharmacy. patient to follow up with Dr. Clancy as an outpatient. She is in agreement to f/u. Physical therapy ordered for chronic left leg pain/knee discomfort. Vital Signs Period Temp Pulse Resp BP Sys/[place] Pulse Ox Last 24 Hr 98.0 F-99.1 F 95-117 18-22 119-150/58-82 92-96 PHYSICAL EXAM GENERAL: The patient is awake, alert, and fully oriented, in no acute distress. HEAD: Normal with no signs of trauma. EYES: PERRL, extraocular movements intact, sclera anicteric, conjunctiva clear. No ptosis. ENT: Ears normal, nares patent, oropharynx clear without exudates, moist mucous membranes. NECK: Trachea midline, full range of motion, supple. LUNGS: diminished bilaterally HEART: Regular rate and rhythm ABDOMEN: obese abdomen, soft, non distended EXTREMITIES: hyperpigmentation of lower extremities. unilteral edema, left > right. negative for dvt. NEUROLOGICAL: Normal speech, gait not observed. PSYCH: Normal mood, normal affect. SKIN: hyperpigmented lower extremities. LABS Laboratory Results - last 24 hr 05/02/19 05/02/19 05/03/19 17:03 21:00 06:11 POC Glucometer 258 315 221 Total Amylase Lipase 05/03/19 05/03/19 07:15 11:19 POC Glucometer 287 Total Amylase 24 L Lipase 137 HOSPITAL COURSE: Date of Admission:04/30/19 Date of Discharge: 05/03/19 Patient is a 68 year old female with a significant past medical history of IDDM , depression, GERD ,CHF, COPD, HTN, CVA and NSTEMI presents to the ED on 04/30/19 with 2 days of lower abdominal pain, nausea and vomiting. In ED BGM was noted to be 22 with repeat of 30. D50 was administered and went up to 110's but then dropped back down. She was given IVF of D5W and her insulin medications have been adjusted. She has been followed by endocrinology and recommendations noted. She agrees to follow up as an outpatient. Minutes to complete discharge: 60 Discharge Summary Problems reviewed: Yes Reason For Visit: HYPOGLYCEMIA Current Active Problems CHF (congestive heart failure) (Acute) Hypoglycemia (Acute) Old non-ST elevation myocardial infarction (NSTEMI) (Acute) Prophylactic measure (Acute) Type 2 diabetes mellitus with diabetic autonomic (poly)neuropathy (Acute) Type 2 diabetes mellitus with diabetic autonomic (poly)neuropathy (Acute) Vomiting (Acute) Condition: Improved - Instructions Diet, Activity, Other Instructions: Mrs Kylie Salinas You were admitted for low blood sugars and we have adjusted your medications as follows Diabetes 2 1. Take Humalin QID (four times per day) based on your blood sugars as follows If your blood sugar is: take this much: 101- 150 none 151-200 3 201-250 4 251-300 6 301-350 8 351-400 9 >400 10 2. Stop taking metformin 1000mg BID, Stop taking Victoza 18mg 3ml 3. Start Levemir 20 units in the a.m. Please follow up with Kush Arevalo. Please call his office for an appointment. Thank you allowing us to care for you. Referrals: Kush Clancy MD [Staff Physician] - 1 Week Disposition: HOME - Home Medications Comprehensive Discharge Medication List: Ambulatory Orders Amlodipine Besylate [Norvasc -] 10 mg PO DAILY 03/10/18 Budesonide/Formeterol Fumarate [SYMBICORT 160/4.5mcg -] 1 inh PO BID 03/10/18 Famotidine [Pepcid] 20 mg PO DAILY 03/10/18 Fluoxetine HCl [Prozac] 20 mg PO DAILY 03/10/18 Insulin Regular, Human [Humulin R U-500 Kwikpen] 0 unit SQ TID 03/10/18 Levetiracetam [Keppra] 500 mg PO BID 03/10/18 Metformin HCl [Glucophage] 1,000 mg PO BID 03/10/18 Nortriptyline HCl 25 mg PO HS 03/10/18 Oxycodone HCl/Acetaminophen [Percocet 5-325 mg Tablet] 1 tab PO TID 03/10/18 Polyvinyl Alcohol [Artificial Tears] 1 drop OP BID 03/10/18 Potassium Chloride 20 meq PO DAILY 03/10/18 hydrALAZINE HCL [Apresoline -] 25 mg PO BID 03/10/18 Ammonium Lactate Cream [Lac-Hydrin 12% Cream -] 1 applic TP DAILY 04/09/19 Aspirin [Aspirin EC] 81 mg PO DAILY 04/09/19 Atorvastatin Ca [Lipitor] 80 mg PO HS 04/09/19 Bacitracin - [Bacitracin Topical Ointment -] 1 applic TP DAILY 04/09/19 Clopidogrel Bisulfate [Plavix -] 75 mg PO DAILY 04/09/19 Clotrimazole [Lotrimin -] 1 applic TP BID 04/09/19 Docusate Sodium [Colace -] 200 mg PO DAILY 04/09/19 Liraglutide [Victoza 3-Raf] 1.8 mg SQ DAILY 04/09/19 Metoprolol Succinate [Toprol Xl] 25 mg PO DAILY 04/09/19 Mupirocin Ointment [Bactroban 2% Ointment -] 1 applic TP DAILY 04/09/19 Oxybutynin Chloride [Oxybutynin Chloride ER] 5 mg PO DAILY 04/09/19 Umeclidinium [place] [Incruse Ellipta] 62.5 mcg IH DAILY 04/09/19 Furosemide [Lasix] 40 mg PO DAILY #30 tablet 04/11/19 Hydrochlorothiazide [Hctz -] 12.5 mg PO DAILY #7 cap 04/11/19 Acetaminophen [Tylenol] 650 mg PO QID #30 capsule 04/20/19 Lidocaine 5% Patch [Lidoderm -] 1 patch TP DAILY #14 patch 04/20/19 Insulin (Levemir) [Levemir Vial] 20 units SQ AM #2 vial 05/03/19 Prescription Drug Monitoring Program (I-STOP) results: I-STOP not reviewed Problem List - Problems (1) Hypoglycemia Assessment/Plan: BGM AC/qHS endo consulted and recommendations appreciated. patient on short acting based on blood sugars as well as long acting levemir 20 units in a.m. her metformin, victoza were not given during hospital stay and will be discontinued. She agrees to follow up with Dr. Clancy as an outpatient within 1-2 weeks after discharge. Code(s): E16.2 - HYPOGLYCEMIA, UNSPECIFIED (2) CHF (congestive heart failure) Assessment/Plan: c/w hctz, lasix Code(s): I50.9 - HEART FAILURE, UNSPECIFIED (3) Old non-ST elevation myocardial infarction (NSTEMI) Code(s): I25.2 - OLD MYOCARDIAL INFARCTION (4) Prophylactic measure Assessment/Plan: discharge planning back to [facility] Code(s): Z29.9 - ENCOUNTER FOR PROPHYLACTIC MEASURES, UNSPECIFIED This patient is new to me today: No Emergency Visit: Yes ED Registration Date: 04/30/19 Care time: The patient presented to the Emergency Department on the above date and was hospitalized for further evaluation of their emergent condition. Critical Care patient: No - Discharge Referral Referred to [facility] Med P.C.: No
[2019-05-03 14:51] VITALS: BP 147/69; PULSE 98; TEMP 98.2
[2019-05-03] MEDS ORDERED: LIDOCAINE PATCH REMOVAL MC ONE (22:00)
== END 2019-05-03 16:30 | disposition home or self-care (01) | DRG 638 ==
LOC: JER 08:55 → JERBED 14:36 → J6S 15:39
PROVIDERS: ADMIT Internal Medicine; ATTEND Nurse Practitioner Family
DX: E11.649 Type 2 diabetes mellitus with hypoglycemia without coma (principal); Z68.42 Body mass index [BMI] 45.0-49.9, adult; J44.9 Chronic obstructive pulmonary disease, unspecified; I25.2 Old myocardial infarction; K21.9 Gastro-esophageal reflux disease without esophagitis; F32.9 Major depressive disorder, single episode, unspecified; R56.9 Unspecified convulsions; R11.10 Vomiting, unspecified; I11.0 Hypertensive heart disease with heart failure; I50.9 Heart failure, unspecified; I25.10 Atherosclerotic heart disease of native coronary artery without angina pectoris; E78.5 Hyperlipidemia, unspecified; E66.01 Morbid (severe) obesity due to excess calories; E11.43 Type 2 diabetes mellitus with diabetic autonomic (poly)neuropathy; L81.8 Other specified disorders of pigmentation; Z86.73 Personal history of transient ischemic attack (TIA), and cerebral infarction without residual deficits
CPT/HCPCS: 36415; 74177-TC; 80053; 81003; 82150; 82962; 83036; 83605; 83690; 83735; 84378; 85025; 85027; 87086; 93971-TC; 94761; 97116-GP; 97161-GP; 99284-25; G0008; J1644; Q2036

== ENCOUNTER 2019-05-14 15:12 | Inpatient (IN) | payer OTHER ==
--- NOTE | 2019-05-14 15:26 | PDOC ---
History of Present Illness - General Chief Complaint: Blood Sugar Problem Stated Complaint: HIGH BLOOD SUGAR Time Seen by Provider: 05/14/19 15:21 History Source: Patient Exam Limitations: No Limitations - History of Present Illness Initial Comments: Lizy Salinas is a 68 yo F w a pmh of IDDM, depression, seizures, HLD, asthma, GERD ,heart failure, COPD, HTN, CVA and NSTEMI who presents to the [facility] from [facility] with an elevated blood sugar level. Per the triage note her glucometer read "hi". 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 The patient endorses a significant amount of polyuria, polyphagia and a dry mouth. The patient states she is here bc she needs her glucose to be better controlled. Patient also endorses chronic left leg pain which has not changed muhc in nature recently. Denies fevers, chills, headache, nausea, vomiting, chest pain, SOB, difficulty breathing, blurry vision, back pain, flakn pain, dysuria, urgency, or abdominal pain. PCP: Kevin Sahni Endo: Dr. Clancy PSH: Cholecystectomy Allergies: Lisinopril, PADMINI inhibitors, blueberry, erythromycin Social Hx: [facility] resident. Denies current smoking, drinking, or other substance usage. Past History - Past Medical History Allergies/Adverse Reactions: Allergies Allergy/AdvReac Type Severity Reaction Status Date / Time lisinopril Allergy Severe Swelling Verified 05/14/19 15:16 PADMINI Inhibitors Allergy Verified 05/14/19 15:16 blueberry Allergy Verified 05/14/19 15:16 erythromycin base Allergy Verified 05/14/19 15:16 naproxen Allergy Verified 05/14/19 15:16 raspberry Allergy Verified 05/14/19 15:16 strawberry Allergy Verified 05/14/19 15:16 Home Medications: Ambulatory Orders Amlodipine Besylate [Norvasc -] 10 mg PO DAILY 03/10/18 Budesonide/Formeterol Fumarate [SYMBICORT 160/4.5mcg -] 1 inh PO BID 03/10/18 Famotidine [Pepcid] 20 mg PO DAILY 03/10/18 Fluoxetine HCl [Prozac] 20 mg PO DAILY 03/10/18 Insulin Regular, Human [Humulin R U-500 Kwikpen] 0 unit SQ TID 03/10/18 Levetiracetam [Keppra] 500 mg PO BID 03/10/18 Metformin HCl [Glucophage] 1,000 mg PO BID 03/10/18 Nortriptyline HCl 25 mg PO HS 03/10/18 Polyvinyl Alcohol [Artificial Tears] 1 drop OP BID 03/10/18 Potassium Chloride 20 meq PO DAILY 03/10/18 hydrALAZINE HCL [Apresoline -] 25 mg PO BID 03/10/18 Ammonium Lactate Cream [Lac-Hydrin 12% Cream -] 1 applic TP DAILY 04/09/19 Aspirin [Aspirin EC] 81 mg PO DAILY 04/09/19 Atorvastatin Ca [Lipitor] 80 mg PO HS 04/09/19 Bacitracin - [Bacitracin Topical Ointment -] 1 applic TP DAILY 04/09/19 Clopidogrel Bisulfate [Plavix -] 75 mg PO DAILY 04/09/19 Clotrimazole [Lotrimin -] 1 applic TP BID 04/09/19 Docusate Sodium [Colace -] 200 mg PO DAILY 04/09/19 Metoprolol Succinate [Toprol Xl] 25 mg PO DAILY 04/09/19 Mupirocin Ointment [Bactroban 2% Ointment -] 1 applic TP DAILY 04/09/19 Oxybutynin Chloride [Oxybutynin Chloride ER] 5 mg PO DAILY 04/09/19 Umeclidinium [place] [Incruse Ellipta] 62.5 mcg IH DAILY 04/09/19 Furosemide [Lasix] 40 mg PO DAILY #30 tablet 04/11/19 Hydrochlorothiazide [Hctz -] 12.5 mg PO DAILY #7 cap 04/11/19 Acetaminophen [Tylenol] 650 mg PO QID #30 capsule 04/20/19 Lidocaine 5% Patch [Lidoderm -] 1 patch TP DAILY #14 patch 04/20/19 Hydrocodone/Acetaminophen [Hydrocodone-Acetamin 5-325 mg] 1 each PO BID Insulin (Levemir) [Levemir Vial] units SQ AM 05/14/19 Cardiac Disorders: Yes (PVD) CVA: Yes (&TIA) COPD: Yes Diabetes: Yes (TYPE 2) GI Disorders: Yes (GERD, constipation) HTN: Yes Hypercholesterolemia: Yes Psychiatric Problems: Yes (DEPRESSION) Seizures: Yes (UNSPECIFIED CONVULSIONS) - Surgical History Cardiac Surgery: Yes (03/2016 PCI/STENT) Cholecystectomy: Yes - Immunization History Immunization Up to Date: Yes - Psycho Social/Smoking Cessation Hx Smoking History: Never smoked Have you smoked in the past 12 months: No If you are a former smoker, when did you quit?: 10 years ago Hx Alcohol Use: No Drug/Substance Use Hx: No Substance Use Type: None Hx Substance Use Treatment: No Review of Systems - Review of Systems Able to Perform ROS?: Yes Comments:: CONSTITUTIONAL: Present: Fatigue Absent: fever, no chills EYES: Absent: visual changes ENT: Absent: ear pain, no sore throat CARDIOVASCULAR: Absent: chest pain, no palpitations RESPIRATORY: Absent: cough, no SOB GI: Absent: abdominal pain, no nausea, no vomiting, no constipation, no diarrhea GENITOURINARY: Present: Frequency Absent: dysuria, no hematuria MUSKULOSKELETAL: Absent: back pain, no arthralgia, no myalgia ENDOCRINE: Absent: unexplained weight gain, unexplained weight loss, heat intolerance, cold intolerance SKIN: Absent: rash NEURO: Absent: headache *Physical Exam - Vital Signs Last Vital Signs Temp Pulse Resp BP Pulse Ox 98.9 F 93 H 18 133/84 98 05/14/19 15:16 05/14/19 15:16 05/14/19 15:16 05/14/19 15:16 05/14/19 15:16 - Physical Exam Comments: GENERAL: Morbidly obese. Well-appearing, well-nourished. No apparent distress. HEENT: Normocephalic, atraumatic. PERRL, EOM intact. CARDIOVASCULAR: Normal S1, S2. Regular rate and rhythm. PULMONARY: No evidence of respiratory distress. Lungs clear to auscultation bilaterally. No wheezing, rales or rhonchi. ABDOMEN: Soft, non-distended, non-tender. EXTREMITIES: Normal ROM in all four extremities. No gross deformities. SKIN: Warm, dry. No rash NEUROLOGICAL: No focal neurological deficits. ED Treatment Course - LABORATORY CBC & Chemistry Diagram: 05/14/19 16:05 05/14/19 16:05 Medical Decision Making - Medical Decision Making Lizy Salinas is a 68 yo F w a pmh of IDDM, depression, seizures, HLD, asthma, GERD ,heart failure, COPD, HTN, CVA and NSTEMI who presents to the [facility] er [facility]S from [facility] with an elevated blood sugar level. Per the triage note her glucometer read "hi". 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 The patient endorses a significant amount of polyuria, polyphagia and a dry mouth. The patient states she is here bc she needs her glucose to be better controlled. Patient also endorses chronic left leg pain which has not changed muhc in nature recently. Denies fevers, chills, headache, nausea, vomiting, chest pain, SOB, difficulty breathing, blurry vision, back pain, flakn pain, dysuria, urgency, or abdominal pain. Vital Signs Temp Pulse Resp BP Pulse Ox 98.9 F 93 H 18 133/84 98 05/14/19 15:16 05/14/19 15:16 05/14/19 15:16 05/14/19 15:16 05/14/19 15:16 DDx IBNLT: DKA vs HHNS, hyperglycemia, medication non-compliance, polypharmacy, electrolyte/metabolic disturbance, UTI/Pylo, dehydration Plan: Fingerstick, Labs, EKG, CXR, Urine, IV hydration, endo consult, re-assess Fingerstick: 515 EKG: NS rate of 92, narrow complexes, normal axis, LVH, no ST elevations or depressions, TWI's in 1 and aVL, QTc 445, SC 146 Labs: - Hyperkalemic at 5.6. No EKG changes - giving insulin - Hyperglycemic at 560 - 9 units insulin IV to start - Leukocytosis with left shift. - Mildly elevated trop at 0.08 Urine: Glucosuria CXR: Unremarkable Endo Consult - Dr. Clancy: Dr. Clancy has seen the patient in the ER and will help adjust the patient's medications. Re-assessment: Upon further history, patient states she was recently discharged from [facility] two days ago after she was admitted for two days from hyperglycemia. She states at that hospital they just gave her fluids and then discharged her to follow up with Dr. Clancy as an outpatient. The [place] sent her back here today because her glucose levels were still too high. Disposition: Admit to hospital for multiple electrolyte disturbances and endo consult. Discharge - Discharge Information Problems reviewed: Yes Clinical Impression/Diagnosis: Elevated troponin, Morbid obesity, Hyperglycemia, Hyperkalemia Type 2 diabetes mellitus with diabetic autonomic (poly)neuropathy Qualifiers: Diabetes mellitus terminal operator insulin use: with halfway use Qualified Code(s): E11.43 - Type 2 diabetes mellitus with diabetic autonomic (poly)neuropathy Condition: Stable - Admission Yes - Follow up/Referral - Patient Discharge Instructions - Post Discharge Activity
[2019-05-14] MEDS ORDERED: SODIUM CHLORIDE 1,000 ML IV STA (15:33)
--- NOTE | 2019-05-14 15:51 | PDOC ---
Attending Attestation - Resident Resident Name: Lobo Patricio - ED Attending Attestation I have performed the following: I have examined & evaluated the patient, The case was reviewed & discussed with the resident, I agree w/resident's findings & plan, Exceptions are as noted - HPI HPI: 05/14/19 15:50 68y F hx of IDDM, GERD, CHF, COPD, HTN, CVA, NSTEMI, presents to the ED fore valuation of hyperglycemia. The pt notes her BGM was recently elevated, she was recently admitted here at [facility] for hypoglycemia and had her diabetes meds adjusted, and was admitted to [facility] with hyperglycemia and treated for her hyperglkycemia and dc'd. Pt endorses having polyphagia, polyuria, dry mouth, she denies cp, sob, abd pain, fever, chills. Pt did have some nausea. PCP: cindy bess Endo: Dr. Clancy PSH: Cholecystectomy Allergies: Lisinopril, PADMINI inhibitors, blueberry, erythromycin Social Hx: [facility] living resident. Denies current smoking, drinking, or other substance usage. - Physicial Exam PE: 05/14/19 17:32 GENERAL: The patient is awake, alert, and fully oriented, Nontoxic - in no acute distress, obese. HEAD: Normocephalic, atraumatic. EYES: extraocular movements intact, sclera anicteric, conjunctiva clear. ENT: Normal voice, Moist mucous membranes. NECK: Normal range of motion, supple LUNGS: Breath sounds equal, clear to auscultation bilaterally. No wheezes, no rhonchi, no rales. HEART: Regular rate and rhythm, normal S1 and S2 without murmur, rub or gallop. ABDOMEN: Soft, nontender, No guarding, no rebound. No CVA tenderness EXTREMITIES: Normal range of motion, no edema. NEUROLOGICAL: No facial assymetry, Normal speech, moving all 4 extremities spontneously and symmetrically PSYCH: Normal mood, normal affect. SKIN: Warm, Dry, normal turgor, - Medical Decision Making 05/14/19 17:32 hyperglycemia, r/o dka will ck labs, ekg, ua to screen for occult uti labs reviewed noted for hyperglycemia without signs of acidosis or anion gap as pt had mutiple admissions for hyperglycemia and still having difficulty manging her blood sugar, will keep pt to have her meds adjusted
[2019-05-14 16:16] LABS: BASO % 0.5 % (0-2.0); EOS % 0.4 % (0-4.5); HEMATOCRIT 33.4 % (32.4-45.2); HEMOGLOBIN 10.2 GM/dL (10.7-15.3); LYMPH % 9.9 % (8-40); MCHC 30.6 g/dl (32.0-36.0); MEAN CELL VOLUME 75.3 fl (80-96); MEAN PLT VOLUME 9.9 fl (7.5-11.1); MONO % 5.6 % (3.8-10.2); NEUT % 83.6 % (42.8-82.8); PLATELET COUNT 323 K/MM3 (134-434); RBC 4.43 M/mm3 (3.60-5.2); WHITE BLOOD COUNT 18.6 K/mm3 (4.0-10.0)
[2019-05-14 16:31] LABS: INR 1.03 (0.83-1.09); PROTHROMBIN TIME (PATIENT) 12.1 SEC (9.7-13.0)
[2019-05-14 16:49] LABS: ALBUMIN 3.4 g/dl (3.4-5.0); ALK PHOS 174 U/L (45-117); ANION GAP 9 MMOL/L (8-16); BILIRUBIN,TOTAL 0.4 mg/dL (0.2-1); BLOOD UREA NITROGEN 25.8 mg/dL (7-18); CALCIUM 9.6 mg/dL (8.5-10.1); CHLORIDE 96 mmol/L (98-107); CO2 27 mmol/L (21-32); CREATININE 1.2 mg/dL (0.55-1.3); POTASSIUM 5.6 mmol/L (3.5-5.1); SGOT/AST 32 U/L (15-37); SGPT/ALT 33 U/L (13-61); SODIUM 131 mmol/L (136-145); TOT PROT 7.2 g/dl (6.4-8.2)
[2019-05-14 16:51] LABS: GLUCOSE,RANDOM 560 mg/dL (74-106)
[2019-05-14] MEDS ORDERED: INSULIN REGULAR HUMAN 100 UNITS/ML *VIAL IVPUSH ONE (17:07)
[2019-05-14] MEDS ORDERED: SODIUM CHLORIDE 0.9% 500 ML INFUS.BAG IV ONE (17:08)
[2019-05-14 17:14] LABS: ANISOCYTOSIS 2+; PLATELET ESTIMATE NORMAL
[2019-05-14 18:08] LABS: URINE APPEARANCE CLEAR; URINE BILIRUBIN NEGATIVE (NEGATIVE); URINE COLOR YELLOW; URINE GLUCOSE (UA) 3+ (NEGATIVE); URINE KETONE NEGATIVE (NEGATIVE); URINE LEUK ESTERASE NEGATIVE (NEGATIVE); URINE NITRITE NEGATIVE (NEGATIVE); URINE PROTEIN NEGATIVE (NEGATIVE); URINE UROBILINOGEN 0.2 mg/dL (0.2-1.0)
[2019-05-14] MEDS ORDERED: SODIUM POLYSTYRENE SULFONATE 15 GM/60 ML BOTTLE PO ONE (18:17)
--- NOTE | 2019-05-14 18:28 | HP ---
Admitting History and Physical - Admission Chief Complaint: HIGH BLOOD SUGARS History of Present Illness: 68 year old F with h/o CVA, CHF, GERD, COPD/asthma, DM II, NSTEMI, HTN presenting with ED via EMS from [facility] living leiter with an elevated blood sugar level. Per the triage note her glucometer read "HI". Pt complaints of urinary frequency, neuropathic pain to LLE and dry mouth. Pt reports that prior to presenting to [facility] she was seen at [facility] last week for hyperglycemia which was managed with IVF and instructions to f/u with endocrinology. Of note, pt was recently admitted to [facility] on 04/30 for complaints of 2 days of lower abdominal pain, nausea and vomiting. In ED BGM was noted to be 22mg/dl with repeat of 30mg/dl. D50 was administered in addition to continuous D5W infusion. Her BG stabilized and she was evaluated by endocrinology with metformin and victoza d/taylor at time of discharge, levemir 20units qam started. Pt was instructed to follow up outpt for close monitoring. Today, 05/14, her NH activated EMS for hospital admission due to persistently uncontrolled BG. In ED Vitals: BP 133/84, HR 93, RR 18, T 98.9, O2 sat 98 EKG NSR 92bpm, no acute changes Labs: trop 0.08, WBC 18.6, K 5.6, BG 560mg/dl, Na 131 pt treated with IVF and insulin R 9units. CXR no acute pathology pt evaluated by Dr. 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: CVA, Seizure Cardiovascular: Yes: CHF, HTN, Hyperlipdemia, [place] (NSTEMI) Pulmonary: Yes: Asthma, COPD Gastrointestinal: Yes: GERD Reproductive: Yes: Postmenopausal ...: No Psych: Yes: Depression Endocrine: Yes: Diabetes Mellitus - Past Surgical History Past Surgical History: Yes: Cholecystectomy - Advance Directives Advance Directives: Yes: Health Care Proxy (Anna Malhotra (sister) [phone] ) - Smoking History Smoking history: Never smoked Have you smoked in the past 12 months: No If you are a former smoker, when did you quit?: 2003 - Alcohol/Substance Use Hx Alcohol Use: No History of Substance Use: reports: None - Social History Usual Living Arrangement: Yes: Alf ADL: Support Services ([facility] resident) History of Recent Travel: No Home Medications - Allergies Allergies/Adverse Reactions: Allergies Allergy/AdvReac Type Severity Reaction Status Date / Time lisinopril Allergy Severe Swelling Verified 05/14/19 15:16 PADMINI Inhibitors Allergy Verified 05/14/19 15:16 blueberry Allergy Verified 05/14/19 15:16 erythromycin base Allergy Verified 05/14/19 15:16 naproxen Allergy Verified 05/14/19 15:16 raspberry Allergy Verified 05/14/19 15:16 strawberry Allergy Verified 05/14/19 15:16 - Home Medications Home Medications: Ambulatory Orders Amlodipine Besylate [Norvasc -] 10 mg PO DAILY 03/10/18 Budesonide/Formeterol Fumarate [SYMBICORT 160/4.5mcg -] 1 inh PO BID 03/10/18 Famotidine [Pepcid] 20 mg PO DAILY 03/10/18 Fluoxetine HCl [Prozac] 20 mg PO DAILY 03/10/18 Insulin Regular, Human [Humulin R U-500 Kwikpen] 0 unit SQ TID 03/10/18 Levetiracetam [Keppra] 500 mg PO BID 03/10/18 Metformin HCl [Glucophage] 1,000 mg PO BID 03/10/18 Nortriptyline HCl 25 mg PO HS 03/10/18 Polyvinyl Alcohol [Artificial Tears] 1 drop OP BID 03/10/18 Potassium Chloride 20 meq PO DAILY 03/10/18 hydrALAZINE HCL [Apresoline -] 25 mg PO BID 03/10/18 Ammonium Lactate Cream [Lac-Hydrin 12% Cream -] 1 applic TP DAILY 04/09/19 Aspirin [Aspirin EC] 81 mg PO DAILY 04/09/19 Atorvastatin Ca [Lipitor] 80 mg PO HS 04/09/19 Bacitracin - [Bacitracin Topical Ointment -] 1 applic TP DAILY 04/09/19 Clopidogrel Bisulfate [Plavix -] 75 mg PO DAILY 04/09/19 Clotrimazole [Lotrimin -] 1 applic TP BID 04/09/19 Docusate Sodium [Colace -] 200 mg PO DAILY 04/09/19 Metoprolol Succinate [Toprol Xl] 25 mg PO DAILY 04/09/19 Mupirocin Ointment [Bactroban 2% Ointment -] 1 applic TP DAILY 04/09/19 Oxybutynin Chloride [Oxybutynin Chloride ER] 5 mg PO DAILY 04/09/19 Umeclidinium [place] [Incruse Ellipta] 62.5 mcg IH DAILY 04/09/19 Furosemide [Lasix] 40 mg PO DAILY #30 tablet 04/11/19 Hydrochlorothiazide [Hctz -] 12.5 mg PO DAILY #7 cap 04/11/19 Acetaminophen [Tylenol] 650 mg PO QID #30 capsule 04/20/19 Lidocaine 5% Patch [Lidoderm -] 1 patch TP DAILY #14 patch 04/20/19 Hydrocodone/Acetaminophen [Hydrocodone-Acetamin 5-325 mg] 1 each PO BID Insulin (Levemir) [Levemir Vial] units SQ AM 05/14/19 Family Medical History Family History: Unable to Obtain (poor historian) Review of Systems - Review of Systems Constitutional: reports: Weakness Eyes: reports: No Symptoms HENT: reports: No Symptoms Neck: reports: No Symptoms Cardiovascular: reports: No Symptoms Respiratory: reports: No Symptoms Gastrointestinal: reports: No Symptoms Genitourinary: reports: Frequency Breasts: reports: No Symptoms Reported Musculoskeletal: reports: No Symptoms Integumentary: reports: No Symptoms Neurological: reports: Parasthesia (LLE) Endocrine: reports: Increased Thirst Hematology/Lymphatic: reports: No Symptoms Psychiatric: reports: No Symptoms Physical Examination Vital Signs: Vital Signs Temperature 98.9 F 05/14/19 15:16 Pulse Rate 93 H 05/14/19 15:16 Respiratory Rate 18 05/14/19 15:16 Blood Pressure 134/74 05/14/19 18:15 O2 Sat by Pulse Oximetry (%) 96 05/14/19 18:15 Constitutional: Yes: Calm, Obese Eyes: Yes: Conjunctiva Clear, EOM Intact, PERRL HENT: Yes: Atraumatic, Normocephalic Neck: Yes: Supple, Trachea Midline Cardiovascular: Yes: Regular Rate and Rhythm Respiratory: Yes: Regular, CTA Bilaterally Gastrointestinal: Yes: Soft, Abdomen, Obese, Hernia (? umbilical hernia) ...Rectal Exam: Yes: Deferred Renal/: Yes: Incontinence Edema: No Peripheral Pulses WNL: No Peripheral Pulses: Left Radial: 2+, Right Radial: 2+, Left Doralis Pedis: 0, Right Dorsalis Pedis: 0 Integumentary: Yes: Venous Stasis Changes (b/l hyperpigmentation lower extremities) Neurological: Yes: Alert, Tingling ...Motor Strength: WNL Psychiatric: Yes: Alert Labs: CBC, BMP 05/14/19 16:05 05/14/19 16:05 Imaging - Results Chest X-ray: Image Reviewed (CXR 05/14 (my read) mild pulm congestion) Problem List - Problems (1) Elevated troponin Assessment/Plan: trend troponin - consider cards consult if steady rise admit to tele unit ASA 81mg daily Plavix 75mg daily contiue high dose statin Code(s): R74.8 - ABNORMAL LEVELS OF OTHER SERUM ENZYMES (2) Hyperkalemia Assessment/Plan: kayexalate 30gm ordered x 1 trend electrolytes Code(s): E87.5 - HYPERKALEMIA (3) Type 2 diabetes mellitus with diabetic autonomic (poly)neuropathy Assessment/Plan: tylenol for moderate pain vicodin for severe pain nortiptyline 25mg qhs lachydrin cream BID for skin protection to lower extremities Code(s): E11.43 - TYPE 2 DIABETES W DIABETIC AUTONOMIC (POLY)NEUROPATHY Qualifiers: Diabetes mellitus manager intermediate insulin use: with manager intermediate use Qualified Code( s): E11.43 - Type 2 diabetes mellitus with diabetic autonomic (poly)neuropathy; Z79.4 - group home (current) use of insulin (4) CHF (congestive heart failure) Assessment/Plan: continue lasix and HCTZ Code(s): I50.9 - HEART FAILURE, UNSPECIFIED (5) Prophylactic measure Assessment/Plan: RIN stockings Heparin SC TID OOB to chair Reposition q2hrs H2B senna/colace - hold for loose stools lidoderm patch PRN pain Code(s): Z29.9 - ENCOUNTER FOR PROPHYLACTIC MEASURES, UNSPECIFIED (6) COPD (chronic obstructive pulmonary disease) Assessment/Plan: continue symbicort and incruse at home dose PRN nebs for severe dyspnea Code(s): J44.9 - CHRONIC OBSTRUCTIVE PULMONARY DISEASE, UNSPECIFIED Qualifiers: COPD type: unspecified COPD Qualified Code(s): J44.9 - Chronic obstructive pulmonary disease, unspecified (7) Diabetes Assessment/Plan: high dose ISS increase levemir to 22units qhs endo consulted Code(s): E11.9 - TYPE 2 DIABETES MELLITUS WITHOUT COMPLICATIONS (8) HTN (hypertension) Assessment/Plan: continue toprol XL, norvasc and hydralazine cardiac/diabetic diet Code(s): I10 - ESSENTIAL (PRIMARY) HYPERTENSION (9) Overactive bladder Assessment/Plan: continue oxybutynin Code(s): N32.81 - OVERACTIVE BLADDER (10) Seizure Assessment/Plan: continue keppra Code(s): R56.9 - UNSPECIFIED CONVULSIONS (11) Depression Code(s): F32.9 - MAJOR DEPRESSIVE DISORDER, SINGLE EPISODE, UNSPECIFIED Assessment/Plan Code status: Full Visit type - Emergency Visit Emergency Visit: Yes ED Registration Date: 05/14/19 Care time: The patient presented to the Emergency Department on the above date and was hospitalized for further evaluation of their emergent condition. - New Patient This patient is new to me today: No - Critical Care Critical Care patient: No
[2019-05-14] MEDS ORDERED: oxyCODONE HCL 5 MG TABLET PO PRN (19:26)
--- NOTE | 2019-05-14 20:01 | CONSULT ---
Consult Consult Specialty:: endocrine Referred by:: Lobo Patricio Resident Reason for Consultation:: DMT2 uncontrolled - History of Present Illness Chief Complaint: nausea weakness/ thirsty high blood sugars History of Present Illness: 68 year old F with h/oDMT2, CVA, CHF, GERD, COPD/asthma, NSTEMI, HTN presenting with ED via EMS from [facility] with an elevated blood sugar level. Per the triage note her glucometer read HI,has frequent urination, thirst,and weakness.she has blurred vision,headache,nausea.denies cp cough fever chills,or vomiting. - Past Medical History QUALITY CONTROL: Yes: CVA, Seizure Cardio/Vascular: Yes: CHF, HTN, Hyperlipdemia, [place] (NSTEMI) Pulmonary: Yes: Asthma, COPD Gastrointestinal: Yes: GERD ...: No Psych: Yes: Depression Endocrine: Yes: Diabetes Mellitus - Past Surgical History Past Surgical History: Yes: Cholecystectomy - Alcohol/Substance Use Hx Alcohol Use: No History of Substance Use: reports: None - Smoking History Smoking history: Never smoked Have you smoked in the past 12 months: No If you are a former smoker, when did you quit?: 2002 - Social History Usual Living Arrangement: [facility] ADL: Support Services ([facility]) History of Recent Travel: No Home Medications - Allergies Allergies/Adverse Reactions: Allergies Allergy/AdvReac Type Severity Reaction Status Date / Time lisinopril Allergy Severe Swelling Verified 05/14/19 15:16 PADMINI Inhibitors Allergy Verified 05/14/19 15:16 blueberry Allergy Verified 05/14/19 15:16 erythromycin base Allergy Verified 05/14/19 15:16 naproxen Allergy Verified 05/14/19 15:16 raspberry Allergy Verified 05/14/19 15:16 strawberry Allergy Verified 05/14/19 15:16 - Home Medications Home Medications: Ambulatory Orders Amlodipine Besylate [Norvasc -] 10 mg PO DAILY 03/10/18 Budesonide/Formeterol Fumarate [SYMBICORT 160/4.5mcg -] 1 inh PO BID 03/10/18 Famotidine [Pepcid] 20 mg PO DAILY 03/10/18 Fluoxetine HCl [Prozac] 20 mg PO DAILY 03/10/18 Insulin Regular, Human [Humulin R U-500 Kwikpen] 0 unit SQ TID 03/10/18 Levetiracetam [Keppra] 500 mg PO BID 03/10/18 Metformin HCl [Glucophage] 1,000 mg PO BID 03/10/18 Nortriptyline HCl 25 mg PO HS 03/10/18 Polyvinyl Alcohol [Artificial Tears] 1 drop OP BID 03/10/18 Potassium Chloride 20 meq PO DAILY 03/10/18 hydrALAZINE HCL [Apresoline -] 25 mg PO BID 03/10/18 Ammonium Lactate Cream [Lac-Hydrin 12% Cream -] 1 applic TP DAILY 04/09/19 Aspirin [Aspirin EC] 81 mg PO DAILY 04/09/19 Atorvastatin Ca [Lipitor] 80 mg PO HS 04/09/19 Bacitracin - [Bacitracin Topical Ointment -] 1 applic TP DAILY 04/09/19 Clopidogrel Bisulfate [Plavix -] 75 mg PO DAILY 04/09/19 Clotrimazole [Lotrimin -] 1 applic TP BID 04/09/19 Docusate Sodium [Colace -] 200 mg PO DAILY 04/09/19 Metoprolol Succinate [Toprol Xl] 25 mg PO DAILY 04/09/19 Mupirocin Ointment [Bactroban 2% Ointment -] 1 applic TP DAILY 04/09/19 Oxybutynin Chloride [Oxybutynin Chloride ER] 5 mg PO DAILY 04/09/19 Umeclidinium [place] [Incruse Ellipta] 62.5 mcg IH DAILY 04/09/19 Furosemide [Lasix] 40 mg PO DAILY #30 tablet 04/11/19 Hydrochlorothiazide [Hctz -] 12.5 mg PO DAILY #7 cap 04/11/19 Acetaminophen [Tylenol] 650 mg PO QID #30 capsule 04/20/19 Lidocaine 5% Patch [Lidoderm -] 1 patch TP DAILY #14 patch 04/20/19 Hydrocodone/Acetaminophen [Hydrocodone-Acetamin 5-325 mg] 1 each PO BID Insulin (Levemir) [Levemir Vial] units SQ AM 05/14/19 Review of Systems - Review of Systems Constitutional: reports: Lethargy, Weakness Eyes: reports: Blurred Vision HENT: reports: Difficult Swallowing Neck: reports: No Symptoms Cardiovascular: reports: Shortness of Breath Respiratory: reports: Exercise Intolerance, Orthopnea, SOB on Exertion Gastrointestinal: reports: Constipation Genitourinary: reports: Frequency, Incontinence, Urgency Breasts: reports: No Symptoms Reported Integumentary: reports: No Symptoms Neurological: reports: Weakness Endocrine: reports: Unexplained Weight Gain Physical Exam Vital Signs: Vital Signs Temperature 98.9 F 05/14/19 15:16 Pulse Rate 93 H 05/14/19 15:16 Respiratory Rate 18 05/14/19 15:16 Blood Pressure 134/74 05/14/19 18:15 O2 Sat by Pulse Oximetry (%) 96 05/14/19 18:15 Constitutional: Yes: Calm Eyes: Yes: EOM Intact HENT: Yes: Normocephalic Neck: Yes: Trachea Midline Cardiovascular: Yes: Tachycardia Respiratory: Yes: CTA Bilaterally Gastrointestinal: Yes: Normal Bowel Sounds ...Rectal Exam: Yes: Deferred Renal/: Yes: WNL Musculoskeletal: Yes: Back Pain, Muscle Weakness Extremities: Yes: Cold, Delayed Capillary Refill, Erythema Edema: No Integumentary: Yes: WNL, Onychomycosis, Venous Stasis Changes Psychiatric: Yes: Alert, Oriented Labs: CBC, BMP 05/14/19 16:05 05/14/19 16:05 Problem List - Problems (1) Hyperglycemia Code(s): R73.9 - HYPERGLYCEMIA, UNSPECIFIED (2) Hyperkalemia Code(s): E87.5 - HYPERKALEMIA (3) Type 2 diabetes mellitus with diabetic autonomic (poly)neuropathy Code(s): E11.43 - TYPE 2 DIABETES W DIABETIC AUTONOMIC (POLY)NEUROPATHY Qualifiers: Diabetes mellitus medical terminologist insulin use: with medical terminologist use Qualified Code( s): E11.43 - Type 2 diabetes mellitus with diabetic autonomic (poly)neuropathy; Z79.4 - FPC (current) use of insulin (4) Morbid obesity Code(s): E66.01 - MORBID (SEVERE) OBESITY DUE TO EXCESS CALORIES (5) Angioedema due to angiotensin converting enzyme inhibitor (PADMINI-I) Code(s): T78.3XXA - ANGIONEUROTIC EDEMA, INITIAL ENCOUNTER; T46.4X1A - POISONING BY [id number] INHIBITORS, ACC, INIT (6) Arm sprain Code(s): YPM0351 - Assessment/Plan Current Active Problems Depression (Acute) Elevated troponin (Acute) Hyperglycemia (Acute) Hyperkalemia (Acute) Type 2 diabetes mellitus with diabetic autonomic (poly)neuropathy (Acute) Morbid obesity (Chronic) Abnormal Lab Results 05/14/19 05/14/19 05/14/19 16:05 16:05 17:50 WBC 18.6 H Hgb 10.2 L MCV 75.3 L MCH 23.0 L MCHC 30.6 L RDW 21.0 H Absolute Neuts (auto) 15.5 H Neutrophils % 83.6 H Sodium 131 L Potassium 5.6 H Chloride 96 L BUN 25.8 H Random Glucose 560 H* Alkaline Phosphatase 174 H Troponin I 0.08 H Urine Glucose (UA) 3+ H Laboratory Results - last 24 hr 05/14/19 05/14/19 05/14/19 16:05 16:05 16:05 WBC 18.6 H RBC 4.43 Hgb 10.2 L Hct 33.4 MCV 75.3 L MCH 23.0 L MCHC 30.6 L RDW 21.0 H Plt Count 323 MPV 9.9 D Absolute Neuts (auto) 15.5 H Neutrophils % 83.6 H Lymphocytes % 9.9 D Monocytes % 5.6 Eosinophils % 0.4 Basophils % 0.5 Nucleated RBC % 0 Hypochromia 1+ Platelet Estimate Normal Anisocytosis 2+ Schistocytes 1+ PT with INR INR Sodium 131 L Potassium 5.6 H Chloride 96 L Carbon Dioxide 27 Anion Gap 9 BUN 25.8 H Creatinine 1.2 Est GFR (CKD-EPI)AfAm 53.78 Est GFR (CKD-EPI)NonAf 46.40 POC Glucometer Random Glucose 560 H* Calcium 9.6 Total Bilirubin 0.4 AST 32 ALT 33 Alkaline Phosphatase 174 H Creatine Kinase 158 Creatine Kinase Index No Result Required. CK-MB (CK-2) < 1.0 Troponin I 0.08 H Total Protein 7.2 Albumin 3.4 Beta-Hydroxybutyrate 1.5 Urine Color Urine Appearance Urine pH Ur Specific [place] Urine Protein Urine Glucose (UA) Urine Ketones Urine Blood Urine Nitrite Urine Bilirubin Urine Urobilinogen Ur Leukocyte Esterase 05/14/19 05/14/19 05/14/19 16:05 16:12 17:50 WBC RBC Hgb Hct MCV MCH MCHC RDW Plt Count MPV Absolute Neuts (auto) Neutrophils % Lymphocytes % Monocytes % Eosinophils % Basophils % Nucleated RBC % Hypochromia Platelet Estimate Anisocytosis Schistocytes PT with INR 12.10 INR 1.03 Sodium Potassium Chloride Carbon Dioxide Anion Gap BUN Creatinine Est GFR (CKD-EPI)AfAm Est GFR (CKD-EPI)NonAf POC Glucometer 515 Random Glucose Calcium Total Bilirubin AST ALT Alkaline Phosphatase Creatine Kinase Creatine Kinase Index CK-MB (CK-2) Troponin I Total Protein Albumin Beta-Hydroxybutyrate Urine Color Yellow Urine Appearance Clear Urine pH 5.0 Ur Specific [place] 1.022 Urine Protein Negative Urine Glucose (UA) 3+ H Urine Ketones Negative Urine Blood Negative Urine Nitrite Negative Urine Bilirubin Negative Urine Urobilinogen 0.2 Ur Leukocyte Esterase Negative 05/14/19 05/14/19 18:14 19:03 WBC RBC Hgb Hct MCV MCH MCHC RDW Plt Count MPV Absolute Neuts (auto) Neutrophils % Lymphocytes % Monocytes % Eosinophils % Basophils % Nucleated RBC % Hypochromia Platelet Estimate Anisocytosis Schistocytes PT with INR INR Sodium Potassium Chloride Carbon Dioxide Anion Gap BUN Creatinine Est GFR (CKD-EPI)AfAm Est GFR (CKD-EPI)NonAf POC Glucometer 319 318 Random Glucose Calcium Total Bilirubin AST ALT Alkaline Phosphatase Creatine Kinase Creatine Kinase Index CK-MB (CK-2) Troponin I Total Protein Albumin Beta-Hydroxybutyrate Urine Color Urine Appearance Urine pH Ur Specific [place] Urine Protein Urine Glucose (UA) Urine Ketones Urine Blood Urine Nitrite Urine Bilirubin Urine Urobilinogen Ur Leukocyte Esterase plan: bgm qid novolog scale levemir 25 units am levemir 20 units hs ck hba1 c tsh free t4
[2019-05-14 20:53] LABS: VENOUS PC02 41.7 mmHg (38-52); VENOUS PH 7.43 (7.31-7.41)
[2019-05-14] MEDS ORDERED: ACETAMINOPHEN 325 MG TABLET (FP) ONE (21:17)
[2019-05-14] MEDS: ACETAMINOPHEN 325 MG TABLET (FP) PO PRN (21:27)
[2019-05-14] MEDS ORDERED: PATIENT'S OWN MEDICATION (NON-FORMULARY) (Acetaminophen [Tylenol] 650 MG) PO SCH (22:00)
[2019-05-14] MEDS ORDERED: NORTRIPTYLINE HCL 25 MG CAPSULE PO SCH (22:00)
[2019-05-14] MEDS ORDERED: INSULIN SLIDING SCALE (NOVOLOG) 1 VIAL SQ SCH (22:00)
[2019-05-14] MEDS: HEPARIN NA (PORCINE) 5,000 UNITS/ML 1ML VIAL SQ SCH (22:00)
[2019-05-15] MEDS: levETIRAcetam 500 MG TABLET (FP) PO SCH ×3 (00:33→23:24)
[2019-05-15] MEDS: INSULIN (LEVEMIR) 100 UNITS/ML UNITS SQ SCH ×2 (00:33→23:46)
[2019-05-15] MEDS: ARTIFICIAL TEARS (POLYVINYL ALCOHOL) OPTH DROPS OU SCH ×3 (00:33→23:26)
[2019-05-15] MEDS: hydrALAZINE HCL 25 MG TABLET (FP) PO SCH ×3 (00:33→23:25)
[2019-05-15] MEDS: CLOTRIMAZOLE 1%TOPICAL SOLUTION 30 ML BOTTLE TP SCH ×3 (00:34→23:26)
[2019-05-15] MEDS: ATORVASTATIN CA 80 MG TABLET (FP) PO SCH ×2 (00:34→23:24)
[2019-05-15] MEDS: SENNOSIDES 8.6MG TABLET (FP) PO SCH ×2 (00:35→23:25)
[2019-05-15] MEDS: INSULIN SLIDING SCALE (NOVOLOG) 1 VIAL SQ SCH ×4 (00:36→17:22)
[2019-05-15] MEDS: BUDESONIDE/FORMETEROL FUMARATE 160/4.5 mcg INHALER IH SCH ×2 (00:36→11:33)
[2019-05-15] MEDS ORDERED: INSULIN (LEVEMIR) 100 UNITS/ML UNITS SQ ONE ×2 (03:19→06:33)
[2019-05-15] MEDS ORDERED: HEPARIN NA (PORCINE) 5,000 UNITS/ML 1ML VIAL ONE (06:33)
[2019-05-15] MEDS: HEPARIN NA (PORCINE) 5,000 UNITS/ML 1ML VIAL SQ SCH ×3 (06:48→23:25)
[2019-05-15] MEDS ORDERED: INSULIN (LEVEMIR) 100 UNITS/ML UNITS SQ SCH (07:00)
--- NOTE | 2019-05-15 07:38 | PN ---
Progress Note, Physician Chief Complaint: Pt stating no one gave her insulin at the [facility] since she left here History of Present Illness: 68 year old F with h/o CVA, CHF, GERD, COPD/asthma, DM II, NSTEMI, HTN presenting with ED via EMS from [facility] living home with an elevated blood sugar level. Per the triage note her glucometer read "HI". Pt complaints of urinary frequency, neuropathic pain to LLE and dry mouth. Pt reports that prior to presenting to [facility] she was seen at [facility] last week for hyperglycemia which was managed with IVF and instructions to f/u with endocrinology. Of note, pt was recently admitted to [facility] on 04/30 for complaints of 2 days of lower abdominal pain, nausea and vomiting. In ED BGM was noted to be 22mg/dl with repeat of 30mg/dl. D50 was administered in addition to continuous D5W infusion. Her BG stabilized and she was evaluated by endocrinology with metformin and victoza d/taylor at time of discharge, levemir 20units qam started. Pt was instructed to follow up outpt for close monitoring. 05/14, her [facility] activated EMS for hospital admission due to persistently uncontrolled BG. In ED BG 560mg/dl pt treated with IVF and insulin R 9units. CXR no acute pathology pt evaluated by Dr. Clancy in ED, who recommends inpt BG control prior to d/c [facility] Pt stated the [facility] only administered 1 dose of insulin since she was discharged form ED - Current Medication List Current Medications: Active Medications Acetaminophen (Tylenol -) 650 mg PO Q6H PRN PRN Reason: PAIN LEVEL 4 - 6 Last Admin: 05/14/19 21:27 Dose: 650 mg Amlodipine Besylate (Norvasc -) 10 mg PO DAILY [facility] Artificial Tears (Artificial Tears) 1 drop OU BID [facility] Last Admin: 05/15/19 00:33 Dose: 1 drp Aspirin (Ecotrin -) 81 mg PO DAILY [facility] Atorvastatin Calcium (Lipitor -) 80 mg PO HS [facility] Last Admin: 05/15/19 00:34 Dose: 80 mg Bacitracin (Bacitracin -) 1 applic TP DAILY [facility] Budesonide/Formoterol Fumarate (Symbicort 160/4.5mcg -) 1 puff IH BID [facility] Last Admin: 05/15/19 00:36 Dose: Not Given Clopidogrel Bisulfate (Plavix -) 75 mg PO DAILY [facility] Clotrimazole (Lotrimin 1% Solution -) 1 applic TP BID [facility] Last Admin: 05/15/19 00:34 Dose: 1 tube Docusate Sodium (Colace -) 200 mg PO DAILY [facility] Fluoxetine HCl (Prozac -) 20 mg PO DAILY [facility] Furosemide (Lasix -) 40 mg PO DAILY [facility] Heparin Sodium (Porcine) (Heparin -) 5,000 unit SQ TID [facility] Last Admin: 05/15/19 06:48 Dose: 5,000 unit Hydralazine HCl (Apresoline -) 25 mg PO BID [facility] Last Admin: 05/15/19 00:33 Dose: 25 mg Hydrochlorothiazide (Hctz -) 12.5 mg PO DAILY@1300 [facility] Insulin Aspart (Novolog Vial Sliding Scale -) 1 vial SQ ACHS [facility]; Protocol Last Admin: 05/15/19 06:48 Dose: 5 unit Insulin Detemir (Levemir Vial) 22 units SQ HS [facility] Last Admin: 05/15/19 00:33 Dose: 22 unit Insulin Detemir (Levemir Vial) 25 units SQ AM [facility] Last Admin: 05/15/19 06:48 Dose: 25 unit Lactic Acid (Lac-Hydrin 12% Cream -) 1 applic TP DAILY [facility] Levetiracetam (Keppra -) 500 mg PO BID [facility] Last Admin: 05/15/19 00:33 Dose: 500 mg Lidocaine (Lidoderm Patch -) 1 patch TP DAILY [facility] Metoprolol Succinate (Toprol Xl -) 25 mg PO DAILY [facility] Miscellaneous (Lidoderm Patch Removal) 1 each MC DAILY@2200 [facility] Famotidine 20mg (Tablet) 1 each PO DAILY [facility] Nortriptyline HCl (Pamelor -) 25 mg PO [facility] Last Admin: 05/15/19 00:35 Dose: 25 mg Oxycodone HCl (Roxicodone -) 5 mg PO Q6H PRN PRN Reason: PAIN LEVEL 7 - 10 Senna (Senna -) 2 tab PO [facility] Last Admin: 05/15/19 00:35 Dose: 2 tab Solifenacin (Vesicare -) 5 mg PO DAILY [facility] Tiotropium [place] (Spiriva Respimat) 2 puff IH DAILY [facility] - Objective Vital Signs: Vital Signs Temperature 98.9 F 05/14/19 15:16 Pulse Rate 78 05/15/19 00:22 Respiratory Rate 20 05/15/19 00:22 Blood Pressure 135/65 05/15/19 00:22 O2 Sat by Pulse Oximetry (%) 97 05/15/19 04:22 Additional Findings/Remarks: GENERAL: The patient is awake, alert, and fully oriented, in no acute distress. HEAD: Normal with no signs of trauma. EYES: PERRL, extraocular movements intact, sclera anicteric, conjunctiva clear. No ptosis. ENT: Ears normal, nares patent, oropharynx clear without exudates, moist mucous membranes. NECK: Trachea midline, full range of motion, supple. LUNGS: diminished bilaterally HEART: Regular rate and rhythm ABDOMEN: obese abdomen, soft, non distended EXTREMITIES: hyperpigmentation of lower extremities. unilteral edema, left > right. negative for dvt. NEUROLOGICAL: Normal speech, gait not observed. PSYCH: Normal mood, normal affect. SKIN: hyperpigmented lower extremities. Labs: CBC, BMP 05/14/19 16:05 05/14/19 16:05 INR, PTT INR 1.03 (0.83-1.09) 05/14/19 16:05 - ....Imaging Chest X-ray: Report Reviewed, Image Reviewed (no acute pathology) Problem List - Problems (1) Depression Assessment/Plan: c/w prozac supportive care Code(s): F32.9 - MAJOR DEPRESSIVE DISORDER, SINGLE EPISODE, UNSPECIFIED (2) Elevated troponin Assessment/Plan: most liekly demand ischemia vs ACS, assymptomatic trend troponin, if rising will consult cardiology c/w ASA 81mg daily c/w Plavix 75mg daily c/w statin Code(s): R74.8 - ABNORMAL LEVELS OF OTHER SERUM ENZYMES (3) Hyperglycemia Assessment/Plan: Seen by Dr Boyd BG with increased scale with novolog ac/qhs addition of increased levemit HgbA1C sent TSH/free T4 sent questionable non-compliance at [place] with insulin regimine Code(s): R73.9 - HYPERGLYCEMIA, UNSPECIFIED (4) Morbid obesity Assessment/Plan: low fat/cholesterol diet dietary consult placed Code(s): E66.01 - MORBID (SEVERE) OBESITY DUE TO EXCESS CALORIES (5) Prophylactic measure Assessment/Plan: FEN low/fat/diabeteic diet monitor electrolytes no need for additional IVF DVT heparin sq Dispo maintain as in patient discharge planning back to [facility] assisted living full code Code(s): Z29.9 - ENCOUNTER FOR PROPHYLACTIC MEASURES, UNSPECIFIED (6) Old non-ST elevation myocardial infarction (NSTEMI) Assessment/Plan: c/w asa, BB, statin EKG without ischemic changes Code(s): I25.2 - OLD MYOCARDIAL INFARCTION (7) COPD (chronic obstructive pulmonary disease) Assessment/Plan: c/w duonebs prn c/w spiriva supplemental O2 PRN Code(s): J44.9 - CHRONIC OBSTRUCTIVE PULMONARY DISEASE, UNSPECIFIED Qualifiers: COPD type: unspecified COPD Qualified Code(s): J44.9 - Chronic obstructive pulmonary disease, unspecified (8) HTN (hypertension) Assessment/Plan: c/w norvasc, metoprolol Code(s): I10 - ESSENTIAL (PRIMARY) HYPERTENSION (9) Seizure Assessment/Plan: c/w keppra Code(s): R56.9 - UNSPECIFIED CONVULSIONS (10) CHF (congestive heart failure) Assessment/Plan: c/w hctz, lasix Code(s): I50.9 - HEART FAILURE, UNSPECIFIED Visit type - Emergency Visit Emergency Visit: Yes ED Registration Date: 05/14/19 Care time: The patient presented to the Emergency Department on the above date and was hospitalized for further evaluation of their emergent condition. - New Patient This patient is new to me today: Yes Date on this admission: 05/15/19 - Critical Care Critical Care patient: No - Discharge Referral Referred to [facility] Med P.C.: No
[2019-05-15 08:12] LABS: HEMATOCRIT 32.3 % (32.4-45.2); HEMOGLOBIN 10.1 GM/dL (10.7-15.3); MCH 23.3 pg (25.7-33.7); MCHC 31.3 g/dl (32.0-36.0); MEAN CELL VOLUME 74.4 fl (80-96); MEAN PLT VOLUME 9.8 fl (7.5-11.1); PLATELET COUNT 291 K/MM3 (134-434); RBC 4.35 M/mm3 (3.60-5.2); RDW 20.8 % (11.6-15.6); WHITE BLOOD COUNT 13.8 K/mm3 (4.0-10.0)
[2019-05-15] MEDS ORDERED: metoPROLOL SUCCINATE 25 MG TAB.SR.24H (FP) PO SCH (10:00)
[2019-05-15] MEDS ORDERED: CLOPIDOGREL BISULFATE 75 MG TABLET (FP) PO SCH (10:00)
[2019-05-15] MEDS ORDERED: TIOTROPIUM BROMIDE 2.5 MCG (SPIRIVA) RESPIMAT INHALER IH SCH (10:00)
[2019-05-15] MEDS ORDERED: FUROSEMIDE 40 MG TABLET (FP) PO SCH (10:00)
[2019-05-15] MEDS ORDERED: amLODIPine BESYLATE 10 MG TABLET (FP) PO SCH (10:00)
[2019-05-15] MEDS ORDERED: LIDOCAINE 5% TOPICAL PATCH TP SCH (10:00)
[2019-05-15] MEDS ORDERED: FLUoxetine HCL 20 MG CAPSULE (FP) PO SCH (10:00)
[2019-05-15] MEDS ORDERED: FAMOTIDINE 20MG TABLET PO SCH (10:00)
[2019-05-15] MEDS ORDERED: BACITRACIN 15 GM TUBE TOPICAL OINTMENT TP SCH (10:00)
[2019-05-15] MEDS ORDERED: AMMONIUM LACTATE 12% CREAM 140 GM TUBE TP SCH (10:00)
[2019-05-15] MEDS ORDERED: SOLIFENACIN SUCCINATE 5 MG TAB PO SCH (10:00)
[2019-05-15] MEDS ORDERED: ASPIRIN COATED 81 MG TABLET.EC PO SCH (10:00)
[2019-05-15 10:30] LABS: ALBUMIN 3.4 g/dl (3.4-5.0); BILIRUBIN,TOTAL 0.6 mg/dL (0.2-1); BLOOD UREA NITROGEN 14.8 mg/dL (7-18); CALCIUM 9.1 mg/dL (8.5-10.1); CREATININE 0.8 mg/dL (0.55-1.3); MAGNESIUM 1.9 mg/dL (1.8-2.4); PHOSPHOROUS 3.4 mg/dL (2.5-4.9); POTASSIUM 3.8 mmol/L (3.5-5.1); TOT PROT 6.8 g/dl (6.4-8.2)
[2019-05-15] MEDS ORDERED: LIDOCAINE 5% TOPICAL PATCH ONE (10:54)
[2019-05-15] MEDS ORDERED: ACETAMINOPHEN 325 MG TABLET (FP) ONE (11:41)
--- NOTE | 2019-05-15 12:54 | EKG ---
Test Reason : Blood Pressure : / mmHG Vent. Rate : 089 BPM Atrial Rate : 089 BPM P-R Int : 152 ms QRS Dur : 082 ms QT Int : 374 ms P-R-T Axes : 023 -19 054 degrees QTc Int : 455 ms NORMAL SINUS RHYTHM VOLTAGE CRITERIA FOR LEFT VENTRICULAR HYPERTROPHY ABNORMAL ECG WHEN COMPARED WITH ECG OF 14-MAY-2019 15:49, NO SIGNIFICANT CHANGE WAS FOUND Confirmed by SANTOS KOHLER MD ([id number]) on 05/15/2019 12:53:46 PM Referred By: Confirmed By:SANTOS KOHLER MD
--- NOTE | 2019-05-15 12:56 | EKG ---
Test Reason : Blood Pressure : / mmHG Vent. Rate : 092 BPM Atrial Rate : 092 BPM P-R Int : 146 ms QRS Dur : 080 ms QT Int : 360 ms P-R-T Axes : 037 -17 064 degrees QTc Int : 445 ms NORMAL SINUS RHYTHM WITH FUSION BEAT VOLTAGE CRITERIA FOR LEFT VENTRICULAR HYPERTROPHY ABNORMAL ECG WHEN COMPARED WITH ECG OF 09-APR-2019 08:51, FUSION COMPLEXES ARE NOW SEEN Confirmed by SANTOS KOHLER MD ([id number]) on 05/15/2019 12:55:41 PM Referred By: Confirmed By:SANTOS KOHLER MD
[2019-05-15] MEDS ORDERED: HYDROCHLOROTHIAZIDE 12.5 MG CAPSULE (FP) PO SCH (13:00)
[2019-05-15] MEDS ORDERED: INSULIN SLIDING SCALE (NOVOLOG) 1 VIAL SQ SCH ×2 (17:27→22:45)
[2019-05-15] MEDS: ACETAMINOPHEN 325 MG TABLET (FP) PO PRN (20:54)
[2019-05-15] MEDS ORDERED: LIDOCAINE PATCH REMOVAL MC SCH (22:00)
[2019-05-15] MEDS ORDERED: DOCUSATE SODIUM 100 MG CAPSULE (FP) PO SCH (22:00)
--- NOTE | 2019-05-15 22:55 | PN ---
Progress Note, Physician Chief Complaint: comfortable no complaint - Current Medication List Current Medications: Active Medications Acetaminophen (Tylenol -) 650 mg PO Q6H PRN PRN Reason: PAIN LEVEL 4 - 6 Last Admin: 05/15/19 20:54 Dose: 650 mg Amlodipine Besylate (Norvasc -) 10 mg PO DAILY [facility] Last Admin: 05/15/19 10:35 Dose: 10 mg Artificial Tears (Artificial Tears) 1 drop OU BID [facility] Last Admin: 05/15/19 10:35 Dose: 1 drp Aspirin (Ecotrin -) 81 mg PO DAILY [facility] Last Admin: 05/15/19 10:35 Dose: 81 mg Atorvastatin Calcium (Lipitor -) 80 mg PO HS [facility] Last Admin: 05/15/19 00:34 Dose: 80 mg Budesonide/Formoterol Fumarate (Symbicort 160/4.5mcg -) 1 puff IH BID [facility] Last Admin: 05/15/19 11:33 Dose: Not Given Clopidogrel Bisulfate (Plavix -) 75 mg PO DAILY [facility] Last Admin: 05/15/19 10:35 Dose: 75 mg Clotrimazole (Lotrimin 1% Solution -) 1 applic TP BID [facility] Last Admin: 05/15/19 11:40 Dose: 1 dose Docusate Sodium (Colace -) 200 mg PO DAILY [facility] Fluoxetine HCl (Prozac -) 20 mg PO DAILY [facility] Last Admin: 05/15/19 10:35 Dose: 20 mg Furosemide (Lasix -) 40 mg PO DAILY [facility] Last Admin: 05/15/19 10:35 Dose: 40 mg Heparin Sodium (Porcine) (Heparin -) 5,000 unit SQ TID [facility] Last Admin: 05/15/19 14:03 Dose: 5,000 unit Hydralazine HCl (Apresoline -) 25 mg PO BID [facility] Last Admin: 05/15/19 10:35 Dose: 25 mg Hydrochlorothiazide (Hctz -) 12.5 mg PO DAILY@1300 [facility] Last Admin: 05/15/19 13:45 Dose: 12.5 mg Insulin Aspart (Novolog Vial Sliding Scale -) 1 vial SQ ACHS [facility]; Protocol Insulin Detemir (Levemir Vial) 27 units SQ HS [facility] Insulin Detemir (Levemir Vial) 45 units SQ AM [facility] Levetiracetam (Keppra -) 500 mg PO BID [facility] Last Admin: 05/15/19 10:35 Dose: 500 mg Lidocaine (Lidoderm Patch -) 1 patch TP DAILY [facility] Last Admin: 05/15/19 11:10 Dose: 1 patch Metoprolol Succinate (Toprol Xl -) 25 mg PO DAILY [facility] Last Admin: 05/15/19 10:35 Dose: 25 mg Miscellaneous (Lidoderm Patch Removal) 1 each MC DAILY@2200 [facility] Famotidine 20mg (Tablet) 1 each PO DAILY [facility] Last Admin: 05/15/19 10:35 Dose: 1 each Nortriptyline HCl (Pamelor -) 25 mg PO HS [facility] Last Admin: 05/15/19 00:35 Dose: 25 mg Oxycodone HCl (Roxicodone -) 5 mg PO Q6H PRN PRN Reason: PAIN LEVEL 7 - 10 Senna (Senna -) 2 tab PO HS [facility] Last Admin: 05/15/19 00:35 Dose: 2 tab Solifenacin (Vesicare -) 5 mg PO DAILY [facility] Last Admin: 05/15/19 10:35 Dose: 5 mg Tiotropium [place] (Spiriva Respimat) 2 puff IH DAILY [facility] Last Admin: 05/15/19 11:40 Dose: 2 puff - Objective Vital Signs: Vital Signs Temperature 98.0 F 05/15/19 07:37 Pulse Rate 94 H 05/15/19 19:42 Respiratory Rate 18 05/15/19 19:42 Blood Pressure 141/73 05/15/19 19:42 O2 Sat by Pulse Oximetry (%) 98 05/15/19 19:42 Constitutional: Yes: Calm Eyes: Yes: EOM Intact HENT: Yes: Normocephalic Neck: Yes: Trachea Midline Cardiovascular: Yes: Regular Rate and Rhythm Respiratory: Yes: CTA Bilaterally Gastrointestinal: Yes: Normal Bowel Sounds ...Rectal Exam: Yes: Deferred Genitourinary: Yes: WNL Breast(s): Yes: WNL Musculoskeletal: Yes: WNL Extremities: Yes: Delayed Capillary Refill Edema: LLE: 1+, RLE: 1+ Neurological: Yes: Numbness, Unsteady Gait, Weakness Labs: CBC, BMP 05/15/19 06:55 05/15/19 09:40 INR, PTT INR 1.03 (0.83-1.09) 05/14/19 16:05 Problem List - Problems (1) Hyperglycemia Code(s): R73.9 - HYPERGLYCEMIA, UNSPECIFIED (2) Hyperkalemia Code(s): E87.5 - HYPERKALEMIA (3) Type 2 diabetes mellitus with diabetic autonomic (poly)neuropathy Code(s): E11.43 - TYPE 2 DIABETES W DIABETIC AUTONOMIC (POLY)NEUROPATHY Qualifiers: Diabetes mellitus ocean transportation intermediary insulin use: with custodial use Qualified Code( s): E11.43 - Type 2 diabetes mellitus with diabetic autonomic (poly)neuropathy; Z79.4 - keno terminal operator (current) use of insulin (4) Morbid obesity Code(s): E66.01 - MORBID (SEVERE) OBESITY DUE TO EXCESS CALORIES (5) Angioedema due to angiotensin converting enzyme inhibitor (PADMINI-I) Code(s): T78.3XXA - ANGIONEUROTIC EDEMA, INITIAL ENCOUNTER; T46.4X1A - POISONING BY [id number] INHIBITORS, ACC, INIT (6) Arm sprain Code(s): GRN2830 - Assessment/Plan Current Active Problems Depression (Acute) Elevated troponin (Acute) Hyperglycemia (Acute) Hyperkalemia (Acute) Type 2 diabetes mellitus with diabetic autonomic (poly)neuropathy (Acute) Morbid obesity (Chronic) Abnormal Lab Results 05/15/19 05/15/19 05/15/19 06:55 06:55 09:40 WBC 13.8 H Hgb 10.1 L Hct 32.3 L MCV 74.4 L MCH 23.3 L MCHC 31.3 L RDW 20.8 H Anion Gap 7 L Random Glucose 258 H Hemoglobin A1c % 8.8 H Alkaline Phosphatase 132 H Creatine Kinase 226 H Troponin I 0.08 H 05/15/19 14:00 WBC Hgb Hct MCV MCH MCHC RDW Anion Gap Random Glucose Hemoglobin A1c % Alkaline Phosphatase Creatine Kinase Troponin I 0.07 H plan: bgm qid novolog levemir bid doses adjustment given cardio consult pos trop
[2019-05-15 23:58] VITALS: BMI 58.5
[2019-05-16] MEDS: CLOTRIMAZOLE 1%TOPICAL SOLUTION 30 ML BOTTLE TP SCH ×3 (00:03→22:11)
[2019-05-16] MEDS ORDERED: ACETAMINOPHEN 325 MG TABLET (FP) PO PRN (01:46)
[2019-05-16] MEDS ORDERED: oxyCODONE HCL 5 MG TABLET PO PRN (01:46)
[2019-05-16] MEDS: HEPARIN NA (PORCINE) 5,000 UNITS/ML 1ML VIAL SQ SCH ×3 (06:21→22:10)
[2019-05-16] MEDS: INSULIN SLIDING SCALE (NOVOLOG) 1 VIAL SQ SCH ×4 (06:22→22:11)
[2019-05-16 06:34] LABS: BASO % 0.4 % (0-2.0); HEMATOCRIT 30.4 % (32.4-45.2); HEMOGLOBIN 9.7 GM/dL (10.7-15.3); LYMPH % 16.8 % (8-40); MCH 23.4 pg (25.7-33.7); MCHC 31.8 g/dl (32.0-36.0); MEAN CELL VOLUME 73.7 fl (80-96); MEAN PLT VOLUME 9.4 fl (7.5-11.1); MONO % 4.6 % (3.8-10.2); NEUT % 77.2 % (42.8-82.8); PLATELET COUNT 256 K/MM3 (134-434); RBC 4.13 M/mm3 (3.60-5.2); RDW 20.4 % (11.6-15.6); WHITE BLOOD COUNT 12.1 K/mm3 (4.0-10.0)
[2019-05-16] MEDS: INSULIN (LEVEMIR) 100 UNITS/ML UNITS SQ SCH (06:49)
[2019-05-16] MEDS ORDERED: INSULIN (LEVEMIR) 100 UNITS/ML UNITS SQ SCH ×3 (07:00→22:00)
[2019-05-16 07:05] LABS: ALBUMIN 3.2 g/dl (3.4-5.0); BILIRUBIN,TOTAL 0.5 mg/dL (0.2-1); BLOOD UREA NITROGEN 15.5 mg/dL (7-18); CALCIUM 9.3 mg/dL (8.5-10.1); CREATININE 0.7 mg/dL (0.55-1.3); MAGNESIUM 1.8 mg/dL (1.8-2.4); POTASSIUM 3.5 mmol/L (3.5-5.1); TOT PROT 6.5 g/dl (6.4-8.2)
--- NOTE | 2019-05-16 10:14 | PN ---
Physical Exam: SUBJECTIVE: Patient seen and examined at the bedside. feels well, refusing to go to rehab, [facility]. OBJECTIVE: uc noted, with elevated WBC on admission, now down trending Patient is a68 year old female with a significant past medical history of CVA, CHF, GERD, COPD/asthma, DM II, NSTEMI, HTN presenting with ED via EMS from [facility] with an elevated blood sugar level. Pt reports that prior to presenting to [facility] she was seen at [facility] last week for hyperglycemia which was managed with IVF and instructions to f/u with endocrinology. Patient was recently admitted to [facility] on 04/30 for complaints of 2 days of lower abdominal pain, nausea and vomiting. In ED BGM was noted to be 22mg/dl with repeat of 30mg/dl. D50 was administered in addition to continuous D5W infusion. Her BG stabilized and she was evaluated by endocrinology with metformin and victoza d/taylor at time of discharge, levemir 20units qam started. Pt was instructed to follow up outpt for close monitoring. Vital Signs Period Temp Pulse Resp BP Sys/[place]ox Pulse Ox Last 24 Hr 98.0 F-98.3 F 86-98 16-20 141-151/63-77 96-99 GENERAL: The patient is awake, alert, and fully oriented, in no acute distress. HEAD: Normal with no signs of trauma. EYES: PERRL, extraocular movements intact, sclera anicteric, conjunctiva clear. No ptosis. ENT: Ears normal, nares patent, oropharynx clear without exudates, moist mucous membranes. NECK: Trachea midline, full range of motion, supple. LUNGS: diminished bilaterally HEART: Regular rate and rhythm ABDOMEN: obese abdomen, soft, non distended EXTREMITIES: hyperpigmentation of lower extremities. unilteral edema, left > right. negative for dvt. NEUROLOGICAL: Normal speech, gait not observed. PSYCH: Normal mood, normal affect. SKIN: hyperpigmented lower extremities. Laboratory Results - last 24 hr 05/15/19 05/15/19 05/15/19 06:55 09:40 11:00 WBC RBC Hgb Hct MCV MCH MCHC RDW Plt Count MPV Absolute Neuts (auto) Neutrophils % Lymphocytes % Monocytes % Eosinophils % Basophils % Nucleated RBC % Sodium 138 Potassium 3.8 Chloride 102 Carbon Dioxide 29 Anion Gap 7 L BUN 14.8 Creatinine 0.8 Est GFR (CKD-EPI)AfAm 87.80 Est GFR (CKD-EPI)NonAf 75.75 POC Glucometer 322 Random Glucose 258 H Hemoglobin A1c % 8.8 H Calcium 9.1 Phosphorus 3.4 Magnesium 1.9 Total Bilirubin 0.6 AST 20 ALT 29 Alkaline Phosphatase 132 H Creatine Kinase 226 H Creatine Kinase Index 1.1 CK-MB (CK-2) 2.6 Troponin I 0.08 H Total Protein 6.8 Albumin 3.4 Free T4 05/15/19 05/15/19 05/15/19 14:00 17:19 23:32 WBC RBC Hgb Hct MCV MCH MCHC RDW Plt Count MPV Absolute Neuts (auto) Neutrophils % Lymphocytes % Monocytes % Eosinophils % Basophils % Nucleated RBC % Sodium Potassium Chloride Carbon Dioxide Anion Gap BUN Creatinine Est GFR (CKD-EPI)AfAm Est GFR (CKD-EPI)NonAf POC Glucometer 340 307 Random Glucose Hemoglobin A1c % Calcium Phosphorus Magnesium Total Bilirubin AST ALT Alkaline Phosphatase Creatine Kinase Creatine Kinase Index CK-MB (CK-2) Troponin I 0.07 H Total Protein Albumin Free T4 1.31 05/16/19 05/16/19 05/16/19 05:45 05:45 06:18 WBC 12.1 H RBC 4.13 Hgb 9.7 L Hct 30.4 L MCV 73.7 L MCH 23.4 L MCHC 31.8 L RDW 20.4 H Plt Count 256 MPV 9.4 Absolute Neuts (auto) 9.4 H Neutrophils % 77.2 Lymphocytes % 16.8 D Monocytes % 4.6 Eosinophils % 1.0 D Basophils % 0.4 Nucleated RBC % 0 Sodium 137 Potassium 3.5 Chloride 100 Carbon Dioxide 31 Anion Gap 6 L BUN 15.5 Creatinine 0.7 Est GFR (CKD-EPI)AfAm 103.18 Est GFR (CKD-EPI)NonAf 89.03 POC Glucometer 229 Random Glucose 240 H Hemoglobin A1c % Calcium 9.3 Phosphorus Magnesium 1.8 Total Bilirubin 0.5 AST 23 ALT 30 Alkaline Phosphatase 121 H Creatine Kinase Creatine Kinase Index CK-MB (CK-2) Troponin I Total Protein 6.5 Albumin 3.2 L Free T4 Active Medications Generic Name Dose Route Start Last Admin Trade Name Freq PRN Reason Stop Dose Admin Acetaminophen 650 mg 05/16/19 01:46 Tylenol - PO Q6H PRN PAIN LEVEL 4 - 6 Amlodipine Besylate 10 mg 05/16/19 10:00 Norvasc - PO DAILY [facility] Artificial Tears 1 drop 05/16/19 10:00 Artificial Tears OU BID [facility] Aspirin 81 mg 05/16/19 10:00 Ecotrin - PO DAILY [facility] Atorvastatin Calcium 80 mg 05/16/19 22:00 Lipitor - PO HS [facility] Budesonide/Formoterol Fumarate 1 puff 05/16/19 10:00 Symbicort 160/4.5mcg - IH BID [facility] Clopidogrel Bisulfate 75 mg 05/16/19 10:00 Plavix - PO DAILY [facility] Clotrimazole 1 applic 05/16/19 10:00 Lotrimin 1% Solution - TP BID [facility] Docusate Sodium 200 mg 05/16/19 10:00 Colace - PO DAILY [facility] Fluoxetine HCl 20 mg 05/16/19 10:00 Prozac - PO DAILY [facility] Furosemide 40 mg 05/16/19 10:00 Lasix - PO DAILY [facility] Heparin Sodium (Porcine) 5,000 unit 05/16/19 06:00 05/16/19 06:21 Heparin - SQ 5,000 unit TID [facility] Administration Hydralazine HCl 25 mg 05/16/19 10:00 Apresoline - PO BID [facility] Hydrochlorothiazide 12.5 mg 05/16/19 13:00 Hctz - PO DAILY@1300 [facility] Insulin Aspart 1 vial 05/16/19 07:00 05/16/19 06:22 Novolog Vial Sliding Scale - SQ 9 units ACHS [facility] Administration Protocol Insulin Detemir 27 units 05/16/19 22:00 Levemir Vial SQ HS [facility] Insulin Detemir 45 units 05/16/19 07:00 05/16/19 06:49 Levemir Vial SQ 45 units AM [facility] Administration Levetiracetam 500 mg 05/16/19 10:00 Keppra - PO BID [facility] Lidocaine 1 patch 05/16/19 10:00 Lidoderm Patch - TP DAILY [facility] Metoprolol Succinate 25 mg 05/16/19 10:00 Toprol Xl - PO DAILY [facility] Miscellaneous 1 each 05/16/19 22:00 Lidoderm Patch Removal MC DAILY@2200 [facility] Nortriptyline HCl 25 mg 05/16/19 22:00 Pamelor - PO HS [facility] Oxycodone HCl 5 mg 05/16/19 01:46 Roxicodone - PO Q6H PRN PAIN LEVEL 7 - 10 Ranitidine HCl 150 mg 05/16/19 10:00 Zantac - PO DAILY [facility] Senna 2 tab 05/16/19 22:00 Senna - PO HS [facility] Solifenacin 5 mg 05/16/19 10:00 Vesicare - PO DAILY [facility] Tiotropium [place] 2 puff 05/16/19 10:00 Spiriva Respimat IH DAILY [facility] ASSESSMENT/PLAN: Problem List - Problems (1) Depression Assessment/Plan: c/w prozac supportive care Code(s): F32.9 - MAJOR DEPRESSIVE DISORDER, SINGLE EPISODE, UNSPECIFIED (2) Elevated troponin Assessment/Plan: most liekly demand ischemia vs ACS, asymptomatic cardiology consulted and following c/w ASA 81mg daily c/w Plavix 75mg daily c/w statin Code(s): R74.8 - ABNORMAL LEVELS OF OTHER SERUM ENZYMES (3) Hyperglycemia Assessment/Plan: Seen by Dr Boyd BGM with increased scale with novolog ac/qhs addition of increased levemit HgbA1C sent TSH/free T4 sent questionable non-compliance at [place] with insulin regimine Code(s): R73.9 - HYPERGLYCEMIA, UNSPECIFIED (4) Hyperkalemia Assessment/Plan: resolved Code(s): E87.5 - HYPERKALEMIA (5) Type 2 diabetes mellitus with diabetic autonomic (poly)neuropathy Assessment/Plan: blood sugars in the 200s, 300s currently. goal to maintain bgms <180, >100. on levemir 27 @ hs, levemir 45 in am. with SS monitor bgms for better control and adjust accordingly Code(s): E11.43 - TYPE 2 DIABETES W DIABETIC AUTONOMIC (POLY)NEUROPATHY Qualifiers: Diabetes mellitus medical economics consultant insulin use: with medical economics consultant use Qualified Code( s): E11.43 - Type 2 diabetes mellitus with diabetic autonomic (poly)neuropathy; Z79.4 - detention (current) use of insulin (6) Morbid obesity Assessment/Plan: dietary consult Code(s): E66.01 - MORBID (SEVERE) OBESITY DUE TO EXCESS CALORIES (7) CHF (congestive heart failure) Assessment/Plan: c/w hctz, lasix Code(s): I50.9 - HEART FAILURE, UNSPECIFIED (8) Prophylactic measure Code(s): Z29.9 - ENCOUNTER FOR PROPHYLACTIC MEASURES, UNSPECIFIED Visit type - Emergency Visit Emergency Visit: Yes ED Registration Date: 05/14/19 Care time: The patient presented to the Emergency Department on the above date and was hospitalized for further evaluation of their emergent condition. - New Patient This patient is new to me today: Yes Date on this admission: 05/16/19 - Critical Care Critical Care patient: No - Discharge Referral Referred to [facility] Med P.C[facility] No
[2019-05-16] MEDS ORDERED: CEFTRIAXONE 1 GM in DEXTROSE 5%-WATER - 50 ML IVPB ONE (10:30)
[2019-05-16] MEDS: RANITIDINE HCL 150 MG TABLET (FP) PO SCH (11:11)
[2019-05-16] MEDS: FLUoxetine HCL 20 MG CAPSULE (FP) PO SCH (11:11)
[2019-05-16] MEDS: DOCUSATE SODIUM 100 MG CAPSULE (FP) PO SCH (11:11)
[2019-05-16] MEDS: FUROSEMIDE 40 MG TABLET (FP) PO SCH (11:11)
[2019-05-16] MEDS: amLODIPine BESYLATE 10 MG TABLET (FP) PO SCH (11:12)
[2019-05-16] MEDS: metoPROLOL SUCCINATE 25 MG TAB.SR.24H (FP) PO SCH (11:12)
[2019-05-16] MEDS: levETIRAcetam 500 MG TABLET (FP) PO SCH ×2 (11:13→22:09)
[2019-05-16] MEDS: SOLIFENACIN SUCCINATE 5 MG TAB PO SCH (11:13)
[2019-05-16] MEDS: hydrALAZINE HCL 25 MG TABLET (FP) PO SCH ×2 (11:13→22:09)
[2019-05-16] MEDS: ASPIRIN COATED 81 MG TABLET.EC PO SCH (11:13)
[2019-05-16] MEDS: CLOPIDOGREL BISULFATE 75 MG TABLET (FP) PO SCH (11:13)
[2019-05-16] MEDS: LIDOCAINE 5% TOPICAL PATCH TP SCH (11:14)
[2019-05-16] MEDS: TIOTROPIUM BROMIDE 2.5 MCG (SPIRIVA) RESPIMAT INHALER IH SCH (11:18)
[2019-05-16] MEDS: ARTIFICIAL TEARS (POLYVINYL ALCOHOL) OPTH DROPS OU SCH ×2 (11:19→22:10)
[2019-05-16] MEDS ORDERED: PT OWN MED DRAWER 7, Y5N ONE ×3 (11:23→21:26)
[2019-05-16] MEDS ORDERED: cefTRIAXone SODIUM 1 GM VIAL ONE (11:36)
[2019-05-16] MEDS ORDERED: DEXTROSE 5%-WATER - 50 ML IVPB ONE (11:36)
--- NOTE | 2019-05-16 11:40 | CON.CARD ---
Cardiology Consult (text) - Consultation Consultation Note: Consult Specialty:: cardio - History of Present Illness Chief Complaint: hyperglycemia, elevated trop History of Present Illness: 68F CVA, chronic diastolic HF, GERD, COPD, NSTEMI, HTN p/w hyperglycemia. Lives at intermediate. No chest pain, palps, dizziness, dyspnea. Complains of increased urinating, LLE pain, dry mouth. 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 Cardio/Vascular: Yes: CHF, HTN Pulmonary: Yes: Asthma Psych: Yes: Depression Endocrine: Yes: Diabetes Mellitus - Alcohol/Substance Use Hx Alcohol Use: No - Smoking History Smoking history: Former smoker Have you smoked in the past 12 months: No If you are a former smoker, when did you quit?: 10 years ago - Social History Usual Living Arrangement: Care Home ADL: Independent History of Recent Travel: No Home Medications - Allergies Allergies/Adverse Reactions: Allergies Allergy/AdvReac Type Severity Reaction Status Date / Time lisinopril Allergy Severe Swelling Verified 05/14/19 15:16 PADMINI Inhibitors Allergy Verified 05/14/19 15:16 blueberry Allergy Verified 05/14/19 15:16 erythromycin base Allergy Verified 05/14/19 15:16 naproxen Allergy Verified 05/14/19 15:16 raspberry Allergy Verified 05/14/19 15:16 strawberry Allergy Verified 05/14/19 15:16 Ambulatory Orders Amlodipine Besylate [Norvasc -] 10 mg PO DAILY 03/10/18 Budesonide/Formeterol Fumarate [SYMBICORT 160/4.5mcg -] 1 inh PO BID 03/10/18 Famotidine [Pepcid] 20 mg PO DAILY 03/10/18 Fluoxetine HCl [Prozac] 20 mg PO DAILY 03/10/18 Insulin Regular, Human [Humulin R U-500 Kwikpen] 0 unit SQ TID 03/10/18 Levetiracetam [Keppra] 500 mg PO BID 03/10/18 Metformin HCl [Glucophage] 1,000 mg PO BID 03/10/18 Nortriptyline HCl 25 mg PO HS 03/10/18 Polyvinyl Alcohol [Artificial Tears] 1 drop OP BID 03/10/18 Potassium Chloride 20 meq PO DAILY 03/10/18 hydrALAZINE HCL [Apresoline -] 25 mg PO BID 03/10/18 Ammonium Lactate Cream [Lac-Hydrin 12% Cream -] 1 applic TP DAILY 04/09/19 Aspirin [Aspirin EC] 81 mg PO DAILY 04/09/19 Atorvastatin Ca [Lipitor] 80 mg PO HS 04/09/19 Bacitracin - [Bacitracin Topical Ointment -] 1 applic TP DAILY 04/09/19 Clopidogrel Bisulfate [Plavix -] 75 mg PO DAILY 04/09/19 Clotrimazole [Lotrimin -] 1 applic TP BID 04/09/19 Docusate Sodium [Colace -] 200 mg PO DAILY 04/09/19 Metoprolol Succinate [Toprol Xl] 25 mg PO DAILY 04/09/19 Mupirocin Ointment [Bactroban 2% Ointment -] 1 applic TP DAILY 04/09/19 Oxybutynin Chloride [Oxybutynin Chloride ER] 5 mg PO DAILY 04/09/19 Umeclidinium [place] [Incruse Ellipta] 62.5 mcg IH DAILY 04/09/19 Furosemide [Lasix] 40 mg PO DAILY #30 tablet 04/11/19 Hydrochlorothiazide [Hctz -] 12.5 mg PO DAILY #7 cap 04/11/19 Acetaminophen [Tylenol] 650 mg PO QID #30 capsule 04/20/19 Lidocaine 5% Patch [Lidoderm -] 1 patch TP DAILY #14 patch 04/20/19 Hydrocodone/Acetaminophen [Hydrocodone-Acetamin 5-325 mg] 1 each PO BID Insulin (Levemir) [Levemir Vial] units SQ AM 05/14/19 Family Disease History - Family Disease History Family History: Denies (no known cmp) Review of Systems - Review of Systems Constitutional: denies: Chills, Fever Eyes: denies: Eye Pain HENT: denies: Nasal Congestion Neck: denies: Stiffness Cardiovascular: denies: Palpitations Respiratory: denies: Orthopnea, PND Gastrointestinal: denies: Diarrhea, Rectal Bleeding Genitourinary: denies: Burning, Hematuria Musculoskeletal: denies: Muscle Pain Integumentary: denies: Rash Neurological: denies: Numbness, Seizure, Syncope Endocrine: denies: Excessive Sweating Hematology/Lymphatic: denies: Excessive Bleeding Vital Signs: Vital Signs Period Temp Pulse Resp BP Sys/Knox Pulse Ox Last 24 Hr 98.0 F-98.3 F 86-94 16-20 141-151/63-77 96-98 Constitutional: Yes: Well Nourished, No Distress, Obese Eyes: No: Sclera Icterus HENT: No: Nasal Congestion Neck: No: Decreased ROM Respiratory: Yes: CTA Bilaterally. No: Accessory Muscle Use, Rales, Wheezes Gastrointestinal: Yes: Normal Bowel Sounds. No: Distention, Hepatomegaly, Palpable Mass, Tenderness Cardiovascular: Yes: Regular Rate and Rhythm JVD: No Carotid Bruit: No PMI: Non-Displaced Heart Sounds: Yes: S1, S2. No: Gallop Murmur: No: Systolic Murmur, Diastolic Murmur Musculoskeletal: Yes: Other (No kyphosis) Extremities: No: Cool, Cyanosis Edema: No Integumentary: No: Jaundice Neurological: Yes: Alert, Oriented (x3) Psychiatric: No: Agitated Assessment/Plan Echo 03/2018: nl LV/RV size and function, no significant valvular dz cath 2018 80-90% mid LAD--Xience GINO, subtotal occlusion D1 fills faintly via LAD collaterals (branching vessel)--PCI here not successful; 70-80% mRCA--no intervention; mild LCX and Ramus stenoses. LVEDP 18, nl EF CXR: no acute process ECG: NSR, normal axis. LVH with repol abnormalities echo 04/2019 nl LV function, tr MR, tr TR, RVSP 22 mmHG, mod tele: sinus hyperglycemia - manage per endocrine elevated trop - flat trend, indeterminate range, EKG unchanged from prior - defer further cardiac testing CAD: - s/p cath 2018 with 80-90% mild LAD s/p GINO, unsuccessful PCI to subtotal D1, no intervention to mRCA 70-80% - cont atorvastatin 80 mg daily - cont aspirin and plavix - completed 12 mo--but ischemia risk is likely > bleed risk so will cont DAPT x 3 yrs if tolerates HTN: -bp controlled -cont home meds chronic diastolic HF - cont lasix, HCTZ COPD - manage per primary
[2019-05-16] MEDS: BUDESONIDE/FORMETEROL FUMARATE 160/4.5 mcg INHALER IH SCH ×2 (12:25→22:08)
[2019-05-16] MEDS: HYDROCHLOROTHIAZIDE 12.5 MG CAPSULE (FP) PO SCH (13:53)
[2019-05-16] MEDS ORDERED: NORTRIPTYLINE HCL 25 MG CAPSULE PO SCH (22:00)
[2019-05-16] MEDS ORDERED: LIDOCAINE PATCH REMOVAL MC SCH ×2 (22:00)
[2019-05-16] MEDS ORDERED: SENNOSIDES 8.6MG TABLET (FP) PO SCH (22:00)
[2019-05-16] MEDS ORDERED: ATORVASTATIN CA 80 MG TABLET (FP) PO SCH (22:00)
[2019-05-17] MEDS: HEPARIN NA (PORCINE) 5,000 UNITS/ML 1ML VIAL SQ SCH ×3 (06:59→22:28)
[2019-05-17] MEDS: INSULIN SLIDING SCALE (NOVOLOG) 1 VIAL SQ SCH ×3 (07:00→22:29)
[2019-05-17] MEDS: INSULIN (LEVEMIR) 100 UNITS/ML UNITS SQ SCH (07:00)
[2019-05-17 08:51] LABS: BASO % 0.8 % (0-2.0); EOS % 0.8 % (0-4.5); HEMATOCRIT 33.2 % (32.4-45.2); HEMOGLOBIN 10.5 GM/dL (10.7-15.3); LYMPH % 17.1 % (8-40); MCH 23.7 pg (25.7-33.7); MCHC 31.6 g/dl (32.0-36.0); MEAN PLT VOLUME 9.5 fl (7.5-11.1); MONO % 5.8 % (3.8-10.2); NEUT % 75.5 % (42.8-82.8); PLATELET COUNT 283 K/MM3 (134-434); RBC 4.42 M/mm3 (3.60-5.2); RDW 20.7 % (11.6-15.6); WHITE BLOOD COUNT 11.9 K/mm3 (4.0-10.0)
[2019-05-17 09:22] LABS: ALBUMIN 3.2 g/dl (3.4-5.0); BILIRUBIN,TOTAL 0.6 mg/dL (0.2-1); BLOOD UREA NITROGEN 16.4 mg/dL (7-18); CREATININE 0.8 mg/dL (0.55-1.3); MAGNESIUM 1.9 mg/dL (1.8-2.4); POTASSIUM 3.7 mmol/L (3.5-5.1); TOT PROT 6.8 g/dl (6.4-8.2)
[2019-05-17] MEDS ORDERED: CEFTRIAXONE 1 GM in DEXTROSE 5%-WATER - 50 ML IVPB SCH (10:00)
[2019-05-17] MEDS ORDERED: cefTRIAXone SODIUM 1 GM VIAL ONE (10:50)
[2019-05-17] MEDS ORDERED: DEXTROSE 5%-WATER - 50 ML IVPB ONE (10:50)
[2019-05-17] MEDS: LIDOCAINE 5% TOPICAL PATCH TP SCH (10:59)
[2019-05-17] MEDS: RANITIDINE HCL 150 MG TABLET (FP) PO SCH (11:06)
[2019-05-17] MEDS: DOCUSATE SODIUM 100 MG CAPSULE (FP) PO SCH (11:06)
[2019-05-17] MEDS: hydrALAZINE HCL 25 MG TABLET (FP) PO SCH ×2 (11:06→22:27)
[2019-05-17] MEDS: SOLIFENACIN SUCCINATE 5 MG TAB PO SCH (11:06)
[2019-05-17] MEDS: FLUoxetine HCL 20 MG CAPSULE (FP) PO SCH (11:06)
[2019-05-17] MEDS: ARTIFICIAL TEARS (POLYVINYL ALCOHOL) OPTH DROPS OU SCH ×2 (11:07→22:27)
[2019-05-17] MEDS: levETIRAcetam 500 MG TABLET (FP) PO SCH ×2 (11:07→22:28)
[2019-05-17] MEDS: ASPIRIN COATED 81 MG TABLET.EC PO SCH (11:07)
[2019-05-17] MEDS: amLODIPine BESYLATE 10 MG TABLET (FP) PO SCH (11:07)
[2019-05-17] MEDS: metoPROLOL SUCCINATE 25 MG TAB.SR.24H (FP) PO SCH (11:07)
[2019-05-17] MEDS: CLOPIDOGREL BISULFATE 75 MG TABLET (FP) PO SCH (11:07)
[2019-05-17] MEDS: FUROSEMIDE 40 MG TABLET (FP) PO SCH (11:07)
[2019-05-17] MEDS: CLOTRIMAZOLE 1%TOPICAL SOLUTION 30 ML BOTTLE TP SCH ×2 (11:08→22:29)
[2019-05-17] MEDS: TIOTROPIUM BROMIDE 2.5 MCG (SPIRIVA) RESPIMAT INHALER IH SCH (11:08)
[2019-05-17] MEDS: BUDESONIDE/FORMETEROL FUMARATE 160/4.5 mcg INHALER IH SCH ×2 (11:08→22:31)
--- NOTE | 2019-05-17 11:54 | PN ---
Progress Note (short form) - Note Progress Note: s: no chest pain, palps, dizziness, dyspnea Current Medications Acetaminophen (Tylenol -) 650 mg PO Q6H PRN PRN Reason: PAIN LEVEL 4 - 6 Amlodipine Besylate (Norvasc -) 10 mg PO DAILY [facility] Last Admin: 05/17/19 11:07 Dose: 10 mg Artificial Tears (Artificial Tears) 1 drop OU BID [facility] Last Admin: 05/17/19 11:07 Dose: 1 drop Aspirin (Ecotrin -) 81 mg PO DAILY [facility] Last Admin: 05/17/19 11:07 Dose: 81 mg Atorvastatin Calcium (Lipitor -) 80 mg PO HS [facility] Last Admin: 05/16/19 22:09 Dose: 80 mg Budesonide/Formoterol Fumarate (Symbicort 160/4.5mcg -) 1 puff IH BID [facility] Last Admin: 05/17/19 11:08 Dose: 1 puff Clopidogrel Bisulfate (Plavix -) 75 mg PO DAILY [facility] Last Admin: 05/17/19 11:07 Dose: 75 mg Clotrimazole (Lotrimin 1% Solution -) 1 applic TP BID [facility] Last Admin: 05/17/19 11:08 Dose: 1 applic Docusate Sodium (Colace -) 200 mg PO DAILY [facility] Last Admin: 05/17/19 11:06 Dose: 200 mg Fluoxetine HCl (Prozac -) 20 mg PO DAILY [facility] Last Admin: 05/17/19 11:06 Dose: 20 mg Furosemide (Lasix -) 40 mg PO DAILY [facility] Last Admin: 05/17/19 11:07 Dose: 40 mg Heparin Sodium (Porcine) (Heparin -) 5,000 unit SQ TID [facility] Last Admin: 05/17/19 06:59 Dose: 5,000 unit Hydralazine HCl (Apresoline -) 25 mg PO BID [facility] Last Admin: 05/17/19 11:06 Dose: 25 mg Hydrochlorothiazide (Hctz -) 12.5 mg PO DAILY@1300 [facility] Last Admin: 05/16/19 13:53 Dose: 12.5 mg Ceftriaxone Sodium 1 gm/ (Dextrose) 50 mls @ 200 mls/hr IVPB DAILY [facility]; Protocol Last Admin: 05/17/19 11:00 Dose: 200 mls/hr Insulin Aspart (Novolog Vial Sliding Scale -) 1 vial SQ ACHS [facility]; Protocol Last Admin: 05/17/19 07:00 Dose: 9 units Insulin Detemir (Levemir Vial) 27 units SQ HS [facility] Last Admin: 05/16/19 22:12 Dose: 27 unit Insulin Detemir (Levemir Vial) 45 units SQ AM [facility] Last Admin: 05/17/19 07:00 Dose: 45 units Levetiracetam (Keppra -) 500 mg PO BID [facility] Last Admin: 05/17/19 11:07 Dose: 500 mg Lidocaine (Lidoderm Patch -) 1 patch TP DAILY [facility] Last Admin: 05/17/19 10:59 Dose: 1 patch Metoprolol Succinate (Toprol Xl -) 25 mg PO DAILY [facility] Last Admin: 05/17/19 11:07 Dose: 25 mg Miscellaneous (Lidoderm Patch Removal) 1 each MC DAILY@2200 [facility] Last Admin: 05/16/19 22:11 Dose: Not Given Nortriptyline HCl (Pamelor -) 25 mg PO HS [facility] Last Admin: 05/16/19 22:08 Dose: 25 mg Oxycodone HCl (Roxicodone -) 5 mg PO Q6H PRN PRN Reason: PAIN LEVEL 7 - 10 Ranitidine HCl (Zantac -) 150 mg PO DAILY [facility] Last Admin: 05/17/19 11:06 Dose: 150 mg Senna (Senna -) 2 tab PO [facility] Last Admin: 05/16/19 22:09 Dose: 2 tab Solifenacin (Vesicare -) 5 mg PO DAILY [facility] Last Admin: 05/17/19 11:06 Dose: 5 mg Tiotropium [place] (Spiriva Respimat) 2 puff IH DAILY [facility] Last Admin: 05/17/19 11:08 Dose: 2 puff Vital Signs Period Temp Pulse Resp BP Sys/Knox Pulse Ox Last 24 Hr 97.5 F-98.5 F 75-94 17-20 91-151/51-77 95 Constitutional: Yes: Well Nourished, No Distress, Obese Eyes: No: Sclera Icterus HENT: No: Nasal Congestion Neck: No: Decreased ROM Respiratory: Yes: CTA Bilaterally. No: Accessory Muscle Use, Rales, Wheezes Gastrointestinal: Yes: Normal Bowel Sounds. No: Distention, Hepatomegaly, Palpable Mass, Tenderness Cardiovascular: Yes: Regular Rate and Rhythm JVD: No Carotid Bruit: No PMI: Non-Displaced Heart Sounds: Yes: S1, S2. No: Gallop Murmur: No: Systolic Murmur, Diastolic Murmur Musculoskeletal: Yes: Other (No kyphosis) Extremities: No: Cool, Cyanosis Edema: No Integumentary: No: Jaundice Neurological: Yes: Alert, Oriented (x3) Psychiatric: No: Agitated Assessment/Plan Echo 03/2018: nl LV/RV size and function, no significant valvular dz cath 2018 80-90% mid LAD--Xience GINO, subtotal occlusion D1 fills faintly via LAD collaterals (branching vessel)--PCI here not successful; 70-80% mRCA--no intervention; mild LCX and Ramus stenoses. LVEDP 18, nl EF CXR: no acute process ECG: NSR, normal axis. LVH with repol abnormalities echo 04/2019 nl LV function, tr MR, tr TR, RVSP 22 mmHG, mod tele: sinus hyperglycemia - manage per endocrine elevated trop - flat trend, indeterminate range, EKG unchanged from prior - defer further cardiac testing - dc tele CAD: - s/p cath 2018 with 80-90% mild LAD s/p GINO, unsuccessful PCI to subtotal D1, no intervention to mRCA 70-80% - cont atorvastatin 80 mg daily - cont aspirin and plavix - completed 12 mo--but ischemia risk is likely > bleed risk so will cont DAPT x 3 yrs if tolerates HTN: -bp controlled -cont home meds chronic diastolic HF - cont lasix, HCTZ COPD - manage per primary DC tele
[2019-05-17] MEDS ORDERED: INSULIN (LEVEMIR) 100 UNITS/ML UNITS SQ SCH (12:04)
[2019-05-17] MEDS ORDERED: INSULIN SLIDING SCALE (NOVOLOG) 1 VIAL SQ SCH (12:04)
--- NOTE | 2019-05-17 12:49 | PN ---
Progress Note, Physician Chief Complaint: high sugars despite less appetite - Current Medication List Current Medications: Active Medications Acetaminophen (Tylenol -) 650 mg PO Q6H PRN PRN Reason: PAIN LEVEL 4 - 6 Amlodipine Besylate (Norvasc -) 10 mg PO DAILY [facility] Last Admin: 05/17/19 11:07 Dose: 10 mg Artificial Tears (Artificial Tears) 1 drop OU BID [facility] Last Admin: 05/17/19 11:07 Dose: 1 drop Aspirin (Ecotrin -) 81 mg PO DAILY [facility] Last Admin: 05/17/19 11:07 Dose: 81 mg Atorvastatin Calcium (Lipitor -) 80 mg PO HS [facility] Last Admin: 05/16/19 22:09 Dose: 80 mg Budesonide/Formoterol Fumarate (Symbicort 160/4.5mcg -) 1 puff IH BID [facility] Last Admin: 05/17/19 11:08 Dose: 1 puff Clopidogrel Bisulfate (Plavix -) 75 mg PO DAILY [facility] Last Admin: 05/17/19 11:07 Dose: 75 mg Clotrimazole (Lotrimin 1% Solution -) 1 applic TP BID [facility] Last Admin: 05/17/19 11:08 Dose: 1 applic Docusate Sodium (Colace -) 200 mg PO DAILY [facility] Last Admin: 05/17/19 11:06 Dose: 200 mg Fluoxetine HCl (Prozac -) 20 mg PO DAILY [facility] Last Admin: 05/17/19 11:06 Dose: 20 mg Furosemide (Lasix -) 40 mg PO DAILY [facility] Last Admin: 05/17/19 11:07 Dose: 40 mg Heparin Sodium (Porcine) (Heparin -) 5,000 unit SQ TID [facility] Last Admin: 05/17/19 06:59 Dose: 5,000 unit Hydralazine HCl (Apresoline -) 25 mg PO BID [facility] Last Admin: 05/17/19 11:06 Dose: 25 mg Hydrochlorothiazide (Hctz -) 12.5 mg PO DAILY@1300 [facility] Last Admin: 05/16/19 13:53 Dose: 12.5 mg Ceftriaxone Sodium 1 gm/ (Dextrose) 50 mls @ 200 mls/hr IVPB DAILY [facility]; Protocol Last Admin: 05/17/19 11:00 Dose: 200 mls/hr Insulin Aspart (Novolog Vial Sliding Scale -) 1 vial SQ ACHS [facility]; Protocol Insulin [facility]art ([facility]30 [facility] Levetiracetam (Keppra -) 500 mg PO BID [facility] Last Admin: 05/17/19 11:07 Dose: 500 mg Lidocaine (Lidoderm Patch -) 1 patch TP DAILY [facility] Last Admin: 05/17/19 10:59 Dose: 1 patch Metoprolol Succinate (Toprol Xl -) 25 mg PO DAILY [facility] Last Admin: 05/17/19 11:07 Dose: 25 mg Miscellaneous (Lidoderm Patch Removal) 1 each MC DAILY@2200 [facility] Last Admin: 05/16/19 22:11 Dose: Not Given Nortriptyline HCl (Pamelor -) 25 mg PO HS [facility] Last Admin: 05/16/19 22:08 Dose: 25 mg Oxycodone HCl (Roxicodone -) 5 mg PO Q6H PRN PRN Reason: PAIN LEVEL 7 - 10 Ranitidine HCl (Zantac -) 150 mg PO DAILY [facility] Last Admin: 05/17/19 11:06 Dose: 150 mg Senna (Senna -) 2 tab PO [facility] Last Admin: 05/16/19 22:09 Dose: 2 tab Solifenacin (Vesicare -) 5 mg PO DAILY [facility] Last Admin: 05/17/19 11:06 Dose: 5 mg Tiotropium [place] (Spiriva Respimat) 2 puff IH DAILY [facility] Last Admin: 05/17/19 11:08 Dose: 2 puff - Objective Vital Signs: Vital Signs Temperature 97.9 F 05/17/19 11:00 Pulse Rate 89 05/17/19 11:00 Respiratory Rate 18 05/17/19 11:00 Blood Pressure 151/77 05/17/19 11:00 O2 Sat by Pulse Oximetry (%) 95 05/16/19 21:00 Constitutional: Yes: Calm Eyes: Yes: EOM Intact HENT: Yes: Normocephalic Neck: Yes: Trachea Midline Cardiovascular: Yes: Regular Rate and Rhythm Respiratory: Yes: CTA Bilaterally Gastrointestinal: Yes: Normal Bowel Sounds, Abdomen, Obese ...Rectal Exam: Yes: Deferred Genitourinary: Yes: WNL Musculoskeletal: Yes: Back Pain, Muscle Weakness Extremities: Yes: Cold Edema: Yes Edema: LLE: 1+, RLE: 1+ Integumentary: Yes: Venous Stasis Changes Neurological: Yes: Alert, Oriented Labs: CBC, BMP 05/17/19 08:40 05/17/19 08:40 INR, PTT INR 1.03 (0.83-1.09) 05/14/19 16:05 Problem List - Problems (1) Hyperglycemia Code(s): R73.9 - HYPERGLYCEMIA, UNSPECIFIED (2) Hyperkalemia Code(s): E87.5 - HYPERKALEMIA (3) Type 2 diabetes mellitus with diabetic autonomic (poly)neuropathy Code(s): E11.43 - TYPE 2 DIABETES W DIABETIC AUTONOMIC (POLY)NEUROPATHY Qualifiers: Diabetes mellitus skilled nursing insulin use: with skilled nursing use Qualified Code( s): E11.43 - Type 2 diabetes mellitus with diabetic autonomic (poly)neuropathy; Z79.4 - longterm (current) use of insulin (4) Morbid obesity Code(s): E66.01 - MORBID (SEVERE) OBESITY DUE TO EXCESS CALORIES (5) Angioedema due to angiotensin converting enzyme inhibitor (PADMINI-I) Code(s): T78.3XXA - ANGIONEUROTIC EDEMA, INITIAL ENCOUNTER; T46.4X1A - POISONING BY [id number] INHIBITORS, ACC, INIT (6) Arm sprain Code(s): DNU8423 - Assessment/Plan Current Active Problems Depression (Acute) Elevated troponin (Acute) Hyperglycemia (Acute) Hyperkalemia (Acute) Type 2 diabetes mellitus with diabetic autonomic (poly)neuropathy (Acute) Morbid obesity (Chronic) onychomycosis diabetic neuropathy Abnormal Lab Results 05/17/19 05/17/19 08:40 08:40 WBC 11.9 H Hgb 10.5 L MCV 75.0 L MCH 23.7 L MCHC 31.6 L RDW 20.7 H Absolute Neuts (auto) 9.0 H Random Glucose 272 H Alkaline Phosphatase 125 H Albumin 3.2 L Laboratory Results - last 24 hr 05/16/19 05/16/19 05/17/19 16:43 22:07 05:30 WBC RBC Hgb Hct MCV MCH MCHC RDW Plt Count MPV Absolute Neuts (auto) Neutrophils % Lymphocytes % Monocytes % Eosinophils % Basophils % Nucleated RBC % Sodium Potassium Chloride Carbon Dioxide Anion Gap BUN Creatinine Est GFR (CKD-EPI)AfAm Est GFR (CKD-EPI)NonAf POC Glucometer 304 326 234 Random Glucose Calcium Magnesium Total Bilirubin AST ALT Alkaline Phosphatase Total Protein Albumin 05/17/19 05/17/19 05/17/19 08:40 08:40 11:20 WBC 11.9 H RBC 4.42 Hgb 10.5 L Hct 33.2 MCV 75.0 L MCH 23.7 L MCHC 31.6 L RDW 20.7 H Plt Count 283 MPV 9.5 Absolute Neuts (auto) 9.0 H Neutrophils % 75.5 Lymphocytes % 17.1 Monocytes % 5.8 Eosinophils % 0.8 Basophils % 0.8 Nucleated RBC % 0 Sodium 138 Potassium 3.7 Chloride 100 Carbon Dioxide 30 Anion Gap 8 BUN 16.4 Creatinine 0.8 Est GFR (CKD-EPI)AfAm 87.80 Est GFR (CKD-EPI)NonAf 75.75 POC Glucometer 324 Random Glucose 272 H Calcium 9.0 Magnesium 1.9 Total Bilirubin 0.6 AST 21 ALT 30 Alkaline Phosphatase 125 H Total Protein 6.8 Albumin 3.2 L plan novolog 70/30 30 units bid dc levemir resistant novolog scale metformin 500mg bid januvia 50mg day
[2019-05-17] MEDS: HYDROCHLOROTHIAZIDE 12.5 MG CAPSULE (FP) PO SCH (13:54)
--- NOTE | 2019-05-17 15:15 | PN ---
Physical Exam: SUBJECTIVE: Patient seen and examined at the bedside. in no acute distress, eating lunch. wants to go home. OBJECTIVE: Goal is to get pt back to [facility]. however, she has had 3 hospitalization in apx 1 month. Was at [facility], on 04/30 for hypoglycemia sent to [facility] and was then sent to [facility] for Hyperglycemia and now returns again to [facility] with hyperglycemia. Patient is a68 year old female with a significant past medical history of CVA, CHF, GERD, COPD/asthma, DM II, NSTEMI, HTN presenting with ED via EMS from [facility] with an elevated blood sugar level. Pt reports that prior to presenting to [facility] she was seen at [facility] last week for hyperglycemia which was managed with IVF and instructions to f/u with endocrinology. Patient was recently admitted to [facility] on 04/30 for complaints of 2 days of lower abdominal pain, nausea and vomiting. On that visit, BGM was noted to be 22mg/dl with repeat of 30mg/dl. Vital Signs Period Temp Pulse Resp BP Sys/Knox Pulse Ox Last 24 Hr 97.5 F-98.1 F 75-92 18-20 91-151/51-77 95 GENERAL: The patient is awake, alert, and fully oriented, in no acute distress. HEAD: Normal with no signs of trauma. EYES: PERRL, extraocular movements intact, sclera anicteric, conjunctiva clear. No ptosis. ENT: Ears normal, nares patent, oropharynx clear without exudates, moist mucous membranes. NECK: Trachea midline, full range of motion, supple. LUNGS: diminished bilaterally HEART: Regular rate and rhythm ABDOMEN: obese abdomen, soft, non distended EXTREMITIES: hyperpigmentation of lower extremities. unilteral edema, left > right. negative for dvt. NEUROLOGICAL: Normal speech, gait not observed. PSYCH: Normal mood, normal affect. SKIN: hyperpigmented lower extremities. Laboratory Results - last 24 hr 05/16/19 05/16/19 05/17/19 16:43 22:07 05:30 WBC RBC Hgb Hct MCV MCH MCHC RDW Plt Count MPV Absolute Neuts (auto) Neutrophils % Lymphocytes % Monocytes % Eosinophils % Basophils % Nucleated RBC % Sodium Potassium Chloride Carbon Dioxide Anion Gap BUN Creatinine Est GFR (CKD-EPI)AfAm Est GFR (CKD-EPI)NonAf POC Glucometer 304 326 234 Random Glucose Calcium Magnesium Total Bilirubin AST ALT Alkaline Phosphatase Total Protein Albumin 05/17/19 05/17/19 05/17/19 08:40 08:40 11:20 WBC 11.9 H RBC 4.42 Hgb 10.5 L Hct 33.2 MCV 75.0 L MCH 23.7 L MCHC 31.6 L RDW 20.7 H Plt Count 283 MPV 9.5 Absolute Neuts (auto) 9.0 H Neutrophils % 75.5 Lymphocytes % 17.1 Monocytes % 5.8 Eosinophils % 0.8 Basophils % 0.8 Nucleated RBC % 0 Sodium 138 Potassium 3.7 Chloride 100 Carbon Dioxide 30 Anion Gap 8 BUN 16.4 Creatinine 0.8 Est GFR (CKD-EPI)AfAm 87.80 Est GFR (CKD-EPI)NonAf 75.75 POC Glucometer 324 Random Glucose 272 H Calcium 9.0 Magnesium 1.9 Total Bilirubin 0.6 AST 21 ALT 30 Alkaline Phosphatase 125 H Total Protein 6.8 Albumin 3.2 L Active Medications Generic Name Dose Route Start Last Admin Trade Name Freq PRN Reason Stop Dose Admin Acetaminophen 650 mg 05/16/19 01:46 Tylenol - PO Q6H PRN PAIN LEVEL 4 - 6 Amlodipine Besylate 10 mg 05/16/19 10:00 05/17/19 11:07 Norvasc - PO 10 mg DAILY [facility] Administration Artificial Tears 1 drop 05/16/19 10:00 05/17/19 11:07 Artificial Tears OU 1 drop BID [facility] Administration Aspirin 81 mg 05/16/19 10:00 05/17/19 11:07 Ecotrin - PO 81 mg DAILY [facility] Administration Atorvastatin Calcium 80 mg 05/16/19 22:00 05/16/19 22:09 Lipitor - PO 80 mg HS [facility] Administration Budesonide/Formoterol Fumarate 1 puff 05/16/19 10:00 05/17/19 11:08 Symbicort 160/4.5mcg - IH 1 puff BID [facility] Administration Clopidogrel Bisulfate 75 mg 05/16/19 10:00 05/17/19 11:07 Plavix - PO 75 mg DAILY [facility] Administration Clotrimazole 1 applic 05/16/19 10:00 05/17/19 11:08 Lotrimin 1% Solution - TP 1 applic BID [facility] Administration Docusate Sodium 200 mg 05/16/19 10:00 05/17/19 11:06 Colace - PO 200 mg DAILY [facility] Administration Fluoxetine HCl 20 mg 05/16/19 10:00 05/17/19 11:06 Prozac - PO 20 mg DAILY [facility] Administration Furosemide 40 mg 05/16/19 10:00 05/17/19 11:07 Lasix - PO 40 mg DAILY [facility] Administration Heparin Sodium (Porcine) 5,000 unit 05/16/19 06:00 05/17/19 13:54 Heparin - SQ 5,000 unit TID [facility] Administration Hydralazine HCl 25 mg 05/16/19 10:00 05/17/19 11:06 Apresoline - PO 25 mg BID [facility] Administration Hydrochlorothiazide 12.5 mg 05/16/19 13:00 05/17/19 13:54 Hctz - PO 12.5 mg DAILY@1300 [facility] Administration Ceftriaxone Sodium 1 gm/ 50 mls @ 200 mls/hr 05/17/19 10:00 05/17/19 11:00 Dextrose IVPB 200 mls/hr DAILY [facility] Administration Protocol Insulin Aspart 1 vial 05/17/19 12:04 Novolog Vial Sliding Scale - SQ ACHS [facility] Protocol Insulin Aspart 30 units 05/17/19 16:30 Novolog Mix 70/30 Vial SQ BIDAC [facility] Levetiracetam 500 mg 05/16/19 10:00 05/17/19 11:07 Keppra - PO 500 mg BID [facility] Administration Lidocaine 1 patch 05/16/19 10:00 05/17/19 10:59 Lidoderm Patch - TP 1 patch DAILY [facility] Administration Metformin HCl 500 mg 05/17/19 16:30 Glucophage - PO BID@0700,1630 [facility] Metoprolol Succinate 25 mg 05/16/19 10:00 05/17/19 11:07 Toprol Xl - PO 25 mg DAILY [facility] Administration Miscellaneous 1 each 05/16/19 22:00 05/16/19 22:11 Lidoderm Patch Removal MC Not Given DAILY@2200 [facility] Nortriptyline HCl 25 mg 05/16/19 22:00 05/16/19 22:08 Pamelor - PO 25 mg HS [facility] Administration Oxycodone HCl 5 mg 05/16/19 01:46 Roxicodone - PO Q6H PRN PAIN LEVEL 7 - 10 Ranitidine HCl 150 mg 05/16/19 10:00 10/16/19 11:06 Zantac - PO 150 mg DAILY [facility] Administration Senna 2 tab 05/16/19 22:00 05/16/19 22:09 Senna - PO 2 tab HS [facility] Administration Sitagliptin Phosphate 50 mg 05/18/19 07:00 Januvia - PO DAILY@0700 [facility] Solifenacin 5 mg 05/16/19 10:00 05/17/19 11:06 Vesicare - PO 5 mg DAILY [facility] Administration Tiotropium [place] 2 puff 05/16/19 10:00 05/17/19 11:08 Spiriva Respimat IH 2 puff DAILY [facility] Administration ASSESSMENT/PLAN: Problem List - Problems (1) Type 2 diabetes mellitus with diabetic autonomic (poly)neuropathy Assessment/Plan: blood sugars in the 200s, 300s currently. goal to maintain bgms <180, >100. endocrinology following and now on 70/30 with short acting monitor bgms for better control and adjust accordingly Code(s): E11.43 - TYPE 2 DIABETES W DIABETIC AUTONOMIC (POLY)NEUROPATHY Qualifiers: Diabetes mellitus detention insulin use: with bottom brusher use Qualified Code( s): E11.43 - Type 2 diabetes mellitus with diabetic autonomic (poly)neuropathy; Z79.4 - manager infrastructure (current) use of insulin (2) Hyperglycemia Assessment/Plan: BGMs remain elevated despite levemir bid and sliding scale. endocrinology changed to 70/30 BID and short acting. hmga1c 8.8, was previously 6.9 one month prior and she reports compliance with insulin at her facility. will continue to monitor bgms closely. goal is to maintain bgms less than 180 before meals. she would benefit from weight loss also as she is morbidly obese with a bmi of 58 dietary consulted. Code(s): R73.9 - HYPERGLYCEMIA, UNSPECIFIED (3) Morbid obesity Assessment/Plan: dietary consult for elevated BMI, diabetes and sedentary lifestyle will continue physical therapy while here she is refusing rehab on d/c, however her facility offers PT Code(s): E66.01 - MORBID (SEVERE) OBESITY DUE TO EXCESS CALORIES (4) Depression Assessment/Plan: c/w prozac supportive care Code(s): F32.9 - MAJOR DEPRESSIVE DISORDER, SINGLE EPISODE, UNSPECIFIED (5) Elevated troponin Assessment/Plan: most likely demand ischemia vs ACS, asymptomatic cardiology consulted and following c/w ASA 81mg daily c/w Plavix 75mg daily c/w statin Code(s): R74.8 - ABNORMAL LEVELS OF OTHER SERUM ENZYMES (6) Hyperkalemia Assessment/Plan: resolved Code(s): E87.5 - HYPERKALEMIA (7) CHF (congestive heart failure) Assessment/Plan: c/w hctz, lasix Code(s): I50.9 - HEART FAILURE, UNSPECIFIED (8) Prophylactic measure Assessment/Plan: fen diabetic diet monitor electrolytes full code Code(s): Z29.9 - ENCOUNTER FOR PROPHYLACTIC MEASURES, UNSPECIFIED Visit type - Emergency Visit Emergency Visit: Yes ED Registration Date: 05/14/19 Care time: The patient presented to the Emergency Department on the above date and was hospitalized for further evaluation of their emergent condition. - New Patient This patient is new to me today: No - Critical Care Critical Care patient: No - Discharge Referral Referred to [facility] Med P.C.: No
[2019-05-17] MEDS: metFORMIN HCL 500 MG TABLET (FP) PO SCH (17:26)
[2019-05-17] MEDS: INSULIN (NOVOLOG MIX 70/30) 100 UNITS/ML MDV SQ SCH (17:27)
[2019-05-17] MEDS ORDERED: PT OWN MED DRAWER 7, Y5N ONE (19:58)
[2019-05-17] MEDS ORDERED: ACETAMINOPHEN 325 MG TABLET (FP) PO PRN (21:13)
[2019-05-17] MEDS ORDERED: oxyCODONE HCL 5 MG TABLET PO PRN (21:13)
[2019-05-17] MEDS ORDERED: ATORVASTATIN CA 80 MG TABLET (FP) PO SCH (22:00)
[2019-05-17] MEDS ORDERED: LIDOCAINE PATCH REMOVAL MC SCH ×2 (22:00)
[2019-05-17] MEDS ORDERED: SENNOSIDES 8.6MG TABLET (FP) PO SCH (22:00)
[2019-05-17] MEDS ORDERED: NORTRIPTYLINE HCL 25 MG CAPSULE PO SCH (22:00)
[2019-05-18] MEDS: HEPARIN NA (PORCINE) 5,000 UNITS/ML 1ML VIAL SQ SCH ×2 (06:28→15:12)
[2019-05-18] MEDS: INSULIN (NOVOLOG MIX 70/30) 100 UNITS/ML MDV SQ SCH ×2 (06:29→17:29)
[2019-05-18] MEDS: metFORMIN HCL 500 MG TABLET (FP) PO SCH ×2 (06:29→17:29)
[2019-05-18] MEDS: INSULIN SLIDING SCALE (NOVOLOG) 1 VIAL SQ SCH ×3 (06:29→17:30)
[2019-05-18] MEDS ORDERED: sitaGLIPtin PHOSPHATE 50 MG TABLET PO SCH (07:00)
--- NOTE | 2019-05-18 08:27 | PN ---
Physical Exam: SUBJECTIVE: Patient seen and examined OBJECTIVE: PER [facility], they are unable to offer patient insulin at HS therefore we would have to adjust her insulin to pre meals prior to d/c Vital Signs Period Temp Pulse Resp BP Sys/Knox Pulse Ox Last 24 Hr 97.8 F-98.1 F 84-92 18-20 104-151/58-77 95-95 Laboratory Results - last 24 hr 05/16/19 05/17/19 05/17/19 22:07 05:30 08:40 WBC 11.9 H RBC 4.42 Hgb 10.5 L Hct 33.2 MCV 75.0 L MCH 23.7 L MCHC 31.6 L RDW 20.7 H Plt Count 283 MPV 9.5 Absolute Neuts (auto) 9.0 H Neutrophils % 75.5 Lymphocytes % 17.1 Monocytes % 5.8 Eosinophils % 0.8 Basophils % 0.8 Nucleated RBC % 0 Sodium Potassium Chloride Carbon Dioxide Anion Gap BUN Creatinine Est GFR (CKD-EPI)AfAm Est GFR (CKD-EPI)NonAf POC Glucometer 326 234 Random Glucose Calcium Magnesium Total Bilirubin AST ALT Alkaline Phosphatase Total Protein Albumin 05/17/19 05/17/19 05/17/19 08:40 11:20 17:25 WBC RBC Hgb Hct MCV MCH MCHC RDW Plt Count MPV Absolute Neuts (auto) Neutrophils % Lymphocytes % Monocytes % Eosinophils % Basophils % Nucleated RBC % Sodium 138 Potassium 3.7 Chloride 100 Carbon Dioxide 30 Anion Gap 8 BUN 16.4 Creatinine 0.8 Est GFR (CKD-EPI)AfAm 87.80 Est GFR (CKD-EPI)NonAf 75.75 POC Glucometer 324 320 Random Glucose 272 H Calcium 9.0 Magnesium 1.9 Total Bilirubin 0.6 AST 21 ALT 30 Alkaline Phosphatase 125 H Total Protein 6.8 Albumin 3.2 L 05/17/19 05/18/19 22:26 06:27 WBC RBC Hgb Hct MCV MCH MCHC RDW Plt Count MPV Absolute Neuts (auto) Neutrophils % Lymphocytes % Monocytes % Eosinophils % Basophils % Nucleated RBC % Sodium Potassium Chloride Carbon Dioxide Anion Gap BUN Creatinine Est GFR (CKD-EPI)AfAm Est GFR (CKD-EPI)NonAf POC Glucometer 304 237 Random Glucose Calcium Magnesium Total Bilirubin AST ALT Alkaline Phosphatase Total Protein Albumin Active Medications Generic Name Dose Route Start Last Admin Trade Name Freq PRN Reason Stop Dose Admin Acetaminophen 650 mg 05/17/19 21:13 Tylenol - PO Q6H PRN PAIN LEVEL 4 - 6 Amlodipine Besylate 10 mg 05/18/19 10:00 Norvasc - PO DAILY [facility] Artificial Tears 1 drop 05/17/19 22:00 05/17/19 22:27 Artificial Tears OU Not Given BID [facility] Aspirin 81 mg 05/18/19 10:00 Ecotrin - PO DAILY [facility] Atorvastatin Calcium 80 mg 05/17/19 22:00 05/17/19 22:28 Lipitor - PO 80 mg HS [facility] Administration Budesonide/Formoterol Fumarate 1 puff 05/17/19 22:00 05/17/19 22:31 Symbicort 160/4.5mcg - IH Not Given BID [facility] Clopidogrel Bisulfate 75 mg 05/18/19 10:00 Plavix - PO DAILY [facility] Clotrimazole 1 applic 05/17/19 22:00 05/17/19 22:29 Lotrimin 1% Solution - TP Not Given BID [facility] Docusate Sodium 200 mg 05/18/19 10:00 Colace - PO DAILY [facility] Fluoxetine HCl 20 mg 05/18/19 10:00 Prozac - PO DAILY [facility] Furosemide 40 mg 05/18/19 10:00 Lasix - PO DAILY [facility] Heparin Sodium (Porcine) 5,000 unit 05/17/19 22:00 05/18/19 06:28 Heparin - SQ 5,000 unit TID [facility] Administration Hydralazine HCl 25 mg 05/17/19 22:00 05/17/19 22:27 Apresoline - PO 25 mg BID [facility] Administration Hydrochlorothiazide 12.5 mg 05/18/19 13:00 Hctz - PO DAILY@1300 [facility] Ceftriaxone Sodium 1 gm/ 50 mls @ 100 mls/hr 05/18/19 10:00 Dextrose IVPB DAILY [facility] Protocol Insulin Aspart 30 units 05/17/19 16:30 05/18/19 06:29 Novolog Mix 70/30 Vial SQ 30 unit BIDAC [facility] Administration Insulin Aspart 1 vial 05/17/19 22:00 05/18/19 06:29 Novolog Vial Sliding Scale - SQ 12 units ACHS [facility] Administration Protocol Levetiracetam 500 mg 05/17/19 22:00 05/17/19 22:28 Keppra - PO 500 mg BID [facility] Administration Lidocaine 1 patch 05/18/19 10:00 Lidoderm Patch - TP DAILY [facility] Metformin HCl 500 mg 05/17/19 16:30 05/18/19 06:29 Glucophage - PO 500 mg BID@0700,1630 [facility] Administration Metoprolol Succinate 25 mg 05/18/19 10:00 Toprol Xl - PO DAILY [facility] Miscellaneous 1 each 05/17/19 22:00 05/17/19 22:28 Lidoderm Patch Removal MC 1 each DAILY@2200 [facility] Administration Nortriptyline HCl 25 mg 05/17/19 22:00 05/17/19 22:29 Pamelor - PO 25 mg HS [facility] Administration Oxycodone HCl 5 mg 05/17/19 21:13 05/17/19 22:30 Roxicodone - PO 5 mg Q6H PRN Administration PAIN LEVEL 7 - 10 Ranitidine HCl 150 mg 05/18/19 10:00 Zantac - PO DAILY [facility] Senna 2 tab 05/17/19 22:00 05/17/19 22:29 Senna - PO 2 tab HS [facility] Administration Sitagliptin Phosphate 50 mg 05/18/19 07:00 05/18/19 06:29 Januvia - PO 50 mg DAILY@0700 [facility] Administration Solifenacin 5 mg 05/18/19 10:00 Vesicare - PO DAILY [facility] Tiotropium [place] 2 puff 05/18/19 10:00 Spiriva Respimat IH DAILY [facility] ASSESSMENT/PLAN: Problem List - Problems (1) Type 2 diabetes mellitus with diabetic autonomic (poly)neuropathy Code(s): E11.43 - TYPE 2 DIABETES W DIABETIC AUTONOMIC (POLY)NEUROPATHY Qualifiers: Diabetes mellitus senior care insulin use: with senior care use Qualified Code( s): E11.43 - Type 2 diabetes mellitus with diabetic autonomic (poly)neuropathy; Z79.4 - extermination inspector (current) use of insulin (2) Hyperglycemia Code(s): R73.9 - HYPERGLYCEMIA, UNSPECIFIED (3) Morbid obesity Code(s): E66.01 - MORBID (SEVERE) OBESITY DUE TO EXCESS CALORIES (4) Depression Code(s): F32.9 - MAJOR DEPRESSIVE DISORDER, SINGLE EPISODE, UNSPECIFIED (5) Elevated troponin Code(s): R74.8 - ABNORMAL LEVELS OF OTHER SERUM ENZYMES (6) Hyperkalemia Code(s): E87.5 - HYPERKALEMIA (7) CHF (congestive heart failure) Code(s): I50.9 - HEART FAILURE, UNSPECIFIED (8) Prophylactic measure Code(s): Z29.9 - ENCOUNTER FOR PROPHYLACTIC MEASURES, UNSPECIFIED
[2019-05-18] MEDS ORDERED: DEXTROSE 5%-WATER - 50 ML IVPB ONE (09:25)
[2019-05-18] MEDS ORDERED: cefTRIAXone SODIUM 1 GM VIAL ONE (09:25)
[2019-05-18] MEDS: levETIRAcetam 500 MG TABLET (FP) PO SCH (09:42)
[2019-05-18] MEDS: hydrALAZINE HCL 25 MG TABLET (FP) PO SCH (09:43)
[2019-05-18] MEDS ORDERED: FLUoxetine HCL 20 MG CAPSULE (FP) PO SCH (10:00)
[2019-05-18] MEDS ORDERED: amLODIPine BESYLATE 10 MG TABLET (FP) PO SCH (10:00)
[2019-05-18] MEDS ORDERED: TIOTROPIUM BROMIDE 2.5 MCG (SPIRIVA) RESPIMAT INHALER IH SCH (10:00)
[2019-05-18] MEDS ORDERED: DOCUSATE SODIUM 100 MG CAPSULE (FP) PO SCH (10:00)
[2019-05-18] MEDS ORDERED: ASPIRIN COATED 81 MG TABLET.EC PO SCH (10:00)
[2019-05-18] MEDS ORDERED: SOLIFENACIN SUCCINATE 5 MG TAB PO SCH (10:00)
[2019-05-18] MEDS ORDERED: FUROSEMIDE 40 MG TABLET (FP) PO SCH (10:00)
[2019-05-18] MEDS ORDERED: CLOPIDOGREL BISULFATE 75 MG TABLET (FP) PO SCH (10:00)
[2019-05-18] MEDS ORDERED: LIDOCAINE 5% TOPICAL PATCH TP SCH (10:00)
[2019-05-18] MEDS ORDERED: metoPROLOL SUCCINATE 25 MG TAB.SR.24H (FP) PO SCH (10:00)
[2019-05-18] MEDS ORDERED: RANITIDINE HCL 150 MG TABLET (FP) PO SCH (10:00)
[2019-05-18] MEDS ORDERED: CEFTRIAXONE 1 GM in DEXTROSE 5%-WATER - 50 ML IVPB SCH (10:00)
--- NOTE | 2019-05-18 10:48 | CONSULT ---
Consult Consult Specialty:: Podiatry Reason for Consultation:: Painful right heel - History of Present Illness History of Present Illness: Patient states blister 2 weeks ago. 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: CVA, Seizure Cardio/Vascular: Yes: CHF, HTN, Hyperlipdemia, [place] (NSTEMI) Pulmonary: Yes: Asthma, COPD Gastrointestinal: Yes: GERD ...: No Psych: Yes: Depression Endocrine: Yes: Diabetes Mellitus - Past Surgical History Past Surgical History: Yes: Cholecystectomy - Alcohol/Substance Use Hx Alcohol Use: No History of Substance Use: reports: None - Smoking History Smoking history: Former smoker Have you smoked in the past 12 months: No Aproximately how many cigarettes per day: 10 If you are a former smoker, when did you quit?: 10 years ago - Social History Usual Living Arrangement: [facility] ADL: Support Services ([place] [facility] resident) History of Recent Travel: No Home Medications - Allergies Allergies/Adverse Reactions: Allergies Allergy/AdvReac Type Severity Reaction Status Date / Time lisinopril Allergy Severe Swelling Verified 05/14/19 15:16 PADMINI Inhibitors Allergy Verified 05/14/19 15:16 blueberry Allergy Verified 05/14/19 15:16 erythromycin base Allergy Verified 05/14/19 15:16 naproxen Allergy Verified 05/14/19 15:16 raspberry Allergy Verified 05/14/19 15:16 strawberry Allergy Verified 05/14/19 15:16 - Home Medications Home Medications: Ambulatory Orders Amlodipine Besylate [Norvasc -] 10 mg PO DAILY 03/10/18 Budesonide/Formeterol Fumarate [SYMBICORT 160/4.5mcg -] 1 inh PO BID 03/10/18 Famotidine [Pepcid] 20 mg PO DAILY 03/10/18 Fluoxetine HCl [Prozac] 20 mg PO DAILY 03/10/18 Insulin Regular, Human [Humulin R U-500 Kwikpen] 0 unit SQ TID 03/10/18 Levetiracetam [Keppra] 500 mg PO BID 03/10/18 Metformin HCl [Glucophage] 1,000 mg PO BID 03/10/18 Nortriptyline HCl 25 mg PO HS 03/10/18 Polyvinyl Alcohol [Artificial Tears] 1 drop OP BID 03/10/18 Potassium Chloride 20 meq PO DAILY 03/10/18 hydrALAZINE HCL [Apresoline -] 25 mg PO BID 03/10/18 Ammonium Lactate Cream [Lac-Hydrin 12% Cream -] 1 applic TP DAILY 04/09/19 Aspirin [Aspirin EC] 81 mg PO DAILY 04/09/19 Atorvastatin Ca [Lipitor] 80 mg PO HS 04/09/19 Bacitracin - [Bacitracin Topical Ointment -] 1 applic TP DAILY 04/09/19 Clopidogrel Bisulfate [Plavix -] 75 mg PO DAILY 04/09/19 Clotrimazole [Lotrimin -] 1 applic TP BID 04/09/19 Docusate Sodium [Colace -] 200 mg PO DAILY 04/09/19 Metoprolol Succinate [Toprol Xl] 25 mg PO DAILY 04/09/19 Mupirocin Ointment [Bactroban 2% Ointment -] 1 applic TP DAILY 04/09/19 Oxybutynin Chloride [Oxybutynin Chloride ER] 5 mg PO DAILY 04/09/19 Umeclidinium Jber [Incruse Ellipta] 62.5 mcg IH DAILY 04/09/19 Furosemide [Lasix] 40 mg PO DAILY #30 tablet 04/11/19 Hydrochlorothiazide [Hctz -] 12.5 mg PO DAILY #7 cap 04/11/19 Acetaminophen [Tylenol] 650 mg PO QID #30 capsule 04/20/19 Lidocaine 5% Patch [Lidoderm -] 1 patch TP DAILY #14 patch 04/20/19 Hydrocodone/Acetaminophen [Hydrocodone-Acetamin 5-325 mg] 1 each PO BID Insulin (Levemir) [Levemir Vial] units SQ AM 05/14/19 Physical Exam Vital Signs: Vital Signs Temperature 97.8 F 05/18/19 05:50 Pulse Rate 84 05/18/19 05:50 Respiratory Rate 20 05/18/19 05:50 Blood Pressure 133/61 05/18/19 05:50 O2 Sat by Pulse Oximetry (%) 95 05/17/19 22:00 Extremities: Yes: Other (vs deacresed b/l, +tender right posterior heel, - cellulitis, -ulceration, -mal odor) Labs: CBC, BMP 05/17/19 08:40 05/17/19 08:40 Assessment/Plan PVD Heel pain left Vascular consult. Heel padding right. Will follow. xray right heel.
[2019-05-18] MEDS ORDERED: INSULIN (NOVOLOG) ASPART 100 UNITS/ML 10ML VIAL ONE (11:32)
[2019-05-18] MEDS: CLOTRIMAZOLE 1%TOPICAL SOLUTION 30 ML BOTTLE TP SCH (11:37)
[2019-05-18] MEDS: BUDESONIDE/FORMETEROL FUMARATE 160/4.5 mcg INHALER IH SCH (11:43)
[2019-05-18] MEDS: ARTIFICIAL TEARS (POLYVINYL ALCOHOL) OPTH DROPS OU SCH (11:43)
[2019-05-18] MEDS ORDERED: HYDROCHLOROTHIAZIDE 12.5 MG CAPSULE (FP) PO SCH (13:00)
--- NOTE | 2019-05-18 14:46 | DS ---
Physical Exam: SUBJECTIVE: Patient seen and examined at the bedside. feels well, in no acute distress. wants to go home. OBJECTIVE: Goal is to get pt back to [facility]. however, she has had 3 hospitalization in apx 1 month. Was at [facility], on 04/30 for hypoglycemia sent to [facility] and was then sent to [facility] for Hyperglycemia and now returns again to [facility] with hyperglycemia. Patient is a68 year old female with a significant past medical history of CVA, CHF, GERD, COPD/asthma, DM II, NSTEMI, HTN presenting with ED via EMS from [facility] with an elevated blood sugar level. Pt reports that prior to presenting to [facility] she was seen at [facility] last week for hyperglycemia which was managed with IVF and instructions to f/u with endocrinology. Patient was recently admitted to [facility] on 04/30 for complaints of 2 days of lower abdominal pain, nausea and vomiting. On that visit, BGM was noted to be 22mg/dl with repeat of 30mg/dl. patient will be discharge back to [facility] with close follow up with endocrinology. POC discussed with her sister. Vital Signs Period Temp Pulse Resp BP Sys/Knox Pulse Ox Last 24 Hr 97.8 F 84-88 20-20 120-133/61-67 95-95 PHYSICAL EXAM GENERAL: The patient is awake, alert, and fully oriented, in no acute distress. HEAD: Normal with no signs of trauma. EYES: PERRL, extraocular movements intact, sclera anicteric, conjunctiva clear. No ptosis. ENT: Ears normal, nares patent, oropharynx clear without exudates, moist mucous membranes. NECK: Trachea midline, full range of motion, supple. LUNGS: diminished bilaterally HEART: Regular rate and rhythm ABDOMEN: obese abdomen, soft, non distended EXTREMITIES: hyperpigmentation of lower extremities. unilteral edema, left > right. negative for dvt. NEUROLOGICAL: Normal speech, gait not observed. PSYCH: Normal mood, normal affect. SKIN: hyperpigmented lower extremities. LABS Laboratory Results - last 24 hr 05/17/19 05/17/19 05/18/19 17:25 22:26 06:27 POC Glucometer 320 304 237 05/18/19 11:19 POC Glucometer 208 HOSPITAL COURSE: Date of Admission:05/14/19 Date of Discharge: 05/18/19 Minutes to complete discharge: 45 Discharge Summary Problems reviewed: Yes Reason For Visit: TYPE DIABETES 2 MELLITUS WITH AUTOMATIC NEUROPATHY Current Active Problems Depression (Acute) Elevated troponin (Acute) Hyperglycemia (Acute) Hyperkalemia (Acute) Type 2 diabetes mellitus with diabetic autonomic (poly)neuropathy (Acute) Morbid obesity (Chronic) Condition: Stable - Instructions Diet, Activity, Other Instructions: Mrs Kylie Salinas: You were admitted to [facility] for elevated blood sugars. Here are our recommendations. You have an appointment on WednesdayMAY 22 AT 12:45 PM - [id number] STACY He is the Professional Soccer Player that has seen you during your hospital stay and will help manage your diabetes. MEDICATION CHANGES FOLLOWS: 1. DISCONTINUE the Levemir as you were not responding to the Levemir. 2. CONTINUE the Metformin 500mg TWICE per day at 7am and 5pm 3. START Januvia 50mg daily at 7am 4. Insulin Novolog based on blood sugars as follows - This 3 times a per day BEFORE meals Blood sugar: Dose: 101-150 6 151-200 10 201-250 12 251-300 14 301-350 16 351-400 18 400 and greater 20 5. START INSULING NOVOLOG 70/30 IN ADDITION TO THE ABOVE. TAKE 30 UNITS IN THE MORNING AND 30 UNITS IN THE AFTERNOON (7AM AND 5PM) 6. You also have a urinary tract infection. Continue Ceftin 500mg TWICE per day until 05/29/2019. THANK YOU FOR ALLOWING US TO CARE FOR YOU. Please follow up with Dr. Christy for further workup on possible peripheral vascular disease. His information is enclosed. Referrals: Kush Stacy MD [Staff Physician] - (You have an appointment on WednesdayMAY 22 AT 12:45 PM - [id number] STACY.) Eduard Christy MD [Non Staff, Medical] - Kenroy Melara DPM [Staff Physician] - Disposition: [facility] - Home Medications Comprehensive Discharge Medication List: Ambulatory Orders Amlodipine Besylate [Norvasc -] 10 mg PO DAILY 03/10/18 Budesonide/Formeterol Fumarate [SYMBICORT 160/4.5mcg -] 1 inh PO BID 03/10/18 Famotidine [Pepcid] 20 mg PO DAILY 03/10/18 Fluoxetine HCl [Prozac] 20 mg PO DAILY 03/10/18 Insulin Regular, Human [Humulin R U-500 Kwikpen] 0 unit SQ TID 03/10/18 Levetiracetam [Keppra] 500 mg PO BID 03/10/18 Nortriptyline HCl 25 mg PO HS 03/10/18 Polyvinyl Alcohol [Artificial Tears] 1 drop OP BID 03/10/18 Potassium Chloride 20 meq PO DAILY 03/10/18 hydrALAZINE HCL [Apresoline -] 25 mg PO BID 03/10/18 Ammonium Lactate Cream [Lac-Hydrin 12% Cream -] 1 applic TP DAILY 04/09/19 Aspirin [Aspirin EC] 81 mg PO DAILY 04/09/19 Atorvastatin Ca [Lipitor] 80 mg PO HS 04/09/19 Bacitracin - [Bacitracin Topical Ointment -] 1 applic TP DAILY 04/09/19 Clopidogrel Bisulfate [Plavix -] 75 mg PO DAILY 04/09/19 Clotrimazole [Lotrimin -] 1 applic TP BID 04/09/19 Docusate Sodium [Colace -] 200 mg PO DAILY 04/09/19 Metoprolol Succinate [Toprol Xl] 25 mg PO DAILY 04/09/19 Mupirocin Ointment [Bactroban 2% Ointment -] 1 applic TP DAILY 04/09/19 Oxybutynin Chloride [Oxybutynin Chloride ER] 5 mg PO DAILY 04/09/19 Umeclidinium [place] [Incruse Ellipta] 62.5 mcg IH DAILY 04/09/19 Furosemide [Lasix] 40 mg PO DAILY #30 tablet 04/11/19 Hydrochlorothiazide [Hctz -] 12.5 mg PO DAILY #7 cap 04/11/19 Acetaminophen [Tylenol] 650 mg PO QID #30 capsule 04/20/19 Lidocaine 5% Patch [Lidoderm -] 1 patch TP DAILY #14 patch 04/20/19 Hydrocodone/Acetaminophen [Hydrocodone-Acetamin 5-325 mg] 1 each PO BID Insulin (Levemir) [Levemir Vial] units SQ AM 05/14/19 Cefuroxime Axetil [Ceftin -] 500 mg PO Q12H #20 tablet 05/18/19 Insulin (Novolog 70/30) [Novolog Mix 70/30 Vial -] 30 units SQ BIDAC #7 vial Insulin Aspart [Novolog] 6 unit SQ ACHS #7 vial 05/18/19 Sitagliptin Phosphate [Januvia -] 50 mg PO DAILY@0700 #60 tablet 05/18/19 metFORMIN HCL [Glucophage -] 500 mg PO BID@0700,1630 #60 tablet 05/18/19 Problem List - Problems (1) Type 2 diabetes mellitus with diabetic autonomic (poly)neuropathy Assessment/Plan: blood sugars improved. will send home with the following regimen to control diabetes Novolog 70/30 30 units BID Novolog sliding scale based on blood sugar readings Januvia 50mg daily metformin 500mg BID Patient BGMs now in the low 200s. She has a follow up appointment with Dr. Stacy on Wednesday. her sister is aware and will be taking her to the appointment. Code(s): E11.43 - TYPE 2 DIABETES W DIABETIC AUTONOMIC (POLY)NEUROPATHY Qualifiers: Diabetes mellitus skilled nursing insulin use: with head of training and development use Qualified Code( s): E11.43 - Type 2 diabetes mellitus with diabetic autonomic (poly)neuropathy; Z79.4 - shelter (current) use of insulin (2) Hyperglycemia Assessment/Plan: improved. see above. Code(s): R73.9 - HYPERGLYCEMIA, UNSPECIFIED (3) Morbid obesity Assessment/Plan: dietary consult for elevated BMI, diabetes and sedentary lifestyle will continue physical therapy while here she is refusing rehab on d/c, however her facility offers PT Code(s): E66.01 - MORBID (SEVERE) OBESITY DUE TO EXCESS CALORIES (4) Depression Assessment/Plan: c/w prozac supportive care Code(s): F32.9 - MAJOR DEPRESSIVE DISORDER, SINGLE EPISODE, UNSPECIFIED (5) Elevated troponin Assessment/Plan: most likely demand ischemia vs ACS, asymptomatic cardiology consulted and following c/w ASA 81mg daily c/w Plavix 75mg daily c/w statin Code(s): R74.8 - ABNORMAL LEVELS OF OTHER SERUM ENZYMES (6) Hyperkalemia Assessment/Plan: resolved Code(s): E87.5 - HYPERKALEMIA (7) CHF (congestive heart failure) Assessment/Plan: c/w hctz, lasix Code(s): I50.9 - HEART FAILURE, UNSPECIFIED (8) Prophylactic measure Assessment/Plan: fen diabetic diet monitor electrolytes full code Code(s): Z29.9 - ENCOUNTER FOR PROPHYLACTIC MEASURES, UNSPECIFIED This patient is new to me today: No Emergency Visit: Yes ED Registration Date: 05/14/19 Care time: The patient presented to the Emergency Department on the above date and was hospitalized for further evaluation of their emergent condition. Critical Care patient: No - Discharge Referral Referred to [facility] Med [facility].: No
--- NOTE | 2019-05-18 16:43 | PN ---
Progress Note (short form) - Note Progress Note: s: no chest pain, palps, dizziness, dyspnea Current Medications Acetaminophen (Tylenol -) 650 mg PO Q6H PRN PRN Reason: PAIN LEVEL 4 - 6 Amlodipine Besylate (Norvasc -) 10 mg PO DAILY [facility] Last Admin: 05/18/19 09:43 Dose: 10 mg Artificial Tears (Artificial Tears) 1 drop OU BID [facility] Last Admin: 05/18/19 11:43 Dose: 1 drop Aspirin (Ecotrin -) 81 mg PO DAILY [facility] Last Admin: 05/18/19 09:43 Dose: 81 mg Atorvastatin Calcium (Lipitor -) 80 mg PO HS [facility] Last Admin: 05/17/19 22:28 Dose: 80 mg Budesonide/Formoterol Fumarate (Symbicort 160/4.5mcg -) 1 puff IH BID [facility] Last Admin: 05/18/19 11:43 Dose: 1 inh Clopidogrel Bisulfate (Plavix -) 75 mg PO DAILY [facility] Last Admin: 05/18/19 09:43 Dose: 75 mg Clotrimazole (Lotrimin 1% Solution -) 1 applic TP BID [facility] Last Admin: 05/18/19 11:37 Dose: 1 applic Docusate Sodium (Colace -) 200 mg PO DAILY [facility] Last Admin: 05/18/19 09:42 Dose: 200 mg Fluoxetine HCl (Prozac -) 20 mg PO DAILY [facility] Last Admin: 05/18/19 09:42 Dose: 20 mg Furosemide (Lasix -) 40 mg PO DAILY [facility] Last Admin: 05/18/19 09:43 Dose: 40 mg Heparin Sodium (Porcine) (Heparin -) 5,000 unit SQ TID [facility] Last Admin: 05/18/19 15:12 Dose: 5,000 unit Hydralazine HCl (Apresoline -) 25 mg PO BID [facility] Last Admin: 05/18/19 09:43 Dose: 25 mg Hydrochlorothiazide (Hctz -) 12.5 mg PO DAILY@1300 [facility] Last Admin: 05/18/19 15:12 Dose: 12.5 mg Ceftriaxone Sodium 1 gm/ (Dextrose) 50 mls @ 100 mls/hr IVPB DAILY [facility]; Protocol Last Admin: 05/18/19 09:45 Dose: 100 mls/hr Insulin Aspart (Novolog Mix 70/30 Vial) 30 units SQ BIDAC [facility] Last Admin: 05/18/19 06:29 Dose: 30 unit Insulin Aspart (Novolog Vial Sliding Scale -) 1 vial SQ ACHS [facility]; Protocol Last Admin: 05/18/19 11:40 Dose: 12 units Levetiracetam (Keppra -) 500 mg PO BID [facility] Last Admin: 05/18/19 09:42 Dose: 500 mg Lidocaine (Lidoderm Patch -) 1 patch TP DAILY [facility] Last Admin: 05/18/19 09:39 Dose: 1 patch Metformin HCl (Glucophage -) 500 mg PO BID@0700,1630 [facility] Last Admin: 05/18/19 06:29 Dose: 500 mg Metoprolol Succinate (Toprol Xl -) 25 mg PO DAILY [facility] Last Admin: 05/18/19 09:43 Dose: 25 mg Miscellaneous (Lidoderm Patch Removal) 1 each MC DAILY@2200 [facility] Last Admin: 05/17/19 22:28 Dose: 1 each Nortriptyline HCl (Pamelor -) 25 mg PO HS [facility] Last Admin: 05/17/19 22:29 Dose: 25 mg Oxycodone HCl (Roxicodone -) 5 mg PO Q6H PRN PRN Reason: PAIN LEVEL 7 - 10 Last Admin: 05/17/19 22:30 Dose: 5 mg Ranitidine HCl (Zantac -) 150 mg PO DAILY [facility] Last Admin: 05/18/19 09:43 Dose: 150 mg Senna (Senna -) 2 tab PO HS [facility] Last Admin: 05/17/19 22:29 Dose: 2 tab Sitagliptin Phosphate (Januvia -) 50 mg PO DAILY@0700 [facility] Last Admin: 05/18/19 06:29 Dose: 50 mg Solifenacin (Vesicare -) 5 mg PO DAILY [facility] Last Admin: 05/18/19 09:43 Dose: 5 mg Tiotropium [place] (Spiriva Respimat) 2 puff IH DAILY [facility] Last Admin: 05/18/19 11:43 Dose: 2 puff Vital Signs Period Temp Pulse Resp BP Sys/Knox Pulse Ox Last 24 Hr 97.8 F 84-88 20-20 120-133/61-67 95-95 Constitutional: Yes: Well Nourished, No Distress, Obese Eyes: No: Sclera Icterus HENT: No: Nasal Congestion Neck: No: Decreased ROM Respiratory: Yes: CTA Bilaterally. No: Accessory Muscle Use, Rales, Wheezes Gastrointestinal: Yes: Normal Bowel Sounds. No: Distention, Hepatomegaly, Palpable Mass, Tenderness Cardiovascular: Yes: Regular Rate and Rhythm JVD: No Carotid Bruit: No PMI: Non-Displaced Heart Sounds: Yes: S1, S2. No: Gallop Murmur: No: Systolic Murmur, Diastolic Murmur Musculoskeletal: Yes: Other (No kyphosis) Extremities: No: Cool, Cyanosis Edema: No Integumentary: No: Jaundice Neurological: Yes: Alert, Oriented (x3) Psychiatric: No: Agitated Assessment/Plan Echo 03/2018: nl LV/RV size and function, no significant valvular dz cath 2018 80-90% mid LAD--Xience GINO, subtotal occlusion D1 fills faintly via LAD collaterals (branching vessel)--PCI here not successful; 70-80% mRCA--no intervention; mild LCX and Ramus stenoses. LVEDP 18, nl EF CXR: no acute process ECG: NSR, normal axis. LVH with repol abnormalities echo 04/2019 nl LV function, tr MR, tr TR, RVSP 22 mmHG, mod tele: sinus hyperglycemia - manage per endocrine elevated trop - flat trend, indeterminate range, EKG unchanged from prior - defer further cardiac testing CAD: - s/p cath 2018 with 80-90% mild LAD s/p GINO, unsuccessful PCI to subtotal D1, no intervention to mRCA 70-80% - cont atorvastatin 80 mg daily - cont aspirin and plavix - completed 12 mo--but ischemia risk is likely > bleed risk so will cont DAPT x 3 yrs if tolerates HTN: -bp controlled -cont home meds chronic diastolic HF - cont lasix, HCTZ COPD - manage per primary stable for dc from cardiac perspective
[2019-05-18 17:12] VITALS: BP 116/72; PULSE 86; TEMP 98.2
== END 2019-05-18 21:09 | disposition home or self-care (01) | DRG 638 ==
LOC: JER 15:12 → OBSVTOIN 17:33 → JERBED 17:33 → UNDOADMOB 17:33 → JERBED 17:33 → INTOOBSV 17:33 → JERBED 18:28 → UNDOADMOB 18:28 → J8W 05-15 19:51 → J4S 05-16 01:08 → J6S 05-17 20:58
PROVIDERS: ADMIT Internal Medicine; ATTEND Nurse Practitioner Family
DX: E11.65 Type 2 diabetes mellitus with hyperglycemia (principal); I50.32 Chronic diastolic (congestive) heart failure; Z68.43 Body mass index [BMI] 50.0-59.9, adult; I24.8 Other forms of acute ischemic heart disease; N39.0 Urinary tract infection, site not specified; R56.9 Unspecified convulsions; B96.20 Unspecified Escherichia coli [E. coli] as the cause of diseases classified elsewhere; J44.9 Chronic obstructive pulmonary disease, unspecified; I25.2 Old myocardial infarction; E78.5 Hyperlipidemia, unspecified; F32.9 Major depressive disorder, single episode, unspecified; K21.9 Gastro-esophageal reflux disease without esophagitis; K59.09 Other constipation; E11.51 Type 2 diabetes mellitus with diabetic peripheral angiopathy without gangrene; I11.0 Hypertensive heart disease with heart failure; E87.5 Hyperkalemia; N32.81 Overactive bladder; E66.01 Morbid (severe) obesity due to excess calories; I25.10 Atherosclerotic heart disease of native coronary artery without angina pectoris; R74.8 Abnormal levels of other serum enzymes; Z86.73 Personal history of transient ischemic attack (TIA), and cerebral infarction without residual deficits
CPT/HCPCS: 36415; 71045-TC-FY; 73630-TC-RT-FY; 80053; 81003; 82010; 82550; 82553; 82803; 82962; 83036; 83735; 84100; 84439; 84443; 84484; 85025; 85027; 85610; 87040; 87086; 87186; 93005; 93010; 97116-GP; 97161-GP; 99284-25; J1644; J7030

== ENCOUNTER 2019-05-25 09:07 | Emergency (ER) | payer OTHER ==
[2019-05-25 09:20] VITALS: BMI 52.2
[2019-05-25] MEDS ORDERED: ACETAMINOPHEN 325 MG TABLET (FP) PO ONE (10:16)
[2019-05-25] MEDS ORDERED: ACETAMINOPHEN 325 MG TABLET (FP) ONE (10:34)
--- NOTE | 2019-05-25 10:34 | PDOC ---
History of Present Illness - General Chief Complaint: Pain Stated Complaint: LEG PAIN Time Seen by Provider: 05/25/19 09:46 History Source: Patient Exam Limitations: No Limitations - History of Present Illness Initial Comments: 05/25/19 10:24 HPI 68 year old female with a significant past medical history of CVA on Plavix/ASA , CHF, GERD, COPD/asthma, DM II, NSTEMI, HTN presenting with ED via EMS from [facility] for mechanical fall. she was using her walking roller, which got caught with her jacket, she then tripped and fell back, +hit her head. no LOC or head ache. c/o diffuse abdominal pain. no chest pain, sob, garcía, dizziness. +acute on chronic lower back pain, leg pains and hip/thighs. has not ambulated due to the pain. baseline uses walker for assistance. no paresthesias. no urinary sx or bowel/bladder abnormalities. Allergies: lisinopril, ACEI, fruits, erythromycin, naprosyn Past Medical History/PSH: as above Social history: No tobacco, ETOH or drug use. Meds: as documented in EMR Family history: noncontributory 05/25/19 11:21 05/25/19 12:41 05/25/19 15:33 Past History - Past Medical History Allergies/Adverse Reactions: Allergies Allergy/AdvReac Type Severity Reaction Status Date / Time lisinopril Allergy Severe Swelling Verified 05/25/19 09:10 PADMINI Inhibitors Allergy Verified 05/25/19 09:10 blueberry Allergy Verified 05/25/19 09:10 erythromycin base Allergy Verified 05/25/19 09:10 naproxen Allergy Verified 05/25/19 09:10 raspberry Allergy Verified 05/25/19 09:10 strawberry Allergy Verified 05/25/19 09:10 Home Medications: Ambulatory Orders Amlodipine Besylate [Norvasc -] 10 mg PO DAILY 03/10/18 Budesonide/Formeterol Fumarate [SYMBICORT 160/4.5mcg -] 1 inh PO BID 03/10/18 Famotidine [Pepcid] 20 mg PO DAILY 03/10/18 Fluoxetine HCl [Prozac] 20 mg PO DAILY 03/10/18 Insulin Regular, Human [Humulin R U-500 Kwikpen] 0 unit SQ TID 03/10/18 Levetiracetam [Keppra] 500 mg PO BID 03/10/18 Nortriptyline HCl 25 mg PO HS 03/10/18 Polyvinyl Alcohol [Artificial Tears] 1 drop OP BID 03/10/18 Potassium Chloride 20 meq PO DAILY 03/10/18 hydrALAZINE HCL [Apresoline -] 25 mg PO BID 03/10/18 Ammonium Lactate Cream [Lac-Hydrin 12% Cream -] 1 applic TP DAILY 04/09/19 Aspirin [Aspirin EC] 81 mg PO DAILY 04/09/19 Atorvastatin Ca [Lipitor] 80 mg PO HS 04/09/19 Bacitracin - [Bacitracin Topical Ointment -] 1 applic TP DAILY 04/09/19 Clopidogrel Bisulfate [Plavix -] 75 mg PO DAILY 04/09/19 Clotrimazole [Lotrimin -] 1 applic TP BID 04/09/19 Docusate Sodium [Colace -] 200 mg PO DAILY 04/09/19 Metoprolol Succinate [Toprol Xl] 25 mg PO DAILY 04/09/19 Mupirocin Ointment [Bactroban 2% Ointment -] 1 applic TP DAILY 04/09/19 Oxybutynin Chloride [Oxybutynin Chloride ER] 5 mg PO DAILY 04/09/19 Umeclidinium Walters [Incruse Ellipta] 62.5 mcg IH DAILY 04/09/19 Furosemide [Lasix] 40 mg PO DAILY #30 tablet 04/11/19 Hydrochlorothiazide [Hctz -] 12.5 mg PO DAILY #7 cap 04/11/19 Acetaminophen [Tylenol] 650 mg PO QID #30 capsule 04/20/19 Lidocaine 5% Patch [Lidoderm -] 1 patch TP DAILY #14 patch 04/20/19 Hydrocodone/Acetaminophen [Hydrocodone-Acetamin 5-325 mg] 1 each PO BID Insulin (Levemir) [Levemir Vial] units SQ AM 05/14/19 Cefuroxime Axetil [Ceftin -] 500 mg PO Q12H #20 tablet 05/18/19 Insulin (Novolog 70/30) [Novolog Mix 70/30 Vial -] 30 units SQ BIDAC #7 vial Insulin Aspart [Novolog] 6 unit SQ ACHS #7 vial 05/18/19 Sitagliptin Phosphate [Januvia -] 50 mg PO DAILY@0700 #60 tablet 05/18/19 metFORMIN HCL [Glucophage -] 500 mg PO BID@0700,1630 #60 tablet 05/18/19 Cyclobenzaprine HCl [Flexeril 10 mg] 10 mg PO TID PRN #15 tablet 05/25/19 Lidocaine 5% Patch [Lidoderm Patch -] 1 patch TP DAILY #7 patch 05/25/19 Asthma: Yes Cardiac Disorders: Yes (PVD) CVA: Yes (3 stroke &TIA) COPD: No CHF: No Diabetes: Yes (TYPE 2) GI Disorders: Yes (constipation) HTN: Yes Hypercholesterolemia: Yes Psychiatric Problems: Yes (DEPRESSION) Seizures: Yes (UNSPECIFIED CONVULSIONS) - Surgical History Cardiac Surgery: Yes (03/2016 PCI/STENT) Cholecystectomy: Yes (2016) - Immunization History Immunization Up to Date: Yes - Psycho Social/Smoking Cessation Hx Smoking History: Never smoked Have you smoked in the past 12 months: No Number of Cigarettes Smoked Daily: 10 If you are a former smoker, when did you quit?: 10 years ago Hx Alcohol Use: No Drug/Substance Use Hx: No Substance Use Type: None Hx Substance Use Treatment: No Review of Systems - Review of Systems Able to Perform ROS?: Yes Comments:: 05/25/19 10:24 Review of systems Constitutional: no fevers or chills. No weakness HEENT: no headache or dizziness. No congestion. No visual/hearing disturbances. CVS: no cp or syncope. Resp: no sob. No cough. Gastrointestinal: +abdominal pain, no nausea, vomiting, diarrhea. Genitourinary: no urinary sx, hematuria. MUSCULOSKELETAL: No joint pain and swelling. No neck pain, +back pain. +leg pain. SKIN: no redness or skin changes, no discharge, no rash. No wounds. Hematologic: + easy bruising/bleeding. NEUROLOGIC: No headache, dizziness, LOC or altered mental status. No weakness, numbness or tingling. Psych: no anxiety or depression Allergic/Immunologic: no allergies All other systems reviewed and negative, or as documented in HPI. *Physical Exam - Vital Signs Last Vital Signs Temp Pulse Resp BP Pulse Ox 98.2 F 80 16 141/64 98 05/25/19 09:18 05/25/19 09:18 05/25/19 09:18 05/25/19 09:18 05/25/19 09:18 - Physical Exam Comments: 05/25/19 10:22 General: GCS 15 - NAD HEENT: NCAT, PERRL, EOMI. Airway intact. No battles sign or raccoon eyes. No e/ o ocular. Dentition intact. No e/o septal hematoma, nasal bridge stable. Neck: neck supple, no midline C spine tenderness or deformity, ROM intact. No anterior mass or crepitus, trachea midline. Resp: Lungs clear bilaterally Chest: no clavicle or chest wall tenderness or crepitus CVS: RRR, 2+ pulses throughout. Abdomen: Abdomen soft, obese, +diffuse TTP, no rebound or guarding. Back: Back +lumbar TTP, no midline spinal tenderness along cervical spine, FROM , no stepoffs. MSK: Pelvis stable, Extremities symmetric, no focal deformities, proximal and distally; no pain on axial loading. FROM in all extrem. tender to bilateral thighs and hip, left lateral buttock TTP, no overlying skin changes or discoloration. Neuro: Alert, oriented appropriately. CN II-XII grossly symmetric and intact. no focal neuro deficits. Sensation and strength intact throughout. gait unable to assess. Skin: intact, normal color and well perfused. No seatbelt signs at neck, chest or abdomen. 05/25/19 15:19 Heart Score/ECG Review #1 ECG reviewed & interpreted by me at: 10:25 General ECG Interpretation: Sinus Rhythm, Normal Rate, Normal Intervals Compared to previous ECG there are: No significant change 05/25/19 10:54 PACs, sinus rhythm [address] elevations or depressions nonspecific T wave abnormalities in lateral leads, I, AVL 05/25/19 10:55 ED Treatment Course - LABORATORY CBC & Chemistry Diagram: 05/25/19 10:50 05/25/19 10:50 - RADIOLOGY Radiology Studies Ordered: Category Date Time Status ABDOMEN & PELVIS CT WITH CONTR [CT] Stat CT Scan 05/25/19 10:[address] W/O CONTR [CT] Stat CT Scan 05/25/19 10:[address] WITH CONTRAST [CT] Stat CT Scan 05/25/19 10:[address] WITHOUT CONTRAST [CT] Stat CT Scan 05/25/19 10:[address] W/O CONTRAST [CT] Stat CT Scan 05/25/19 10:[address] W/O CONTRAST [CT] Stat CT Scan 05/25/19 10:20 Ordered Medical Decision Making - Medical Decision Making 05/25/19 10:23 Vital Signs Temp Pulse Resp BP Pulse Ox 98.2 F 80 16 141/64 98 05/25/19 09:18 05/25/19 09:18 05/25/19 09:18 05/25/19 09:18 05/25/19 09:18 Trauma ddx: ICH, SDH/ EDH, C spine injury/strain, extremity sprain/fracture, pelvis fracture, extremity fx. MSK contusion, msk spasms. Rib fractures. Clinically doubt Intra abdominal and thoracic injuries/bleed - however due to initial concern with pain fall and antiplatelet use, head impact. CTs indicated labs and lytes wnl, UA unremarkable. +yeast, treat with x1 dose of diflucan. no s/s infection, no blood. EKG unremarkable. glucose low 48. has not eaten this morning, known diabetic. pt mentating, no neuro deficits. given juice recheck bgm. normalized. naomi PO intake and has been comfortable with medication regimen CT head negative for acute intracranial pathology, chronic bilateral cerebral infarcts are noted, no acute changes or seen compared to previous CT. no cervical spine fracture. fat containing umb hernia, no stranding or signs of strangulation/obstruction. atelectasis, thyromegaly. no traumatic injuries noted. thoracic and lumbar spine with degenerative changes, no acute fx. rx muscle relaxer as needed, lidoderm patch, tyl prn for pain control Pt to be discharged in stable condition back to [facility]. Patient made aware of clinical impression, treatment recommendations and disposition plan, return precautions discussed (including but not limited to new or persistent/worsening symptoms, pain, fevers, or signs of infection, chest pain, respiratory distress, inability to tolerate oral intake, dehydration , syncope, or neurologic changes). Follow up with PMD as recommended, ortho referral given if worsening or persistent sx, follow up information provided, take medications as instructed for duration of time. continue with supportive care, avoid triggers and precipitants. All questions answered to patient's satisfaction and expressed understanding and comfort with this. At the time of discharge, the patient is alert, clinically improved, tolerating po and verbalizes understanding of instructions, satisfied with the care received and felt comfortable with the plan. Patient does not suffer from an acute life- threatening medical condition at this time and is safe for outpatient follow- up. 05/25/19 16:22 05/25/19 16:23 Discharge - Discharge Information Problems reviewed: Yes Clinical Impression/Diagnosis: Candidiasis Contusion Qualifiers: Encounter type: initial encounter Laterality: bilateral Fall Qualifiers: Encounter type: initial encounter Qualified Code(s): W19.XXXA - Unspecified fall, initial encounter Condition: Good Disposition: HOME - Admission No - Additional Discharge Information Prescriptions: Cyclobenzaprine HCl [Flexeril 10 mg] 10 mg PO TID PRN #15 tablet PRN Reason: Muscle Spasms Lidocaine 5% Patch [Lidoderm Patch -] 1 patch TP DAILY #7 patch - Follow up/Referral - Patient Discharge Instructions Patient Printed Discharge Instructions: Muscle Strain, DI for Contusion, How to Prevent Falls Additional Instructions: you were treated for yeast infection You most likely have musculoskeletal strain of your buttock/thighs and lower back your imaging was negative for bleeding or injuries. Avoid heavy lifting or strenuous activity to minimize further injury This should heal over the next 3-5 days. RICE rest ice elevate the affected area Rest, Ice (20 minutes at a time, 3 times a day), Compression (PADMINI wrap or splint ), Elevation (above the heart). Apply ice to the area for 10 minutes every 2 hours for the first 2 days after the injury to reduce swelling. continue with range of motion exercises, as this will facilitate the healing process; avoid being bed bound and immobile. If you have any worsening of symptoms, including severe pain/swelling/redness/ numbness/changes in sensation/weakness/paralysis or any other concerns please return to the Emergency Department immediately. You were given a copy of the results from any tests performed today in the Emergency Department which have results available. Show these to your doctor(s). Some of the tests we sent may not have results yet so please call or have your doctor call the Emergency Department to follow up on all results. Please continue taking your home medications as directed. Do not use alcohol when taking any medication ( especially antibiotics, tylenol or other pain medication) unless you check with the doctor or pharmacist. -flexeril is a muscle relaxant, take three times a day as needed may cause sleepiness, do not drive or operate machinery or take with alcohol. -topical lidoderm patch to the area affected, 12 hours on and 12 hours off.. -May take tylenol 650 to 975 mg every 6 hours as needed for mild to moderate pain, available over the counter. This does not require narcotics, as it will precipitate injuries and falls. Please follow up with your primary doctor(s) within the next 1 week, but seek medical care sooner if your symptoms persist or worsen. Please call as soon as possible for an appointment. If you cannot follow up with your doctor please return to the Emergency Department for any urgent issues. Follow up with your primary care physician in 1 week if symptoms persist, or with orthopedics specialists if needed, referrals have been provided. FALL PREVENTION AT HOME WHAT YOU NEED TO KNOW There are many different factors that can increase your risk of falls. Falls can happen any time, but the majority of them occur in the home. Fall prevention includes ways to make your home and other areas safer. It also includes ways you can move more carefully to prevent a fall. Health conditions that cause changes in your blood pressure, vision, or muscle strength and coordination may increase your risk for falls. Medicines, including anesthesia, may increase your risk for falls if they make you dizzy, weak, or sleepy. FALL PREVENTION TIPS Stand or sit up slowly. This may help you keep your balance and prevent falls. Do not walk and talk at the same time. Concentrate on the task of walking and continue the conversation after you've reached a safe place. Wear shoes that fit well and have soles that glazier supervisor. Wear shoes both inside and outside. Use slippers with good glazier supervisor. Avoid shoes with high heels. Use assistive devices as directed. Your healthcare provider may suggest that you use a cane or walker to help you keep you balance. Be sure you have adequate lighting throughout your house. Keep paths clear. Remove books, shoes and other objects from walkways and stairs. Keep cords for telephones and lamps out of the way so you dont need to walk over them. Remove small rugs or secure them with double-sided tape. This will prevent you from tripping. Use a nightlight when getting out of bed at night. Stay active to maintain overall strength and endurance. Know your limitations. If there is a task you can not complete with ease, do not risk a fall by trying to complete it. Call 911 or have someone else call if: You have fallen and are unconscious You have fallen and cannot move part of your body Contact your healthcare provider if: You have fallen and have pain or a headache You have questions or concerns about your condition or care. - Post Discharge Activity
[2019-05-25 11:03] LABS: BASO % 0.8 % (0-2.0); EOS % 1.4 % (0-4.5); HEMATOCRIT 31.6 % (32.4-45.2); HEMOGLOBIN 9.7 GM/dL (10.7-15.3); LYMPH % 20.4 % (8-40); MCH 23.6 pg (25.7-33.7); MCHC 30.7 g/dl (32.0-36.0); MEAN CELL VOLUME 76.9 fl (80-96); MEAN PLT VOLUME 9.2 fl (7.5-11.1); MONO % 5.8 % (3.8-10.2); NEUT % 71.6 % (42.8-82.8); PLATELET COUNT 278 K/MM3 (134-434); RBC 4.11 M/mm3 (3.60-5.2); RDW 21.7 % (11.6-15.6); WHITE BLOOD COUNT 12.6 K/mm3 (4.0-10.0)
[2019-05-25 11:14] LABS: INR 1.08 (0.83-1.09); PROTHROMBIN TIME (PATIENT) 12.7 SEC (9.7-13.0)
[2019-05-25 11:17] LABS: ACTIVATED PTT 25.4 SECONDS (25.2-36.5)
[2019-05-25 11:38] LABS: ALBUMIN 3.1 g/dl (3.4-5.0); BILIRUBIN,TOTAL 0.3 mg/dL (0.2-1); BLOOD UREA NITROGEN 14.4 mg/dL (7-18); CALCIUM 9.7 mg/dL (8.5-10.1); CREATININE 0.8 mg/dL (0.55-1.3); TOT PROT 6.6 g/dl (6.4-8.2)
[2019-05-25] MEDS ORDERED: CYCLOBENZAPRINE HCL 5 MG TABLET PO ONE (11:44)
[2019-05-25 12:01] LABS: ANISOCYTOSIS 2+; MACROCYTOSIS 0; OVALOCYTE 1+; PLATELET ESTIMATE NORMAL
[2019-05-25] MEDS ORDERED: CYCLOBENZAPRINE HCL 10 MG TABLET (FP) ONE (12:03)
[2019-05-25] MEDS ORDERED: morphine CARPU-JECT 4 MG/1 ML DISP.SYRIN IVPUSH ONE (12:36)
[2019-05-25] MEDS ORDERED: morphine SULFATE 4 MG/ML VIAL ONE (12:36)
--- NOTE | 2019-05-25 13:34 | EKG ---
Test Reason : Blood Pressure : / mmHG Vent. Rate : 091 BPM Atrial Rate : 091 BPM P-R Int : 164 ms QRS Dur : 088 ms QT Int : 360 ms P-R-T Axes : 040 001 079 degrees QTc Int : 442 ms SINUS RHYTHM WITH PREMATURE ATRIAL COMPLEXES MODERATE VOLTAGE CRITERIA FOR LVH, MAY BE NORMAL VARIANT BORDERLINE ECG WHEN COMPARED WITH ECG OF 14-MAY-2019 19:41, PREMATURE ATRIAL COMPLEXES ARE NOW PRESENT Confirmed by MARSHA VILLA, BULMARO ([id number]) on 05/25/2019 1:33:30 PM Referred By: Confirmed By:BULMARO LARSON MD
[2019-05-25 15:26] VITALS: BP 131/73; PULSE 100; TEMP 98.1
[2019-05-25 16:10] LABS: URINE APPEARANCE CLOUDY; URINE BILIRUBIN NEGATIVE (NEGATIVE); URINE COLOR YELLOW; URINE GLUCOSE (UA) 500 mg/dl (NEGATIVE); URINE KETONE NEGATIVE (NEGATIVE)
[2019-05-25 16:11] LABS: URINE LEUK ESTERASE TRACE (NEGATIVE); URINE NITRITE NEGATIVE (NEGATIVE); URINE PROTEIN NEGATIVE (NEGATIVE); URINE UROBILINOGEN 0.2 mg/dL (0.2-1.0)
[2019-05-25 16:12] LABS: YEAST 2+ YEAST (NEGATIVE)
[2019-05-25] MEDS ORDERED: FLUCONAZOLE 50 MG TABLET PO ONE (16:14)
== END 2019-05-25 18:25 ==
LOC: JERFT 09:07 → JER 09:07
PROC: 3E033NZ Introduction of Analgesics, Hypnotics, Sedatives into Peripheral Vein, Percutaneous Approach (ICD-10-PCS; principal; 2019-05-25)
DX: B37.3 Candidiasis of vulva and vagina (principal); S30.0XXA Contusion of lower back and pelvis, initial encounter; W18.39XA Other fall on same level, initial encounter; Y93.89 Activity, other specified; Y92.128 Other place in nursing home as the place of occurrence of the external cause; Y99.8 Other external cause status; Z99.89 Dependence on other enabling machines and devices; I11.0 Hypertensive heart disease with heart failure; I50.9 Heart failure, unspecified; I25.10 Atherosclerotic heart disease of native coronary artery without angina pectoris; Z95.5 Presence of coronary angioplasty implant and graft; Z87.891 Personal history of nicotine dependence; I25.2 Old myocardial infarction; J45.998 Other asthma; J44.9 Chronic obstructive pulmonary disease, unspecified; E11.9 Type 2 diabetes mellitus without complications; Z79.4 Long term (current) use of insulin; Z86.73 Personal history of transient ischemic attack (TIA), and cerebral infarction without residual deficits; G40.909 Epilepsy, unspecified, not intractable, without status epilepticus; F32.9 Major depressive disorder, single episode, unspecified; K59.00 Constipation, unspecified; Z79.82 Long term (current) use of aspirin; Z79.02 Long term (current) use of antithrombotics/antiplatelets; Z88.8 Allergy status to other drugs, medicaments and biological substances; Z91.018 Allergy to other foods; Z88.1 Allergy status to other antibiotic agents
CPT/HCPCS: 36415; 70450-TC; 71260-TC; 72125-TC; 72128-TC; 72131-TC; 74177-TC; 80053; 81003; 82962; 83690; 85025; 85610; 85730; 86850; 86900; 86901; 93005; 93010; 99283-25

== ENCOUNTER 2019-06-01 17:02 | Observation (INO) | payer OTHER ==
--- NOTE | 2019-06-01 18:45 | PDOC ---
History of Present Illness - General Chief Complaint: Pain Stated Complaint: Pain Time Seen by Provider: 06/01/19 18:05 History Source: Patient Exam Limitations: No Limitations - History of Present Illness Initial Comments: 06/01/19 18:38 Source: Patient and Chart Review HPI: 68yo F with PMH CVA on Plavix/ASA, CHF, GERD, COPD/asthma, DM II, NSTEMI, HTN presenting with ED via EMS from [facility] for intermittent leg pain since 1979, ambulated with a walker at baseline. Patient reports that she was experiencing her chronic leg pain and someone saw her making a face "like I always do with my pain" and decided to call 911 and send her to the ED. Pain is "like a knife running up and down my leg" not electric, not shooting, constant, not relieved by any medication or rest. She denies any chest pain, shortness of breath, nausea, vomiting, fever, chills, abdominal pain , unilateral leg swelling. 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 Difficulty with mobility, noticed worsening of the swelling in her bilateral legs. Does endorse more rapid SOB with exertion than baseline and "pain all over my body" all the time. Past History - Travel Traveled outside of the country in the last 30 days: No Close contact w/someone who was outside of country & ill: No - Past Medical History Allergies/Adverse Reactions: Allergies Allergy/AdvReac Type Severity Reaction Status Date / Time lisinopril Allergy Severe Swelling Verified 06/01/19 18:41 PADMINI Inhibitors Allergy Verified 06/01/19 18:41 blueberry Allergy Verified 06/01/19 18:41 erythromycin base Allergy Verified 06/01/19 18:41 naproxen Allergy Verified 06/01/19 18:41 raspberry Allergy Verified 06/01/19 18:41 strawberry Allergy Verified 06/01/19 18:41 Home Medications: Ambulatory Orders Atorvastatin Ca [Lipitor] 80 mg PO HS 06/01/19 Budesonide/Formeterol Fumarate [SYMBICORT 160/4.5mcg -] 1 puff PO BID 06/01/19 Insulin Aspart [Novolog] 100 unit SQ BID MDD sliding scale 06/01/19 Insulin NPH Hum/Reg Insulin Hm [Novolin 70-30 100 Unit/ml Vial] 0 unit SQ AM MDD as directed 06/01/19 Metformin HCl [Glucophage] 500 mg PO BID 06/01/19 Metoprolol Tartrate [Lopressor -] 25 mg PO DAILY 06/01/19 Nortriptyline HCl [Pamelor -] 25 mg PO DAILY 06/01/19 Oxybutynin Chloride [Oxybutynin Chloride ER] 5 mg PO DAILY 06/01/19 Potassium Chloride 20 meq PO DAILY 06/01/19 Pravastatin Sodium [Pravachol] 80 mg PO DAILY 06/01/19 levETIRAcetam [Keppra -] 500 mg PO BID 06/01/19 Asthma: Yes Cardiac Disorders: Yes (PVD) CVA: Yes (3 stroke &TIA) COPD: No CHF: No Diabetes: Yes (TYPE 2) GI Disorders: Yes (constipation) HTN: Yes Hypercholesterolemia: Yes Psychiatric Problems: Yes (DEPRESSION) Seizures: Yes (UNSPECIFIED CONVULSIONS) - Surgical History Cardiac Surgery: Yes (03/2016 PCI/STENT) Cholecystectomy: Yes (2016) - Immunization History Immunization Up to Date: Yes - Psycho Social/Smoking Cessation Hx Smoking History: Unknown if ever smoked Have you smoked in the past 12 months: No Number of Cigarettes Smoked Daily: 10 If you are a former smoker, when did you quit?: 10 years ago Information on smoking cessation initiated: No Hx Alcohol Use: No Drug/Substance Use Hx: No Substance Use Type: None Hx Substance Use Treatment: No Review of Systems - Review of Systems Able to Perform ROS?: Yes Is the patient limited Nicaraguan proficient: Yes Constitutional: No: Chills, Diaphoresis, Fever, Malaise, Weakness HEENTM: No: Recent change in vision, Nose Congestion, Throat Pain Respiratory: Yes: SOB with Exertion. No: Cough, Orthopnea (laying flat comfortbably in the ED), Shortness of Breath, Wheezing Cardiac (ROS): No: Chest Pain, Edema, Irregular Heart Rate, Lightheadedness, Palpitations, Syncope, Chest Tightness ABD/GI: No: Constipated, Diarrhea, Nausea, Vomiting : No: Burning, Dysuria, Frequency, Pain Musculoskeletal: Yes: Back Pain, Muscle Pain. No: Joint Pain, Muscle Weakness Integumentary: No: Symptoms Reported, Bruising, Pruritus, Rash Neurological: Yes: Numbness (chronic, DM), Tingling (chronic, DM). No: Headache , Tremors, Weakness Psychiatric: No: Stressors, Change in Appetite Endocrine: No: Symptoms Reported Hematologic/Lymphatic: No: Symptoms Reported All Other Systems: Reviewed and Negative *Physical Exam - Vital Signs Last Vital Signs Temp Pulse Resp BP Pulse Ox 97.3 F L 97 H 16 122/63 100 06/01/19 17:20 06/01/19 17:20 06/01/19 17:20 06/01/19 17:20 06/01/19 17:20 - Physical Exam Comments: 06/01/19 18:47 Vitals reviewed, BGM 112 on arrival Morbidly obese woman, NAD, sleeping flat in hospital stretcher MMM, EOMI, NCAT, trachea midline RRR, nl s1s2, holo systolic murmur appreciated CTABL, normal WOB, no wheezes / rales / rhonchi Obese, soft, non-tender, non-distended WWP, no clubbing / cyanosis, 2+ pitting edema to the knee bilaterlaly - tender with assessment, no erythema, warmth, skin lesions, tender behind knees 2+ radial pulse, unable to assess LE pulses 2/2 edema, warm and well perfused Alert and oriented, intermittently sleepy, CN grossly intact, sensation grossly intact, pain with movement of LE ED Treatment Course - LABORATORY CBC & Chemistry Diagram: 06/01/19 19:40 06/01/19 19:40 Medical Decision Making - Medical Decision Making 06/01/19 20:02 68yo F with PMH CVA on Plavix/ASA, CHF, GERD, COPD/asthma, DM II, NSTEMI, HTN presenting with ED via EMS from [facility] for intermittent leg pain since 1979, ambulated with a walker at baseline. Patient with subacute on chronic leg pain, history of hyper/hypoglycemia - BGM 112 on arrival. Exam with normal lungs, bilateral pitting edema, tenderness in both legs in region of edema, no signs of cellulitis on exam. DDX: Pain 2/2 edema from CHF exacerbation, sciatica, neuropathy pain, DVT, chronic pain syndrome. -CBC, CMP, PT/INR, PTT, BNP, Cardiac Profile -CXR, EKG, Duplex US B/l -POCUS IV, IV 1g Tylenol 06/02/19 00:11 -EKG with ?LVH, otherwise normal rate / rhythm / axis / morphologies, no ischemic changes -DVT study without DVT -Labs wnl with mild anemia, WBC 10.5 Patient safe to return home pending ambulation - uses a walker at home Needs to be changed before ambulation Otherwise, Dispo: Return to facility Signed out to Dr. Elizabeth Discharge - Discharge Information Problems reviewed: Yes Clinical Impression/Diagnosis: Leg pain Qualifiers: Laterality: bilateral Qualified Code(s): M79.604 - Pain in right leg Condition: Improved Disposition: HOME - Admission No - Follow up/Referral Referrals: Beni Ledesma MD [Primary Care Provider] - - Patient Discharge Instructions Patient Printed Discharge Instructions: DI for Leg Pain Additional Instructions: You were seen and evaluated for leg pain. You may take OTC pain medication for your pain and continue your home medications. Please follow up with your primary care provider in the next 72 hours. Return to the ED for any new or concerning symptoms. - Post Discharge Activity
[2019-06-01] MEDS ORDERED: ACETAMINOPHEN 1000 MG/100 ML VIAL (NON FORMULARY) IVPB ONE (19:06)
[2019-06-01] MEDS ORDERED: ACETAMINOPHEN INJECTION 100 ML IVPB ONE (19:44)
[2019-06-01 19:52] LABS: BASO % 0.6 % (0-2.0); EOS % 1.7 % (0-4.5); HEMATOCRIT 28.4 % (32.4-45.2); HEMOGLOBIN 9.3 GM/dL (10.7-15.3); LYMPH % 14.5 % (8-40); MCH 25.1 pg (25.7-33.7); MCHC 32.6 g/dl (32.0-36.0); MEAN PLT VOLUME 8.9 fl (7.5-11.1); MONO % 5.5 % (3.8-10.2); NEUT % 77.7 % (42.8-82.8); PLATELET COUNT 266 K/MM3 (134-434); RDW 21.9 % (11.6-15.6); WHITE BLOOD COUNT 10.5 K/mm3 (4.0-10.0)
[2019-06-01 20:12] LABS: INR 1.02 (0.83-1.09)
[2019-06-01 20:15] LABS: ACTIVATED PTT 29.9 SECONDS (25.2-36.5)
[2019-06-01 20:23] LABS: ALBUMIN 3.2 g/dl (3.4-5.0); ALK PHOS 125 U/L (45-117); ANION GAP 6 MMOL/L (8-16); BILIRUBIN,TOTAL 0.2 mg/dL (0.2-1); BLOOD UREA NITROGEN 15.4 mg/dL (7-18); CALCIUM 9.4 mg/dL (8.5-10.1); CHLORIDE 108 mmol/L (98-107); CO2 27 mmol/L (21-32); CREATININE 0.9 mg/dL (0.55-1.3); GLUCOSE,RANDOM 107 mg/dL (74-106); POTASSIUM 4.2 mmol/L (3.5-5.1); SGOT/AST 28 U/L (15-37); SGPT/ALT 38 U/L (13-61); SODIUM 142 mmol/L (136-145); TOT PROT 6.6 g/dl (6.4-8.2)
--- NOTE | 2019-06-01 20:25 | PDOC ---
Documentation entered by Rocio Fregoso SCRIBE, acting as scribe for Joaquina Finney MD. Joaquina Finney MD: This documentation has been prepared by the Zenobia lowery Xhesika, SCRIBE, under my direction and personally reviewed by me in its entirety. I confirm that the documentation accurately reflects all work, treatment, procedures, and medical decision making performed by me. Attending Attestation - Resident Resident Name: ChiloTaurus - ED Attending Attestation I have performed the following: I have examined & evaluated the patient, The case was reviewed & discussed with the resident, I agree w/resident's findings & plan, Exceptions are as noted - HPI HPI: 06/01/19 18:57 The patient is a 68 year old female with a significant PMH of CVA on Plavix/ASA , CHF, GERD, COPD/asthma, DM II, NSTEMI, HTN, and chronic leg pain who presents to the emergency department via EMS from [facility] for b/l leg pain and edema. Pt describes her pain as chronic, intermittent, like a knife running up and down my leg, not relieved with medication, worsened with walking, and associated with difficulty ambulating. The patient denies chest pain, shortness of breath, headache and dizziness. Denies fever, chills, cough, nausea, vomiting, diarrhea and constipation. Denies dysuria, frequency, urgency and hematuria. Allergies: lisinopril, ACEI, fruits, erythromycin, naprosyn Social history: No tobacco, ETOH or drug use. - Physicial Exam PE: 06/01/19 19:00 GENERAL: The patient is in no acute distress, resting but arousable to verbal stimuli. HEAD: Normal EYES: PERRLA, EOMI, sclera anicteric, conjunctiva clear. ENT: Ears normal, nares patent, oropharynx clear without exudates. Moist mucous membranes. NECK: Normal range of motion, supple LUNGS: Breath sounds equal, clear to auscultation bilaterally. No wheezes HEART:Regular rate and rhythm, normal S1 and S2 without murmur, rub or gallop. ABDOMEN: Soft, nontender, EXTREMITIES: Bilateral pitting edema 3+ to above her knees, venous stasis changes with skin break down noted ? erythema, legs are no warm No plantar ulcers seen NEUROLOGICAL: Cranial nerves II through XII grossly intact. Normal speech. No focal neurological deficits. SKIN: As above 06/01/19 20:21 - Medical Decision Making 06/01/19 20:22 Ms. Kylie Salinas presents to the ER with a complaint of leg pain which she states is chronic but is very severe so much so that she has difficulty walking No fevers or chills No NEW trauma (though her last visit here was due to a fall) Will do: Labs Duplex Xray tylenol for pain Re Assess 06/01/19 20:33 Laboratory Tests 06/01/19 06/01/19 06/01/19 19:40 19:40 19:40 WBC 10.5 H Hgb 9.3 L Hct 28.4 L Plt Count 266 INR BUN 15.4 Creatinine 0.9 Creatine Kinase 142 Troponin I < 0.02 B-Natriuretic Peptide 581.8 H 06/01/19 19:40 WBC Hgb Hct Plt Count INR 1.02 BUN Creatinine Creatine Kinase Troponin I B-Natriuretic Peptide 06/01/19 23:34 Duplex negative for DVT No deformities Pt is ambulatory when assisted to standing Pt states her leg pain is no different from prior 06/01/19 23:55 EKG: Twelve-lead EKG was performed and reviewed by me. There is normal sinus rhythm with a normal rate of 87 bpm. The axis is normal. The intervals are normal. There are no ST or T wave abnormalities. (+) LVH Impression: Normal twelve-lead EKG Pt signed out pending trial of ambulation in the ER If she is unable to do so, pt will be admitted for PT evaluation Clinical impression: chronic leg pain venous stasis changes Chronic lower extremity edema
[2019-06-01 20:49] LABS: ANISOCYTOSIS 1+; MACROCYTOSIS 0; PLATELET ESTIMATE NORMAL
--- NOTE | 2019-06-02 00:41 | PDOC ---
*Physical Exam - Vital Signs Last Vital Signs Temp Pulse Resp BP Pulse Ox 97.7 F 97 H 16 122/63 96 06/01/19 19:20 06/01/19 17:20 06/01/19 17:20 06/01/19 17:20 06/01/19 19:20 ED Treatment Course - LABORATORY CBC & Chemistry Diagram: 06/02/19 05:20 06/02/19 05:20 - ADDITIONAL ORDERS Additional order review: Laboratory Results 06/01/19 06/01/19 06/01/19 19:40 19:40 19:40 PT with INR 12.00 INR 1.02 PTT (Actin FS) 29.9 Sodium 142 Potassium 4.2 Chloride 108 H Carbon Dioxide 27 Anion Gap 6 L BUN 15.4 Creatinine 0.9 Est GFR (CKD-EPI)AfAm 76.14 Est GFR (CKD-EPI)NonAf 65.70 POC Glucometer Random Glucose 107 H Calcium 9.4 Total Bilirubin 0.2 AST 28 ALT 38 Alkaline Phosphatase 125 H Creatine Kinase 142 Troponin I < 0.02 B-Natriuretic Peptide 581.8 H Total Protein 6.6 Albumin 3.2 L 06/01/19 19:16 PT with INR INR PTT (Actin FS) Sodium Potassium Chloride Carbon Dioxide Anion Gap BUN Creatinine Est GFR (CKD-EPI)AfAm Est GFR (CKD-EPI)NonAf POC Glucometer 112 Random Glucose Calcium Total Bilirubin AST ALT Alkaline Phosphatase Creatine Kinase Troponin I B-Natriuretic Peptide Total Protein Albumin 06/01/19 06/01/19 19:40 19:16 RBC 3.70 MCV 77.0 L MCHC 32.6 RDW 21.9 H MPV 8.9 Neutrophils % 77.7 Lymphocytes % 14.5 D Monocytes % 5.5 Eosinophils % 1.7 Basophils % 0.6 POC Glucometer 112 - Medications Given in the ED: ED Medications Discontinued Medications Generic Name Dose Route Start Last Admin Trade Name Freq PRN Reason Stop Dose Admin Acetaminophen 1,000 mg 06/01/19 19:06 06/01/19 19:45 Ofirmev Injection - IVPB 06/01/19 19:07 1,000 mg ONCE ONE Administration Medical Decision Making - Medical Decision Making 06/02/19 00:41 rcvd sign out from noon team - ambulate - dc vs admit 06/02/19 02:57 pt unable to tolerate ambulation admit Admitted Med-surg Discharge - Discharge Information Problems reviewed: Yes Clinical Impression/Diagnosis: Unable to ambulate Leg pain Qualifiers: Laterality: bilateral Qualified Code(s): M79.604 - Pain in right leg Condition: Improved - Admission Yes - Follow up/Referral - Patient Discharge Instructions - Post Discharge Activity
--- NOTE | 2019-06-02 04:52 | PN ---
Teaching Attending Note Name of Resident: Anai Maldonado ATTENDING PHYSICIAN STATEMENT I saw and evaluated the patient. I reviewed the resident's note and discussed the case with the resident. I agree with the resident's findings and plan as documented. SUBJECTIVE: 68-year-old morbidly obese woman with history of CVA CHF GERD reactive airway disease CAD (s/p cath 2018 with 80-90% mild LAD s/p GINO) diabetes mellitus hypertension and chronic lower extremity pain presented via EMS from [facility] for bilateral leg pain and Pedal edema. Leg pain is believed to be chronic. Patient able to walk in the emergency room so was not able to be discharged OBJECTIVE: Last Vital Signs Temp Pulse Resp BP Pulse OxCAD status post stent in 2018 97.7 F 88 18 129/62 97 06/01/19 19:20 06/02/19 02:05 06/02/19 02:05 06/02/19 02:05 06/02/19 02:05 GENERAL: Morbidly obese HEENT: Normocephalic, atraumatic. PERRLA, EOMI. No conjunctival pallor. Sclera are non- icteric. Moist mucous membranes. Oropharynx is clear. NECK: Supple. Full ROM. No JVD. Carotid pulses 2+ and symmetric, without bruits. No thyromegaly. No lymphadenopathy. CARDIOVASCULAR: Regular rate and rhythm. Systolic murmur Distal pulses are 2+ and symmetric. PULMONARY: No evidence of respiratory distress. Lungs clear to auscultation bilaterally. No wheezing, rales or rhonchi. ABDOMINAL: Soft. Non-tender. Non-distended. No rebound or guarding. No organomegaly. Normoactive bowel sounds. MUSCULOSKELETAL Normal range of motion at all joints. No bony deformities or tenderness. No CVA tenderness. EXTREMITIES: Mild pedal edema bilaterally and chronic venous stasis changes appreciated SKIN: Warm and dry. Normal capillary refill. No rashes. No jaundice. PSYCHIATRIC: Cooperative. Good eye contact. Appropriate mood and affect. Abnormal Lab Results 06/01/19 06/01/19 06/01/19 19:40 19:40 19:40 WBC 10.5 H Hgb 9.3 L Hct 28.4 L MCV 77.0 L MCH 25.1 L RDW 21.9 H Absolute Neuts (auto) 8.2 H Chloride 108 H Anion Gap 6 L Random Glucose 107 H Alkaline Phosphatase 125 H B-Natriuretic Peptide 581.8 H Albumin 3.2 L Imaging reviewed ASSESSMENT AND PLAN: 68-year-old morbidly obese woman with Chronic leg pain bilaterally, May be diabetic neuropathy. Was unable to ambulate in ER therefore they requested that we admit the patient. Lower extremity duplex did not show any DVTs in either leg. Admit to [facility] Fall precautions and bedrest Physical therapy evaluation Continue home dose nortriptyline Gabapentin Trial(Patient was on gabapentin previously) Diabetes mellitus NovoLog sliding scale coverage Levemir basal insulin A1c CAD status post stent to LAD in 2018 Aspirin, Plavix, statin Heparin subcutaneously for DVT prophylaxis
[2019-06-02 05:54] LABS: BASO % 0.5 % (0-2.0); EOS % 2.3 % (0-4.5); HEMATOCRIT 28.5 % (32.4-45.2); LYMPH % 25.6 % (8-40); MCH 24.2 pg (25.7-33.7); MCHC 31.7 g/dl (32.0-36.0); MEAN CELL VOLUME 76.3 fl (80-96); MEAN PLT VOLUME 8.6 fl (7.5-11.1); MONO % 6.8 % (3.8-10.2); NEUT % 64.8 % (42.8-82.8); PLATELET COUNT 230 K/MM3 (134-434); RBC 3.73 M/mm3 (3.60-5.2); RDW 21.8 % (11.6-15.6); WHITE BLOOD COUNT 7.1 K/mm3 (4.0-10.0)
[2019-06-02 06:27] LABS: ALBUMIN 2.8 g/dl (3.4-5.0); BILIRUBIN,TOTAL 0.3 mg/dL (0.2-1); CALCIUM 8.8 mg/dL (8.5-10.1); CREATININE 0.7 mg/dL (0.55-1.3); MAGNESIUM 1.6 mg/dL (1.8-2.4); PHOSPHOROUS 3.8 mg/dL (2.5-4.9); POTASSIUM 4.1 mmol/L (3.5-5.1); TOT PROT 6.1 g/dl (6.4-8.2)
--- NOTE | 2019-06-02 07:33 | HP ---
CHIEF COMPLAINT: b/l leg pain PCP: Dr Ledesma HISTORY OF PRESENT ILLNESS: 68 y/o F with PMH of CVA on ASA/plavix, CHF, GERD, COPD/Asthma, DM type 2, NSTEMI, HTN , morbid obesity presenting to ED from [facility] for bilateral leg pain. She complains of 10/10 pain as constant and shooting up and down her leg. She endorsed difficulty ambulating despite the walker but denies any associated, weakness, numbness/tingling, bladder incontinence, bowel incontinence, perianal sensory loss. She admits to chronic hx of back pain . She further denies headache, dizziness, shortness of breath, nausea, vomiting, fever/chills or other symptoms. ER course was notable for: (1) CBC remarkable for leukocytosis at 10.5. CMP with elevated ALP 125 and BNP 581.8 (2) CXR no acute path (3) orfimev Recent Travel: denies PAST MEDICAL HISTORY: as above PAST SURGICAL HISTORY: none Social History:denies all Allergies lisinopril Allergy (Severe, Verified 06/01/19 18:41) Swelling PADMINI Inhibitors Allergy (Verified 06/01/19 18:41) blueberry Allergy (Verified 06/01/19 18:41) erythromycin base Allergy (Verified 06/01/19 18:41) naproxen Allergy (Verified 06/01/19 18:41) raspberry Allergy (Verified 06/01/19 18:41) strawberry Allergy (Verified 06/01/19 18:41) HOME MEDICATIONS: Home Medications Medication Instructions Recorded Atorvastatin Ca [Lipitor] 80 mg PO HS 06/01/19 Budesonide/Formeterol Fumarate 1 puff PO BID 06/01/19 [SYMBICORT 160/4.5mcg -] Insulin Aspart [Novolog] 100 unit SQ BID MDD sliding scale 06/01/19 Insulin NPH Hum/Reg Insulin Hm 0 unit SQ AM MDD as directed 06/01/19 [Novolin 70-30 100 Unit/ml Vial] Metformin HCl [Glucophage] 500 mg PO BID 06/01/19 Metoprolol Tartrate [Lopressor -] 25 mg PO DAILY 06/01/19 Nortriptyline HCl [Pamelor -] 25 mg PO DAILY 06/01/19 Oxybutynin Chloride [Oxybutynin 5 mg PO DAILY 06/01/19 Chloride ER] Potassium Chloride 20 meq PO DAILY 06/01/19 Pravastatin Sodium [Pravachol] 80 mg PO DAILY 06/01/19 levETIRAcetam [Keppra -] 500 mg PO BID 06/01/19 REVIEW OF SYSTEMS CONSTITUTIONAL: generalized weakness Absent: fever, chills, diaphoresis,, malaise, loss of appetite, weight change HEENT: Absent: rhinorrhea, nasal congestion, throat pain, throat swelling, difficulty swallowing, mouth swelling, ear pain, eye pain, visual changes CARDIOVASCULAR: Absent: chest pain, syncope, palpitations, irregular heart rate, lightheadedness , peripheral edema RESPIRATORY: Absent: cough, shortness of breath, dyspnea with exertion, orthopnea, wheezing, stridor, hemoptysis GASTROINTESTINAL: Absent: abdominal pain, abdominal distension, nausea, vomiting, diarrhea, constipation, melena, hematochezia GENITOURINARY: Absent: dysuria, frequency, urgency, hesitancy, hematuria, flank pain, genital pain MUSCULOSKELETAL: back pain and leg pain Absent: myalgia, arthralgia, joint swelling , neck pain SKIN: Absent: rash, itching, pallor HEMATOLOGIC/IMMUNOLOGIC: Absent: easy bleeding, easy bruising, lymphadenopathy, frequent infections ENDOCRINE: Absent: unexplained weight gain, unexplained weight loss, heat intolerance, cold intolerance NEUROLOGIC: unsteady gait Absent: headache, focal weakness or paresthesias, dizziness, seizure, mental status changes, bladder or bowel incontinence PSYCHIATRIC: Absent: anxiety, depression, suicidal or homicidal ideation, hallucinations. PHYSICAL EXAMINATION Vital Signs - 24 hr 06/01/19 06/01/19 06/01/19 17:20 18:00 19:20 Temperature 97.3 F L 97.7 F Pulse Rate 97 H Pulse Rate [ Right Radial] Respiratory 16 Rate Blood Pressure 122/63 Blood Pressure [Left Arm] O2 Sat by Pulse 100 100 96 Oximetry (%) 06/02/19 02:05 Temperature Pulse Rate Pulse Rate [ 88 Right Radial] Respiratory 18 Rate Blood Pressure Blood Pressure 129/62 [Left Arm] O2 Sat by Pulse 97 Oximetry (%) GENERAL: Awake, alert, and fully oriented, in no acute distress morbid obesity HEAD: Normal with no signs of trauma. EYES: Pupils equal, round and reactive to light, extraocular movements intact, sclera anicteric, conjunctiva clear. No lid lag. EARS, NOSE, THROAT: oropharynx clear without exudates poor dentition. Moist mucous membranes. NECK: Normal range of motion, supple without lymphadenopathy, JVD, or masses. LUNGS: Breath sounds equal, clear to auscultation bilaterally but reduced in lower lung field. No wheezes, and no crackles. No accessory muscle use. HEART: Regular rate and rhythm, normal S1 and S2 without murmur, rub or gallop. ABDOMEN: Soft, nontender, obese, normoactive bowel sounds, no guarding, no rebound, no masses. No hepatomegaly or splenomegaly. MUSCULOSKELETAL: Normal range of motion at all joints. No bony deformities or tenderness. No CVA tenderness. UPPER EXTREMITIES: 2+ pulses, warm, well-perfused. No cyanosis. No clubbing. No peripheral edema. LOWER EXTREMITIES: 2+ pulses, warm, well-perfused. No calf tenderness. 1+ peripheral edema. NEUROLOGICAL: Cranial nerves II-XII intact. Normal speech. motor was limited as pt says too much pain to move. sensatio intact throughout PSYCHIATRIC: Cooperative. Good eye contact. Appropriate mood and affect. Laboratory Results - last 24 hr 06/01/19 06/01/19 06/01/19 19:16 19:40 19:40 WBC 10.5 H RBC 3.70 Hgb 9.3 L Hct 28.4 L MCV 77.0 L MCH 25.1 L MCHC 32.6 RDW 21.9 H Plt Count 266 MPV 8.9 Absolute Neuts (auto) 8.2 H Neutrophils % 77.7 Lymphocytes % 14.5 D Monocytes % 5.5 Eosinophils % 1.7 Basophils % 0.6 Nucleated RBC % 0 Hypochromia 1+ Platelet Estimate Normal Polychromasia 1+ Poikilocytosis 0 Anisocytosis 1+ Microcytosis 1+ Macrocytosis 0 PT with INR INR PTT (Actin FS) Sodium 142 Potassium 4.2 Chloride 108 H Carbon Dioxide 27 Anion Gap 6 L BUN 15.4 Creatinine 0.9 Est GFR (CKD-EPI)AfAm 76.14 Est GFR (CKD-EPI)NonAf 65.70 POC Glucometer 112 Random Glucose 107 H Calcium 9.4 Phosphorus Magnesium Total Bilirubin 0.2 AST 28 ALT 38 Alkaline Phosphatase 125 H Creatine Kinase 142 Troponin I < 0.02 B-Natriuretic Peptide Total Protein 6.6 Albumin 3.2 L 06/01/19 06/01/19 06/02/19 19:40 19:40 05:20 WBC 7.1 RBC 3.73 Hgb 9.0 L Hct 28.5 L MCV 76.3 L MCH 24.2 L MCHC 31.7 L RDW 21.8 H Plt Count 230 MPV 8.6 Absolute Neuts (auto) 4.6 Neutrophils % 64.8 Lymphocytes % 25.6 D Monocytes % 6.8 Eosinophils % 2.3 Basophils % 0.5 Nucleated RBC % 0 Hypochromia Platelet Estimate Polychromasia Poikilocytosis Anisocytosis Microcytosis Macrocytosis PT with INR 12.00 INR 1.02 PTT (Actin FS) 29.9 Sodium Potassium Chloride Carbon Dioxide Anion Gap BUN Creatinine Est GFR (CKD-EPI)AfAm Est GFR (CKD-EPI)NonAf POC Glucometer Random Glucose Calcium Phosphorus Magnesium Total Bilirubin AST ALT Alkaline Phosphatase Creatine Kinase Troponin I B-Natriuretic Peptide 581.8 H Total Protein Albumin 06/02/19 06/02/19 05:20 06:01 WBC RBC Hgb Hct MCV MCH MCHC RDW Plt Count MPV Absolute Neuts (auto) Neutrophils % Lymphocytes % Monocytes % Eosinophils % Basophils % Nucleated RBC % Hypochromia Platelet Estimate Polychromasia Poikilocytosis Anisocytosis Microcytosis Macrocytosis PT with INR INR PTT (Actin FS) Sodium 141 Potassium 4.1 Chloride 108 H Carbon Dioxide 27 Anion Gap 6 L BUN 10.0 Creatinine 0.7 Est GFR (CKD-EPI)AfAm 103.18 Est GFR (CKD-EPI)NonAf 89.03 POC Glucometer 100 Random Glucose 109 H Calcium 8.8 Phosphorus 3.8 Magnesium 1.6 L Total Bilirubin 0.3 AST 21 ALT 33 Alkaline Phosphatase 110 Creatine Kinase Troponin I B-Natriuretic Peptide Total Protein 6.1 L Albumin 2.8 L ASSESSMENT/PLAN: 68 y/o F with PMH of CVA on ASA/plavix, CHF, GERD, COPD/Asthma, DM type 2, NSTEMI, HTN , morbid obesity presenting to ED from [facility] for bilateral leg pain. admitted as pt unable to ambulate by ED assessment. B/L leg pain; pt has DM. Pain is Chronic and shooting. Most likely diabetic neuropathy Gabapentin as pt admit to being on it before Fall precautions Physical therapy evaluation Continue home dose nortriptyline Diabetes mellitus ISS for additional coverage levemir A1c CAD status post stent to LAD in 2018 cont Aspirin, Plavix, statin HTN resume home meds when confirmed salt controlled diet DVT Heparin subq Visit type - Emergency Visit Emergency Visit: Yes ED Registration Date: 06/02/19 Care time: The patient presented to the Emergency Department on the above date and was hospitalized for further evaluation of their emergent condition. - New Patient This patient is new to me today: Yes Date on this admission: 06/02/19 - Critical Care Critical Care patient: No ATTENDING PHYSICIAN STATEMENT I saw and evaluated the patient. I reviewed the resident's note and discussed the case with the resident. I agree with the resident's findings and plan as documented. SUBJECTIVE: OBJECTIVE: ASSESSMENT AND PLAN:
[2019-06-02] MEDS ORDERED: GABAPENTIN 300 MG CAPSULE (FP) PO ONE (08:45)
[2019-06-02 09:09] VITALS: BMI 48.9
[2019-06-02] MEDS ORDERED: MAGNESIUM SULF 50% (8.12 MEQ/2 ML-1 GM VIAL) IVPB ONE (09:09)
[2019-06-02] MEDS ORDERED: DOCUSATE SODIUM 100 MG CAPSULE (FP) PO PRN (09:09)
[2019-06-02] MEDS ORDERED: ALBUTEROL SO4 0.083% IH SOL 2.5 MG/3 ML VIAL.NEB. NEB PRN (09:14)
[2019-06-02] MEDS ORDERED: PATIENT'S OWN MEDICATION (NON-FORMULARY) (Oxybutynin Chloride [Oxybutynin Chloride Er] 5 M PO SCH (10:00)
[2019-06-02] MEDS ORDERED: METOPROLOL TARTRATE 25 MG TABLET (FP) PO SCH (10:00)
[2019-06-02] MEDS ORDERED: HYDROCHLOROTHIAZIDE 12.5 MG CAPSULE (FP) PO SCH (10:00)
[2019-06-02] MEDS ORDERED: PT OWN MED DRAWER 7, Y5N ONE (10:13)
[2019-06-02] MEDS: ASPIRIN 81 MG CHEWABLE TABLETS PO SCH (10:17)
[2019-06-02] MEDS: CLOPIDOGREL BISULFATE 75 MG TABLET (FP) PO SCH (10:17)
[2019-06-02] MEDS: FUROSEMIDE 40 MG TABLET (FP) PO SCH (10:17)
[2019-06-02] MEDS: levETIRAcetam 500 MG TABLET (FP) PO SCH ×2 (10:17→22:08)
[2019-06-02] MEDS: HEPARIN NA (PORCINE) 5,000 UNITS/ML 1ML VIAL SQ SCH ×3 (10:17→22:08)
[2019-06-02] MEDS: OXYBUTYNIN CHLORIDE 5 MG TABLET PO SCH (10:17)
[2019-06-02] MEDS: metoPROLOL SUCCINATE 25 MG TAB.SR.24H (FP) PO SCH (10:17)
[2019-06-02] MEDS: NORTRIPTYLINE HCL 25 MG CAPSULE PO SCH (10:23)
[2019-06-02] MEDS: BUDESONIDE/FORMETEROL FUMARATE 160/4.5 mcg INHALER IH SCH ×2 (10:23→22:08)
[2019-06-02] MEDS ORDERED: MAGNESIUM SULF 50% (8.12 MEQ/2 ML-1 GM VIAL) ONE (10:47)
--- NOTE | 2019-06-02 11:54 | PN ---
Physical Exam: SUBJECTIVE: Patient seen and examined. No acute events overnight. Complains of ongoing BL lower ext pain that is sharp, shooting from her back to feet. OBJECTIVE: Vital Signs Period Temp Pulse Resp BP Sys/Knox Pulse Ox Last 24 Hr 97.2 F-97.7 F 88-97 16-20 122-133/62-64 96-100 GENERAL: The patient is awake, alert, and fully oriented, in no acute distress. HEAD: Normal with no signs of trauma. EYES: PERRL, extraocular movements intact, sclera anicteric, conjunctiva clear. No ptosis. ENT: Ears normal, nares patent, oropharynx clear without exudates, moist mucous membranes. NECK: Trachea midline, full range of motion, supple. LUNGS: Difficult to auscultate due to body habitus. Decreased breath sounds at bases. No wheezes. HEART: Regular rate and rhythm, S1, S2, systolic murmur ABDOMEN: Soft, nontender, nondistended, normoactive bowel sounds, no guarding, no rebound, no hepatosplenomegaly, no masses. EXTREMITIES: 1+ pulses, warm, 2+ edema. Chronic venous stasis skin changes. No signs of cellulitis NEUROLOGICAL: Cranial nerves II through XII grossly intact. Normal speech, gait not observed. Decreased ROM in BLE 2/2 pain. Hyperaesthesia in BLE. PSYCH: Normal mood, normal affect. SKIN: Warm, dry, normal turgor, no rashes or lesions noted Laboratory Results - last 24 hr CBC, BMP 06/02/19 05:20 06/02/19 05:20 Active Medications Albuterol Sulfate (Ventolin 0.083% Nebulizer Soln -) 1 amp NEB Q4H PRN PRN Reason: SHORT OF BREATH/WHEEZING Last Admin: 06/02/19 11:35 Dose: 1 amp Aspirin (Asa -) 81 mg PO DAILY [facility] Last Admin: 06/02/19 10:17 Dose: 81 mg Atorvastatin Calcium (Lipitor -) 80 mg PO HS [facility] Budesonide/Formoterol Fumarate (Symbicort 160/4.5mcg -) 1 puff IH BID [facility] Last Admin: 06/02/19 10:23 Dose: 1 puff Clopidogrel Bisulfate (Plavix -) 75 mg PO DAILY [facility] Last Admin: 06/02/19 10:17 Dose: 75 mg Docusate Sodium (Colace -) 100 mg PO BID PRN PRN Reason: CONSTIPATION Furosemide (Lasix -) 40 mg PO DAILY [facility] Last Admin: 06/02/19 10:17 Dose: 40 mg Heparin Sodium (Porcine) (Heparin -) 5,000 unit SQ TID [facility] Last Admin: 06/02/19 10:17 Dose: 5,000 unit Hydrochlorothiazide (Hctz -) 12.5 mg PO DAILY [facility] Last Admin: 06/02/19 10:17 Dose: 12.5 mg Insulin Aspart (Novolog Vial Sliding Scale -) 1 vial SQ ACHS [facility]; Protocol Levetiracetam (Keppra -) 500 mg PO BID [facility] Last Admin: 06/02/19 10:17 Dose: 500 mg Metoprolol Succinate (Toprol Xl -) 25 mg PO DAILY [facility] Last Admin: 06/02/19 10:17 Dose: 25 mg Nortriptyline HCl (Pamelor -) 25 mg PO DAILY [facility] Last Admin: 06/02/19 10:23 Dose: 25 mg Oxybutynin Chloride (Ditropan -) 5 mg PO DAILY [facility] Last Admin: 06/02/19 10:17 Dose: 5 mg ASSESSMENT/PLAN: 68 y/o F with PMH of CVA on ASA/plavix, CHF, GERD, COPD/Asthma, DM type 2, NSTEMI, HTN , morbid obesity presenting to ED from [place] for progressive bilateral leg pain and hyperaesthesia. #BL leg and back pain w/hyperaesthesia Likely 2/2 diabetic neuropathy Lumbar MRI ordered Neurosurgery consulted (Dr. Mora) Cont homke dose notriptyline Fall precautions PT evaluation #DM II, poorly controlled Hgb A1C: 9.2% Multiple recent hospitalizations for hypo/hyperglycemia #Microcytic Anemia, likely 2/2 iron deficiency Hgb: 9, cont to monitor F/u iron studies F/u FOBT Supplement with Ferrous Sulfate once FOBT results cleared #CAD s/p stent to LAD in 2018 Cont home meds: asa, plavix, statin #HTN Cont home meds: #CVA Cont home Keppra for seizure ppx #DVT ppx Heparin sq TID #FEN No fluids Salt-controlled diet Visit type - Emergency Visit Emergency Visit: No - New Patient This patient is new to me today: Yes Date on this admission: 06/05/19 - Critical Care Critical Care patient: No ATTENDING PHYSICIAN STATEMENT I saw and evaluated the patient. I reviewed the resident's note and discussed the case with the resident. I agree with the resident's findings and plan as documented. SUBJECTIVE: OBJECTIVE: ASSESSMENT AND PLAN:
[2019-06-02] MEDS: INSULIN SLIDING SCALE (NOVOLOG) 1 VIAL SQ SCH ×3 (12:01→22:16)
[2019-06-02 12:04] LABS: URINE APPEARANCE CLEAR; URINE BILIRUBIN NEGATIVE (NEGATIVE); URINE COLOR YELLOW; URINE GLUCOSE (UA) TRACE (NEGATIVE); URINE KETONE NEGATIVE (NEGATIVE); URINE LEUK ESTERASE NEGATIVE (NEGATIVE); URINE NITRITE NEGATIVE (NEGATIVE); URINE PROTEIN NEGATIVE (NEGATIVE); URINE UROBILINOGEN 0.2 mg/dL (0.2-1.0)
[2019-06-02] MEDS ORDERED: INSULIN (NOVOLOG) ASPART 100 UNITS/ML 10ML VIAL ONE (12:10)
--- NOTE | 2019-06-02 14:28 | EKG ---
Test Reason : Blood Pressure : / mmHG Vent. Rate : 087 BPM Atrial Rate : 087 BPM P-R Int : 172 ms QRS Dur : 088 ms QT Int : 366 ms P-R-T Axes : 040 -06 081 degrees QTc Int : 440 ms NORMAL SINUS RHYTHM VOLTAGE CRITERIA FOR LEFT VENTRICULAR HYPERTROPHY WITH REPOLARIZATION ABNORMALITY WHEN COMPARED WITH ECG OF 25-MAY-2019 10:26, PREMATURE ATRIAL COMPLEXES ARE NO LONGER PRESENT Confirmed by MARISOL TRUJILLO MD ([id number]) on 06/02/2019 2:28:35 PM Referred By: Confirmed By:MARISOL TRUJILLO MD
--- NOTE | 2019-06-02 16:36 | PN ---
Progress Note (short form) - Note Progress Note: NEUROSURGERY CONSULT DICTATED h/o CVA on ASA/plavix, CHF, GERD, COPD/Asthma, DM type 2, NSTEMI, HTN , morbid obesity c/o 4 months h/o worsening LBP radiating to bilateral anterior thigh/ garcia/ankle pain. She complains of 10/10 pain. Back vs leg pain 50:50. Difficulty ambulating despite the walker but denies any associated, weakness, numbness/tingling, bladder incontinence, bowel incontinence, perinealsensory loss. PE: AF, VSS General- morbid obesity CN- non-focal; Motor- 4+/5 B UE/LE; Sensation- intact LT/vibration; DTR- hyporeflexic LS spine x-rays- anterolisthesis, L4-5 and L5-S1 LS spine CT- L4-5 and L5-S1 anterolisthesis; L5-S1 vacuum disc; facet hypertrophy with lat recess narrowing L4-5 and L5-S1 spondylolisthesis with B L5-S1 radiculopathy Neurosurgical intervention not recommended given morbid obesity and significant medical co-morbidities Trial of Neurontin 300 tid for radicular pain, can titrate to 600 tid PT for TENS/modalities Consider pain management input for EPSI if persistent pain
[2019-06-02] MEDS: AMMONIUM LACTATE 12% LOTION 225 GM BOTTLE TP SCH (16:49)
--- NOTE | 2019-06-02 17:25 | CONS ---
DATE OF CONSULTATION: 06/02/2019 CHIEF COMPLAINT: Lower back pain with bilateral sciatica. HISTORY OF PRESENT ILLNESS: Patient is a 68-year-old right-handed female with a history of cerebrovascular disease, hypertension, coronary artery disease, congestive heart failure, morbid obesity, type 2 diabetes, and COPD/asthma who complains of a [id number] of progressive lower back pain and bilateral sciatica. Her pain radiates down through her buttock, anterior thigh, garcia, down to the ankle/ foot. This is not associated with significant weakness or numbness even though she has difficulty ambulating as a result. She denies bowel or bladder incontinence. She denies having severe pain in the past in her lower back or legs. She has been on aspirin and Plavix for her coronary disease and stroke prophylaxis. She denies any recent injury or falls. She has tried some hip injection by her pain management physician in the past but not epidural steroid injection. She is not able to do much physical therapy at all. PAST MEDICAL HISTORY: Significant for hypertension, coronary artery disease, congestive heart failure, gastroesophageal reflux disease, COPD, asthma, CVA, type 2 diabetes. CURRENT MEDICATIONS: Include insulin, Lasix, aspirin, Plavix, hydrochlorothiazide, Norvasc, hydralazine, Ditropan, Pepcid, Lipitor, Toprol, Colace, Ventolin, nortriptyline, Prozac, Keppra, subcutaneous heparin, Tylenol, Symbicort. ALLERGIES: LISINOPRIL, OTHER PADMINI INHIBITORS, and ERYTHROMYCIN. SOCIAL HISTORY: She does not smoke or drink. She lives in the long-term. She does not work. REVIEW OF SYSTEMS: Otherwise negative for major constitutional, headache, neck, cardiovascular, pulmonary, gastrointestinal, genitourinary, endocrinological, neurological, or psychological problems except for the above. PHYSICAL EXAMINATION: Vital Signs: Temperature is 98.1, blood pressure is 142/63, pulse rate of 90, O2 saturation 96% on room air. General: She is lying down in bed. HEENT: Shows her to be normocephalic, atraumatic, anicteric. Neck: Supple with no nuchal rigidity. Coronary: Demonstrates regular rhythm. There may be a faint 2/6 systolic flow murmur in the left sternal border. Lungs: Clear to auscultation bilaterally. Abdomen: Morbidly obese but benign. Extremities: Show no sign of DVT even though there is trace ankle edema bilaterally. She has a negative Homans sign. Neurologic: She is awake, alert, oriented x4. Cranial nerve examination is intact 2-12. Motor examination shows 4+/5 strength in the upper and lower extremity. Sensory examination is intact to light touch and vibratory sensation. Deep tendon reflexes are hyporeflexive throughout. There is no pathological or long-tract sign. She has positive straight leg raise at 30 degrees bilaterally. LABORATORY EXAMINATION: Shows a white blood cell count of 7.1, hemoglobin 9.0, hematocrit 28.5, platelet count 230,000. INR is 1.02 and PTT 29.9. Serum sodium is 141, potassium 4.1, BUN 10, creatinine 0.7, hemoglobin A1C is 9.2. Urinalysis is negative except for trace glucose. CT scan of the lumbar spine performed on May 25 demonstrated L4, 5 and L5, S1 anterolisthesis. There is facet hypertrophy and lateral recess stenosis at L4, 5 and L5, S1. There is vacuum disk phenomenon at L5, S1. The vacuum disk phenomenon is unchanged from abdominal CT scan done approximately 1 month earlier. Thoracic spine CT scan demonstrated mild spondylosis but no stenosis or obvious metastatic disease. Lower extremity Doppler is negative for DVT. There is a 3 x 2 x 1-cm right popliteal cyst. IMPRESSION: 1. L4, 5 and L5, S1 spondylolisthesis with lower back pain and bilateral L5, S1 radiculopathy. 2. Morbid obesity. 3. Type 2 diabetes. 4. Hypertension/coronary artery disease/congestive heart failure. 5. Chronic obstructive pulmonary disease/asthma. 6. Gastroesophageal reflux disease. RECOMMENDATIONS: Patient presents with worsening lower back pain, bilateral sciatica. Her neurological examination is somewhat limited by her pain. It is mostly nonfocal. She is not able to tolerate physical therapy because of her pain. Some modality treatment could be considered including TENS unit could be considered, however. A trial of Neurontin 300 mg 3 times a day could also be attempted. It should have minimal interaction with the rest of her medications. If her pain persists, pain management consultation for possible epidural steroid injection could be contemplated. Neurosurgical intervention is not recommended because of her morbid obesity and significant medical comorbidities. The above was discussed with the patient at bedside, and she concurs with recommendations. All questions were answered at bedside. LVADIMIR GARVIN M.D. ROMEL/[id number] TREVIN
[2019-06-02] MEDS ORDERED: FERROUS SO4 325 MG TABLET (FP) PO SCH (17:30)
--- NOTE | 2019-06-02 17:50 | PN ---
Teaching Attending Note Name of Resident: Angeli Del Cid ATTENDING PHYSICIAN STATEMENT I saw and evaluated the patient. I reviewed the resident's note and discussed the case with the resident. I agree with the resident's findings and plan as documented. SUBJECTIVE: Complains of worsening back pain, radiating down legs with weakness and altered sensation. No bladder/bowel dysfunction. No fever/chills. No recent trauma. OBJECTIVE: Afebrile, Hemodynamically Stable. Last Vital Signs Temp Pulse Resp BP Pulse Ox 98.1 F 90 20 142/63 96 06/02/19 15:05 06/02/19 15:05 06/02/19 15:05 06/02/19 15:05 06/02/19 08:40 HEENT - Atramatic, Normocephalic. Heart - S1, S2, SM Lungs - clear to auscultation Abdomen - High BMI Soft, non-tender. Bowel Sounds normal. Extremities - venous stasis skin changes, mild edema. No calf tenderness. Neuro - AAO x 3. Decreased power LEs due to pain. Reports altered sensation with hyperalgesia Laboratory Results - last 24 hr 06/01/19 06/01/19 06/01/19 19:16 19:40 19:40 WBC 10.5 H RBC 3.70 Hgb 9.3 L Hct 28.4 L MCV 77.0 L MCH 25.1 L MCHC 32.6 RDW 21.9 H Plt Count 266 MPV 8.9 Absolute Neuts (auto) 8.2 H Neutrophils % 77.7 Lymphocytes % 14.5 D Monocytes % 5.5 Eosinophils % 1.7 Basophils % 0.6 Nucleated RBC % 0 Hypochromia 1+ Platelet Estimate Normal Polychromasia 1+ Poikilocytosis 0 Anisocytosis 1+ Microcytosis 1+ Macrocytosis 0 Retic Count PT with INR INR PTT (Actin FS) Sodium 142 Potassium 4.2 Chloride 108 H Carbon Dioxide 27 Anion Gap 6 L BUN 15.4 Creatinine 0.9 Est GFR (CKD-EPI)AfAm 76.14 Est GFR (CKD-EPI)NonAf 65.70 POC Glucometer 112 Random Glucose 107 H Hemoglobin A1c % Calcium 9.4 Phosphorus Magnesium Ferritin Total Bilirubin 0.2 AST 28 ALT 38 Alkaline Phosphatase 125 H Creatine Kinase 142 Troponin I < 0.02 B-Natriuretic Peptide Total Protein 6.6 Albumin 3.2 L Urine Color Urine Appearance Urine pH Ur Specific [place] Urine Protein Urine Glucose (UA) Urine Ketones Urine Blood Urine Nitrite Urine Bilirubin Urine Urobilinogen Ur Leukocyte Esterase 06/01/19 06/01/19 06/02/19 19:40 19:40 05:20 WBC 7.1 RBC 3.73 Hgb 9.0 L Hct 28.5 L MCV 76.3 L MCH 24.2 L MCHC 31.7 L RDW 21.8 H Plt Count 230 MPV 8.6 Absolute Neuts (auto) 4.6 Neutrophils % 64.8 Lymphocytes % 25.6 D Monocytes % 6.8 Eosinophils % 2.3 Basophils % 0.5 Nucleated RBC % 0 Hypochromia Platelet Estimate Polychromasia Poikilocytosis Anisocytosis Microcytosis Macrocytosis Retic Count PT with INR 12.00 INR 1.02 PTT (Actin FS) 29.9 Sodium Potassium Chloride Carbon Dioxide Anion Gap BUN Creatinine Est GFR (CKD-EPI)AfAm Est GFR (CKD-EPI)NonAf POC Glucometer Random Glucose Hemoglobin A1c % Calcium Phosphorus Magnesium Ferritin Total Bilirubin AST ALT Alkaline Phosphatase Creatine Kinase Troponin I B-Natriuretic Peptide 581.8 H Total Protein Albumin Urine Color Urine Appearance Urine pH Ur Specific [place] Urine Protein Urine Glucose (UA) Urine Ketones Urine Blood Urine Nitrite Urine Bilirubin Urine Urobilinogen Ur Leukocyte Esterase 06/02/19 06/02/19 06/02/19 05:20 05:20 05:20 WBC RBC Hgb Hct MCV MCH MCHC RDW Plt Count MPV Absolute Neuts (auto) Neutrophils % Lymphocytes % Monocytes % Eosinophils % Basophils % Nucleated RBC % Hypochromia Platelet Estimate Polychromasia Poikilocytosis Anisocytosis Microcytosis Macrocytosis Retic Count 1.68 H D PT with INR INR PTT (Actin FS) Sodium 141 Potassium 4.1 Chloride 108 H Carbon Dioxide 27 Anion Gap 6 L BUN 10.0 Creatinine 0.7 Est GFR (CKD-EPI)AfAm 103.18 Est GFR (CKD-EPI)NonAf 89.03 POC Glucometer Random Glucose 109 H Hemoglobin A1c % 9.2 H Calcium 8.8 Phosphorus 3.8 Magnesium 1.6 L Ferritin 7.7 L Total Bilirubin 0.3 AST 21 ALT 33 Alkaline Phosphatase 110 Creatine Kinase Troponin I B-Natriuretic Peptide Total Protein 6.1 L Albumin 2.8 L Urine Color Urine Appearance Urine pH Ur Specific [place] Urine Protein Urine Glucose (UA) Urine Ketones Urine Blood Urine Nitrite Urine Bilirubin Urine Urobilinogen Ur Leukocyte Esterase 06/02/19 06/02/19 06/02/19 06:01 09:00 11:37 WBC RBC Hgb Hct MCV MCH MCHC RDW Plt Count MPV Absolute Neuts (auto) Neutrophils % Lymphocytes % Monocytes % Eosinophils % Basophils % Nucleated RBC % Hypochromia Platelet Estimate Polychromasia Poikilocytosis Anisocytosis Microcytosis Macrocytosis Retic Count PT with INR INR PTT (Actin FS) Sodium Potassium Chloride Carbon Dioxide Anion Gap BUN Creatinine Est GFR (CKD-EPI)AfAm Est GFR (CKD-EPI)NonAf POC Glucometer 100 163 Random Glucose Hemoglobin A1c % Calcium Phosphorus Magnesium Ferritin Total Bilirubin AST ALT Alkaline Phosphatase Creatine Kinase Troponin I B-Natriuretic Peptide Total Protein Albumin Urine Color Yellow Urine Appearance Clear Urine pH 5.0 Ur Specific [place] 1.013 Urine Protein Negative Urine Glucose (UA) Trace Urine Ketones Negative Urine Blood Negative Urine Nitrite Negative Urine Bilirubin Negative Urine Urobilinogen 0.2 Ur Leukocyte Esterase Negative 06/02/19 16:46 WBC RBC Hgb Hct MCV MCH MCHC RDW Plt Count MPV Absolute Neuts (auto) Neutrophils % Lymphocytes % Monocytes % Eosinophils % Basophils % Nucleated RBC % Hypochromia Platelet Estimate Polychromasia Poikilocytosis Anisocytosis Microcytosis Macrocytosis Retic Count PT with INR INR PTT (Actin FS) Sodium Potassium Chloride Carbon Dioxide Anion Gap BUN Creatinine Est GFR (CKD-EPI)AfAm Est GFR (CKD-EPI)NonAf POC Glucometer 166 Random Glucose Hemoglobin A1c % Calcium Phosphorus Magnesium Ferritin Total Bilirubin AST ALT Alkaline Phosphatase Creatine Kinase Troponin I B-Natriuretic Peptide Total Protein Albumin Urine Color Urine Appearance Urine pH Ur Specific [place] Urine Protein Urine Glucose (UA) Urine Ketones Urine Blood Urine Nitrite Urine Bilirubin Urine Urobilinogen Ur Leukocyte Esterase Current Medications Generic Name Dose Route Start Last Admin Trade Name Freq PRN Reason Stop Dose Admin Acetaminophen 650 mg 06/02/19 14:20 Tylenol - PO Q4H PRN PAIN 1-3 Albuterol Sulfate 1 amp 06/02/19 09:14 06/02/19 11:35 Ventolin 0.083% Nebulizer Soln - NEB 1 amp Q4H PRN Administration SHORT OF BREATH/WHEEZING Amlodipine Besylate 10 mg 06/03/19 10:00 Norvasc - PO DAILY [facility] Aspirin 81 mg 06/02/19 10:00 06/02/19 10:17 Asa - PO 81 mg DAILY [facility] Administration Atorvastatin Calcium 80 mg 06/02/19 22:00 Lipitor - PO HS [facility] Bacitracin 1 applic 06/03/19 10:00 Bacitracin - TP DAILY [facility] Budesonide/Formoterol Fumarate 1 puff 06/02/19 10:00 06/02/19 10:23 Symbicort 160/4.5mcg - IH 1 puff BID [facility] Administration Clopidogrel Bisulfate 75 mg 06/02/19 10:00 06/02/19 10:17 Plavix - PO 75 mg DAILY [facility] Administration Cyclobenzaprine HCl 10 mg 06/02/19 14:20 Flexeril - PO TID PRN MUSCLE SPASMS Docusate Sodium 100 mg 06/02/19 09:09 Colace - PO BID PRN CONSTIPATION Famotidine 20 mg 06/03/19 10:00 Pepcid - PO DAILY [facility] Fluoxetine HCl 40 mg 06/03/19 10:00 Prozac - PO DAILY [facility] Furosemide 40 mg 06/02/19 10:00 06/02/19 10:17 Lasix - PO 40 mg DAILY [facility] Administration Gabapentin 300 mg 06/02/19 22:00 Neurontin - PO TID [facility] Heparin Sodium (Porcine) 5,000 unit 06/02/19 06:00 06/02/19 16:49 Heparin - SQ 5,000 unit TID [facility] Administration Hydralazine HCl 25 mg 06/03/19 10:00 Apresoline - PO DAILY [facility] Hydrochlorothiazide 12.5 mg 06/02/19 10:00 06/02/19 10:17 Hctz - PO 12.5 mg DAILY [facility] Administration Hydrochlorothiazide 12.5 mg 06/03/19 10:00 Hctz - PO DAILY [facility] Insulin Aspart 1 vial 06/02/19 11:00 06/02/19 17:04 Novolog Vial Sliding Scale - SQ 2 unit ACHS [facility]AS Administration Protocol Lactic Acid 1 applic 06/02/19 14:45 06/02/19 16:49 Lac-Hydrin 12 TP 1 applic DAILY [facility] Administration Levetiracetam 500 mg 06/02/19 10:00 06/02/19 10:17 Keppra - PO 500 mg BID [facility] Administration Metoprolol Succinate 25 mg 06/02/19 10:00 06/02/19 10:17 Toprol Xl - PO 25 mg DAILY [facility] Administration Nortriptyline HCl 25 mg 06/02/19 10:00 06/02/19 10:23 Pamelor - PO 25 mg DAILY [facility] Administration Oxybutynin Chloride 5 mg 06/02/19 10:00 06/02/19 10:17 Ditropan - PO 5 mg DAILY [facility] Administration Home Medications Medication Instructions Recorded Atorvastatin Ca [Lipitor] 80 mg PO HS 06/01/19 Budesonide/Formeterol Fumarate 1 puff PO BID 06/01/19 [SYMBICORT 160/4.5mcg -] Insulin Aspart [Novolog] 0 unit SQ ASDIR 06/01/19 Insulin NPH Hum/Reg Insulin Hm 30 unit SQ BIDAC 06/01/19 [Novolin 70-30 100 Unit/ml Vial] Metformin HCl [Glucophage] 500 mg PO BID 06/01/19 Nortriptyline HCl [Pamelor -] 25 mg PO DAILY 06/01/19 Oxybutynin Chloride [Oxybutynin 5 mg PO DAILY 06/01/19 Chloride ER] Potassium Chloride 20 meq PO DAILY 06/01/19 Pravastatin Sodium [Pravachol] 80 mg PO DAILY 06/01/19 levETIRAcetam [Keppra -] 500 mg PO BID 06/01/19 Acetaminophen [Tylenol] 650 mg PO PRN PRN 06/02/19 Amlodipine Besylate [Norvasc -] 10 mg PO DAILY 06/02/19 Ammonium Lactate Cream [Lac-Hydrin 1 applic ID DAILY 06/02/19 12% Cream -] Aspirin 81 mg PO DAILY 06/02/19 Bacitracin - [Bacitracin Topical 1 applic ID DAILY 06/02/19 Ointment -] Clopidogrel Bisulfate [Clopidogrel] 75 mg PO DAILY 06/02/19 Clotrimazole [Lotrimin -] 1 applic ID BID 06/02/19 Cyclobenzaprine HCl [Flexeril 10 1 tab PO TID PRN 06/02/19 mg] Docusate Sodium [Docusate 100 mg] 2 cap PO DAILY PRN 06/02/19 Famotidine 20 mg PO DAILY 06/02/19 Fluoxetine HCl [Prozac] 40 mg PO DAILY 06/02/19 Furosemide 40 mg PO DAILY 06/02/19 Hydralazine HCl 25 mg PO DAILY 06/02/19 Hydrochlorothiazide 12.5 mg PO DAILY 06/02/19 Metoprolol Succinate [Toprol Xl] 25 mg PO DAILY 06/02/19 Mupirocin Ointment [Bactroban 2% 1 applic DAILY 06/02/19 Ointment -] Polyvinyl Alcohol [Artificial 1 drop OU BID 06/02/19 Tears] Sitagliptin Phosphate [Januvia] 50 mg PO DAILY 06/02/19 Umeclidinium [place] [Incruse 1 puff IH DAILY 06/02/19 Ellipta] ASSESSMENT AND PLAN: 68 year old female with history of obesity, Hx of CVA, CHF, GERD, CAD s/p PCI/ GINO to LAD, Reactive airway disease, DM 2, Depression, Chronic back and LE pain , presents with worsening pain, progressive weakness, and hyperalgesia. 1. Intractable Back Pain/LE weakness/Hyperalgesia limiting mobility No bladder/bowel dysfunction Duplex LEs - no DVT, R popliteal fossa cyst. MRI LS Spine Neurosurgery consulted - recommend trial of Gabapentin and referral to [facility] for EPSI consideration. PT/Fall precautions Continue Flexeril. Nortriptyline. 2. DM 2 with Peripheral Neuropathy Continue Levemir/Novolog sliding scale. Januvia, Metformin held. 3. CAD status post GINO to LAD in 2018 - continue Aspirin, Plavix, Statin, BB 4. HTN - on Norvasc, Metoprolol, Hydralazine. DC HCTZ. 5. Reactive Airways Disease - Stable, no evidence of exacerbation. Continue Incruse Ellipta 6. Overactive Bladder - continue Oxybutynin. 7. CHF - Stable. Continue Lasix. 8. Depression - Fluoxetine 9. Microcytic Anemia ? CAROLINE - iron studies requested and FOBT. 10. Hypomagnesemia - repleted. 11. Hx of CVA - Continue Aspirin, Plavix, Statin and Keppra for Seizure Px. DVT Px - Heparin SQ.
[2019-06-02] MEDS: ACETAMINOPHEN 325 MG TABLET (FP) PO PRN (19:00)
[2019-06-02] MEDS: GABAPENTIN 300 MG CAPSULE (FP) PO SCH (22:07)
[2019-06-02] MEDS: ATORVASTATIN CA 80 MG TABLET (FP) PO SCH (22:08)
[2019-06-02] MEDS: CYCLOBENZAPRINE HCL 10 MG TABLET (FP) PO PRN (22:08)
[2019-06-03] MEDS: ACETAMINOPHEN 325 MG TABLET (FP) PO PRN (06:20)
[2019-06-03] MEDS: CYCLOBENZAPRINE HCL 10 MG TABLET (FP) PO PRN ×2 (06:20→21:39)
[2019-06-03] MEDS: GABAPENTIN 300 MG CAPSULE (FP) PO SCH ×3 (06:21→21:40)
[2019-06-03] MEDS: HEPARIN NA (PORCINE) 5,000 UNITS/ML 1ML VIAL SQ SCH ×3 (06:21→21:40)
[2019-06-03] MEDS: INSULIN SLIDING SCALE (NOVOLOG) 1 VIAL SQ SCH ×4 (06:21→21:40)
[2019-06-03] MEDS ORDERED: PT OWN MED DRAWER 7, Y5N ONE (09:41)
[2019-06-03] MEDS: hydrALAZINE HCL 25 MG TABLET (FP) PO SCH (09:54)
[2019-06-03] MEDS: FAMOTIDINE 20 MG TABLET PO SCH (09:54)
[2019-06-03] MEDS: FLUoxetine HCL 20 MG CAPSULE (FP) PO SCH (09:54)
[2019-06-03] MEDS: NORTRIPTYLINE HCL 25 MG CAPSULE PO SCH (09:54)
[2019-06-03] MEDS: levETIRAcetam 500 MG TABLET (FP) PO SCH ×2 (09:55→21:40)
[2019-06-03] MEDS: FUROSEMIDE 40 MG TABLET (FP) PO SCH (09:55)
[2019-06-03] MEDS: metoPROLOL SUCCINATE 25 MG TAB.SR.24H (FP) PO SCH (09:55)
[2019-06-03] MEDS: amLODIPine BESYLATE 10 MG TABLET (FP) PO SCH (09:55)
[2019-06-03] MEDS: ASPIRIN 81 MG CHEWABLE TABLETS PO SCH (09:55)
[2019-06-03] MEDS: OXYBUTYNIN CHLORIDE 5 MG TABLET PO SCH (09:55)
[2019-06-03] MEDS: CLOPIDOGREL BISULFATE 75 MG TABLET (FP) PO SCH (09:55)
[2019-06-03] MEDS: BACITRACIN 15 GM TUBE TOPICAL OINTMENT TP SCH (09:56)
[2019-06-03] MEDS: AMMONIUM LACTATE 12% LOTION 225 GM BOTTLE TP SCH (09:57)
[2019-06-03] MEDS ORDERED: HYDROCHLOROTHIAZIDE 12.5 MG CAPSULE (FP) PO SCH (10:00)
[2019-06-03] MEDS ORDERED: ASPIRIN 81 MG CHEWABLE TABLETS PO SCH (10:00)
[2019-06-03] MEDS: BUDESONIDE/FORMETEROL FUMARATE 160/4.5 mcg INHALER IH SCH ×2 (10:08→22:10)
--- NOTE | 2019-06-03 13:47 | PN ---
Progress Note (short form) - Note Progress Note: SUBJECTIVE: Complains of ongoing back pain, radiating down legs with weakness and altered sensation. No bladder/bowel dysfunction. No fever/chills. No recent trauma. OBJECTIVE: Afebrile, Hemodynamically Stable. Last Vital Signs Temp Pulse Resp BP Pulse Ox 98.1 F 90 19 122/66 96 06/03/19 10:00 06/03/19 10:00 06/03/19 10:00 06/03/19 10:00 06/03/19 11:00 Heart - S1, S2, SM Lungs - clear to auscultation Abdomen - High BMI Soft, non-tender. Bowel Sounds normal. Extremities - venous stasis skin changes, mild edema. No calf tenderness. Neuro - AAO x 3. Decreased power LEs due to pain. Reports altered sensation with hyperalgesia Laboratory Results - last 24 hr 06/02/19 06/02/19 06/02/19 05:20 16:46 22:14 POC Glucometer 166 186 Iron 26 L TIBC 327 Iron Saturation 7 L Unsaturated IBC 301 H 06/03/19 06/03/19 06:14 12:04 POC Glucometer 178 237 Iron TIBC Iron Saturation Unsaturated IBC Current Medications Generic Name Dose Route Start Last Admin Trade Name Freq PRN Reason Stop Dose Admin Acetaminophen 650 mg 06/02/19 14:20 06/03/19 06:20 Tylenol - PO 650 mg Q4H PRN Administration PAIN 1-3 Albuterol Sulfate 1 amp 06/02/19 09:14 06/02/19 11:35 Ventolin 0.083% Nebulizer Soln - NEB 1 amp Q4H PRN Administration SHORT OF BREATH/WHEEZING Amlodipine Besylate 10 mg 06/03/19 10:00 06/03/19 09:55 Norvasc - PO 10 mg DAILY [facility] Administration Aspirin 81 mg 06/02/19 10:00 06/03/19 09:55 Asa - PO 81 mg DAILY [facility] Administration Atorvastatin Calcium 80 mg 06/02/19 22:00 06/02/19 22:08 Lipitor - PO 80 mg HS [facility] Administration Bacitracin 1 applic 06/03/19 10:00 06/03/19 09:56 Bacitracin - TP 1 applic DAILY [facility] Administration Budesonide/Formoterol Fumarate 1 puff 06/02/19 10:00 06/03/19 10:08 Symbicort 160/4.5mcg - IH 1 puff BID [facility] Administration Clopidogrel Bisulfate 75 mg 06/02/19 10:00 06/03/19 09:55 Plavix - PO 75 mg DAILY [facility] Administration Cyclobenzaprine HCl 10 mg 06/02/19 14:20 06/03/19 06:20 Flexeril - PO 10 mg TID PRN Administration MUSCLE SPASMS Docusate Sodium 100 mg 06/02/19 09:09 Colace - PO BID PRN CONSTIPATION Famotidine 20 mg 06/03/19 10:00 06/03/19 09:54 Pepcid - PO 20 mg DAILY [facility] Administration Fluoxetine HCl 40 mg 06/03/19 10:00 06/03/19 09:54 Prozac - PO 40 mg DAILY [facility] Administration Furosemide 40 mg 06/02/19 10:00 06/03/19 09:55 Lasix - PO 40 mg DAILY [facility] Administration Gabapentin 300 mg 06/02/19 22:00 06/03/19 13:19 Neurontin - PO 300 mg TID [facility] Administration Heparin Sodium (Porcine) 5,000 unit 06/02/19 06:00 06/03/19 13:19 Heparin - SQ 5,000 unit TID [facility] Administration Hydralazine HCl 25 mg 06/03/19 10:00 06/03/19 09:54 Apresoline - PO 25 mg DAILY [facility] Administration Insulin Aspart 1 vial 06/02/19 11:00 06/03/19 12:08 Novolog Vial Sliding Scale - SQ 4 unit ACHS [facility] Administration Protocol Lactic Acid 1 applic 06/02/19 14:45 06/03/19 09:57 Lac-Hydrin 12 TP 1 applic DAILY [facility] Administration Levetiracetam 500 mg 06/02/19 10:00 06/03/19 09:55 Keppra - PO 500 mg BID [facility] Administration Metoprolol Succinate 25 mg 06/02/19 10:00 06/03/19 09:55 Toprol Xl - PO 25 mg DAILY [facility] Administration Nortriptyline HCl 25 mg 06/02/19 10:00 06/03/19 09:54 Pamelor - PO 25 mg DAILY [facility] Administration Oxybutynin Chloride 5 mg 06/02/19 10:00 06/03/19 09:55 Ditropan - PO 5 mg DAILY [facility] Administration Home Medications Medication Instructions Recorded Atorvastatin Ca [Lipitor] 80 mg PO HS 06/01/19 Budesonide/Formeterol Fumarate 1 puff PO BID 06/01/19 [SYMBICORT 160/4.5mcg -] Insulin Aspart [Novolog] 0 unit SQ ASDIR 06/01/19 Insulin NPH Hum/Reg Insulin Hm 30 unit SQ BIDAC 06/01/19 [Novolin 70-30 100 Unit/ml Vial] Metformin HCl [Glucophage] 500 mg PO BID 06/01/19 Nortriptyline HCl [Pamelor -] 25 mg PO DAILY 06/01/19 Oxybutynin Chloride [Oxybutynin 5 mg PO DAILY 06/01/19 Chloride ER] Potassium Chloride 20 meq PO DAILY 06/01/19 Pravastatin Sodium [Pravachol] 80 mg PO DAILY 06/01/19 levETIRAcetam [Keppra -] 500 mg PO BID 06/01/19 Acetaminophen [Tylenol] 650 mg PO PRN PRN 06/02/19 Amlodipine Besylate [Norvasc -] 10 mg PO DAILY 06/02/19 Ammonium Lactate Cream [Lac-Hydrin 1 applic ID DAILY 06/02/19 12% Cream -] Aspirin 81 mg PO DAILY 06/02/19 Bacitracin - [Bacitracin Topical 1 applic ID DAILY 06/02/19 Ointment -] Clopidogrel Bisulfate [Clopidogrel] 75 mg PO DAILY 06/02/19 Clotrimazole [Lotrimin -] 1 applic ID BID 06/02/19 Cyclobenzaprine HCl [Flexeril 10 1 tab PO TID PRN 06/02/19 mg] Docusate Sodium [Docusate 100 mg] 2 cap PO DAILY PRN 06/02/19 Famotidine 20 mg PO DAILY 06/02/19 Fluoxetine HCl [Prozac] 40 mg PO DAILY 06/02/19 Furosemide 40 mg PO DAILY 06/02/19 Hydralazine HCl 25 mg PO DAILY 06/02/19 Hydrochlorothiazide 12.5 mg PO DAILY 06/02/19 Metoprolol Succinate [Toprol Xl] 25 mg PO DAILY 06/02/19 Mupirocin Ointment [Bactroban 2% 1 applic DAILY 06/02/19 Ointment -] Polyvinyl Alcohol [Artificial 1 drop OU BID 06/02/19 Tears] Sitagliptin Phosphate [Januvia] 50 mg PO DAILY 06/02/19 Umeclidinium [place] [Incruse 1 puff IH DAILY 06/02/19 Ellipta] ASSESSMENT AND PLAN: 68 year old female with history of obesity, Hx of CVA, CHF, GERD, CAD s/p PCI/ GINO to LAD, Reactive airway disease, DM 2, Depression, Chronic back and LE pain , presents with worsening pain, progressive weakness, and hyperalgesia. 1. Intractable Back Pain/LE weakness/Hyperalgesia limiting mobility No bladder/bowel dysfunction Duplex LEs - no DVT, R popliteal fossa cyst. MRI LS Spine pending Neurosurgery consulted - likely bilateral sciatica - recommend trial of Gabapentin and referral to [facility] for EPSI consideration. PT/Fall precautions Continue Flexeril. Nortriptyline. 2. DM 2 with Peripheral Neuropathy - uncontrolled, A1C 7.2 Continue Levemir/Novolog sliding scale. Januvia, Metformin held. 3. CAD status post GINO to LAD in 2018 - continue Aspirin, Plavix, Statin, BB 4. HTN - on Norvasc, Metoprolol, Hydralazine. HCTZ stopped (on Lasix). 5. Reactive Airways Disease - Stable, no evidence of exacerbation. Continue Incruse Ellipta 6. Overactive Bladder - continue Oxybutynin. 7. CHF - Stable. Continue Lasix. 8. Depression - Fluoxetine 9. Microcytic Anemia secondary to Iron deficiency - Iron Sat 7%. No reported GI blood loss. FOBT requested, will await result prior to starting FESO4 supplementation. 10. Hx of CVA - Continue Aspirin, Plavix, Statin and Keppra for Seizure Px. 11. Hypomagnesemia - repleted. DVT Px - Heparin SQ. Visit type - Emergency Visit Emergency Visit: Yes ED Registration Date: 06/02/19 Care time: The patient presented to the Emergency Department on the above date and was hospitalized for further evaluation of their emergent condition. - New Patient This patient is new to me today: No - Critical Care Critical Care patient: No - Discharge Referral Referred to [facility] Med [facility] No
[2019-06-03] MEDS: ATORVASTATIN CA 80 MG TABLET (FP) PO SCH (21:40)
[2019-06-04] MEDS: GABAPENTIN 300 MG CAPSULE (FP) PO SCH ×3 (06:18→21:29)
[2019-06-04] MEDS: INSULIN SLIDING SCALE (NOVOLOG) 1 VIAL SQ SCH ×4 (06:18→21:32)
[2019-06-04] MEDS: HEPARIN NA (PORCINE) 5,000 UNITS/ML 1ML VIAL SQ SCH ×3 (06:18→21:29)
[2019-06-04 08:24] LABS: BASO % 0.4 % (0-2.0); EOS % 2.3 % (0-4.5); LYMPH % 23.3 % (8-40); MCH 24.3 pg (25.7-33.7); MCHC 32.2 g/dl (32.0-36.0); MEAN CELL VOLUME 75.6 fl (80-96); MEAN PLT VOLUME 8.1 fl (7.5-11.1); MONO % 7.7 % (3.8-10.2); NEUT % 66.3 % (42.8-82.8); PLATELET COUNT 225 K/MM3 (134-434); RBC 3.71 M/mm3 (3.60-5.2); WHITE BLOOD COUNT 6.7 K/mm3 (4.0-10.0)
[2019-06-04 08:49] LABS: BLOOD UREA NITROGEN 10.1 mg/dL (7-18); CALCIUM 8.6 mg/dL (8.5-10.1); CREATININE 0.7 mg/dL (0.55-1.3); MAGNESIUM 1.6 mg/dL (1.8-2.4); POTASSIUM 3.8 mmol/L (3.5-5.1)
--- NOTE | 2019-06-04 08:50 | PN ---
Teaching Attending Note Name of Resident: Suellen Otero ATTENDING PHYSICIAN STATEMENT I saw and evaluated the patient. I reviewed the resident's note and discussed the case with the resident. I agree with the resident's findings and plan as documented. SUBJECTIVE: Complains of improving back pain, radiating down legs with improvement in weakness and altered sensation. No bladder/bowel dysfunction. No fever/chills. No recent trauma. OBJECTIVE: Afebrile, Hemodynamically Stable. Last Vital Signs Temp Pulse Resp BP Pulse Ox 98.1 F 96 H 19 162/74 96 06/04/19 05:00 06/04/19 05:00 06/04/19 05:00 06/04/19 05:00 06/04/19 02:00 Heart - S1, S2, SM Lungs - clear to auscultation Abdomen - High BMI Soft, non-tender. Bowel Sounds normal. Extremities - chronic venous stasis skin changes, mild edema. No calf tenderness. Neuro - AAO x 3. Decreased power LEs due to pain. Reports altered sensation with hyperalgesia Laboratory Results - last 24 hr 06/03/19 06/03/19 06/03/19 12:04 16:43 21:37 WBC RBC Hgb Hct MCV MCH MCHC RDW Plt Count MPV Absolute Neuts (auto) Neutrophils % Lymphocytes % Monocytes % Eosinophils % Basophils % Nucleated RBC % Sodium Potassium Chloride Carbon Dioxide Anion Gap BUN Creatinine Est GFR (CKD-EPI)AfAm Est GFR (CKD-EPI)NonAf POC Glucometer 237 259 239 Random Glucose Calcium Magnesium 06/04/19 06/04/19 06/04/19 06:16 08:13 08:13 WBC 6.7 RBC 3.71 Hgb 9.0 L Hct 28.0 L MCV 75.6 L MCH 24.3 L MCHC 32.2 RDW 21.0 H Plt Count 225 MPV 8.1 Absolute Neuts (auto) 4.5 Neutrophils % 66.3 Lymphocytes % 23.3 Monocytes % 7.7 Eosinophils % 2.3 Basophils % 0.4 Nucleated RBC % 0 Sodium 140 Potassium 3.8 Chloride 103 Carbon Dioxide 34 H Anion Gap 3 L BUN 10.1 Creatinine 0.7 Est GFR (CKD-EPI)AfAm 103.18 Est GFR (CKD-EPI)NonAf 89.03 POC Glucometer 235 Random Glucose 216 H Calcium 8.6 Magnesium 1.6 L Current Medications Generic Name Dose Route Start Last Admin Trade Name Freq PRN Reason Stop Dose Admin Acetaminophen 650 mg 06/02/19 14:20 06/03/19 06:20 Tylenol - PO 650 mg Q4H PRN Administration PAIN 1-3 Albuterol Sulfate 1 amp 06/02/19 09:14 06/02/19 11:35 Ventolin 0.083% Nebulizer Soln - NEB 1 amp Q4H PRN Administration SHORT OF BREATH/WHEEZING Amlodipine Besylate 10 mg 06/03/19 10:00 06/03/19 09:55 Norvasc - PO 10 mg DAILY [facility] Administration Aspirin 81 mg 06/02/19 10:00 06/03/19 09:55 Asa - PO 81 mg DAILY [facility] Administration Atorvastatin Calcium 80 mg 06/02/19 22:00 06/03/19 21:40 Lipitor - PO 80 mg HS [facility] Administration Bacitracin 1 applic 06/03/19 10:00 06/03/19 09:56 Bacitracin - TP 1 applic DAILY [facility] Administration Budesonide/Formoterol Fumarate 1 puff 06/02/19 10:00 06/03/19 22:10 Symbicort 160/4.5mcg - IH 1 puff BID [facility] Administration Clopidogrel Bisulfate 75 mg 06/02/19 10:00 06/03/19 09:55 Plavix - PO 75 mg DAILY [facility] Administration Cyclobenzaprine HCl 10 mg 06/02/19 14:20 06/03/19 21:39 Flexeril - PO 10 mg TID PRN Administration MUSCLE SPASMS Docusate Sodium 100 mg 06/02/19 09:09 Colace - PO BID PRN CONSTIPATION Famotidine 20 mg 06/03/19 10:00 06/03/19 09:54 Pepcid - PO 20 mg DAILY [facility] Administration Fluoxetine HCl 40 mg 06/03/19 10:00 06/03/19 09:54 Prozac - PO 40 mg DAILY [facility] Administration Furosemide 40 mg 06/02/19 10:00 06/03/19 09:55 Lasix - PO 40 mg DAILY [facility] Administration Gabapentin 300 mg 06/02/19 22:00 06/04/19 06:18 Neurontin - PO 300 mg TID [facility] Administration Heparin Sodium (Porcine) 5,000 unit 06/02/19 06:00 06/04/19 06:18 Heparin - SQ 5,000 unit TID [facility] Administration Hydralazine HCl 25 mg 06/03/19 10:00 06/03/19 09:54 Apresoline - PO 25 mg DAILY [facility] Administration Insulin Aspart 1 vial 06/02/19 11:00 06/04/19 06:18 Novolog Vial Sliding Scale - SQ 4 unit ACHS [facility] Administration Protocol Insulin Detemir 5 units 06/04/19 08:00 Levemir Vial SQ 0700 [facility] Lactic Acid 1 applic 06/02/19 14:45 06/03/19 09:57 Lac-Hydrin 12 TP 1 applic DAILY [facility] Administration Levetiracetam 500 mg 06/02/19 10:00 06/03/19 21:40 Keppra - PO 500 mg BID L[facility] Administration Metoprolol Succinate 25 mg 06/02/19 10:00 06/03/19 09:55 Toprol Xl - PO 25 mg DAILY L[facility] Administration Nortriptyline HCl 25 mg 06/02/19 10:00 06/03/19 09:54 Pamelor - PO 25 mg DAILY [facility] Administration Oxybutynin Chloride 5 mg 06/02/19 10:00 06/03/19 09:55 Ditropan - PO 5 mg DAILY [facility] Administration Home Medications Medication Instructions Recorded Atorvastatin Ca [Lipitor] 80 mg PO HS 06/01/19 Budesonide/Formeterol Fumarate 1 puff PO BID 06/01/19 [SYMBICORT 160/4.5mcg -] Insulin Aspart [Novolog] 0 unit SQ ASDIR 06/01/19 Insulin NPH Hum/Reg Insulin Hm 30 unit SQ BIDAC 06/01/19 [Novolin 70-30 100 Unit/ml Vial] Metformin HCl [Glucophage] 500 mg PO BID 06/01/19 Nortriptyline HCl [Pamelor -] 25 mg PO DAILY 06/01/19 Oxybutynin Chloride [Oxybutynin 5 mg PO DAILY 06/01/19 Chloride ER] Potassium Chloride 20 meq PO DAILY 06/01/19 Pravastatin Sodium [Pravachol] 80 mg PO DAILY 06/01/19 levETIRAcetam [Keppra -] 500 mg PO BID 06/01/19 Acetaminophen [Tylenol] 650 mg PO PRN PRN 06/02/19 Amlodipine Besylate [Norvasc -] 10 mg PO DAILY 06/02/19 Ammonium Lactate Cream [Lac-Hydrin 1 applic ID DAILY 06/02/19 12% Cream -] Aspirin 81 mg PO DAILY 06/02/19 Bacitracin - [Bacitracin Topical 1 applic ID DAILY 06/02/19 Ointment -] Clopidogrel Bisulfate [Clopidogrel] 75 mg PO DAILY 06/02/19 Clotrimazole [Lotrimin -] 1 applic ID BID 06/02/19 Cyclobenzaprine HCl [Flexeril 10 1 tab PO TID PRN 06/02/19 mg] Docusate Sodium [Docusate 100 mg] 2 cap PO DAILY PRN 06/02/19 Famotidine 20 mg PO DAILY 06/02/19 Fluoxetine HCl [Prozac] 40 mg PO DAILY 06/02/19 Furosemide 40 mg PO DAILY 06/02/19 Hydralazine HCl 25 mg PO DAILY 06/02/19 Hydrochlorothiazide 12.5 mg PO DAILY 06/02/19 Metoprolol Succinate [Toprol Xl] 25 mg PO DAILY 06/02/19 Mupirocin Ointment [Bactroban 2% 1 applic DAILY 06/02/19 Ointment -] Polyvinyl Alcohol [Artificial 1 drop OU BID 06/02/19 Tears] Sitagliptin Phosphate [Januvia] 50 mg PO DAILY 06/02/19 Umeclidinium Biggs [Incruse 1 puff IH DAILY 06/02/19 Ellipta] ASSESSMENT AND PLAN: 68 year old female with history of obesity, Hx of CVA, CHF, GERD, CAD s/p PCI/ GINO to LAD, Reactive airway disease, DM 2, Depression, Chronic back and LE pain , presents with worsening pain, progressive weakness, and hyperalgesia. 1. Intractable Back Pain/LE weakness/Hyperalgesia limiting mobility - improving No bladder/bowel dysfunction Duplex LEs - no DVT, R popliteal fossa cyst. MRI LS Spine requested but unable to perform due to inability of scanner to accommodate patient body habitus. Neurosurgery evaluated - likely bilateral sciatica - recommend trial of Gabapentin and referral to [facility] for EPSI consideration. No recommendation for MRI by NeuroSx. PT/Fall precautions Continue Flexeril, Nortriptyline. Awaiting transfer back to [facility] (does not accept patients back on weekends) 2. DM 2 with Peripheral Neuropathy - uncontrolled, A1C 7.2 Added Levemir to Novolog sliding scale. Januvia, Metformin held. 3. CAD status post GINO to LAD in 2018 - continue Aspirin, Plavix, Statin, BB 4. HTN - on Norvasc, Metoprolol, Hydralazine. HCTZ stopped (on Lasix). 5. Reactive Airways Disease - Stable, no evidence of exacerbation. Continue Incruse Ellipta 6. Overactive Bladder - continue Oxybutynin. 7. CHF - Stable. Continue Lasix. 8. Depression - Fluoxetine 9. Microcytic Anemia secondary to Iron deficiency - Iron Sat 7%. No active/ acute GI blood loss. FOBT requested, will await result prior to starting FESO4 supplementation. Will need GI eval as out-patient. 10. Hx of CVA - Continue Aspirin, Plavix, Statin and Keppra for Seizure Px. 11. Hypomagnesemia - recurrent, will replete. DVT Px - Heparin SQ.
[2019-06-04] MEDS: hydrALAZINE HCL 25 MG TABLET (FP) PO SCH (09:20)
[2019-06-04] MEDS: levETIRAcetam 500 MG TABLET (FP) PO SCH ×2 (09:20→21:29)
[2019-06-04] MEDS: INSULIN (LEVEMIR) 100 UNITS/ML UNITS SQ SCH (09:20)
[2019-06-04] MEDS: CLOPIDOGREL BISULFATE 75 MG TABLET (FP) PO SCH (09:20)
[2019-06-04] MEDS: ASPIRIN 81 MG CHEWABLE TABLETS PO SCH (09:20)
[2019-06-04] MEDS: metoPROLOL SUCCINATE 25 MG TAB.SR.24H (FP) PO SCH (09:20)
[2019-06-04] MEDS: FUROSEMIDE 40 MG TABLET (FP) PO SCH (09:21)
[2019-06-04] MEDS: FAMOTIDINE 20 MG TABLET PO SCH (09:21)
[2019-06-04] MEDS: OXYBUTYNIN CHLORIDE 5 MG TABLET PO SCH (09:21)
[2019-06-04] MEDS: amLODIPine BESYLATE 10 MG TABLET (FP) PO SCH (09:21)
[2019-06-04] MEDS: NORTRIPTYLINE HCL 25 MG CAPSULE PO SCH (09:21)
[2019-06-04] MEDS: FLUoxetine HCL 20 MG CAPSULE (FP) PO SCH (09:21)
[2019-06-04] MEDS: BUDESONIDE/FORMETEROL FUMARATE 160/4.5 mcg INHALER IH SCH ×2 (09:32→21:33)
[2019-06-04] MEDS: AMMONIUM LACTATE 12% LOTION 225 GM BOTTLE TP SCH (09:34)
[2019-06-04] MEDS: BACITRACIN 15 GM TUBE TOPICAL OINTMENT TP SCH (09:37)
--- NOTE | 2019-06-04 10:53 | PN ---
Progress Note (short form) - Note Progress Note: NEUROSURGERY Sitting up in chair Pain in legs noticeably less PE: AF, VSS General- morbid obesity CN- non-focal; Motor- 4+/5 B UE/LE; Sensation- intact LT/vibration; DTR- hyporeflexic LS spine x-rays- anterolisthesis, L4-5 and L5-S1 LS spine CT- L4-5 and L5-S1 anterolisthesis; L5-S1 vacuum disc; facet hypertrophy with lat recess narrowing L4-5 and L5-S1 spondylolisthesis with B L5-S1 radiculopathy Neurosurgical intervention not recommended given morbid obesity and significant medical co-morbidities Trial of Neurontin 300 tid for radicular pain, can titrate to 600 tid PT for TENS/modalities Consider pain management input for EPSI if persistent pain, though current pain level significantly less than previously
[2019-06-04] MEDS ORDERED: MAGNESIUM SULF 50% (8.12 MEQ/2 ML-1 GM VIAL) IVPB ONE (13:30)
--- NOTE | 2019-06-04 13:50 | PN ---
Physical Exam: SUBJECTIVE: Patient seen and examined at bedside this morning, No acute events overnight. Patient reports feeling well, sitting comfortably in bed. Denies fevers, chills, headache, dizziness, chest pain, SOB, abdominal pain, diarrhea, urinary symptoms. OBJECTIVE: Vital Signs Temperature 98.2 F 06/04/19 13:36 Pulse Rate 93 H 06/04/19 13:36 Respiratory Rate 20 06/04/19 13:36 Blood Pressure 137/66 06/04/19 13:36 O2 Sat by Pulse Oximetry (%) 96 06/04/19 02:00 GENERAL: The patient is awake, alert, and fully oriented, in no acute distress. HEAD: Normal with no signs of trauma. EYES: PERRLA, EOMI, conjunctiva clear. ENT: moist mucous membranes. NECK: Trachea midline, full range of motion, supple. LUNGS: Breath sounds equal, clear to auscultation bilaterally. HEART: Regular rate and rhythm, S1, S2 without murmur, rub or gallop. ABDOMEN: Soft, nontender, nondistended, normoactive bowel sounds. EXTREMITIES: 2+ pulses, warm, well-perfused, no edema. NEUROLOGICAL: Cranial nerves II through XII grossly intact. Motor strength 4/5 BLE limited by pain. Normal speech, gait not observed. PSYCH: Normal mood, normal affect. SKIN: Warm, dry, normal turgor, no rashes or lesions noted Laboratory Results - last 24 hr 06/03/19 06/03/19 06/04/19 16:43 21:37 06:16 WBC RBC Hgb Hct MCV MCH MCHC RDW Plt Count MPV Absolute Neuts (auto) Neutrophils % Lymphocytes % Monocytes % Eosinophils % Basophils % Nucleated RBC % Sodium Potassium Chloride Carbon Dioxide Anion Gap BUN Creatinine Est GFR (CKD-EPI)AfAm Est GFR (CKD-EPI)NonAf POC Glucometer 259 239 235 Random Glucose Calcium Magnesium 06/04/19 06/04/19 06/04/19 08:13 08:13 11:55 WBC 6.7 RBC 3.71 Hgb 9.0 L Hct 28.0 L MCV 75.6 L MCH 24.3 L MCHC 32.2 RDW 21.0 H Plt Count 225 MPV 8.1 Absolute Neuts (auto) 4.5 Neutrophils % 66.3 Lymphocytes % 23.3 Monocytes % 7.7 Eosinophils % 2.3 Basophils % 0.4 Nucleated RBC % 0 Sodium 140 Potassium 3.8 Chloride 103 Carbon Dioxide 34 H Anion Gap 3 L BUN 10.1 Creatinine 0.7 Est GFR (CKD-EPI)AfAm 103.18 Est GFR (CKD-EPI)NonAf 89.03 POC Glucometer 266 Random Glucose 216 H Calcium 8.6 Magnesium 1.6 L Active Medications Generic Name Dose Route Start Last Admin Trade Name Freq PRN Reason Stop Dose Admin Acetaminophen 650 mg 06/02/19 14:20 06/03/19 06:20 Tylenol - PO 650 mg Q4H PRN Administration PAIN 1-3 Albuterol Sulfate 1 amp 06/02/19 09:14 06/02/19 11:35 Ventolin 0.083% Nebulizer Soln - NEB 1 amp Q4H PRN Administration SHORT OF BREATH/WHEEZING Amlodipine Besylate 10 mg 06/03/19 10:00 06/04/19 09:21 Norvasc - PO 10 mg DAILY LUKAS Administration Aspirin 81 mg 06/02/19 10:00 06/04/19 09:20 Asa - PO 81 mg DAILY LUKAS Administration Atorvastatin Calcium 80 mg 06/02/19 22:00 06/03/19 21:40 Lipitor - PO 80 mg HS LUKAS Administration Bacitracin 1 applic 06/03/19 10:00 06/04/19 09:37 Bacitracin - TP 1 applic DAILY LUKAS Administration Budesonide/Formoterol Fumarate 1 puff 06/02/19 10:00 06/04/19 09:32 Symbicort 160/4.5mcg - IH 1 puff BID [facility] Administration Clopidogrel Bisulfate 75 mg 06/02/19 10:00 06/04/19 09:20 Plavix - PO 75 mg DAILY L[facility]AS Administration Cyclobenzaprine HCl 10 mg 06/02/19 14:20 06/03/19 21:39 Flexeril - PO 10 mg TID PRN Administration MUSCLE SPASMS Docusate Sodium 100 mg 06/02/19 09:09 Colace - PO BID PRN CONSTIPATION Famotidine 20 mg 06/03/19 10:00 06/04/19 09:21 Pepcid - PO 20 mg DAILY L[facility]AS Administration Fluoxetine HCl 40 mg 06/03/19 10:00 06/04/19 09:21 Prozac - PO 40 mg DAILY L[facility]AS Administration Furosemide 40 mg 06/02/19 10:00 06/04/19 09:21 Lasix - PO 40 mg DAILY LUKAS Administration Gabapentin 300 mg 06/02/19 22:00 06/04/19 06:18 Neurontin - PO 300 mg TID L[facility]AS Administration Heparin Sodium (Porcine) 5,000 unit 06/02/19 06:00 06/04/19 06:18 Heparin - SQ 5,000 unit TID L[facility]AS Administration Hydralazine HCl 25 mg 06/03/19 10:00 06/04/19 09:20 Apresoline - PO 25 mg DAILY LUKAS Administration Insulin Aspart 1 vial 06/02/19 11:00 06/04/19 12:09 Novolog Vial Sliding Scale - SQ 6 unit ACHS LUKAS Administration Protocol Insulin Detemir 5 units 06/04/19 08:00 06/04/19 09:20 Levemir Vial SQ 5 units 0700 [facility] Administration Lactic Acid 1 applic 06/02/19 14:45 06/04/19 09:34 Lac-Hydrin 12 TP 1 applic DAILY [facility]AS Administration Levetiracetam 500 mg 06/02/19 10:00 06/04/19 09:20 Keppra - PO 500 mg BID L[facility]AS Administration Metoprolol Succinate 25 mg 06/02/19 10:00 06/04/19 09:20 Toprol Xl - PO 25 mg DAILY L[facility]AS Administration Nortriptyline HCl 25 mg 06/02/19 10:00 06/04/19 09:21 Pamelor - PO 25 mg DAILY LUKAS Administration Oxybutynin Chloride 5 mg 06/02/19 10:00 06/04/19 09:21 Ditropan - PO 5 mg DAILY LUKAS Administration ASSESSMENT/PLAN: Patient is a 68 y/o F with PMH of CVA on ASA/plavix, CHF, GERD, COPD/Asthma, DM type 2, NSTEMI, HTN , morbid obesity presenting to ED from [facility] for progressive bilateral leg pain and hyperaesthesia. #Intractable back pain with BLE pain -Duplex LE showed no DVT -LS spine MRI -Neurosurgery (Dr. Mora) consulted. REcommendations appreciated. -surgery not recommended at this time given morbid obesity and significant medical comorbidities -Trial of Neurontin 300mg tid, may titrate up to 600mg tid -physical therapy -fall precautions -Continue Flexeril and Nortriptyline -Will recommend outpatient follow up with pain management for EPSI if persistent pain #IDDM - Continue Levemir and insulin sliding scale - BGM aCHS -Hold Januvia and Metformin #Microcytic Anemia, likely 2/2 iron deficiency - cont to monitor - iron studies done - F/u FOBT - Supplement with Ferrous Sulfate once FOBT results cleared #CAD s/p stent to LAD in 2018 -Cont home meds: asa, plavix, statin, and Toprol XL #HTN - Cont home meds: Norvasc, Toprol, Hydralazine - will discontinue HCTZ #CVA - Continue ASA, PLavix, Statin - Cont home Keppra for seizure ppx #DVT ppx - Heparin sq TID #FEN - No fluids - Electrolytes wnl, routine bmp monitoring - Salt-controlled diet #Dispo - For discharge tomorrow to [facility] Visit type - Emergency Visit Emergency Visit: Yes ED Registration Date: 06/02/19 Care time: The patient presented to the Emergency Department on the above date and was hospitalized for further evaluation of their emergent condition. - New Patient This patient is new to me today: No - Critical Care Critical Care patient: No ATTENDING PHYSICIAN STATEMENT I saw and evaluated the patient. I reviewed the resident's note and discussed the case with the resident. I agree with the resident's findings and plan as documented. SUBJECTIVE: OBJECTIVE: ASSESSMENT AND PLAN:
[2019-06-04] MEDS: MAGNESIUM OXIDE 400 MG TABLET (FP) PO SCH ×2 (14:01→21:29)
[2019-06-04] MEDS: ATORVASTATIN CA 80 MG TABLET (FP) PO SCH (21:29)
[2019-06-05] MEDS: GABAPENTIN 300 MG CAPSULE (FP) PO SCH ×2 (05:55→13:55)
[2019-06-05] MEDS: CYCLOBENZAPRINE HCL 10 MG TABLET (FP) PO PRN (05:55)
[2019-06-05] MEDS: INSULIN (LEVEMIR) 100 UNITS/ML UNITS SQ SCH (06:50)
[2019-06-05] MEDS: HEPARIN NA (PORCINE) 5,000 UNITS/ML 1ML VIAL SQ SCH ×2 (06:50→13:55)
[2019-06-05] MEDS: INSULIN SLIDING SCALE (NOVOLOG) 1 VIAL SQ SCH ×2 (06:50→12:23)
[2019-06-05] MEDS ORDERED: INSULIN (NOVOLOG) ASPART 100 UNITS/ML 10ML VIAL ONE ×2 (06:57→12:15)
--- NOTE | 2019-06-05 08:47 | PN ---
Teaching Attending Note Name of Resident: Angeli Del Cid ATTENDING PHYSICIAN STATEMENT I saw and evaluated the patient. I reviewed the resident's note and discussed the case with the resident. I agree with the resident's findings and plan as documented. 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 non focal CBC, BMP 06/04/19 08:13 06/04/19 08:13 Active Medications Acetaminophen (Tylenol -) 650 mg PO Q4H PRN PRN Reason: PAIN 1-3 Last Admin: 06/03/19 06:20 Dose: 650 mg Albuterol Sulfate (Ventolin 0.083% Nebulizer Soln -) 1 amp NEB Q4H PRN PRN Reason: SHORT OF BREATH/WHEEZING Last Admin: 06/02/19 11:35 Dose: 1 amp Amlodipine Besylate (Norvasc -) 10 mg PO DAILY [facility] Last Admin: 06/04/19 09:21 Dose: 10 mg Aspirin (Asa -) 81 mg PO DAILY [facility] Last Admin: 06/04/19 09:20 Dose: 81 mg Atorvastatin Calcium (Lipitor -) 80 mg PO HS [facility] Last Admin: 06/04/19 21:29 Dose: 80 mg Bacitracin (Bacitracin -) 1 applic TP DAILY [facility] Last Admin: 06/04/19 09:37 Dose: 1 applic Budesonide/Formoterol Fumarate (Symbicort 160/4.5mcg -) 1 puff IH BID [facility] Last Admin: 06/04/19 21:33 Dose: 1 puff Clopidogrel Bisulfate (Plavix -) 75 mg PO DAILY [facility] Last Admin: 06/04/19 09:20 Dose: 75 mg Cyclobenzaprine HCl (Flexeril -) 10 mg PO TID PRN PRN Reason: MUSCLE SPASMS Last Admin: 06/05/19 05:55 Dose: 10 mg Docusate Sodium (Colace -) 100 mg PO BID PRN PRN Reason: CONSTIPATION Famotidine (Pepcid -) 20 mg PO DAILY [facility] Last Admin: 06/04/19 09:21 Dose: 20 mg Fluoxetine HCl (Prozac -) 40 mg PO DAILY [facility] Last Admin: 06/04/19 09:21 Dose: 40 mg Furosemide (Lasix -) 40 mg PO DAILY [facility] Last Admin: 06/04/19 09:21 Dose: 40 mg Gabapentin (Neurontin -) 300 mg PO TID [facility] Last Admin: 06/05/19 05:55 Dose: 300 mg Heparin Sodium (Porcine) (Heparin -) 5,000 unit SQ TID [facility] Last Admin: 06/05/19 06:50 Dose: 5,000 unit Hydralazine HCl (Apresoline -) 25 mg PO DAILY [facility] Last Admin: 06/04/19 09:20 Dose: 25 mg Insulin Aspart (Novolog Vial Sliding Scale -) 1 vial SQ ACHS [facility]; Protocol Last Admin: 06/05/19 06:50 Dose: 4 unit Insulin Detemir (Levemir Vial) 5 units SQ 0700 [facility] Last Admin: 06/05/19 06:50 Dose: 5 units Lactic Acid (Lac-Hydrin 12) 1 applic TP DAILY [facility] Last Admin: 06/04/19 09:34 Dose: 1 applic Levetiracetam (Keppra -) 500 mg PO BID [facility] Last Admin: 06/04/19 21:29 Dose: 500 mg Magnesium Oxide (Mag-Ox -) 400 mg PO BID [facility] Stop: 06/06/19 22:01 Last Admin: 06/04/19 21:29 Dose: 400 mg Metoprolol Succinate (Toprol Xl -) 25 mg PO DAILY [facility] Last Admin: 06/04/19 09:20 Dose: 25 mg Nortriptyline HCl (Pamelor -) 25 mg PO DAILY [facility] Last Admin: 06/04/19 09:21 Dose: 25 mg Oxybutynin Chloride (Ditropan -) 5 mg PO DAILY [facility] Last Admin: 06/04/19 09:21 Dose: 5 mg ASSESSMENT AND PLAN:68 yrs old morbid;y obese transferred from [place] [facility] with back pain evaluted by neurosurgery cleared to DC home on Pain meds and PT at the facility, patient is able to ambulate hemodybnamically stable. Problem List - Problems (1) Leg pain Assessment/Plan: improved evaluted [place] neurosurgery claered to Dc hiome Problems reviewed: Yes Code(s): M79.606 - PAIN IN LEG, UNSPECIFIED Qualifiers: Laterality: bilateral Qualified Code(s): M79.604 - Pain in right leg; M79.605 - Pain in left leg (2) HTN (hypertension) Assessment/Plan: Well controlled cont home meds Problems reviewed: Yes Code(s): I10 - ESSENTIAL (PRIMARY) HYPERTENSION (3) Type 2 diabetes mellitus with diabetic autonomic (poly)neuropathy Assessment/Plan: Resume home meds Code(s): E11.43 - TYPE 2 DIABETES W DIABETIC AUTONOMIC (POLY)NEUROPATHY Qualifiers: Diabetes mellitus long term care phlebotomist insulin use: unspecified long-term insulin use status Qualified Code(s): E11.43 - Type 2 diabetes mellitus with diabetic autonomic (poly)neuropathy (4) COPD (chronic obstructive pulmonary disease) Assessment/Plan: Stable resume home meds Problems reviewed: Yes Code(s): J44.9 - CHRONIC OBSTRUCTIVE PULMONARY DISEASE, UNSPECIFIED Qualifiers: COPD type: unspecified COPD Qualified Code(s): J44.9 - Chronic obstructive pulmonary disease, unspecified
[2019-06-05 09:40] VITALS: PULSE 94
[2019-06-05] MEDS ORDERED: PT OWN MED DRAWER 7, Y5N ONE (10:47)
[2019-06-05] MEDS: ASPIRIN 81 MG CHEWABLE TABLETS PO SCH (10:48)
[2019-06-05] MEDS: hydrALAZINE HCL 25 MG TABLET (FP) PO SCH (10:48)
[2019-06-05] MEDS: FAMOTIDINE 20 MG TABLET PO SCH (10:48)
[2019-06-05] MEDS: levETIRAcetam 500 MG TABLET (FP) PO SCH (10:48)
[2019-06-05] MEDS: CLOPIDOGREL BISULFATE 75 MG TABLET (FP) PO SCH (10:48)
[2019-06-05] MEDS: FUROSEMIDE 40 MG TABLET (FP) PO SCH (10:48)
[2019-06-05] MEDS: metoPROLOL SUCCINATE 25 MG TAB.SR.24H (FP) PO SCH (10:48)
[2019-06-05] MEDS: amLODIPine BESYLATE 10 MG TABLET (FP) PO SCH (10:48)
[2019-06-05] MEDS: AMMONIUM LACTATE 12% LOTION 225 GM BOTTLE TP SCH (10:49)
[2019-06-05] MEDS: NORTRIPTYLINE HCL 25 MG CAPSULE PO SCH (10:49)
[2019-06-05] MEDS: OXYBUTYNIN CHLORIDE 5 MG TABLET PO SCH (10:49)
[2019-06-05] MEDS: BACITRACIN 15 GM TUBE TOPICAL OINTMENT TP SCH (10:49)
[2019-06-05] MEDS: MAGNESIUM OXIDE 400 MG TABLET (FP) PO SCH (10:49)
[2019-06-05] MEDS: FLUoxetine HCL 20 MG CAPSULE (FP) PO SCH (10:50)
[2019-06-05] MEDS: BUDESONIDE/FORMETEROL FUMARATE 160/4.5 mcg INHALER IH SCH (10:50)
--- NOTE | 2019-06-05 11:47 | DS ---
Physical Exam: SUBJECTIVE: Patient seen and examined. No acute events overnight. OBJECTIVE: Vital Signs Period Temp Pulse Resp BP Sys/Knox Pulse Ox Last 24 Hr 98 F-98.9 F 87-94 18-20 130-152/48-75 96-96 PHYSICAL EXAM GENERAL: The patient is awake, alert, and fully oriented, in no acute distress. HEAD: Normal with no signs of trauma. EYES: PERRLA, EOMI, conjunctiva clear. ENT: moist mucous membranes. NECK: Trachea midline, full range of motion, supple. LUNGS: Breath sounds equal, clear to auscultation bilaterally. HEART: Regular rate and rhythm, S1, S2 without murmur, rub or gallop. ABDOMEN: Soft, nontender, nondistended, normoactive bowel sounds. EXTREMITIES: 2+ pulses, warm, well-perfused, no edema. NEUROLOGICAL: Cranial nerves II through XII grossly intact. Motor strength 4/5 BLE limited by pain. Normal speech, gait not observed. PSYCH: Normal mood, normal affect. SKIN: Warm, dry, normal turgor, no rashes or lesions noted LABS Laboratory Results - last 24 hr 06/04/19 06/04/19 06/04/19 11:55 16:42 21:28 POC Glucometer 266 328 242 06/05/19 06:49 POC Glucometer 245 HOSPITAL COURSE: Date of Admission:06/02/19 Patient is a 68 y/o F with PMH of CVA on ASA/plavix, CHF, GERD, COPD/Asthma, DM type 2, NSTEMI, HTN , morbid obesity presenting to ED from [facility] for progressive bilateral leg pain and hyperaesthesia. A duplex US of BLE showed no DVTs. A lumbar MRI was done and showed spondylolithiasis with BL L5-S1 radiculopathy. Neurosurgery (Dr. Mora) was consulted and does not recommend surgery at si time given the patient's multiple medical comorbidities and morbid obesity. Pt was started on a trial of Neurontin 300mg TID for pain and will follow up with neurosurgery and pain management as outpatient for further treatment. Pt was found to have microcytic anemia, likely 2/2 iron deficiency. She will be provided with a referral to GI (Dr. Khan) for further workup. She also had an asymptomatic UTI and will be discharged for a 5 day course of Keflex 500mg BID. Pt's vitals are stable and she is clinically stable to be discharged. Date of Discharge: 06/05/19 Minutes to complete discharge: 45 Discharge Summary Problems reviewed: Yes Reason For Visit: INTRACTABLE PAIN, UNABLE TO WALK Current Active Problems Leg pain (Acute) Unable to ambulate (Acute) Condition: Improved - Instructions Diet, Activity, Other Instructions: You were admitted to the hospital for leg and back pain. You received an MRI of your spine which did not show any concerning disease. We treated you with medication for your pain, which you should continue to take at home ( instructions below). You also have an infection in your urine. We will prescribe you with antibiotics , Keflex, to take at home (instructions below). While you were here, you were found to be anemic (your blood levels were low). You will be started on iron supplements, Ferrous sulfate. Please note this causes black stools and constipation. You may take stool softeners, such as Colace as needed for constipation. You should follow up with a GI doctor as an outpatient for further evaluation. Medications: - Take Neurontin 300mg three times a day for pain. - Take Keflex 500mg twice a day for 5 days to treat your urine infection. - Ferrous sulfate 325mg twice a day. - Resume all home medications as prescribed. Follow ups: - Dr. Mora, neurosurgery, in one week for further evaluation. - Kat Irwin, pain management, in one week for further treatment of your leg and back pain. - Dr. Khan, GI, in one week for further workup of your anemia. We provided you with a referral. - Your primary care provider, Dr. Ledesma, in one week. Return to the emergency department if you experience worsening pain, fevers, chills, chest pain, difficulty breathing, or any other symptoms. Referrals: Elana Khan MD [Staff Physician] - Dony Mora MD [Staff Physician] - Beni Ledesma MD [Primary Care Provider] - Kat Irwin NP [Nurse Practitioner] - Disposition: [facility] - Home Medications Comprehensive Discharge Medication List: Ambulatory Orders Atorvastatin Ca [Lipitor] 80 mg PO HS 06/01/19 Budesonide/Formeterol Fumarate [SYMBICORT 160/4.5mcg -] 1 puff PO BID 06/01/19 Insulin Aspart [Novolog] 0 unit SQ ASDIR 06/01/19 Insulin NPH Hum/Reg Insulin Hm [Novolin 70-30 100 Unit/ml Vial] 30 unit SQ BIDAC 06/01/19 Metformin HCl [Glucophage] 500 mg PO BID 06/01/19 Nortriptyline HCl [Pamelor -] 25 mg PO DAILY 06/01/19 Oxybutynin Chloride [Oxybutynin Chloride ER] 5 mg PO DAILY 06/01/19 Potassium Chloride 20 meq PO DAILY 06/01/19 Pravastatin Sodium [Pravachol] 80 mg PO DAILY 06/01/19 levETIRAcetam [Keppra -] 500 mg PO BID 06/01/19 Acetaminophen [Tylenol] 650 mg PO PRN PRN 06/02/19 Amlodipine Besylate [Norvasc -] 10 mg PO DAILY 06/02/19 Ammonium Lactate Cream [Lac-Hydrin 12% Cream -] 1 applic ID DAILY 06/02/19 Aspirin 81 mg PO DAILY 06/02/19 Bacitracin - [Bacitracin Topical Ointment -] 1 applic ID DAILY 06/02/19 Clopidogrel Bisulfate [Clopidogrel] 75 mg PO DAILY 06/02/19 Clotrimazole [Lotrimin -] 1 applic ID BID 06/02/19 Cyclobenzaprine HCl [Flexeril 10 mg] 1 tab PO TID PRN 06/02/19 Docusate Sodium [Docusate 100 mg] 2 cap PO DAILY PRN 06/02/19 Famotidine 20 mg PO DAILY 06/02/19 Fluoxetine HCl [Prozac] 40 mg PO DAILY 06/02/19 Furosemide 40 mg PO DAILY 06/02/19 Hydralazine HCl 25 mg PO DAILY 06/02/19 Hydrochlorothiazide 12.5 mg PO DAILY 06/02/19 Metoprolol Succinate [Toprol Xl] 25 mg PO DAILY 06/02/19 Mupirocin Ointment [Bactroban 2% Ointment -] 1 applic DAILY 06/02/19 Polyvinyl Alcohol [Artificial Tears] 1 drop OU BID 06/02/19 Sitagliptin Phosphate [Januvia] 50 mg PO DAILY 06/02/19 Umeclidinium [place] [Incruse Ellipta] 1 puff IH DAILY 06/02/19 Cephalexin [Keflex] 500 mg PO BID #10 capsule 06/05/19 Gabapentin [Neurontin -] 300 mg PO TID #90 capsule 06/05/19 This patient is new to me today: No Emergency Visit: No Critical Care patient: No - Discharge Referral Referred to [facility] Med [facility].C[facility] No ATTENDING PHYSICIAN STATEMENT I saw and evaluated the patient. I reviewed the resident's note and discussed the case with the resident. I agree with the resident's findings and plan as documented. SUBJECTIVE: OBJECTIVE: ASSESSMENT AND PLAN:
[2019-06-05 14:46] VITALS: BP 140/69; TEMP 97.9
== END 2019-06-05 17:50 ==
LOC: JER 17:02 → INTOOBSV 06-02 02:54 → UNDOADMOB 06-02 02:54 → JERBED 06-02 02:54 → J7W 06-02 05:32 → JERBED 06-02 11:23
PROVIDERS: ADMIT Internal Medicine; ATTEND Internal Medicine
PROC: 3E033NZ Introduction of Analgesics, Hypnotics, Sedatives into Peripheral Vein, Percutaneous Approach (ICD-10-PCS; principal; 2019-06-02)
PROC: 3E033GC Introduction of Other Therapeutic Substance into Peripheral Vein, Percutaneous Approach (ICD-10-PCS; 2019-06-02)
PROC: 3E013VG Introduction of Insulin into Subcutaneous Tissue, Percutaneous Approach (ICD-10-PCS; 2019-06-02)
PROC: 3E013GC Introduction of Other Therapeutic Substance into Subcutaneous Tissue, Percutaneous Approach (ICD-10-PCS; 2019-06-02)
PROC: 3E0F7GC Introduction of Other Therapeutic Substance into Respiratory Tract, Via Natural or Artificial Opening (ICD-10-PCS; 2019-06-02)
DX: R26.2 Difficulty in walking, not elsewhere classified (principal); M79.604 Pain in right leg; M79.605 Pain in left leg; R60.0 Localized edema; R53.1 Weakness; M43.17 Spondylolisthesis, lumbosacral region; M54.17 Radiculopathy, lumbosacral region; M54.5 Low back pain; G89.29 Other chronic pain; E11.65 Type 2 diabetes mellitus with hyperglycemia; E11.42 Type 2 diabetes mellitus with diabetic polyneuropathy; Z79.4 Long term (current) use of insulin; Z79.84 Long term (current) use of oral hypoglycemic drugs; E66.01 Morbid (severe) obesity due to excess calories; Z68.42 Body mass index [BMI] 45.0-49.9, adult; I11.0 Hypertensive heart disease with heart failure; I50.9 Heart failure, unspecified; I25.2 Old myocardial infarction; I25.10 Atherosclerotic heart disease of native coronary artery without angina pectoris; K21.9 Gastro-esophageal reflux disease without esophagitis; J45.909 Unspecified asthma, uncomplicated; I73.9 Peripheral vascular disease, unspecified; E78.5 Hyperlipidemia, unspecified; F32.9 Major depressive disorder, single episode, unspecified; G40.89 Other seizures; D50.9 Iron deficiency anemia, unspecified; R20.3 Hyperesthesia; N32.81 Overactive bladder; E83.42 Hypomagnesemia; Z95.5 Presence of coronary angioplasty implant and graft; Z86.73 Personal history of transient ischemic attack (TIA), and cerebral infarction without residual deficits; Z79.02 Long term (current) use of antithrombotics/antiplatelets; Z79.82 Long term (current) use of aspirin; Z99.89 Dependence on other enabling machines and devices; Z88.8 Allergy status to other drugs, medicaments and biological substances; Z91.018 Allergy to other foods; Z29.8 Encounter for other specified prophylactic measures
CPT/HCPCS: 36415; 71045-TC-FY; 80048; 80053; 81003; 82550; 82728; 82962; 83036; 83540; 83550; 83735; 83880; 84100; 84484; 85025; 85044; 85610; 85730; 87086; 87186; 93005; 93010; 93970-TC; 94640; 96372; 96374; 96375; 97116-GP; 97161-GP; 99284-25; G0378; J0131; J1644

== ENCOUNTER 2019-06-06 07:10 | Emergency (ER) | payer OTHER ==
--- NOTE | 2019-06-06 07:25 | PDOC ---
History of Present Illness - General Stated Complaint: FALL Time Seen by Provider: 06/06/19 07:17 - History of Present Illness Initial Comments: 06/06/19 07:24 68 y/o F with PMH of CVA on ASA/plavix, CHF, GERD, COPD/Asthma, DM type 2, NSTEMI, HTN , morbid obesity presenting to ED from [facility] for fall sustained this morning. She states she put on her slippers wrong and lost her balance. She does admit to hitting her head slightly but no neck pain. She was discharged from this hospital yesterday for b/l leg pain due to spondolithiasis. FS: 350 Didn't take any of her meds today. Denies any leg pain, back pain, dizziness or lack of balance. Past History - Past Medical History Allergies/Adverse Reactions: Allergies Allergy/AdvReac Type Severity Reaction Status Date / Time lisinopril Allergy Severe Swelling Verified 06/06/19 07:27 PADMINI Inhibitors Allergy Verified 06/06/19 07:27 blueberry Allergy Verified 06/06/19 07:27 erythromycin base Allergy Verified 06/06/19 07:27 naproxen Allergy Verified 06/06/19 07:27 raspberry Allergy Verified 06/06/19 07:27 strawberry Allergy Verified 06/06/19 07:27 Home Medications: Ambulatory Orders Atorvastatin Ca [Lipitor] 80 mg PO HS 06/01/19 Budesonide/Formeterol Fumarate [SYMBICORT 160/4.5mcg -] 1 puff PO BID 06/01/19 Metformin HCl [Glucophage] 1,000 mg PO BID 06/01/19 Nortriptyline HCl [Pamelor -] 25 mg PO DAILY 06/01/19 Oxybutynin Chloride [Oxybutynin Chloride ER] 5 mg PO DAILY 06/01/19 Potassium Chloride 20 meq PO DAILY 06/01/19 Amlodipine Besylate [Norvasc -] 10 mg PO DAILY 06/02/19 Ammonium Lactate Cream [Lac-Hydrin 12% Cream -] 1 applic ID DAILY 06/02/19 Aspirin 81 mg PO DAILY 06/02/19 Bacitracin - [Bacitracin Topical Ointment -] 1 applic ID DAILY 06/02/19 Clopidogrel Bisulfate [Clopidogrel] 75 mg PO DAILY 06/02/19 Clotrimazole [Lotrimin -] 1 applic ID BID 06/02/19 Famotidine 20 mg PO DAILY 06/02/19 Fluoxetine HCl [Prozac] 40 mg PO DAILY 06/02/19 Hydralazine HCl 25 mg PO DAILY 06/02/19 Metoprolol Succinate [Toprol Xl] 25 mg PO DAILY 06/02/19 Mupirocin Ointment [Bactroban 2% Ointment -] 1 applic DAILY 06/02/19 Polyvinyl Alcohol [Artificial Tears] 1 drop OU BID 06/02/19 Umeclidinium [place] [Incruse Ellipta] 1 puff IH DAILY 06/02/19 levETIRAcetam [Keppra -] 500 mg PO BID #60 tablet 06/05/19 Hydrochlorothiazide [Hctz -] 25 mg PO DAILY 06/06/19 Insulin Regular, Human [Humulin R U-500 Kwikpen] 30 unit SQ 1200 06/06/19 Insulin Regular, Human [Humulin R U-500 Kwikpen] 80 unit SQ ACDIN 06/06/19 Insulin Regular, Human [Humulin R U-500 Kwikpen] 120 unit SQ ACBK 06/06/19 Linagliptin [Tradjenta] 5 mg PO DAILY 06/06/19 Liraglutide [Victoza -] 1.2 mg SQ DAILY@0700 06/06/19 Oxycodone HCl/Acetaminophen [Percocet 5-325 mg Tablet] 1 tab PO TID PRN Asthma: Yes Cardiac Disorders: Yes (PVD) CVA: Yes (3 stroke &TIA) COPD: No CHF: Yes Diabetes: Yes (TYPE 2) GI Disorders: Yes (constipation) HTN: Yes Hypercholesterolemia: Yes Psychiatric Problems: Yes (DEPRESSION) Seizures: Yes (UNSPECIFIED CONVULSIONS) - Surgical History Cardiac Surgery: Yes (03/2016 PCI/STENT) Cholecystectomy: Yes (2016) - Immunization History Immunization Up to Date: Yes - Psycho Social/Smoking Cessation Hx Smoking History: Former smoker Have you smoked in the past 12 months: No Number of Cigarettes Smoked Daily: 10 If you are a former smoker, when did you quit?: 20 years ago Hx Alcohol Use: No Drug/Substance Use Hx: No Substance Use Type: None Hx Substance Use Treatment: No Review of Systems - Review of Systems Able to Perform ROS?: Yes Is the patient limited [place] proficient: No Constitutional: No: Symptoms Reported HEENTM: No: Symptoms Reported Respiratory: No: Symptoms reported Cardiac (ROS): No: Symptoms Reported ABD/GI: No: Symptoms Reported : No: Symptoms Reported Musculoskeletal: No: Symptoms Reported Integumentary: No: Symptoms Reported Neurological: No: Symptoms reported All Other Systems: Reviewed and Negative *Physical Exam - Physical Exam General Appearance: Yes: Obese HEENT: positive: EOMI, CELINA, Normal ENT Inspection Respiratory/Chest: positive: Lungs Clear, Normal Breath Sounds. negative: Chest Tender, Respiratory Distress Cardiovascular: positive: Regular Rhythm, Regular Rate, S1, S2 Gastrointestinal/Abdominal: positive: Normal Bowel Sounds, Protuberent Extremity: positive: Normal Capillary Refill, Normal Inspection, Normal Range of Motion Integumentary: positive: Normal Color, Dry Neurologic: positive: Fully Oriented, Alert, Normal Mood/Affect Medical Decision Making - Medical Decision Making 06/06/19 07:49 68 y/o F with PMH of CVA on ASA/plavix, CHF, GERD, COPD/Asthma, DM type 2, NSTEMI, HTN , morbid obesity presenting to ED from [facility] for fall sustained this morning. Will check for head bleed as she's on blood thinner but also pelvis and knee xray as she's tender there. Tramadol for pain. 06/06/19 09:[address]: No CT evidence of acute intracranial pathology. Age-related cerebral atrophy with chronic microangiopathic changes in addition to chronic encephalomalacia in the right and left posterior parietal as well as left frontal leukomalacia. Negative head CT, negative hip and knee xray. OK to send back to correction. Discharge - Discharge Information Problems reviewed: Yes Clinical Impression/Diagnosis: Fall Condition: Improved Disposition: HOME - Admission No - Follow up/Referral Referrals: Beni Ledesma MD [Primary Care Provider] - - Patient Discharge Instructions Patient Printed Discharge Instructions: DI for Closed Head Injury, How to Prevent Falls Additional Instructions: Follow up with your primary care physician within the next 2 days. Come back to the ED for any new, worsening or concerning symptoms. - Post Discharge Activity
[2019-06-06 07:43] VITALS: BMI 42.9
[2019-06-06] MEDS ORDERED: traMADol HCL 50 MG TABLET PO ONE (07:49)
[2019-06-06] MEDS ORDERED: traMADol HCL 50 MG TABLET ONE (07:52)
--- NOTE | 2019-06-06 08:22 | PDOC ---
Attending Attestation - Resident Resident Name: Jayden Carnes - ED Attending Attestation I have performed the following: I have examined & evaluated the patient, The case was reviewed & discussed with the resident, I agree w/resident's findings & plan - HPI HPI: 06/06/19 08:14 68y/o F h/o multiple medical problems including CVA on asa/plavix, diabetes, heart disease, known lumbar spondylolithiasis just discharged yesterday deemed a nonoperative candidate by neurosurgery and started on Neurontin presents now from her [facility] living facility status post fall this morning. Patient was walking with her cane to the bathroom with her house shoes, her shoe inverted and she fell to the ground striking her buttock and then the back of her head. There is no loss of consciousness, there was no lightheadedness or presyncopal symptoms, no other complaints whatsoever. The patient recalls the entire event, her roommate called for staff who assisted the patient to her feet and sat her in a chair, activated EMS. Patient presents now complaining of some discomfort to her buttocks/hips, no generalized headache/vision change/speech change/nausea/vomiting/focal deficit. Review of systems is otherwise negative for any acute metabolic or infectious process since discharge. - Physicial Exam PE: 06/06/19 08:18 vitals as noted, afebrile trauma exam is unremarkable, no scalp hematoma/ttp. FROM neck without cspine ttp chest/heart/lungs/abd wnl no midline spine ttp some ttp R hip and R knee without obvious bruising/swelling. Able to range actively, nvi. FROM LLE. neuro nonfocal moving all extremities equally except for pain limitation RLE. - Medical Decision Making 06/06/19 08:22 68y/o F with multiple medical problems, just discharged yesterday back to assisted living facility, presents now after reliable history of mechanical trip /fall with buttock and minor head injury on plavix. neuro nonfocal, trauma exam localizes to RLE - likely contusion, r/o fracture. no other red flags on history /PE. ct head R hip/pelvis and R knee tramadol reassess 06/06/19 09:18 imaging without acute pathology. pain improved after meds and ROM improved/ normal. refer back to [facility]. Heart Score/ECG Review #1 ECG reviewed & interpreted by me at: 09:07 General ECG Interpretation: Sinus Rhythm, Normal Rate (81), Normal Intervals ( qtc 441, LVH), No acute ischemic changes Compared to previous ECG there are: No significant change (c/w 06/01/19)
[2019-06-06 12:18] VITALS: BP 154/80; PULSE 95; TEMP 97.8
--- NOTE | 2019-06-06 15:50 | EKG ---
Test Reason : Blood Pressure : / mmHG Vent. Rate : 081 BPM Atrial Rate : 081 BPM P-R Int : 194 ms QRS Dur : 090 ms QT Int : 380 ms P-R-T Axes : 047 -03 074 degrees QTc Int : 441 ms NORMAL SINUS RHYTHM MINIMAL VOLTAGE CRITERIA FOR LVH, MAY BE NORMAL VARIANT BORDERLINE ECG WHEN COMPARED WITH ECG OF 01-JUN-2019 23:41, NO SIGNIFICANT CHANGE WAS FOUND Confirmed by MD Jean-Claude, Chong ([id number]) on 06/06/2019 3:50:01 PM Referred By: Confirmed By:Chong Bermeo MD
== END 2019-06-06 11:59 | disposition home or self-care (01) ==
LOC: JER 07:10
DX: S09.8XXA Other specified injuries of head, initial encounter (principal); M25.551 Pain in right hip; M25.561 Pain in right knee; W01.0XXA Fall on same level from slipping, tripping and stumbling without subsequent striking against object, initial encounter; Y93.89 Activity, other specified; Y92.122 Bedroom in nursing home as the place of occurrence of the external cause; Y99.8 Other external cause status; I25.10 Atherosclerotic heart disease of native coronary artery without angina pectoris; I11.0 Hypertensive heart disease with heart failure; Z95.5 Presence of coronary angioplasty implant and graft; Z57.31 Occupational exposure to environmental tobacco smoke; Z87.891 Personal history of nicotine dependence; E11.9 Type 2 diabetes mellitus without complications; Z79.4 Long term (current) use of insulin; E78.00 Pure hypercholesterolemia, unspecified; G40.909 Epilepsy, unspecified, not intractable, without status epilepticus; F32.9 Major depressive disorder, single episode, unspecified; K59.00 Constipation, unspecified; Z86.73 Personal history of transient ischemic attack (TIA), and cerebral infarction without residual deficits; Z79.02 Long term (current) use of antithrombotics/antiplatelets; M43.10 Spondylolisthesis, site unspecified; J44.9 Chronic obstructive pulmonary disease, unspecified; J45.998 Other asthma; E66.01 Morbid (severe) obesity due to excess calories; Z68.41 Body mass index [BMI] 40.0-44.9, adult; Z91.018 Allergy to other foods; Z79.82 Long term (current) use of aspirin
CPT/HCPCS: 70450-TC; 73523-TC-FY; 73560-TC-RT-FY; 82962; 93005; 93010; 99282-25

== ENCOUNTER 2019-06-07 17:46 | Observation (INO) | payer OTHER ==
--- NOTE | 2019-06-07 18:43 | PDOC ---
History of Present Illness - General Chief Complaint: Injury Stated Complaint: FALL Time Seen by Provider: 06/07/19 17:57 - History of Present Illness Initial Comments: 06/07/19 18:41 68 y/o F with PMH of CVA on ASA/plavix, CHF, GERD, COPD/Asthma, DM type 2, NSTEMI, HTN , morbid obesity presenting to ED from [facility] for episode of dizziness around 1700 today, now almost completely resolved. Thinks this started around the time she started taking her Gabapentin after discharge from her last admission. I personally saw this patient yesterday to evaluate after what seemed to be mechanical fall per her story. CT was negative. All labs were from the 3rd of this month (the day before, when she was discharged). Spoke to her Primary physician Dr. Ledesma, , who wishes for the patient to be admitted to evaluate the cause of her repeated falls and dizzy spells and to perhaps get her to go to a rehab facility where she will have to be made more compliant her medication. Past History - Past Medical History Allergies/Adverse Reactions: Allergies Allergy/AdvReac Type Severity Reaction Status Date / Time lisinopril Allergy Severe Swelling Verified 06/07/19 18:07 PADMINI Inhibitors Allergy Verified 06/07/19 18:07 blueberry Allergy Verified 06/07/19 18:07 erythromycin base Allergy Verified 06/07/19 18:07 naproxen Allergy Verified 06/07/19 18:07 raspberry Allergy Verified 06/07/19 18:07 strawberry Allergy Verified 06/07/19 18:07 Home Medications: Ambulatory Orders Atorvastatin Ca [Lipitor] 80 mg PO HS 06/01/19 Budesonide/Formeterol Fumarate [SYMBICORT 160/4.5mcg -] 1 puff PO BID 06/01/19 Metformin HCl [Glucophage] 1,000 mg PO BID 06/01/19 Nortriptyline HCl [Pamelor -] 25 mg PO DAILY 06/01/19 Oxybutynin Chloride [Oxybutynin Chloride ER] 5 mg PO DAILY 06/01/19 Potassium Chloride 20 meq PO DAILY 06/01/19 Amlodipine Besylate [Norvasc -] 10 mg PO DAILY 06/02/19 Ammonium Lactate Cream [Lac-Hydrin 12% Cream -] 1 applic ID DAILY 06/02/19 Aspirin 81 mg PO DAILY 06/02/19 Bacitracin - [Bacitracin Topical Ointment -] 1 applic ID DAILY 06/02/19 Clopidogrel Bisulfate [Clopidogrel] 75 mg PO DAILY 06/02/19 Clotrimazole [Lotrimin -] 1 applic ID BID 06/02/19 Famotidine 20 mg PO DAILY 06/02/19 Fluoxetine HCl [Prozac] 40 mg PO DAILY 06/02/19 Hydralazine HCl 25 mg PO DAILY 06/02/19 Metoprolol Succinate [Toprol Xl] 25 mg PO DAILY 06/02/19 Mupirocin Ointment [Bactroban 2% Ointment -] 1 applic DAILY 06/02/19 Polyvinyl Alcohol [Artificial Tears] 1 drop OU BID 06/02/19 Umeclidinium [place] [Incruse Ellipta] 1 puff IH DAILY 06/02/19 levETIRAcetam [Keppra -] 500 mg PO BID #60 tablet 06/05/19 Hydrochlorothiazide [Hctz -] 25 mg PO DAILY 06/06/19 Insulin Regular, Human [Humulin R U-500 Kwikpen] 30 unit SQ 1200 06/06/19 Insulin Regular, Human [Humulin R U-500 Kwikpen] 80 unit SQ ACDIN 06/06/19 Insulin Regular, Human [Humulin R U-500 Kwikpen] 120 unit SQ ACBK 06/06/19 Linagliptin [Tradjenta] 5 mg PO DAILY 06/06/19 Liraglutide [Victoza -] 1.2 mg SQ DAILY@0700 06/06/19 Oxycodone HCl/Acetaminophen [Percocet 5-325 mg Tablet] 1 tab PO TID PRN Asthma: Yes Cardiac Disorders: Yes CVA: Yes (3 stroke &TIA) COPD: No CHF: Yes Diabetes: Yes GI Disorders: Yes (constipation) HTN: Yes Hypercholesterolemia: Yes Psychiatric Problems: Yes (DEPRESSION) Seizures: Yes (UNSPECIFIED CONVULSIONS) - Surgical History Cardiac Surgery: Yes (03/2016 PCI/STENT) Cholecystectomy: Yes (2016) - Immunization History Immunization Up to Date: Yes - Psycho Social/Smoking Cessation Hx Smoking History: Never smoked Have you smoked in the past 12 months: No Number of Cigarettes Smoked Daily: 10 If you are a former smoker, when did you quit?: 20 years ago Hx Alcohol Use: No Drug/Substance Use Hx: No Substance Use Type: None Hx Substance Use Treatment: No Review of Systems - Review of Systems Able to Perform ROS?: Yes Is the patient limited [place] proficient: No Constitutional: No: Symptoms Reported HEENTM: No: Symptoms Reported Respiratory: No: Symptoms reported Cardiac (ROS): No: Symptoms Reported ABD/GI: No: Symptoms Reported : No: Symptoms Reported Musculoskeletal: No: Symptoms Reported Integumentary: No: Symptoms Reported Neurological: Yes: See HPI, Dizziness *Physical Exam - Vital Signs Last Vital Signs Temp Pulse Resp BP Pulse Ox 9.7 F L 93 H 18 125/59 L 98 06/07/19 18:01 06/07/19 18:01 06/07/19 18:01 06/07/19 18:01 06/07/19 18:01 - Physical Exam General Appearance: Yes: Obese. No: Apparent Distress HEENT: positive: EOMI, CELINA, Normal ENT Inspection Respiratory/Chest: positive: Lungs Clear, Normal Breath Sounds. negative: Chest Tender, Respiratory Distress Cardiovascular: positive: Regular Rhythm, Regular Rate, S1, S2 Gastrointestinal/Abdominal: positive: Normal Bowel Sounds, Soft, Protuberent. negative: Tender Musculoskeletal: positive: Other (Chronic legs pain/tenderness. ). negative: CVA Tenderness Extremity: positive: Normal Capillary Refill, Normal Inspection, Normal Range of Motion Integumentary: positive: Normal Color, Dry, Warm, Swelling (b/l). negative: Diaphoresis Neurologic: positive: Fully Oriented, Alert, Normal Mood/Affect, Normal Response , Motor Strength 5/5, Numbness (on/off b/l, chronic) Medical Decision Making - Medical Decision Making 06/07/19 18:59 68 y/o F with PMH of CVA on ASA/plavix, CHF, GERD, COPD/Asthma, DM type 2, NSTEMI, HTN , morbid obesity presenting to ED from [facility] for episode of dizziness around 1700 today, now almost completely resolved. EKG: Normal sinus rhythm, voltage consistent with left sided hypertrophy Differential: medication side effect, UTI, BPPV, cardiac etiology. Labs pending. . Patient admitted to Dr. Dk Willams to med surg. Discharge - Discharge Information Problems reviewed: Yes Clinical Impression/Diagnosis: Dizziness - Admission Yes - Follow up/Referral Referrals: Beni Ledesma MD [Primary Care Provider] - - Patient Discharge Instructions - Post Discharge Activity
--- NOTE | 2019-06-07 18:45 | PDOC ---
Attending Attestation - Resident Resident Name: TriceJayden - ED Attending Attestation I have performed the following: I have examined & evaluated the patient, The case was reviewed & discussed with the resident, I agree w/resident's findings & plan - HPI HPI: 06/07/19 18:48 68 y/o F with PMH of CVA on ASA/plavix, CHF, GERD, COPD/Asthma, DM type 2, NSTEMI, HTN , morbid obesity presenting to ED from [facility] presenting with dizziness/lightheadedness. no cp, sob, garcía, syncope, focal neuro changes, AP, n/v. recently admitted for back pain and paresthesias, sent home ~2 days ago for neurontin and keflex for E. coli UTI > 06/07/19 18:49 06/07/19 18:56 - Physicial Exam PE: 06/07/19 18:44 Agree with the resident's HPI and PE as documented in the electronic medical record. NAD, well appearing, EOMI, PERRL, nl conjunctiva, anicteric; neck supple. lungs clear, RRR, no murmur, abdomen soft nontender. +obese. no rebound, guarding. Back nontender. MARTIN x4, no focal neuro deficits. No peripheral edema. normal color for ethnicity, WWP. speech clear. - Medical Decision Making 06/07/19 18:43 Vital Signs Temp Pulse Resp BP Pulse Ox 9.7 F L 93 H 18 125/59 L 98 06/07/19 18:01 06/07/19 18:01 06/07/19 18:01 06/07/19 18:01 06/07/19 18:[address] Agudelo, admit for dizziness workup, med noncompliance, possible medication side effect and placement. basic labs/trop appropriate. EKG unchanged from prior with nonspecific T wave abnrmoatlities in lateral I-AVL , no depressions or elevations in ST segments admit to Dr Dk Willams directly 06/07/19 18:44 06/07/19 18:52 Heart Score/ECG Review #1 ECG reviewed & interpreted by me at: 17:55 General ECG Interpretation: Sinus Rhythm, Normal Rate, Normal Intervals Compared to previous ECG there are: No significant change 06/07/19 18:55 TWI/flattening in I, AVL sinus rhythm at 93 bpm.
[2019-06-07 20:12] LABS: BASO % 0.6 % (0-2.0); EOS % 3.5 % (0-4.5); HEMATOCRIT 29.4 % (32.4-45.2); HEMOGLOBIN 9.3 GM/dL (10.7-15.3); MCH 24.3 pg (25.7-33.7); MCHC 31.7 g/dl (32.0-36.0); MEAN CELL VOLUME 76.7 fl (80-96); MEAN PLT VOLUME 8.9 fl (7.5-11.1); MONO % 6.9 % (3.8-10.2); PLATELET COUNT 266 K/MM3 (134-434); RBC 3.83 M/mm3 (3.60-5.2); RDW 21.3 % (11.6-15.6); WHITE BLOOD COUNT 10.3 K/mm3 (4.0-10.0)
[2019-06-07] MEDS: INSULIN SLIDING SCALE (NOVOLOG) 1 VIAL SQ SCH (20:28)
[2019-06-07 20:36] LABS: ALBUMIN 3.3 g/dl (3.4-5.0); BILIRUBIN,TOTAL 0.2 mg/dL (0.2-1); BLOOD UREA NITROGEN 17.6 mg/dL (7-18); CALCIUM 9.2 mg/dL (8.5-10.1); POTASSIUM 4.2 mmol/L (3.5-5.1); TOT PROT 6.9 g/dl (6.4-8.2)
[2019-06-07 21:15] LABS: ANISOCYTOSIS 2+; OVALOCYTE 1+; PLATELET ESTIMATE ADEQUATE
[2019-06-07] MEDS: BUDESONIDE/FORMETEROL FUMARATE 160/4.5 mcg INHALER IH SCH (22:28)
[2019-06-07] MEDS: INSULIN (LEVEMIR) 100 UNITS/ML UNITS SQ SCH (22:29)
[2019-06-07] MEDS: ATORVASTATIN CA 80 MG TABLET (FP) PO SCH (22:29)
[2019-06-07] MEDS: levETIRAcetam 500 MG TABLET (FP) PO SCH (22:29)
[2019-06-07] MEDS: ARTIFICIAL TEARS (POLYVINYL ALCOHOL) OPTH DROPS OU SCH (22:31)
[2019-06-07] MEDS: oxyCODONE HCL 5 MG TABLET PO PRN (22:35)
[2019-06-07] MEDS: ACETAMINOPHEN 325 MG TABLET (FP) PO PRN (22:37)
[2019-06-07 23:22] VITALS: BMI 48.1
[2019-06-08] MEDS: INSULIN SLIDING SCALE (NOVOLOG) 1 VIAL SQ SCH ×3 (06:20→17:41)
[2019-06-08 08:06] LABS: BASO % 0.7 % (0-2.0); EOS % 3.2 % (0-4.5); HEMATOCRIT 27.7 % (32.4-45.2); HEMOGLOBIN 8.9 GM/dL (10.7-15.3); LYMPH % 22.3 % (8-40); MCH 24.4 pg (25.7-33.7); MEAN CELL VOLUME 76.3 fl (80-96); MEAN PLT VOLUME 8.5 fl (7.5-11.1); MONO % 6.8 % (3.8-10.2); PLATELET COUNT 211 K/MM3 (134-434); RBC 3.63 M/mm3 (3.60-5.2); RDW 21.6 % (11.6-15.6); WHITE BLOOD COUNT 6.8 K/mm3 (4.0-10.0)
[2019-06-08] MEDS: ACETAMINOPHEN 325 MG TABLET (FP) PO PRN ×2 (08:31→17:48)
[2019-06-08] MEDS: oxyCODONE HCL 5 MG TABLET PO PRN ×2 (08:32→17:47)
[2019-06-08 08:33] LABS: CREATININE 0.8 mg/dL (0.55-1.3); POTASSIUM 4.2 mmol/L (3.5-5.1)
--- NOTE | 2019-06-08 11:02 | HP ---
Admitting History and Physical - Primary Care Physician PCP: Beni Ledesma - Admission Chief Complaint: Dizziness and frequent falls History of Present Illness: Patient is a 68 old female known to the service since previous hospitalization, a resident of [facility], recently discharged from the hospital after evaluation of back pain, and appropriate work-up including CT spine and neurosurgery consultation patient has DJD lumbosacral spine conservative management was advised and gabapentin was added patient pain was better controlled and she was discharged to [facility] on June 05, 2019, patient will more dizzy and 2-3 falls at the facility patient was transferred to [place] [facility] day prior to this hospitalization to evaluate for CT head was performed that shows no acute changes and patient was discharged back, patient keypunch feeling dizzy and had one more fall this time no head trauma, no loss of consciousness or no syncope symptoms transferred to [place] [facility] for further management and evaluation, patient also has a history of CVA no residual weakness on aspirin and Plavix, diastolic heart failure, COPD/asthma, poorly controlled type 2 diabetes mellitus hypertension, morbid obesity comfortably complained of dizziness when changing of posture and 10 mg denies any chest pain shortness of breath or palpitation., At the time of examination History Source: Patient - Past Medical History DIRECTOR OF COMPLIANCE: Yes: CVA, Seizure Cardiovascular: Yes: CHF, HTN, Hyperlipdemia, [place] (NSTEMI) Pulmonary: Yes: Asthma, COPD Gastrointestinal: Yes: GERD ...: No Psych: Yes: Depression Endocrine: Yes: Diabetes Mellitus - Past Surgical History Past Surgical History: Yes: Cholecystectomy - Smoking History Smoking history: Former smoker Have you smoked in the past 12 months: No Aproximately how many cigarettes per day: 10 If you are a former smoker, when did you quit?: 20 years ago - Alcohol/Substance Use Hx Alcohol Use: No History of Substance Use: reports: None - Social History ADL: Support Services ([place] assisted [facility] resident) History of Recent Travel: No Home Medications - Allergies Allergies/Adverse Reactions: Allergies Allergy/AdvReac Type Severity Reaction Status Date / Time lisinopril Allergy Severe Swelling Verified 06/07/19 18:07 PADMINI Inhibitors Allergy Verified 06/07/19 18:07 blueberry Allergy Verified 06/07/19 18:07 erythromycin base Allergy Verified 06/07/19 18:07 naproxen Allergy Verified 11/06/19 18:07 raspberry Allergy Verified 06/07/19 18:07 strawberry Allergy Verified 06/07/19 18:07 - Home Medications Home Medications: Ambulatory Orders Atorvastatin Ca [Lipitor] 80 mg PO HS 06/01/19 Budesonide/Formeterol Fumarate [SYMBICORT 160/4.5mcg -] 1 puff PO BID 06/01/19 Metformin HCl [Glucophage] 1,000 mg PO BID 06/01/19 Nortriptyline HCl [Pamelor -] 25 mg PO DAILY 06/01/19 Oxybutynin Chloride [Oxybutynin Chloride ER] 5 mg PO DAILY 06/01/19 Potassium Chloride 20 meq PO DAILY 06/01/19 Amlodipine Besylate [Norvasc -] 10 mg PO DAILY 06/02/19 Ammonium Lactate Cream [Lac-Hydrin 12% Cream -] 1 applic ID DAILY 06/02/19 Aspirin 81 mg PO DAILY 06/02/19 Bacitracin - [Bacitracin Topical Ointment -] 1 applic ID DAILY 06/02/19 Clopidogrel Bisulfate [Clopidogrel] 75 mg PO DAILY 06/02/19 Clotrimazole [Lotrimin -] 1 applic ID BID 06/02/19 Famotidine 20 mg PO DAILY 06/02/19 Fluoxetine HCl [Prozac] 40 mg PO DAILY 06/02/19 Hydralazine HCl 25 mg PO DAILY 06/02/19 Metoprolol Succinate [Toprol Xl] 25 mg PO DAILY 06/02/19 Mupirocin Ointment [Bactroban 2% Ointment -] 1 applic DAILY 06/02/19 Polyvinyl Alcohol [Artificial Tears] 1 drop OU BID 06/02/19 Umeclidinium [place] [Incruse Ellipta] 1 puff IH DAILY 06/02/19 levETIRAcetam [Keppra -] 500 mg PO BID #60 tablet 06/05/19 Hydrochlorothiazide [Hctz -] 25 mg PO DAILY 06/06/19 Insulin Regular, Human [Humulin R U-500 Kwikpen] 30 unit SQ 1200 06/06/19 Insulin Regular, Human [Humulin R U-500 Kwikpen] 80 unit SQ ACDIN 06/06/19 Insulin Regular, Human [Humulin R U-500 Kwikpen] 120 unit SQ ACBK 06/06/19 Linagliptin [Tradjenta] 5 mg PO DAILY 06/06/19 Liraglutide [Victoza -] 1.2 mg SQ DAILY@0700 06/06/19 Oxycodone HCl/Acetaminophen [Percocet 5-325 mg Tablet] 1 tab PO TID PRN Family Medical History Family Hx Diabetes: Mother Review of Systems - Review of Systems Constitutional: denies: No Symptoms, Diaphoresis Eyes: denies: Blind Spots, Blurred Vision, Double Vision, Eye Pain, Photophobia , Recent Change in Vision HENT: denies: Difficult Swallowing, Ear Discharge, Ear Pain, Epistaxis Neck: denies: Decreased ROM, Lumps, Pain on Movement, Stiffness Cardiovascular: denies: Chest Pain, Palpitations, Shortness of Breath Respiratory: denies: Cough, Exercise Intolerance, Hemoptysis, Orthopnea Gastrointestinal: denies: Abdominal Pain, Bloating, Constipation, Diarrhea Genitourinary: denies: Burning, Discharge, Dysuria, Flank Pain, Frequency Musculoskeletal: denies: Back Pain, Crepitus, Decreased ROM, Joint Swelling Neurological: reports: Dizziness. denies: Change in LOC, Change in Speech, Confusion, Headache, Incoordination, Numbness Hematology/Lymphatic: denies: Easily Bruised, Excessive Bleeding Psychiatric: denies: Altered Sleep Pattern, Anxiety, Depression Physical Examination Vital Signs: Vital Signs Temperature 97.7 F 06/08/19 06:04 Pulse Rate 93 H 06/08/19 06:04 Respiratory Rate 20 06/08/19 06:04 Blood Pressure 147/77 06/08/19 06:04 O2 Sat by Pulse Oximetry (%) 97 06/07/19 22:48 General: Elderly woman, morbidly obese, comfortable, not in distress HEENT; mucous membranes moist, no anemia, no jaundice, PERRLA, no nystagmus Neck: No JVD, supple, no bruit, thyroid palpably normal, normal carotid pulsations. Chest: Nontender, clear to auscultation bilaterally CVS: S1-S2 regular/irregular no murmur/gallop/rub Abdomen: Nondistended, soft, bowel sounds present. Extremities: No edema., No cough tenderness, pulses present DIRECTOR OF COMPLIANCE: AO X3 , no gross motor sensory deficit Labs: CBC, BMP 06/08/19 07:37 06/08/19 07:37 Imaging - Results Cat Scan: Report Reviewed (Head: No acute changes performed on June 06, 2008) EKG: Report Reviewed ([address] changes same as baseline normal QTC) Problem List - Problems (1) Dizziness Assessment/Plan: Most likely due to polypharmacy body habitus and diabetic neuropathy, needs orthostatic blood pressure check, postural training, PT evaluation, patient denies any vertigo, focal weakness, no speech changes, neuro exam essentially at baseline, patient can get benefit of inpatient rehabilitation. We will cut down multiple neuro medications. Problems reviewed: Yes Code(s): R42 - DIZZINESS AND GIDDINESS (2) Type 2 diabetes mellitus with diabetic autonomic (poly)neuropathy Assessment/Plan: Patient needs a marginal glycemic control, will hold off metformin, during previous hospitalization patient was on Levemir 8 units but as per home dose it was multiple medication and multiple dose of Levemir it to confirm dose from the facility will continue Levemir 10 units at bedtime, [as per medication list patient is on Victoza ], diabetic diet and and optimize glycemic control with correction dose insulin before meals. 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 Problems reviewed: Yes Code(s): R29.6 - REPEATED FALLS (4) Hypertension Assessment/Plan: Well-controlled continue all home medications. Problems reviewed: Yes Code(s): I10 - ESSENTIAL (PRIMARY) HYPERTENSION (5) Coronary artery disease Assessment/Plan: History of any STEMI on beta-blockers, aspirin Plavix and he stated. Problems reviewed: Yes Code(s): I25.10 - ATHSCL HEART DISEASE OF [place] CORONARY ARTERY W/O ANG PCTRS (6) Seizure Assessment/Plan: History of seizures on Keppra continue same dose. Problems reviewed: Yes Code(s): R56.9 - UNSPECIFIED CONVULSIONS (7) Chronic pain Assessment/Plan: Home medications will optimize as needed Problems reviewed: Yes Code(s): G89.29 - OTHER CHRONIC PAIN (8) CHF (congestive heart failure) Assessment/Plan: History of diastolic heart failure at present compensated continue home medications. Problems reviewed: Yes Code(s): I50.9 - HEART FAILURE, UNSPECIFIED Qualifiers: Heart failure type: diastolic (9) CVA (cerebral vascular accident) Assessment/Plan: History of fall CVA continue home medications. Problems reviewed: Yes Code(s): I63.9 - CEREBRAL INFARCTION, UNSPECIFIED (10) COPD (chronic obstructive pulmonary disease) Assessment/Plan: Stable continue home medication Problems reviewed: Yes Code(s): J44.9 - CHRONIC OBSTRUCTIVE PULMONARY DISEASE, UNSPECIFIED (11) Morbid obesity with BMI of 45.0-49.9, adult Assessment/Plan: Nutrition consult as an outpatient Problems reviewed: Yes Code(s): E66.01 - MORBID (SEVERE) OBESITY DUE TO EXCESS CALORIES; Z68.42 - BODY MASS INDEX (BMI) 45.0-49.9, ADULT Assessment/Plan Active Medications Acetaminophen (Tylenol -) 325 mg PO Q6H PRN PRN Reason: PAIN SCALE 1-5 Last Admin: 06/08/19 08:31 Dose: 325 mg Amlodipine Besylate (Norvasc -) 10 mg PO DAILY [facility] Artificial Tears (Artificial Tears) 1 drop OU BID [facility] Last Admin: 06/07/19 22:31 Dose: 1 drop Aspirin (Asa -) 81 mg PO DAILY [facility] Atorvastatin Calcium (Lipitor -) 80 mg PO HS [facility] Last Admin: 06/07/19 22:29 Dose: 80 mg Bacitracin (Bacitracin -) 1 applic TP DAILY [facility] Budesonide/Formoterol Fumarate (Symbicort 160/4.5mcg -) 2 puff IH BID [facility] Last Admin: 06/07/19 22:28 Dose: 2 puff Clopidogrel Bisulfate (Plavix -) 75 mg PO DAILY [facility] Famotidine (Pepcid -) 20 mg PO DAILY [facility] Fluoxetine HCl (Prozac -) 40 mg PO DAILY [facility] Hydralazine HCl (Apresoline -) 25 mg PO DAILY [facility] Insulin Aspart (Novolog Vial Sliding Scale -) 1 vial SQ TIDAC [facility]; Protocol Last Admin: 06/08/19 06:20 Dose: 2 units Insulin Detemir (Levemir Vial) 10 units SQ [facility] Last Admin: 06/07/19 22:29 Dose: 10 units Lactic Acid (Lac-Hydrin 12) 1 applic TP DAILY [facility] Levetiracetam (Keppra -) 500 mg PO BID [facility] Last Admin: 06/07/19 22:29 Dose: 500 mg Metoprolol Succinate (Toprol Xl -) 25 mg PO DAILY [facility] Nortriptyline HCl (Pamelor -) 25 mg PO DAILY [facility] Oxycodone HCl (Roxicodone -) 5 mg PO Q6H PRN PRN Reason: PAIN SCALE 1-5 Last Admin: 06/08/19 08:32 Dose: 5 mg Potassium Chloride (K-Dur -) 20 meq PO DAILY [facility] Solifenacin (Vesicare -) 5 mg PO DAILY [facility] Tiotropium [place] (Spiriva Respimat) 2 puff IH DAILY [facility]
[2019-06-08] MEDS: TIOTROPIUM BROMIDE 2.5 MCG (SPIRIVA) RESPIMAT INHALER IH SCH (11:18)
[2019-06-08] MEDS: BUDESONIDE/FORMETEROL FUMARATE 160/4.5 mcg INHALER IH SCH ×2 (11:18→22:44)
[2019-06-08] MEDS: AMMONIUM LACTATE 12% LOTION 225 GM BOTTLE TP SCH (11:18)
[2019-06-08] MEDS: ARTIFICIAL TEARS (POLYVINYL ALCOHOL) OPTH DROPS OU SCH ×2 (11:19→22:44)
[2019-06-08] MEDS: BACITRACIN 15 GM TUBE TOPICAL OINTMENT TP SCH (11:19)
[2019-06-08] MEDS: ASPIRIN 81 MG CHEWABLE TABLETS PO SCH (11:20)
[2019-06-08] MEDS: FAMOTIDINE 20 MG TABLET PO SCH (11:20)
[2019-06-08] MEDS: hydrALAZINE HCL 25 MG TABLET (FP) PO SCH (11:21)
[2019-06-08] MEDS: metoPROLOL SUCCINATE 25 MG TAB.SR.24H (FP) PO SCH (11:21)
[2019-06-08] MEDS: POTASSIUM CHLORIDE TABS 20 MEQ TABLET.ER (FP) PO SCH (11:21)
[2019-06-08] MEDS: levETIRAcetam 500 MG TABLET (FP) PO SCH ×2 (11:21→22:44)
[2019-06-08] MEDS: amLODIPine BESYLATE 10 MG TABLET (FP) PO SCH (11:21)
[2019-06-08] MEDS: CLOPIDOGREL BISULFATE 75 MG TABLET (FP) PO SCH (11:21)
[2019-06-08] MEDS: FLUoxetine HCL 20 MG CAPSULE (FP) PO SCH (11:22)
[2019-06-08] MEDS: SOLIFENACIN SUCCINATE 5 MG TAB PO SCH (11:22)
--- NOTE | 2019-06-08 11:51 | EKG ---
Test Reason : Blood Pressure : / mmHG Vent. Rate : 093 BPM Atrial Rate : 093 BPM P-R Int : 168 ms QRS Dur : 082 ms QT Int : 362 ms P-R-T Axes : 056 -16 079 degrees QTc Int : 450 ms NORMAL SINUS RHYTHM VOLTAGE CRITERIA FOR LEFT VENTRICULAR HYPERTROPHY ABNORMAL ECG WHEN COMPARED WITH ECG OF 06-JUN-2019 09:07, NO SIGNIFICANT CHANGE WAS FOUND Confirmed by MARSHA VILLA, BULMARO ([id number]) on 06/08/2019 11:51:30 AM Referred By: Confirmed By:BULMARO LARSON MD
[2019-06-08] MEDS: NORTRIPTYLINE HCL 25 MG CAPSULE PO SCH (13:01)
[2019-06-08] MEDS ORDERED: INSULIN (NOVOLOG) ASPART 100 UNITS/ML 10ML VIAL ONE ×2 (19:44→22:32)
[2019-06-08] MEDS: ATORVASTATIN CA 80 MG TABLET (FP) PO SCH (22:44)
[2019-06-08] MEDS: INSULIN (LEVEMIR) 100 UNITS/ML UNITS SQ SCH (22:44)
[2019-06-09] MEDS: INSULIN SLIDING SCALE (NOVOLOG) 1 VIAL SQ SCH ×2 (06:54→12:30)
--- NOTE | 2019-06-09 07:49 | DS ---
Physical Exam: SUBJECTIVE: No acute events overnight. Pt noted to have continued deconditioning. No numbness/tingling, headaches, blurry vision, SOB, CP, palpitations OBJECTIVE: Vital Signs Period Temp Pulse Resp BP Sys/[place] Pulse Ox Last 24 Hr 97.6 F-98.3 F 83-99 16-20 120-147/61-95 97-97 PHYSICAL EXAM GENERAL: The patient is awake, alert, and fully oriented, in no acute distress. HEENT: NC/AT, [place], EOMI without nystagmus, MMM NECK: No JVD LUNGS: CTA bilaterally, no wheezes, no crackles, no accessory muscle use. HEART: RRR, S1, S2 without murmur ABDOMEN: Soft, morbidly obses, nontender, nondistended, normoactive bowel sounds , no guarding EXTREMITIES: 2+ pulses, warm, well-perfused, no edema. 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 Passive tone intact. Patellar reflex 2/4 intact. Slight dullness to sensation in lower extremities. Normal speech PSYCH: Normal mood, normal affect. SKIN: Warm, dry, no rashes or lesions noted. LABS Laboratory Results - last 24 hr 06/08/19 06/08/19 06/08/19 07:37 07:37 07:37 WBC 6.8 RBC 3.63 Hgb 8.9 L Hct 27.7 L MCV 76.3 L MCH 24.4 L MCHC 32.0 RDW 21.6 H Plt Count 211 D MPV 8.5 Absolute Neuts (auto) 4.6 Neutrophils % 67.0 Lymphocytes % 22.3 Monocytes % 6.8 Eosinophils % 3.2 Basophils % 0.7 Nucleated RBC % 0 Sodium 140 Potassium 4.2 Chloride 106 Carbon Dioxide 30 Anion Gap 5 L BUN 14.0 Creatinine 0.8 Est GFR (CKD-EPI)AfAm 87.80 Est GFR (CKD-EPI)NonAf 75.75 POC Glucometer Random Glucose 199 H Hemoglobin A1c % 9.4 H Calcium 9.0 06/08/19 06/08/19 06/08/19 11:48 17:40 22:41 WBC RBC Hgb Hct MCV MCH MCHC RDW Plt Count MPV Absolute Neuts (auto) Neutrophils % Lymphocytes % Monocytes % Eosinophils % Basophils % Nucleated RBC % Sodium Potassium Chloride Carbon Dioxide Anion Gap BUN Creatinine Est GFR (CKD-EPI)AfAm Est GFR (CKD-EPI)NonAf POC Glucometer 248 302 214 Random Glucose Hemoglobin A1c % Calcium 06/09/19 06:52 WBC RBC Hgb Hct MCV MCH MCHC RDW Plt Count MPV Absolute Neuts (auto) Neutrophils % Lymphocytes % Monocytes % Eosinophils % Basophils % Nucleated RBC % Sodium Potassium Chloride Carbon Dioxide Anion Gap BUN Creatinine Est GFR (CKD-EPI)AfAm Est GFR (CKD-EPI)NonAf POC Glucometer 249 Random Glucose Hemoglobin A1c % Calcium Active Medications Acetaminophen (Tylenol -) 325 mg PO Q6H PRN PRN Reason: PAIN SCALE 1-5 Last Admin: 06/08/19 17:48 Dose: 325 mg Amlodipine Besylate (Norvasc -) 10 mg PO DAILY [facility] Last Admin: 06/08/19 11:21 Dose: 10 mg Artificial Tears (Artificial Tears) 1 drop OU BID [facility] Last Admin: 06/08/19 22:44 Dose: 1 drop Aspirin (Asa -) 81 mg PO DAILY [facility] Last Admin: 06/08/19 11:20 Dose: 81 mg Atorvastatin Calcium (Lipitor -) 80 mg PO HS [facility] Last Admin: 06/08/19 22:44 Dose: 80 mg Bacitracin (Bacitracin -) 1 applic TP DAILY [facility] Last Admin: 06/08/19 11:19 Dose: 1 applic Budesonide/Formoterol Fumarate (Symbicort 160/4.5mcg -) 2 puff IH BID [facility] Last Admin: 06/08/19 22:44 Dose: 2 puff Clopidogrel Bisulfate (Plavix -) 75 mg PO DAILY [facility] Last Admin: 06/08/19 11:21 Dose: 75 mg Famotidine (Pepcid -) 20 mg PO DAILY [facility] Last Admin: 06/08/19 11:20 Dose: 20 mg Fluoxetine HCl (Prozac -) 40 mg PO DAILY [facility] Last Admin: 06/08/19 11:22 Dose: 40 mg Hydralazine HCl (Apresoline -) 25 mg PO DAILY [facility] Last Admin: 06/08/19 11:21 Dose: 25 mg Insulin Aspart (Novolog Vial Sliding Scale -) 1 vial SQ TIDAC [facility]; Protocol Last Admin: 06/09/19 06:54 Dose: 4 units Insulin Detemir (Levemir Vial) 14 units SQ HS [facility] Lactic Acid (Lac-Hydrin 12) 1 applic TP DAILY [facility] Last Admin: 06/08/19 11:18 Dose: 1 applic Levetiracetam (Keppra -) 500 mg PO BID [facility] Last Admin: 06/08/19 22:44 Dose: 500 mg Metoprolol Succinate (Toprol Xl -) 25 mg PO DAILY [facility] Last Admin: 06/08/19 11:21 Dose: 25 mg Nortriptyline HCl (Pamelor -) 25 mg PO DAILY [facility] Last Admin: 06/08/19 13:01 Dose: 25 mg Oxycodone HCl (Roxicodone -) 5 mg PO Q6H PRN PRN Reason: PAIN SCALE 1-5 Last Admin: 06/08/19 17:47 Dose: 5 mg Potassium Chloride (K-Dur -) 20 meq PO DAILY [facility] Last Admin: 06/08/19 11:21 Dose: 20 meq Solifenacin (Vesicare -) 5 mg PO DAILY [facility] Last Admin: 06/08/19 11:22 Dose: 5 mg Tiotropium [place] (Spiriva Respimat) 2 puff IH DAILY [facility] Last Admin: 06/08/19 11:18 Dose: 2 puff HOSPITAL COURSE: Date of Admission:06/07/19 Date of Discharge: 06/09/19 Pt placed in observation on night of 06/07/19 due to recurrent falls and deconditioning. Organic medical causes were ruled out including orthostasis and it was deemed her recurrent falls are secondary to her deconditioning alongside of decreased proprioception from diabetic neuropathy. Pt was evaluated by physical therapy who recommended physical rehabilitation at a facility. Due her hyperglycemia seen at 200 this morning, pt had Levemir increased to 14U HS. No other changes to her medications were made. Pt is being discharged in stable condition to rehabilitation center with instructions to follow-up with her primary care provider below. Pt will need repeat A1c in 3 months to assess her diabetic control. Minutes to complete discharge: 33 Discharge Summary Problems reviewed: Yes Reason For Visit: DIZZINESS Current Active Problems COPD (chronic obstructive pulmonary disease) (Acute) CVA (cerebral vascular accident) (Acute) Chronic pain (Acute) Coronary artery disease (Acute) Dizziness (Acute) Frequent falls (Acute) Hypertension (Acute) Morbid obesity with BMI of 45.0-49.9, adult (Acute) Condition: Stable - Instructions Diet, Activity, Other Instructions: you were seen here due to your recurrent falls. You were noted to be deconditioned and need physical rehabilitation before going back to your facility. MEDICATIONS: Please stay hydrated as this can contribute to weakness You will be given Levemir 14units nightly to take as your glucose has been elevated. Please take the rest of your medications as you have been below Follow-up: Please follow-up with Dr. Ledesma in 3-5 days to update them on your care. The phone number has been provided for your in the packet. Referrals: Beni Ledesma MD [Primary Care Provider] - Disposition: SNF FACILITY - Home Medications Comprehensive Discharge Medication List: Ambulatory Orders Atorvastatin Ca [Lipitor] 80 mg PO HS 06/01/19 Metformin HCl [Glucophage] 1,000 mg PO BID 06/01/19 Nortriptyline HCl [Pamelor -] 25 mg PO DAILY 06/01/19 Oxybutynin Chloride [Oxybutynin Chloride ER] 5 mg PO DAILY 06/01/19 Potassium Chloride 20 meq PO DAILY 06/01/19 Amlodipine Besylate [Norvasc -] 10 mg PO DAILY 06/02/19 Ammonium Lactate Cream [Lac-Hydrin 12% Cream -] 1 applic ID DAILY 06/02/19 Aspirin 81 mg PO DAILY 06/02/19 Bacitracin - [Bacitracin Topical Ointment -] 1 applic ID DAILY 06/02/19 Clopidogrel Bisulfate [Clopidogrel] 75 mg PO DAILY 06/02/19 Clotrimazole [Lotrimin -] 1 applic ID BID 06/02/19 Famotidine 20 mg PO DAILY 06/02/19 Fluoxetine HCl [Prozac] 40 mg PO DAILY 06/02/19 Hydralazine HCl 25 mg PO DAILY 06/02/19 Metoprolol Succinate [Toprol Xl] 25 mg PO DAILY 06/02/19 Mupirocin Ointment [Bactroban 2% Ointment -] 1 applic DAILY 06/02/19 Polyvinyl Alcohol [Artificial Tears] 1 drop OU BID 06/02/19 Umeclidinium [place] [Incruse Ellipta] 1 puff IH DAILY 06/02/19 levETIRAcetam [Keppra -] 500 mg PO BID #60 tablet 06/05/19 Hydrochlorothiazide [Hctz -] 25 mg PO DAILY 11/05/19 Oxycodone HCl/Acetaminophen [Percocet 5-325 mg Tablet] 1 tab PO TID PRN This patient is new to me today: No Emergency Visit: Yes ED Registration Date: 06/07/19 Care time: The patient presented to the Emergency Department on the above date and was hospitalized for further evaluation of their emergent condition. Critical Care patient: No - Discharge Referral Referred to [facility] No ATTENDING PHYSICIAN STATEMENT I saw and evaluated the patient. I reviewed the resident's note and discussed the case with the resident. I agree with the resident's findings and plan as documented. SUBJECTIVE: OBJECTIVE: ASSESSMENT AND PLAN:
[2019-06-09] MEDS ORDERED: INSULIN (LEVEMIR) 100 UNITS/ML UNITS SQ SCH (07:56)
--- NOTE | 2019-06-09 09:02 | PN ---
Teaching Attending Note Name of Resident: Malik Bush ATTENDING PHYSICIAN STATEMENT I saw and evaluated the patient. I reviewed the resident's note and discussed the case with the resident. I agree with the resident's findings and plan as documented. SUBJECTIVE: No new complaint OBJECTIVE: Vital Signs Temperature 97.6 F 06/09/19 06:00 Pulse Rate 88 06/09/19 06:00 Respiratory Rate 20 06/09/19 06:00 Blood Pressure 147/72 06/09/19 06:00 O2 Sat by Pulse Oximetry (%) 97 06/08/19 21:00 General: Elderly woman, morbidly obese, comfortable, not in distress HEENT; mucous membranes moist, no anemia, no jaundice, PERRLA, no nystagmus Neck: No JVD, supple, no bruit, thyroid palpably normal, normal carotid pulsations. Chest: Nontender, clear to auscultation bilaterally CVS: S1-S2 regular/irregular no murmur/gallop/rub Abdomen: Nondistended, soft, bowel sounds present. 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: AO X3 , no gross motor sensory deficit CBC, BMP 06/08/19 07:37 06/08/19 07:37 Active Medications Acetaminophen (Tylenol -) 325 mg PO Q6H PRN PRN Reason: PAIN SCALE 1-5 Last Admin: 06/08/19 17:48 Dose: 325 mg Amlodipine Besylate (Norvasc -) 10 mg PO DAILY [facility] Last Admin: 06/08/19 11:21 Dose: 10 mg Artificial Tears (Artificial Tears) 1 drop OU BID [facility] Last Admin: 06/08/19 22:44 Dose: 1 drop Aspirin (Asa -) 81 mg PO DAILY [facility] Last Admin: 06/08/19 11:20 Dose: 81 mg Atorvastatin Calcium (Lipitor -) 80 mg PO HS [facility] Last Admin: 06/08/19 22:44 Dose: 80 mg Bacitracin (Bacitracin -) 1 applic TP DAILY [facility] Last Admin: 06/08/19 11:19 Dose: 1 applic Budesonide/Formoterol Fumarate (Symbicort 160/4.5mcg -) 2 puff IH BID [facility] Last Admin: 06/08/19 22:44 Dose: 2 puff Clopidogrel Bisulfate (Plavix -) 75 mg PO DAILY [facility] Last Admin: 06/08/19 11:21 Dose: 75 mg Famotidine (Pepcid -) 20 mg PO DAILY [facility] Last Admin: 06/08/19 11:20 Dose: 20 mg Fluoxetine HCl (Prozac -) 40 mg PO DAILY [facility] Last Admin: 06/08/19 11:22 Dose: 40 mg Hydralazine HCl (Apresoline -) 25 mg PO DAILY [facility] Last Admin: 06/08/19 11:21 Dose: 25 mg Insulin Aspart (Novolog Vial Sliding Scale -) 1 vial SQ TIDAC [facility]; Protocol Last Admin: 06/09/19 06:54 Dose: 4 units Insulin Detemir (Levemir Vial) 14 units SQ HS [facility] Lactic Acid (Lac-Hydrin 12) 1 applic TP DAILY [facility] Last Admin: 06/08/19 11:18 Dose: 1 applic Levetiracetam (Keppra -) 500 mg PO BID [facility] Last Admin: 06/08/19 22:44 Dose: 500 mg Metoprolol Succinate (Toprol Xl -) 25 mg PO DAILY [facility] Last Admin: 06/08/19 11:21 Dose: 25 mg Nortriptyline HCl (Pamelor -) 25 mg PO DAILY [facility] Last Admin: 06/08/19 13:01 Dose: 25 mg Oxycodone HCl (Roxicodone -) 5 mg PO Q6H PRN PRN Reason: PAIN SCALE 1-5 Last Admin: 06/08/19 17:47 Dose: 5 mg Potassium Chloride (K-Dur -) 20 meq PO DAILY [facility] Last Admin: 06/08/19 11:21 Dose: 20 meq Solifenacin (Vesicare -) 5 mg PO DAILY [facility] Last Admin: 06/08/19 11:22 Dose: 5 mg Tiotropium [place] (Spiriva Respimat) 2 puff IH DAILY [facility] Last Admin: 06/08/19 11:18 Dose: 2 puff ASSESSMENT AND PLAN:68 old female known to the service since previous hospitalization, a resident of [facility], recently discharged from the hospital after evaluation of back pain, also has a history of CVA no residual weakness on aspirin and Plavix, diastolic heart failure, COPD /asthma, poorly controlled type 2 diabetes mellitus hypertension, morbid obesity comfortably complained of dizziness when changing of posture and 10 mg denies any chest pain shortness of breath or palpitation., At the time of examination patient is at baseline. Impression: Gait instability multifactorial needs optimization of medication and inpatient rehab. Problem List - Problems (1) Dizziness Assessment/Plan: Most likely due to polypharmacy body habitus and diabetic neuropathy, needs orthostatic blood pressure negative, postural training, PT evaluation, patient denies any vertigo, focal weakness, no speech changes, neuro exam essentially at baseline, patient can get benefit of inpatient rehabilitation. Code(s): R42 - DIZZINESS AND GIDDINESS (2) Type 2 diabetes mellitus with diabetic autonomic (poly)neuropathy Assessment/Plan: Fingersticks have been mostly in 200s, and fingersticks 249, will increase Levemir dose to 14units and metformin on discharge.. Code(s): E11.43 - TYPE 2 DIABETES W DIABETIC AUTONOMIC (POLY)NEUROPATHY Qualifiers: Diabetes mellitus meterman insulin use: unspecified meterman insulin use status Qualified Code(s): E11.43 - Type 2 diabetes mellitus with diabetic autonomic (poly)neuropathy (3) Frequent falls Assessment/Plan: History of falls she neuropathy, multiple medication polypharmacy, PT evaluation needs inpatient rehabilitation. Code(s): R29.6 - REPEATED FALLS (4) Hypertension Assessment/Plan: Well-controlled continue all home medications. Code(s): I10 - ESSENTIAL (PRIMARY) HYPERTENSION (5) Coronary artery disease Assessment/Plan: History of any STEMI on beta-blockers, aspirin Plavix and he stated. Code(s): I25.10 - ATHSCL HEART DISEASE OF [place] CORONARY ARTERY W/O ANG PCTRS (6) Seizure Assessment/Plan: History of seizures on Keppra continue same dose. Code(s): R56.9 - UNSPECIFIED CONVULSIONS (7) Chronic pain Assessment/Plan: Home medications will optimize as needed Code(s): G89.29 - OTHER CHRONIC PAIN (8) CHF (congestive heart failure) Assessment/Plan: History of diastolic heart failure at present compensated continue home medications. Code(s): I50.9 - HEART FAILURE, UNSPECIFIED Qualifiers: Heart failure type: diastolic (9) CVA (cerebral vascular accident) Assessment/Plan: History of fall CVA continue home medications. Code(s): I63.9 - CEREBRAL INFARCTION, UNSPECIFIED (10) COPD (chronic obstructive pulmonary disease) Assessment/Plan: Stable continue home medication Code(s): J44.9 - CHRONIC OBSTRUCTIVE PULMONARY DISEASE, UNSPECIFIED (11) Morbid obesity with BMI of 45.0-49.9, adult Assessment/Plan: Nutrition consult as an outpatient Code(s): E66.01 - MORBID (SEVERE) OBESITY DUE TO EXCESS CALORIES; Z68.42 - BODY MASS INDEX (BMI) 45.0-49.9, ADULT
[2019-06-09] MEDS ORDERED: PT OWN MED DRAWER 7, Y5N ONE (10:12)
[2019-06-09] MEDS: BACITRACIN 15 GM TUBE TOPICAL OINTMENT TP SCH (10:26)
[2019-06-09] MEDS: AMMONIUM LACTATE 12% LOTION 225 GM BOTTLE TP SCH (10:29)
[2019-06-09] MEDS: ARTIFICIAL TEARS (POLYVINYL ALCOHOL) OPTH DROPS OU SCH (10:29)
[2019-06-09] MEDS: levETIRAcetam 500 MG TABLET (FP) PO SCH (10:32)
[2019-06-09] MEDS: hydrALAZINE HCL 25 MG TABLET (FP) PO SCH (10:33)
[2019-06-09] MEDS: amLODIPine BESYLATE 10 MG TABLET (FP) PO SCH (10:33)
[2019-06-09] MEDS: FAMOTIDINE 20 MG TABLET PO SCH (10:33)
[2019-06-09] MEDS: CLOPIDOGREL BISULFATE 75 MG TABLET (FP) PO SCH (10:33)
[2019-06-09] MEDS: POTASSIUM CHLORIDE TABS 20 MEQ TABLET.ER (FP) PO SCH (10:33)
[2019-06-09] MEDS: metoPROLOL SUCCINATE 25 MG TAB.SR.24H (FP) PO SCH (10:33)
[2019-06-09] MEDS: ASPIRIN 81 MG CHEWABLE TABLETS PO SCH (10:33)
[2019-06-09] MEDS: NORTRIPTYLINE HCL 25 MG CAPSULE PO SCH (10:34)
[2019-06-09] MEDS: FLUoxetine HCL 20 MG CAPSULE (FP) PO SCH (10:34)
[2019-06-09] MEDS: SOLIFENACIN SUCCINATE 5 MG TAB PO SCH (10:35)
[2019-06-09] MEDS: BUDESONIDE/FORMETEROL FUMARATE 160/4.5 mcg INHALER IH SCH (10:35)
[2019-06-09] MEDS: TIOTROPIUM BROMIDE 2.5 MCG (SPIRIVA) RESPIMAT INHALER IH SCH (10:38)
[2019-06-09] MEDS ORDERED: INSULIN (NOVOLOG) ASPART 100 UNITS/ML 10ML VIAL ONE (15:12)
[2019-06-09 15:19] VITALS: BP 127/77; PULSE 88; TEMP 97.6
== END 2019-06-09 15:23 ==
LOC: JER 17:46 → JERBED 18:50 → INTOOBSV 18:50 → J7W 20:54
PROVIDERS: ADMIT Internal Medicine; ATTEND Internal Medicine
PROC: 3E013VG Introduction of Insulin into Subcutaneous Tissue, Percutaneous Approach (ICD-10-PCS; principal; 2019-06-07)
PROC: 3E0F7GC Introduction of Other Therapeutic Substance into Respiratory Tract, Via Natural or Artificial Opening (ICD-10-PCS; 2019-06-07)
DX: R42 Dizziness and giddiness (principal); I11.0 Hypertensive heart disease with heart failure; E78.5 Hyperlipidemia, unspecified; I25.2 Old myocardial infarction; I25.10 Atherosclerotic heart disease of native coronary artery without angina pectoris; I50.9 Heart failure, unspecified; K21.9 Gastro-esophageal reflux disease without esophagitis; J44.9 Chronic obstructive pulmonary disease, unspecified; G40.909 Epilepsy, unspecified, not intractable, without status epilepticus; E11.43 Type 2 diabetes mellitus with diabetic autonomic (poly)neuropathy; G89.29 Other chronic pain; E66.01 Morbid (severe) obesity due to excess calories; Z68.42 Body mass index [BMI] 45.0-49.9, adult; Z95.5 Presence of coronary angioplasty implant and graft; Z79.4 Long term (current) use of insulin; Z79.82 Long term (current) use of aspirin; Z79.84 Long term (current) use of oral hypoglycemic drugs; Z86.73 Personal history of transient ischemic attack (TIA), and cerebral infarction without residual deficits; Z88.8 Allergy status to other drugs, medicaments and biological substances; Z91.018 Allergy to other foods
CPT/HCPCS: 36415; 70450-TC; 71045-TC-FY; 73523-TC-FY; 73560-TC-RT-FY; 80048; 80053; 81003; 82550; 82728; 82962; 83036; 83540; 83550; 83735; 83880; 84100; 84484; 85025; 85044; 85610; 85730; 87086; 87186; 93005; 93010; 93970-TC; 94640; 96372; 96374; 96375; 97116-GP; 97161-GP; 99282-25; 99284-25; 99285-25; G0378; J0131; J1644